=== PATIENT | male | born 1945 | race Caucasian/White ===

== ENCOUNTER 2016-08-23 13:00 | Inpatient (IN) | payer OTHER, BC ==
[2016-08-23] VITALS (15 sets, daily range): BP systolic 123–163; BP diastolic 87–96; PULSE 64–80; TEMP 36.6; O2SAT 92–99; Ht 180.3 cm; Wt 88.0 kg
[~2016-08-23] VITALS: Ht 180.3 cm; Wt 88.0 kg
[2016-08-23 13:29] LABS: BASO % 0.1 %; BASO ABS # 0.01 K/uL (0-0.2); COMPLETE YES; EOS % 0.6 %; IG% 0.1 %; LYMPH % 13.2 %; LYMPH ABS # 0.93 K/uL (1.2-3.4); MEAN CELL VOLUME 88.9 fL (80-100); MEAN CORPUSCULAR HEMOGLOBIN 30.3 pg (25-34); MEAN CORPUSCULAR HGB CONC 34.1 g/dl (32-36); MEAN PLATELET VOLUME 9.7 fL (7.4-10.4); MONO % 5.8 %; NEUT % 80.2 %; PLATELET COUNT 222 K/uL (130-400); RED BLOOD COUNT 4.95 M/uL (4.7-6.1); WHITE BLOOD COUNT 7.02 K/uL (4.8-10.8)
[2016-08-23 13:40] LABS: PROTHROMBIN TIME (PATIENT) 10.3 SECONDS (9.0-12.0)
[2016-08-23 13:49] LABS: ALT/SGPT 33 U/L (12-78); AST/SGOT 18 U/L (15-37); BLOOD UREA NITROGEN 19 mg/dl (7-18); BUN/CREATININE RATIO 16.9 (10-20); CALCIUM 8.3 mg/dl (8.5-10.1); CARBON DIOXIDE 28 mmol/L (21-32); CHLORIDE 106 mmol/L (98-107); GLUCOSE 113 mg/dl (70-99); POTASSIUM 4.2 mmol/L (3.5-5.1); SODIUM 140 mmol/L (136-145)
[2016-08-23 13:55] LABS: ALKALINE PHOSPHATASE 78 U/L (45-117); CKMB/CK RATIO 2.4 (0-3.0)
--- NOTE | 2016-08-23 14:08 | DIAGNOSTIC IMAGING REPORT ---
SINGLE VIEW CHEST CLINICAL HISTORY: Fever. Sepsis. FINDINGS: An AP, portable, upright chest radiograph is compared to study dated 05/27/2007. The examination is mildly degraded by portable technique and patient rotation. The cardiomediastinal silhouette is unremarkable. Chronic interstitial thickening is unchanged. The lungs and pleural spaces are clear. No pneumothorax is seen. The skeletal structures are osteopenic. Chronic posttraumatic deformity is noted in the distal right clavicle. IMPRESSION: No acute cardiopulmonary abnormality. Electronically signed by: Conrad Bucio M.D. 08/23/2016 2:06 PM
[2016-08-23] MEDS ORDERED: EZET10TA41 PO (14:11)
[2016-08-23] MEDS ORDERED: LISI-729 PO (14:11)
[2016-08-23] MEDS ORDERED: NITROGLYCERIN 0.4 MG SL PER TAB CHARGE SL PRN ×2 (15:00→16:30)
--- NOTE | 2016-08-23 15:05 | EMERGENCY ROOM VISIT NOTE ---
History Report prepared by Sudarshan: Alanis Riddle Under the Supervision of: Dr. Royer Urbina D.O. First contact with patient: 13:14 Chief Complaint: CHEST PAIN Stated Complaint: CHEST PAIN TIMES 2 DAYS Nursing Triage Summary: pt to [facility] ED with c/o chest pain with standing and getting sweaty since wednesday History of Present Illness The patient is a 70 year old male who presents to the Emergency Room with complaints of intermittent chest pain that started 2 days ago. He describes the pain as pressure. The pain is worse with standing and walking around but relieved with lying down. Whenever he gets the pain, he also experiences diaphoresis. He denies nausea and shortness of breath. The patient took one aspirin this morning and a second one later on when the pain came back. The aspirin seemed to somewhat relieve his pain. The patient experienced the pain 2 days ago but did not experience any pain yesterday. He states that the pain came back today after he woke up and "did some stuff." The patient denies any heart history but states that he has a history of hypertension and hyperlipidemia. Source of History: patient Onset: 2 days ago Position: chest Quality: pressure Timing: intermittent Modifying Factors (Worsening): other (standing, walking around) Modifying Factors (Relieving): rest (lying down) Associated Symptoms: + diaphoresis, No SOB, No nausea Review of Systems See HPI for pertinent positives & negatives. A total of 10 systems reviewed and were otherwise negative. Past Medical & Surgical Medical Problems: (1) Hyperlipidemia (2) Hypertension Family History Diabetes mellitus Social History Housing Status: lives alone Current/Historical Medications Scheduled Ezetimibe/Simvastatin (Vytorin 10MG/40MG), 1 TAB PO DAILY Lisinopril (Prinivil), 1 TAB PO DAILY Allergies Coded Allergies: No Known Allergies (Unverified , 08/23/16) Physical Exam Vital Signs Date Time Temp Pulse Resp B/P Pulse Ox O2 Delivery O2 Flow Rate FiO2 08/23/16 14:52 82 18 116/80 100 Room Air 08/23/16 14:07 75 08/23/16 14:00 98 Room Air 08/23/16 13:06 36.6 86 18 155/86 100 Physical Exam CONSTITUTIONAL/VITAL SIGNS: Reviewed / noted above. GENERAL: Non-toxic in appearance. INTEGUMENTARY: Warm, dry, and [place]. HEAD: Normocephalic. EYES: without scleral icterus or trauma. ENT/OROPHARYNX: clear and moist. LYMPHADENOPATHY/NECK: Is supple without lymphadenopathy or meningismus. RESPIRATORY: Lungs clear and equal. CARDIOVASCULAR: Regular rate and rhythm. GI/ABDOMEN: Soft and nontender. No organomegaly or pulsatile mass. No rebound or guarding. Normal bowel sounds. EXTREMITIES: Warm and well perfused. BACK: No CVA tenderness. NEUROLOGICAL: Intact without focal deficits. PSYCHIATRIC: normal affect. MUSCULOSKELETAL: Normally developed with good muscle tone. Medical Decision & Procedures ER Provider Diagnostic Interpretation: X ray results and stated below per my interpretation and radiology interpretation. SINGLE VIEW CHEST CLINICAL HISTORY: Fever. Sepsis. FINDINGS: An AP, portable, upright chest radiograph is compared to study dated 05/27/2007. The examination is mildly degraded by portable technique and patient rotation. The cardiomediastinal silhouette is unremarkable. Chronic interstitial thickening is unchanged. The lungs and pleural spaces are clear. No pneumothorax is seen. The skeletal structures are osteopenic. Chronic posttraumatic deformity is noted in the distal right clavicle. IMPRESSION: No acute cardiopulmonary abnormality. Electronically signed by: Conrad Bucio M.D. 08/23/2016 2:06 PM Laboratory Results 08/23/16 13:19 Red Blood Count 4.95, Mean Corpuscular Volume 88.9, Mean Corpuscular Hemoglobin 30.3, Mean Corpuscular Hemoglobin Concent 34.1, Mean Platelet Volume 9.7, Neutrophils (%) (Auto) 80.2, Lymphocytes (%) (Auto) 13.2, Monocytes (%) (Auto) 5.8, Eosinophils (%) (Auto) 0.6, Basophils (%) (Auto) 0.1, Neutrophils # (Auto) 5.62, Lymphocytes # (Auto) 0.93, Monocytes # (Auto) 0.41, Eosinophils # (Auto) 0.04, Basophils # (Auto) 0.01 08/23/16 13:19 Test 08/23/16 13:19 White Blood Count 7.02 K/uL (4.8-10.8) Red Blood Count 4.95 M/uL (4.7-6.1) Hemoglobin 15.0 g/dL (14.0-18.0) Hematocrit 44.0 % (42-52) Mean Corpuscular Volume 88.9 fL (80-100) Mean Corpuscular Hemoglobin 30.3 pg (25-34) Mean Corpuscular Hemoglobin Concent 34.1 g/dl (32-36) Platelet Count 222 K/uL (130-400) Mean Platelet Volume 9.7 fL (7.4-10.4) Neutrophils (%) (Auto) 80.2 % Lymphocytes (%) (Auto) 13.2 % Monocytes (%) (Auto) 5.8 % Eosinophils (%) (Auto) 0.6 % Basophils (%) (Auto) 0.1 % Neutrophils # (Auto) 5.62 K/uL (1.4-6.5) Lymphocytes # (Auto) 0.93 K/uL (1.2-3.4) Monocytes # (Auto) 0.41 K/uL (0.11-0.59) Eosinophils # (Auto) 0.04 K/uL (0-0.5) Basophils # (Auto) 0.01 K/uL (0-0.2) RDW Standard Deviation 42.9 fL (36.4-46.3) RDW Coefficient of Variation 13.1 % (11.5-14.5) Immature Granulocyte % (Auto) 0.1 % Immature Granulocyte # (Auto) 0.01 K/uL (0.00-0.02) Prothrombin Time 10.3 SECONDS (9.0-12.0) Prothromb Time International Ratio 1.0 (0.9-1.1) Activated Partial Thromboplast Time 26.1 SECONDS (21.0-31.0) Partial Thromboplastin Ratio 1.0 Anion Gap 6.0 mmol/L (3-11) Est Creatinine Clear Calc Drug Dose 66.5 ml/min Estimated GFR () 78.4 Estimated GFR (Non- 67.7 BUN/Creatinine Ratio 16.9 (10-20) Calcium Level 8.3 mg/dl (8.5-10.1) Total Bilirubin 0.3 mg/dl (0.2-1) Direct Bilirubin < 0.1 mg/dl (0-0.2) Aspartate Amino Transf (AST/SGOT) 18 U/L (15-37) Alanine Aminotransferase (ALT/SGPT) 33 U/L (12-78) Alkaline Phosphatase 78 U/L (45-117) Total Creatine Kinase 177 U/L (39-308) Creatine Kinase MB 4.3 ng/ml (0.5-3.6) Creatine Kinase MB Ratio 2.4 (0-3.0) Troponin I 0.016 ng/ml (0-0.045) Total Protein 6.9 gm/dl (6.4-8.2) Albumin 3.7 gm/dl (3.4-5.0) Lipase 134 U/L (73-393) Laboratory results as stated above per my review. Medications Administered Medications (Trade) Dose Ordered Sig/May Route Start Time Stop Time Status Last Admin Dose Admin Nitroglycerin (Nitrostat Tab) 0.4 mg Q5M PRN SL 08/23/16 15:00 09/22/16 14:59 08/23/16 14:55 0.4 MG ECG Indication: chest pain Rate (beats per minute): 78 Rhythm: normal sinus Findings: no acute ischemic change, no ectopy Change: Second EKG on 08/23/2016 showed sinus rhythm, rate of 80, ST elevations in inferior leads, ST depressions in lateral leads ED Course 1314: Previous medical records were reviewed. The patient was evaluated in room B11. A complete history and physical examination was performed. 1443: The nurse brought me a second EKG for the patient because he was experiencing chest pain. 1444: A heart alert was called based on the patient's repeat EKG. 1445: I updated the patient on the results of his repeat EKG. He now rates his pain as a 5-6/10 in severity. 1453: Dr. Santillan - Cardiology is at bedside. He discussed the risks and benefits of a heart catheterization with the patient. The patient is in agreement and will go to the dental laboratory assistant. 1500: Ordered Nitroglycerin 0.4 mg SL Medical Decision The differentials that were considered include acute myocardial infarction, acute coronary syndrome, myocarditis, pericarditis, pericardial effusions / tamponad, esophageal perforation, thoracic aortic dissection, pulmonary embolism , pneumonia, pneumothorax, pancreatitis, shingles, acute cholecystitis, perforated abdominal viscus. This is a 70-year-old male who presents to the ED with a chief complaint of intermittent chest pain or the patient states that he had some chest pressure on Wednesday and then it got better. It occurred with exertion and better at rest. He states that he did not have any symptoms yesterday but today he developed pressure in his chest with walking around. He had positive diaphoresis but no shortness of breath or nausea or vomiting. The patient's vital signs here are normal. During his initial evaluation, he did not have any chest discomfort. While he was here, he did develop chest discomfort. His initial EKG showed a normal sinus rhythm at a rate of 78. His second EKG revealed changes suggestive of an acute inferior wall UT while he was having pain. A chest x-ray did not show any acute disease. CBC and chemistry panel was unremarkable. Troponin was negative. Upon second EKG that showed inferior wall UT, heart alert was called. Patient was taken to the cardiac catheterization laboratory for cardiac catheterization. I spoke with Dr. Santillan about the patient. Impression Primary Impression: STEMI (ST elevation myocardial infarction) Scribe Attestation The scribe's documentation has been prepared under my direction and personally reviewed by me in its entirety. I confirm that the note above accurately reflects all work, treatment, procedures, and medical decision making performed by me. Departure Information Dispostion Being Evaluated By Hospitalist Yoel Ching M.D. (PCP) Patient Instructions A Signature Page, My [facility]
[2016-08-23] MEDS ORDERED: FENTANYL CITRATE INJ 50 MCG/1 ML 2 ML VIAL ONE (15:11)
[2016-08-23] MEDS ORDERED: HEPARIN SOD (PORCINE) 1000 UNIT/ML 10 ML VIAL ONE (15:11)
[2016-08-23] MEDS ORDERED: MIDAZOLAM HCL 1 MG/ML 2ML VIAL ONE (15:11)
[2016-08-23] MEDS ORDERED: NiCARDipine HCL INJ 2.5 MG/ML 10 ML AMP ONE (15:11)
[2016-08-23] MEDS ORDERED: NITROGLYCERIN/D5W 100MCG/ML 20ML SYR ONE (15:13)
--- NOTE | 2016-08-23 15:23 | Procedure Note ---
Pre-Mod Sedation Assessment General Date of Moderate Sedation: Aug 23, 2016. Vital Signs: Vital Signs Past 12 Hours Date Time Temp Pulse Resp B/P Pulse Ox O2 Delivery O2 Flow Rate FiO2 08/23/16 14:52 82 18 116/80 100 Room Air 08/23/16 14:07 75 08/23/16 14:00 98 Room Air 08/23/16 13:06 36.6 86 18 155/86 100 Review Cardiovascular: regular rate, rhythm, no edema, no gallop, no JVD, no murmur, normal peripheral pulses Abdomen: normal bowel sounds, non tender, soft, no organomegaly, no pulsatile mass Lungs: lungs clear Pre-Sedation Airway Assessment Oral Cavity: Dental Abnormalities Able to Visualize Vocal Cords: No Short Thick Neck: No Hx of Sleep Apnea: No Smoking Status: Former Smoker Mallampati Classification: Class III Procedure Planning Contraindications-for Mod Sed: None Yes Notes The planned sedation has been discussed with the patient and consent obtained. I have identified the patient, determined the appropriateness of sedation and have assessed the patient immediately prior to the procedure. All medicine(s) and interventions are by my order.
[2016-08-23] MEDS ORDERED: EPTIFIBATIDE 2 MG/ML 10 ML VIAL IV ONE (16:09)
[2016-08-23] MEDS ORDERED: CLOPIDOGREL BISULFATE 300 MG TAB PO ONE (16:09)
[2016-08-23] MEDS ORDERED: EPTIFIBATIDE 0.75 MG/ML 75MG VIAL IV ONE (16:10)
[2016-08-23] MEDS ORDERED: ATROPINE SULFATE 0.1 MG/ML 5ML SYR IV PRN (16:30)
[2016-08-23] MEDS ORDERED: ONDANSETRON INJ 2 MG/ML 2 ML VIAL IV PRN (16:30)
[2016-08-23] MEDS ORDERED: ALUMINUM/MAGNESIUM/SIMETH (MAALOX MAX) 30 ML UDC PO PRN (16:30)
[2016-08-23] MEDS ORDERED: EPTIFIBATIDE BOLUS / DRIP IV ONE (16:30)
[2016-08-23] MEDS ORDERED: MAGNESIUM HYDROXIDE SUSP 30 ML UDC PO PRN (16:30)
[2016-08-23] MEDS ORDERED: ACETAMINOPHEN 325 MG TAB PO PRN (16:30)
[2016-08-23] MEDS ORDERED: ZOLPIDEM TARTRATE 5 MG TAB PO PRN (16:30)
[2016-08-23] MEDS ORDERED: LORAZEPAM INJ 0.5 MG in SYRINGE 0 ML IV PRN (16:30)
--- NOTE | 2016-08-23 16:45 | Procedure Note ---
Post-Mod Sedation Assessment General Date of Moderate Sedation Aug 23, 2016. Vital Signs: Vital Signs Past 12 Hours Date Time Temp Pulse Resp B/P Pulse Ox O2 Delivery O2 Flow Rate FiO2 08/23/16 16:25 69 16 116/82 98 Room Air 08/23/16 16:15 72 16 119/76 98 Room Air 08/23/16 14:59 76 18 125/81 98 Nasal Cannula 2.0 08/23/16 14:52 82 18 116/80 100 Room Air 08/23/16 14:07 75 08/23/16 14:00 98 Room Air 08/23/16 13:06 36.6 86 18 155/86 100 Review - Discharge Criteria Vital Signs Stable: Yes Alert/Oriented/Conversant: Yes Returned to Baseline Mental St: Yes Nausea Absent/Minimal: Yes Pain/Discomfort/Absent/Minimal: Yes Normal/Baseline Respirations: No Active Bleeding?: No Pt Received D/C Instructions: N/A Prescriptions Given: None Specific Proced. D/C Criteria Distal Pulses Present (Cardiac: Yes Groin site assessed-Card Cath: N/A Voided Prior To Discharge: N/A Discharged Patients Adult Escort/Transportation: N/A
--- NOTE | 2016-08-23 17:19 | [facility] Post Operative Brief Note ---
Preliminary Procedure Note Procedure Date Aug 23, 2016. Pre-Procedure Diagnosis STEMI AUC Score 9 Post-Procedure Diagnosis Severe CAD, Successful PCI, Normal LV Systolic Function, Elevated Intracardiac Pressures Procedure(s) Performed Coronary Angiography, Left Heart Cath, LV Angiography, PTCA, Drug Eluting Stent [employer] Dr. 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 Preliminary report: Co dominant circulation. Sub total distal L Cx stenosis prior to origin of three small caliber left PL branches. BLAYNE 3 flow. Mild CAD of RCA and LAD. PTCA( 2.5 X12 mm balloon) and then CASSANDRA ( Medtronic Resolute 2.5 X 14 mm CASSANDRA deployed at rated burst pressure).After PCI, BLAYNE 3 flow. No dissection,thrombus,perforation,or distal embolic event. No cardiac,coronary,or vascular complications. Hemodynamically stable. No arrhythmias. Plan: ICU. IV Integrilin for 12 hrs. Clopidogrel 600 mg given in lab post PCI. ASA,clopidogrel X 1 year. ASA indefinitely. Continue lisinopril. Switch statin to atorvastatin. Start metoprolol. Serial cardiac enzymes,ECG, CBC,PRP. Check lipid profile,direct LDL, Hgb A1C,echocardiogram. Refer to cardiac rehab. Recommendations Medical therapy and/or Counseling, PCI without planned CABG Specimens None Fluids (cc crystalloids) 100 Drains none Procedural Complication(s) None Disposition ICU
[2016-08-23] MEDS ORDERED: LORAZEPAM 2 MG/ML 1 ML VIAL IV PRN (17:45)
[2016-08-23 18:03] LABS: BASO % 0.1 %; BASO ABS # 0.01 K/uL (0-0.2); EOS % 0.4 %; HEMATOCRIT 44.6 % (42-52); IG% 0.2 %; LYMPH % 6.1 %; LYMPH ABS # 0.51 K/uL (1.2-3.4); MEAN CELL VOLUME 90.1 fL (80-100); MEAN CORPUSCULAR HEMOGLOBIN 29.9 pg (25-34); MEAN PLATELET VOLUME 9.6 fL (7.4-10.4); MONO % 5.4 %; NEUT % 87.8 %; PLATELET COUNT 185 K/uL (130-400); RED BLOOD COUNT 4.95 M/uL (4.7-6.1); WHITE BLOOD COUNT 8.39 K/uL (4.8-10.8)
[2016-08-23 18:04] LABS: COMPLETE YES; MEAN CORPUSCULAR HGB CONC 33.2 g/dl (32-36)
--- NOTE | 2016-08-23 18:15 | HISTORY & PHYSICAL EXAMINATION ---
DATE OF ADMISSION: 08/23/2016 ATTENDING AND ADMITTING PHYSICIAN: Marco Sanitllan Jr, MD PRIMARY PHYSICIAN: Yoel Mckeon MD HISTORY OF PRESENT ILLNESS: The patient is a 70-year-old white male. No history of heart disease. History of hypertension and dyslipidemia. He has never been hospitalized overnight. No other significant past medical history. On August 21, he had new onset of exertionally precipitated chest tightness. This could sometimes be associated with diaphoresis. The episodes occurred with exertion. Relief with rest within 5-10 minutes. He states the episodes occurred throughout the day. They would only occur with exertion. No rest pain. On August 22, he had no exertionally precipitated chest pain. No other anginal symptoms. No anginal equivalent symptoms. He felt that his exercise tolerance and stamina on August 22 were stable. On August 23, which is today, he had reccurrence of exertionally precipitated chest tightness with exertion, approximately at 10:00 a.m. Because the symptoms continued to occur, he came to the Emergency Department for evaluation. On arrival to the Emergency Department, he had no complaints of chest discomfort. His initial electrocardiogram revealed no diagnostic changes of myocardial ischemia or injury. At 2:41 p.m. after going to the restroom, another electrocardiogram was performed when he complained of chest discomfort. This revealed sinus rhythm, ST segment elevations in leads 2, 3 and aVF. Slight elevation in V6. Slight depression in 1 and aVL. Slight depression in V2. Because of these symptoms and electrocardiographic changes, a heart alert was called. The patient had taken aspirin prior to arrival to the Emergency Department. He had driven himself to the hospital. In the Emergency Department, he received sublingual nitroglycerin following episode of chest pain prompting the second EKG. After receiving sublingual nitroglycerin, his chest pain resolved within approximately 5 minutes. The patient was evaluated by me in the Emergency Department. At the time of my exam, his chest pain had resolved. There were no ST elevations on the monitored leads. He had no other cardiac complaints. Because of the unstable anginal symptoms and the ST segment elevations present on the second electrocardiogram, it was recommended the patient to undergo emergency cardiac catheterization with possible coronary intervention. The procedure, risk, benefits and alternatives were extensively discussed with him. He agreed to the procedure. He was then brought to the cardiac catheterization laboratory for cardiac catheterization. Cardiac catheterization was performed via a 6-Wolof sheath in the right radial artery. The catheterization revealed mild coronary calcifications. Codominant circulation. The right coronary artery with no significant obstructive disease. Proximal RCA with 10% stenosis. Mid RCA with 10-20% stenosis. Minimal luminal irregularities of the distal RCA. A small caliber posterior descending artery. The left main coronary artery was a large caliber vessel without obstructive disease. It gave rise to large caliber left descending and left circumflex coronary arteries. The distal left circumflex had a subtotal stenosis prior to the origin of 3 long small caliber posterolateral branches. The very proximal LAD gave rise to a long medium caliber first diagonal artery. The early mid LAD gave rise to a very small caliber second diagonal artery which had 70% ostial stenosis. 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 The mid LAD had diffuse mild atherosclerotic disease with 10-30% luminal diameter narrowing. On initial angiography, BLAYNE 3 flow was present into the distal left circumflex and its branches. PTCA was then performed to the distal left circumflex stenosis with a 2.5 x 12 mm balloon. There was marked improvement in the appearance of the distal left circumflex stenosis. BLAYNE 3 flow. A 2.5 x 14 mm Medtronic Resolute Integrity drug-eluting stent was then deployed in the distal left circumflex. It was deployed at the rated burst pressure. The residual stenosis was 0-10%. No evidence of dissection, thrombus, perforation or distal embolic event. BLAYNE 3 flow in the circumflex and its distal branches. The patient had no anginal complaints during or following coronary intervention. He was hemodynamically stable throughout the procedure. No arrhythmias. Hemostasis was obtained at the right radial catheterization site with application of a Terumo TR band. Prior to coronary intervention, he received intravenous heparin and Integrilin. A therapeutic activated clotting time was documented. PAST MEDICAL HISTORY: 1. Hypertension. 2. Dyslipidemia. 3. No prior overnight hospitalizations. PAST SURGICAL HISTORY: None. MEDICATIONS AT TIME OF ADMISSION: Vytorin and lisinopril. The patient did not know the doses. ALLERGIES: No known drug allergies. SOCIAL HISTORY: The patient is single. He lives alone. 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 He stopped smoking cigarettes in 1983. Occasional use of alcohol. He has no children. FAMILY HISTORY: Negative for premature coronary artery disease. His mother had valvular heart disease when she was elderly. REVIEW OF SYSTEMS: 1. As above. 2. No recent decrease in exercise tolerance. 3. No orthopnea, PND, palpitations, lightheadedness, syncope or peripheral edema. 4. No cerebrovascular or peripheral vascular complaints. 5. No bleeding complaints. 6. No pulmonary, GI or urinary complaints. 7. No HEENT complaints. PHYSICAL EXAMINATION: GENERAL: In the Emergency Department certainly being in no distress. VITAL SIGNS: Pulse 82, blood pressure 116/80, pulse oximetry on room air 100%. NECK: No jugular venous distention. Carotids 2/2 bilaterally. Normal upstroke. No bruits. LUNGS: Normal respiratory effort. Clear. No rales or wheezes. HEAD: Normal. EYES: Pupils are equal and round. Anicteric. Conjunctivae normal. No xanthelasma. HEART: PMI normal. No lifts or heaves. Regular rate and rhythm. S1, S2 normal. No S3 or S4. No murmur or rub. ABDOMEN: Soft. Nontender. No palpable masses or organomegaly. No bruits. Normal bowel sounds. EXTREMITIES: No pretibial edema. No cyanosis or clubbing. Pulses: Radial, femoral, dorsalis pedis, posterior tibial pulses strongly palpable bilaterally. DATA: Electrocardiogram after complaints of chest pain with inferior ST elevations. ST elevation in V6. ST depressions in [address]VL[address] Also slight ST depression in V2. Chest x-ray performed in the Emergency Department and reviewed by me, normal. LABORATORY DATA: Labs performed in the Emergency Department revealed WBC 7.03, hemoglobin 15.0, hematocrit 44.0, platelet count 222. INR 1.0. PTT 26.1. Metabolic profile; sodium 140, potassium 4.2, chloride 106, carbon dioxide 28, BUN 19, creatinine 1.1, random glucose 113. AST 18. ALT 33. Total CK 177 with MB of 4.3. CK-MB ratio 2.4. Troponin I 0.016. Lipase 134. Albumin 3.7 , Total protein 6.9. ASSESSMENT: 1. Acute coronary syndrome. Unstable anginal symptoms starting August 21. Evidence of acute inferior myocardial infarction after episode of chest pain developing in the Emergency Department. His initial electrocardiogram did not reveal any ischemic changes. 2. Subtotal distal left circumflex stenosis on emergency cardiac catheterization. 3. Successful emergency intervention to distal left circumflex stenosis. Deployment of 2.5 x 14 mm drug-eluting stent. 4. No coronary, cardiac or vascular complications evident thus far. 5. Coronary artery disease risk factors include hypertension and dyslipidemia. He stopped smoking cigarettes in 1983. No family history of premature coronary artery disease. No history of diabetes mellitus. The random glucose is mildly increased, likely reflects stress reaction. 6. History of hypertension. Blood pressure controlled today. 7. Dyslipidemia. PLAN: 1. Continue intravenous Integrilin for approximately 12 hours. 2. The patient was given 600 mg oral loading dose of clopidogrel post PCI. 3. Aspirin and clopidogrel for at least 1 year. Aspirin therapy indefinitely. 4. Discontinue Vytorin. Switch patient to atorvastatin 80 mg daily. 5. Continue lisinopril. 6. Start metoprolol. We will start with metoprolol tartrate 25 mg b.i.d. 7. Check lipid profile and direct LDL. 8. Post-procedure cardiac enzymes and electrocardiograms. 9. Echocardiogram on the morning of August 24 to further evaluate LV systolic function. On LV angiography performed with a hand injection of contrast dye post-coronary intervention the LV wall motion ejection fraction appeared normal. 10. Post-Integrilin CBC. 11. PRP in a.m. 12. The patient had prerenal azotemia on his admission labs. We will give him intravenous fluids overnight. 13. [place] Di[place] consultation with Dr. Lana Cunha. JEAN
[2016-08-23] MEDS: SODIUM CHLORIDE 0.9% 1000ML 1,000 ML IV SCH ×2 (18:23→19:48)
[2016-08-23] MEDS: EPTIFIBATIDE INJ 75 MG PREMIXED IV SCH ×2 (18:25→21:04)
[2016-08-23] MEDS: METOPROLOL TARTRATE 25 MG TAB PO SCH (18:33)
[2016-08-23 18:34] LABS: CHOLESTEROL 113 mg/dl (0-200); CHOLESTEROL/HDL RATIO 2.5; CKMB/CK RATIO 2.8 (0-3.0); HDL CHOLESTEROL 45 mg/dl; TRIGLYCERIDES 60 mg/dl (0-150); VERY LOW DENSITY LIPOPROT CALC 12 mg/dl
[2016-08-23] MEDS ORDERED: METOPROLOL TARTRATE 1 MG/ML VIAL ONE (19:29)
[2016-08-23] MEDS ORDERED: NURSING VERBAL MED ORDER ONE (19:30)
[2016-08-23] MEDS ORDERED: PNEUMOCOCCAL ADMINISTRATION CHARGE ONE (21:00)
[2016-08-23] MEDS ORDERED: PNEUMOCOCCAL POLYSACCHARIDES 25 MCG/0.5 ML VIAL/SYR IM. ONE (21:00)
--- NOTE | 2016-08-23 21:47 | CRITICAL CARE CONSULTATION ---
DATE OF CONSULTATION: 08/23/2016 CHIEF COMPLAINT: Chest pressure. HISTORY OF PRESENT ILLNESS: Mr. Barajas is a 70-year-old gentleman whose birthday is tomorrow. He reports that 2 days ago, he started to experience chest pressure in the middle of his chest, nonradiating, associated with diaphoresis and always occurring with exertion. He had it on and off throughout the day and each time he would stop and rest or lie down for a while. It did not worsen throughout the day but it would last 5 or 10 minutes at a time. He decided eventually to just lie down for the evening, and when he woke up yesterday, he did not have any pain. In fact, he did not have any pain at all throughout the day. He went to "the club" and had several alcoholic beverages last evening for but was home by 6:00 p.m. He went to bed and was pain free. When he woke up this morning, he started to experience the same kind of pain and eventually decided to go to [facility] which is located near [place]. [facility] was closed, so he went to [place] and then went home. The chest pain occurred again and he went to the Emergency Department. He also took 2 aspirin today. He reports chills last night and thought he had the flu. He denies nausea, vomiting or dizziness. He had some diarrhea on Wednesday which has resolved. In the Emergency Department, an EKG was performed along with chest x-ray and labs. His initial EKG did not show any acute changes but he started to have chest pain after getting up and walking to the bathroom in the Emergency Department. EKG done at that time showed ST-segment elevations in leads II, III and aVF. A heart alert was called and he proceeded to cardiac catheterization through the right wrist. He received a drug-eluting stent to the distal left circumflex artery. He was placed on Integrilin after being loaded with Plavix and was transferred to the intensive care unit where he remains. He has no chest pain presently. I should also note that he received 1 sublingual nitroglycerin in the Emergency Department and his pain resolved. Since his cardiac catheterization, he has been having some hematuria. PAST MEDICAL HISTORY: Hypertension, hyperlipidemia. PAST SURGICAL HISTORY: Status post bilateral cataract extractions. ALLERGIES: No known drug allergies. OUTPATIENT MEDICATIONS: Vytorin 10/40 mg daily, Prinivil unknown dose daily, Adderall 20 mg in the morning and 10 in the evening. SOCIAL HISTORY: He lives alone and is a retired [employer]. He smoked 1 pack of cigarettes per day for 10 years and quit in 1983. He drinks 4-5 beers and maybe a shot of tequila on Wednesdays and Fridays but never in between and "never when I am home alone." FAMILY HISTORY: Significant for diabetes mellitus and mother who had some valvular heart disease. REVIEW OF SYSTEMS: He was in his normal state of health prior to Wednesday. He denies any fevers, nausea, vomiting, loss of appetite, weight loss, syncope, fall, palpitations. Additional review of systems is negative or noncontributory in a 12-point system. PHYSICAL EXAMINATION: VITAL SIGNS: Temperature 36.6, heart rate 84, respiratory rate 25, blood pressure 154/95, oxygen saturation 96% on room air. HEENT: He has a full head of [place]on hair. Pupils are equally round and reactive to light. Oral mucosa is moist. Posterior pharynx clear. NECK: No adenopathy, no bruits. LUNGS: Clear to auscultation bilaterally. No rales, rhonchi or wheezes. HEART: Regular rate and rhythm. No murmurs, gallops or rubs. ABDOMEN: Obese, soft, nondistended, nontender, no hepatosplenomegaly. Bowel sounds active. EXTREMITIES: Warm. The TR band is in place on the right wrist and capillary refill is adequate in that hand. Dorsalis pedis pulses are 1+ bilaterally. Left radial pulse is 2+. NEUROLOGIC: He can easily carry on a conversation and follows commands. LABORATORY DATA: White blood cell count 7, hemoglobin 15, hematocrit 44, platelets 222. Sodium 142, potassium 4.2, chloride 106, CO2 28, BUN 19, creatinine 1.1. Blood sugar 113. LFTs within normal limits. First troponin 0.016, second troponin 0.343. Cholesterol panel, cholesterol 113, triglycerides 60, LDL 53, VLDL 12, HDL 45. Lipase 134. Portable chest x-ray done in the Emergency Department was reviewed and shows no acute infiltrate. EKGs have been reviewed. IMPRESSION: 1. Acute inferior wall myocardial infarction. 2. Status post drug-eluting stent to the distal left circumflex. 3. Hematuria. 4. History of hypertension. 5. History of hyperlipidemia. PLAN: 1. Continue Integrilin, beta-blockade, statin, aspirin, Plavix and GLORIA inhibitor. 2. Echocardiogram tomorrow. 3. Continue to trend troponins. 4. I will order a urinalysis. He may need followup with his PCP or urology as an outpatient. 5. I have ordered p.r.n. Lopressor for his elevated blood pressure. 6. He says he can "exist" without his Adderall. Thank you for asking me to see this very nice gentleman. Please call me with any questions or concerns. JEAN
[2016-08-23 21:56] LABS: MANUAL MICROSCOPIC REQUIRED? YES; URINE APPEARANCE CLOUDY (CLEAR); URINE BILIRUBIN NEG (NEG); URINE COLOR RED; URINE NITRITE NEG (NEG); UROBILINOGEN NEG (NEG)
[2016-08-23 21:57] LABS: REVIEW REQ? NO
[2016-08-23 22:00] LABS: URINE RBC >30 /hpf (0-4)
[2016-08-23 22:01] LABS: URINE BACTERIA NEG (NEG)
[2016-08-24] VITALS (28 sets, daily range): BP systolic 115–169; BP diastolic 71–102; PULSE 57–71; TEMP 36.6–36.9; O2SAT 93–97
[2016-08-24] MEDS ORDERED: METOPROLOL TARTRATE 1 MG/ML VIAL IV PRN (00:30)
[2016-08-24] MEDS ORDERED: NURSING VERBAL MED ORDER ONE (01:00)
[2016-08-24] MEDS ORDERED: NITROGLYCERIN OINT 2% 1GM PACKET ONE (01:03)
[2016-08-24] MEDS ORDERED: LABETALOL HCL IV 5 MG/ML 20ML IV STA (01:05)
[2016-08-24] MEDS: NITROGLYCERIN OINT 2% 1GM PACKET EXT SCH ×2 (01:13→07:52)
[2016-08-24] MEDS ORDERED: ENALAPRILAT IV 1.25 MG in DEXTROSE 5% 25ML 25 ML IV PRN (01:15)
[2016-08-24 01:21] LABS: CKMB/CK RATIO 3.8 (0-3.0)
[2016-08-24] MEDS ORDERED: Integrelin infusion --> STOP ORDER ONE (05:00)
[2016-08-24] MEDS: SODIUM CHLORIDE 0.9% 1000ML 1,000 ML IV SCH (05:22)
[2016-08-24 05:23] LABS: BASO % 0.3 %; BASO ABS # 0.02 K/uL (0-0.2); COMPLETE YES; EOS % 1.4 %; HEMATOCRIT 37.5 % (42-52); IG% 0.2 %; LYMPH % 16.1 %; LYMPH ABS # 1.05 K/uL (1.2-3.4); MEAN CELL VOLUME 87.8 fL (80-100); MEAN CORPUSCULAR HGB CONC 34.1 g/dl (32-36); MEAN PLATELET VOLUME 9.7 fL (7.4-10.4); MONO % 13.3 %; NEUT % 68.7 %; PLATELET COUNT 200 K/uL (130-400); RED BLOOD COUNT 4.27 M/uL (4.7-6.1); WHITE BLOOD COUNT 6.53 K/uL (4.8-10.8)
[2016-08-24 05:56] LABS: BUN/CREATININE RATIO 18.5 (10-20); CREATININE 0.95 mg/dl (0.60-1.40); POTASSIUM 3.7 mmol/L (3.5-5.1)
[2016-08-24] MEDS: METOPROLOL TARTRATE 25 MG TAB PO SCH (07:43)
[2016-08-24 08:10] LABS: ESTIMATED AVERAGE GLUCOSE 105 mg/dl; HA1C FLAG Normal (Normal)
[2016-08-24] MEDS ORDERED: CLOPIDOGREL BISULFATE 75 MG TAB PO SCH (09:00)
[2016-08-24] MEDS ORDERED: ATORVASTATIN 40 MG TAB PO SCH (09:00)
[2016-08-24] MEDS ORDERED: LISINOPRIL 10 MG TAB PO SCH (09:00)
[2016-08-24] MEDS ORDERED: ASPIRIN 81 MG ECTAB PO SCH (09:00)
[2016-08-24 09:32] LABS: CKMB/CK RATIO 3.8 (0-3.0)
[2016-08-24] MEDS ORDERED: PLV75 PO (11:51)
[2016-08-24] MEDS ORDERED: NTRSLP4 SL (11:51)
[2016-08-24] MEDS ORDERED: TPRSR50 PO (11:51)
[2016-08-24] MEDS ORDERED: LPT40 PO (11:51)
[2016-08-24] MEDS ORDERED: ASPEC81 PO (11:51)
--- NOTE | 2016-08-24 11:55 | Discharge Instructions ---
Discharge Instructions Procedure Procedure Date: Aug 24, 2016. Reason for Visit: Hyperlipidemia,Hypertension,Stemi. Discharge Discharge Date: Aug 24, 2016. Discharge Diagnosis: Acute Inferior [place] Stent of left circumflex coronary artery Problem List: Medical Problems: (1) STEMI (ST elevation myocardial infarction) Status: Acute Last Recorded Wt (Kilograms): 88.000 Medications Stopped Medication(s): STOP amphetamine salts( adderal),diltiazem Anesthesia Post Anesthesia Instructions: If you have had General Anesthesia or IV Sedation: * Do not drive today. * Resume driving when surgeon permits. * Do not make important decisions or sign legal documents today. * Call surgeon for: 1. Temperature elevations greater than 101 degrees F. 2. Uncontrollable pain. 3. Excessive bleeding. 4. Persistent nausea and vomiting. 5. Medication intolerance (nausea, vomiting or rash). * For nausea and vomiting use only clear liquids such as: tea, soda, bouillon until nausea subsides, then gradually increase diet as tolerated. * If you have any concerns or questions, call your surgeon's office. If physician is unavailable and it is an emergency, call 911 or go to the nearest emergency room. Instructions Activity Recommendations: lifting limitation (no lifting over 10 pounds for 48hr) Allergies: Coded Allergies: No Known Allergies (Unverified , 08/23/16) Follow Up Christian Santillan Recommendations: Call your doctor if: * Temperature above 101 degrees * Pain not relieved by pain medicine ordered * There is increased drainage or redness from any incision * You have any unanswered questions or concerns. Your Doctors Instructions noted above were prepared by provider Marco Santillan. Patient Signature Section: Patient Instructions Signature Page Maicol Barajas Patient (or Guardian) Signature/Date: I have read and understand the instructions given to me by my caregivers. Caregiver/RN/Doctor Signature/Date: The above-named patient and/or guardian has received patient instructions on this date. + Original Patient Signature Page (only) stays with chart. Please make copy for patient.
--- NOTE | 2016-08-24 12:01 | Discharge Instructions ---
Discharge Instructions Procedure Procedure Date: Aug 24, 2016. Reason for Visit: Hyperlipidemia,Hypertension,Stemi. Discharge Discharge Date: Aug 24, 2016. Problem List: Medical Problems: (1) STEMI (ST elevation myocardial infarction) Status: Acute Last Recorded Wt (Kilograms): 88.000 Medications Stopped Medication(s): STOP amphetamine salts( adderal),diltiazem Anesthesia Post Anesthesia Instructions: If you have had General Anesthesia or IV Sedation: * Do not drive today. * Resume driving when surgeon permits. * Do not make important decisions or sign legal documents today. * Call surgeon for: 1. Temperature elevations greater than 101 degrees F. 2. Uncontrollable pain. 3. Excessive bleeding. 4. Persistent nausea and vomiting. 5. Medication intolerance (nausea, vomiting or rash). * For nausea and vomiting use only clear liquids such as: tea, soda, bouillon until nausea subsides, then gradually increase diet as tolerated. * If you have any concerns or questions, call your surgeon's office. If physician is unavailable and it is an emergency, call 911 or go to the nearest emergency room. Instructions Activity Recommendations: lifting limitation (no lifting over 10 pounds for 48hr) Allergies: Coded Allergies: No Known Allergies (Unverified , 08/23/16) Provider Instructions Call 911 immediately for any reoccurrence of chest pain not relieved with sub lingual nitroglycerin in 10 minutes. Follow Up Additional Instructions: Take aspirin and clopidogrel every day Follow-up with: Dr. Santillan. Office will call with an appointment. Office number is [phone]. Call for any questions or problems. Christian Santillan Recommendations: Call your doctor if: * Temperature above 101 degrees * Pain not relieved by pain medicine ordered * There is increased drainage or redness from any incision * You have any unanswered questions or concerns. Your Doctors Instructions noted above were prepared by provider Marco Santillan. Patient Signature Section: Patient Instructions Signature Page Maicol Barajas Patient (or Guardian) Signature/Date: I have read and understand the instructions given to me by my caregivers. Caregiver/RN/Doctor Signature/Date: The above-named patient and/or guardian has received patient instructions on this date. + Original Patient Signature Page (only) stays with chart. Please make copy for patient.
--- NOTE | 2016-08-24 16:16 | ECHOCARDIOGRAM REPORT ---
*NOTICE TO RECEIVING DEMOCRAT AGENCY This information is strictly Confidential and protected under [place] law. [place] law prohibits you from making any further disclosure of this information unless further disclosure is expressly permitted by the written consent of the person to whom it pertains or is authorized by law. A general authorization for the release of medical or other information is not sufficient for this purpose. Hospital accepts no responsibility if the information is made available to any other person, INCLUDING THE PATIENT. Interpretation Summary * Name: JCARLOS WINSTON Study Date: 08/24/2016 07:54 AM BP: 116/76 mmHg * Patient Location: .MSICU\S\E109\S\1 HR: 58 * : 1945 (M/d/yyyy) Gender: Male Height: 71 in * Age: 71 yrs Ethnicity: CA Weight: 194 lb * Ordering Physician: Marco Santillan * Referring Physician: Self, Referred * Performed By: Lorena Lemus RDCS * * Reason For Study: AMI * BSA: 2.1 m2 * History: AMI * -- Conclusions -- * 1. Normal LV size and wall thickness. * 2. Normal LV systolic function. LVEF 60-65%. No regional wall motion abnormalities * 3. Normal RV size and function. * 4. No significant valvular abnormalities. * 5. No prior studies for comparison. Procedure Details * A complete two-dimensional transthoracic echocardiogram was performed (2D, M-mode, Doppler and color flow Doppler). Left Ventricle * The left ventricle is grossly normal size. * There is mild concentric left ventricular hypertrophy. * Ejection Fraction = 60-65%. * No regional wall motion abnormalities noted. Right Ventricle * The right ventricle is grossly normal size. * The right ventricular systolic function is normal as assessed by tricuspid annular plane systolic excursion (TAPSE) (normal >1.5 cm). Atria * The left atrial size is normal. * Right atrial size is normal. * No ASD detected; PFO is not assessed. Mitral Valve * The mitral valve is grossly normal. * There is no mitral valve stenosis. * Significant mitral regurgitation is absent. Tricuspid Valve * The tricuspid valve is not well visualized, but is grossly normal. * There is no tricuspid stenosis. * Significant tricuspid regurgitation is absent. Aortic Valve * The aortic valve is trileaflet. * No hemodynamically significant valvular aortic stenosis. * There is no significant aortic regurgitation. Pulmonic Valve * The pulmonic valve is not well seen, but is grossly normal. * Pulmonic stenosis is absent. * There is no pulmonic valvular regurgitation. Great Vessels * The aortic root and proximal ascending aorta are normal sized. Pericardium/Pleural * There is no pericardial effusion. MMode 2D Measurements and Calculations IVSd 1.4 cm IVSs 1.7 cm LVIDd 3.7 cm LVIDs 2.4 cm LVPWd 1.3 cm LVPWs 1.7 cm IVS/LVPW 1.1 FS 35.4 % EDV(Teich) 57.8 ml ESV(Teich) 19.9 ml EF(Teich) 65.6 % EDV(cubed) 50.3 ml ESV(cubed) 13.6 ml EF(cubed) 73.0 % % IVS thick 28.4 % % LVPW thick 32.7 % LV mass(C)d 167.7 grams LV mass(C)dI 80.5 grams/m\S\2 LV mass(C)s 151.7 grams LV mass(C)sI 72.9 grams/m\S\2 SV(Teich) 38.0 ml SI(Teich) 18.2 ml/m\S\2 SV(cubed) 36.7 ml SI(cubed) 17.7 ml/m\S\2 Ao root diam 3.3 cm Ao root area 8.6 cm\S\2 LA dimension 3.8 cm LA/Ao 1.2 LVAd ap4 28.4 cm\S\2 LVLd ap4 9.4 cm EDV(MOD-sp4) 73.4 ml EDV(sp4-el) 72.7 ml LVAs ap4 16.5 cm\S\2 LVLs ap4 8.1 cm ESV(MOD-sp4) 30.2 ml ESV(sp4-el) 28.3 ml EF(MOD-sp4) 58.8 % EF(sp4-el) 61.1 % LVAd ap2 34.4 cm\S\2 LVLd ap2 9.9 cm EDV(MOD-sp2) 96.9 ml EDV(sp2-el) 100.9 ml LVAs ap2 19.6 cm\S\2 LVLs ap2 8.9 cm ESV(MOD-sp2) 38.9 ml ESV(sp2-el) 36.7 ml EF(MOD-sp2) 59.8 % EF(sp2-el) 63.6 % LVLd %diff 5.2 % EDV(MOD-bp) 86.6 ml LVLs %diff 8.9 % ESV(MOD-bp) 35.3 ml EF(MOD-bp) 59.2 % SV(MOD-sp4) 43.1 ml SI(MOD-sp4) 20.7 ml/m\S\2 SV(MOD-sp2) 58.0 ml SI(MOD-sp2) 27.8 ml/m\S\2 SV(MOD-bp) 51.3 ml SI(MOD-bp) 24.6 ml/m\S\2 SV(sp4-el) 44.4 ml SI(sp4-el) 21.3 ml/m\S\2 SV(sp2-el) 64.2 ml SI(sp2-el) 30.8 ml/m\S\2 Doppler Measurements and Calculations MV E max bobbi 97.7 cm/sec MV A max bobbi 102.8 cm/sec MV E/A 0.95 MV dec time 0.28 sec Ao V2 max 143.8 cm/sec Ao max PG 8.3 mmHg Ao max PG (full) -2.10 mmHg LV V1 max PG 10.4 mmHg LV V1 max 161.0 cm/sec TR max bobbi 226.2 cm/sec
--- NOTE | 2016-08-24 20:35 | DISCHARGE SUMMARY ---
DISCHARGE DIAGNOSES: 1. Acute coronary syndrome. Presentation to [facility] Emergency Department 08/23/2016 with new onset anginal symptoms. 2. Evidence of acute inferior and posterolateral myocardial injury on electrocardiogram while in the Emergency Department. Initial electrocardiogram showed no evidence of ischemia. The patient had developed chest pain following a visit to the restroom. Quick relief of his chest pain with sublingual nitroglycerin. 3. Subsequent emergency cardiac catheterization with subtotal distal left circumflex occlusion. Could be dominant circulation. 4. Successful intervention to distal left circumflex stenosis with a 2.5 x 14 mm drug-eluting stent. No vascular, cardiac, or coronary complications. 5. Dyslipidemia. 6. Hypertension. 7. No post-percutaneous coronary intervention angina, heart failure, or arrhythmias. DISCHARGE CONDITION: Good. DISCHARGE MEDICATIONS: Atorvastatin 80 mg daily, aspirin 81 mg daily, clopidogrel 75 mg daily, lisinopril 10 mg daily, metoprolol succinate ER 50 mg daily, sublingual nitroglycerin 0.4 mg as needed. It was found out today that the patient had been on Adderall prior to admission. It was recommended to him that this be discontinued. He was warned of the adverse cardiac effects from this medication. The patient was also on diltiazem preadmission. This will be discontinued. DISCHARGE FOLLOW UP: The patient will have a cardiology followup with Dr. Marco Santillan in 1-2 weeks. Continue medical followup with his primary care provider. DISCHARGE ACTIVITY: No lifting over 10 pounds with right hand for 48 hours. DISCHARGE INSTRUCTIONS: The patient was instructed to take his medications everyday as directed. Especially, he should take his aspirin and clopidogrel daily without interruption. He was instructed to call 911 immediately for any reoccurrence of the chest discomfort which prompted his admission; this is provided discomfort is not relieved promptly with sublingual nitroglycerin. He was asked to contact Dr. Santillan for any recurrence of any chest pain or any other cardiac issues. He was also asked to call 911 immediately for any sustained severe chest pain. ALLERGIES: No known drug allergies. DISCHARGE DIET: Low fat and low cholesterol. On August 24, the patient was seen and examined by me. He had no complaints of any chest pain or other anginal symptoms post-PCI. No orthopnea or PND. No dyspnea. No palpitations, lightheadedness, syncope, or peripheral edema. No pain in his right radial catheterization site. No pain in his right hand. No cerebrovascular complaints. No GI or pulmonary complaints. No fevers or chills. No urinary complaints. No bleeding complaints. No skin rash complaints. PHYSICAL EXAMINATION: VITAL SIGNS: On day of discharge revealed oral temperature 36.6, pulse 68, blood pressure 126/71, and pulse oximetry 96%. NECK: No jugular venous distention. LUNGS: Normal respiratory effort. Clear. No rales or wheezes. HEART: Regular rate and rhythm. S1, S2 normal. No S3 or S4. No murmur or rub. ABDOMEN: Soft. Nontender. No palpable masses or organomegaly. No bruits. EXTREMITIES: Right radial catheterization site without bleeding or hematoma. No evidence of arterial insufficiency in the right hand. SKIN: No rashes. NEUROLOGIC: Alert and oriented x3. Motor grossly intact. PSYCHIATRIC: Affect normal. DATA: Electrocardiogram this morning August 24 reveals normal sinus rhythm. T inversions in leads [address] segment evidence of myocardial ischemia or injury. Echocardiogram performed today with normal LV size and systolic function. No regional wall motion abnormalities. LV ejection fraction 65%. No significant valvular abnormalities. LABORATORY DATA: This morning with WBC 6.53, hemoglobin 12.8, hematocrit 37.5, platelet count 200. Metabolic profile - sodium 142, potassium 3.7, chloride 110, carbon dioxide 26, BUN 18, creatinine 0.95, random glucose 82. CK totals post-admission revealed CK is 147, 138 and 119 with respective MBs of 4.1, 5.2 and 4.5. Troponin I 0.343, 1.330, and 0.735. Lipid profile with total cholesterol 113, direct LDL 53, HDL 45, triglycerides 60. Hemoglobin A1c 5.3. ASSESSMENT: 1. Status post acute inferior posterolateral myocardial infarction secondary to subtotal distal stenosis in a codominant left circumflex. Successful intervention to the left circumflex stenosis with deployment of a drug-eluting stent. 2. No post-procedure cardiac, coronary, or vascular complications. 3. Renal function stable post-procedure. 4. Mild decrease in hemoglobin post-procedure on hydration. 5. Blood pressure controlled this morning. 6. Dyslipidemia. Post-admission lipid profile with good LDL. PLAN: 1. The patient is being discharged home. 2. Follow up with Dr. Santillan in 1-2 weeks. Continue medical followup with his primary care provider. 3. Discontinue the diltiazem, which he was on preadmission. He has been started on metoprolol succinate ER 50 mg daily. 4. Lisinopril 10 mg daily. This was his lisinopril dose at the time of admission. 5. His Vytorin was discontinued. He was switched to atorvastatin 80 mg once daily. This is in accordance with current guidelines in patients with documented vascular disease. 6. Aspirin and clopidogrel for 1 year. Aspirin therapy indefinitely. 7. The patient was instructed to discontinue Adderall. He was on this prior to admission. He was warned of the potential adverse cardiac effects from this. Over 30 minutes was spent by me today in discharge management of this patient.
[2017-03-08] MEDS ORDERED: CLOP1TAB15 PO (09:05)
[2017-03-08] MEDS ORDERED: LISI-725 PO (09:05)
[2017-03-08] MEDS ORDERED: ASPI81TA28 PO (09:05)
[2017-03-08] MEDS ORDERED: METO50TA7 PO (09:05)
[2017-03-08] MEDS ORDERED: NTRGSL/4 UT (09:05)
[2017-03-08] MEDS ORDERED: ATOR-26 PO (09:05)
[2017-03-08] MEDS ORDERED: BUPR-79 PO (09:06)
[2017-03-08] MEDS ORDERED: PRLSR20 PO (09:06)
[2017-03-08] MEDS ORDERED: IBUP-103 PO (09:06)
[2017-05-04] MEDS ORDERED: CLOP1TAB15 PO (11:04)
== END 2016-08-24 13:50 | disposition home or self-care (01) | DRG 247 ==
LOC: C.EDB 13:01 → C.MSICU 16:43
PROVIDERS: ADMIT Internal Medicine Cardiovascular Disease; ATTEND Internal Medicine Cardiovascular Disease
PROC: 027034Z Dilation of Coronary Artery, One Artery with Drug-eluting Intraluminal Device, Percutaneous Approach (ICD-10-PCS; principal; 2016-08-23 15:15)
PROC: 02703ZZ Dilation of Coronary Artery, One Artery, Percutaneous Approach (ICD-10-PCS; principal; 2016-08-23 15:15)
PROC: 4A023N7 Measurement of Cardiac Sampling and Pressure, Left Heart, Percutaneous Approach (ICD-10-PCS; principal; 2016-08-23 15:15)
PROC: B2111ZZ Fluoroscopy of Multiple Coronary Arteries using Low Osmolar Contrast (ICD-10-PCS; principal; 2016-08-23 15:15)
PROC: B2151ZZ Fluoroscopy of Left Heart using Low Osmolar Contrast (ICD-10-PCS; principal; 2016-08-23 15:15)
DX: I21.19 ST elevation (STEMI) myocardial infarction involving other coronary artery of inferior wall (principal); R31.9 Hematuria, unspecified; I10 Essential (primary) hypertension; E78.5 Hyperlipidemia, unspecified; I25.119 Atherosclerotic heart disease of native coronary artery with unspecified angina pectoris; Z87.891 Personal history of nicotine dependence; Z79.899 Other long term (current) drug therapy

== ENCOUNTER → 2016-10-05 | Outpatient (CLI) | payer BC ==
[~2016-10-05] MED LIST: ASPEC81 PO; ASPI81TA28 PO; ATOR-26 PO; BUPR-79 PO; CLOP1TAB15 PO; HYDR-5688 PO; IBUP-103 PO; LISI-725 PO; LISI-729 PO; LPT40 PO; METO50TA7 PO; NITR100C PO; NTRGSL/4 UT; NTRSLP4 SL; PLV75 PO; PRLSR20 PO; TPRSR50 PO
[2016-10-05 11:43] LABS: HEMATOCRIT 45.6 % (42-52); MEAN CELL VOLUME 87.5 fL (80-100); MEAN CORPUSCULAR HEMOGLOBIN 29.6 pg (25-34); MEAN CORPUSCULAR HGB CONC 33.8 g/dl (32-36); MEAN PLATELET VOLUME 10.2 fL (7.4-10.4); PLATELET COUNT 232 K/uL (130-400); RED BLOOD COUNT 5.21 M/uL (4.7-6.1); WHITE BLOOD COUNT 5.62 K/uL (4.8-10.8)
[2016-10-05 11:58] LABS: ALT/SGPT 35 U/L (12-78); AST/SGOT 19 U/L (15-37)
== END | disposition home or self-care (01) ==
LOC: C.LAB1850 09:41
PROVIDERS: ATTEND Internal Medicine Cardiovascular Disease
DX: E78.5 Hyperlipidemia, unspecified (principal); I25.10 Atherosclerotic heart disease of native coronary artery without angina pectoris

== ENCOUNTER → 2017-02-11 | Outpatient (CLI) | payer BC ==
[~2017-02-11] MED LIST changes: +AMLO2.5T PO; -NITR100C PO; +NITR100C2 PO; +OPTIRAY 320 IV PRN; +TRIA0.25 PO
--- NOTE | 2017-02-11 07:48 | DIAGNOSTIC IMAGING REPORT ---
ABDOMEN AND PELVIS CT EXAMINATION PRE AND POST INTRAVENOUS CONTRAST CT DOSE: 939.42 mGy.cm HISTORY: Hematuria R31.0 Gross hematuria BUN 24, CREAT 1.09 DONE AT [facility] 6 TECHNIQUE: Multiaxial CT images of the abdomen and pelvis were performed pre and post intravenous contrast enhancement. COMPARISON STUDY: None. FINDINGS: Lung bases are clear. Liver spleen and pancreas enhance uniformly. There is a 1.5 cm splenic cyst. Gallbladder is negative for distention. Pancreas is uniform throughout. Left kidney enhances uniformly. There is a 1.5 cm upper pole nonenhancing cystic nodule. Estimated units show no significant change on various phases of the exam suggesting a hyperdense cyst. Lower aspect of the right kidney demonstrates 2 low density and several partially cystic nodules. A 1.5 cm nodule is identified laterally with minimal postcontrast enhancement to 13. There is a 2 cm cystic nodule in a peripelvic location demonstrating a trace amount of postcontrast enhancement to as it units of 14. There is a hyperdense 7 mm nodule inferior aspect right kidney too small to quantify. Bowel pattern is uniform throughout. There is no significant abdominal pelvic or inguinal adenopathy. Prostate is mildly enlarged. There is suggestion of a potential polypoid defect of the anterior aspect of the bladder versus technical artifact. This measures 2.2 x 1.5 cm. Cystoscopy is suggested. IMPRESSION: 1. Multiple cystic and or low-density nodules throughout both kidneys. 2. Possible nodular density versus artifact anterior aspect of the bladder. 3. Cystoscopy is recommended 4. An MRI evaluation of the kidneys may be of further assistance in quantifying the small lesions of the kidneys. Electronically signed by: Kalpesh Leger M.D. 02/11/2017 7:47 AM Dictated Date/Time: 02/11/2017 7:37 AM
== END | disposition home or self-care (01) ==
LOC: C.CTS 06:25
PROVIDERS: ATTEND Urology
DX: R31.0 Gross hematuria (principal); N28.1 Cyst of kidney, acquired

== ENCOUNTER → 2017-03-05 | Outpatient (CLI) | payer BC ==
[~2017-03-05] MED LIST changes: -AMLO2.5T PO; +NITR100C PO; -NITR100C2 PO; -OPTIRAY 320 IV PRN; -TRIA0.25 PO
== END | disposition home or self-care (01) ==
LOC: C.LABSPEC 14:57
PROVIDERS: ATTEND Urology
DX: R31.0 Gross hematuria (principal)

== ENCOUNTER → 2017-03-11 | Outpatient (CLI) | payer BC ==
[~2017-03-11] MED LIST changes: -ASPEC81 PO; +GADAVIST IV PRN; -LISI-729 PO; -LPT40 PO; -NTRSLP4 SL; -PLV75 PO; -TPRSR50 PO
--- NOTE | 2017-03-11 07:58 | DIAGNOSTIC IMAGING REPORT ---
ABDOMEN COMBO CLINICAL HISTORY: 71 years-old Male presenting with cyst of the kidney, acquired. TECHNIQUE: Multisequence, multiplanar MR imaging of the abdomen was performed before and after the administration of intravenous contrast. IV contrast: 8.5 mL of Gadavist. COMPARISON: CT from 02/11/2017. FINDINGS: Localizer images: Unremarkable. Lung bases: Lung bases clear. No pericardial or pleural effusion. Liver: Normal morphology. No liver lesion within the visualized portion of the parenchyma. Hepatic fat fraction measures 3.4%, indicative of no steatosis. Visualized vasculature patent. Biliary: No intrahepatic or extrahepatic biliary ductal dilatation. The cystic duct inserts along the posterior aspect of the hepatic duct immediately superior to the pancreatic head. Normal gallbladder. Pancreas: Mild parenchymal atrophy Spleen: Lobular multicystic T2 hyperintense nonenhancing lesion along the posterior medial spleen, possibly cyst, pseudocyst, or lymphangioma. Adrenal glands: Normal. Kidneys and ureters: Well-defined T2 hyperintense, T1 hypointense nonenhancing lesions bilaterally, the 2 largest on the right at the lower pole measuring 21 mm laterally and 16 mm medially and the largest on the left at the upper measuring 17 mm. Most are simple, although a single thin nonenhancing septation may be present within the medial right renal lesion (Bosniak 2). No suspicious renal lesion. Renal arteries and veins patent. Gastrointestinal tract: Normal. No bowel obstruction. Peritoneal cavity: No free fluid or intraperitoneal gas. Vasculature: Aorta and IVC patent and normal in caliber. Lymph nodes: No enlarged lymph nodes in the abdomen or pelvis. Abdominal wall: Normal. Musculoskeletal: Normal. IMPRESSION: 1. No suspicious renal lesion. Primarily simple cysts, although one may be minimally complex (Bosniak 2). These do not warrant follow-up. Electronically signed by: Angelito Medina M.D. 03/11/2017 7:56 AM Dictated Date/Time: 03/11/2017 7:43 AM
== END | disposition home or self-care (01) ==
LOC: C.MRI 06:37
PROVIDERS: ATTEND Urology
DX: N28.1 Cyst of kidney, acquired (principal)

== ENCOUNTER 2017-03-18 05:18 | Observation (INO) | payer BC ==
[2017-03-08 09:08] VITALS: BMI 27.0
--- NOTE | 2017-03-08 09:33 | PAT Medication Instructions ---
Service Date Mar 08, 2017. Current Home Medication List Aspirin (Aspirin Ec), 81 MG PO QAM Atorvastatin (Lipitor), 80 MG PO QAM Bupropion (Wellbutrin Sr), 150 MG PO BID Clopidogrel (Plavix), 75 MG PO QAM Ibuprofen Tab (Advil), 400 MG PO PRN Lisinopril (Zestril), 20 MG PO QAM Metoprolol Succ (Toprol Xl) (Toprol-Xl), 50 MG PO QAM Nitroglycerin (Nitrostat), 0.4 MG UT PRN Omeprazole (Prilosec), 20 MG PO QAM Medication Instructions For Your Scheduled Surgery Ibuprofen Tab (Advil), 400 MG PO PRN (check with surgeon for instructions: - Check with surgeon and Dr. Santillan for instructions: Aspirin (Aspirin Ec), 81 MG PO QAM Clopidogrel (Plavix), 75 MG PO QAM - Hold the following medications the morning of surgery: Lisinopril (Zestril), 20 MG PO QAM - Take the following medications the morning of surgery with a sip of water: Metoprolol Succ (Toprol Xl) (Toprol-Xl), 50 MG PO QAM Nitroglycerin (Nitrostat), 0.4 MG UT PRN (if needed) Omeprazole (Prilosec), 20 MG PO QAM Atorvastatin (Lipitor), 80 MG PO QAM Bupropion (Wellbutrin Sr), 150 MG PO BID - Take the following medications as scheduled the night before surgery: Nitroglycerin (Nitrostat), 0.4 MG UT PRN (if needed) Bupropion (Wellbutrin Sr), 150 MG PO BID If you have any questions please call us at [phone] or [phone] or [phone]
[2017-03-08 10:02] LABS: BASO % 0.3 %; BASO ABS # 0.02 K/uL (0-0.2); COMPLETE YES; EOS % 1.7 %; HEMATOCRIT 45.6 % (42-52); IG% 0.1 %; LYMPH % 13.1 %; MEAN CELL VOLUME 87.7 fL (80-100); MEAN CORPUSCULAR HEMOGLOBIN 29.4 pg (25-34); MEAN CORPUSCULAR HGB CONC 33.6 g/dl (32-36); MEAN PLATELET VOLUME 9.6 fL (7.4-10.4); MONO % 6.8 %; PLATELET COUNT 231 K/uL (130-400); WHITE BLOOD COUNT 7.65 K/uL (4.8-10.8)
[2017-03-08 10:59] LABS: BUN/CREATININE RATIO 29.9 (10-20); POTASSIUM 4.9 mmol/L (3.5-5.1)
[~2017-03-18] VITALS: Ht 180.3 cm; Wt 87.9 kg
[2017-03-18] VITALS (12 sets, daily range): BP systolic 143–177; BP diastolic 82–99; PULSE 54–69; TEMP 36.6–37.1; O2SAT 94–99; Ht 180.3 cm; Wt 87.9 kg
[~2017-03-18 05:18] MED LIST changes: -GADAVIST IV PRN; -HYDR-5688 PO; -NITR100C PO
[2017-03-18] MEDS ORDERED: CIPROFLOXACIN / D5W 400 MG IV SCH (06:00)
[2017-03-18] MEDS ORDERED: LACTATED RINGER'S 1000ML 1,000 ML IV SCH (06:00)
[2017-03-18] MEDS ORDERED: HYDROmorphone INJ 1 MG/ML SYR IV PRN (06:15)
[2017-03-18] MEDS ORDERED: ATROPINE SULFATE 0.1 MG/ML 5ML SYR IV PRN (06:15)
[2017-03-18] MEDS ORDERED: EpHEDrine SULFATE INJ 50 MG/ML AMP IV PRN (06:15)
[2017-03-18] MEDS ORDERED: ONDANSETRON INJ 2 MG/ML 2 ML VIAL IV PRN (06:15)
--- NOTE | 2017-03-18 07:18 | History & Physical Bridge Note ---
H&P Re-Evaluation Bridge Note: I have examined the patient, reviewed the History & Physical and in the interval since the performance of the History & Physical I have noted the following changes of clinical significance: No changes noted
[2017-03-18] MEDS ORDERED: FENTANYL CITRATE INJ 50 MCG/1 ML 2 ML VIAL ONE (07:40)
[2017-03-18] MEDS ORDERED: MIDAZOLAM HCL 1 MG/ML 2ML VIAL ONE (07:41)
[2017-03-18] MEDS ORDERED: KETAMINE HCL INJ 50 MG/ML 10 ML VIAL ONE (07:41)
[2017-03-18 07:42] LABS: PARTIAL THROMBOPLASTIN RATIO 0.9; PROTHROMBIN TIME (PATIENT) 10.6 SECONDS (9.0-12.0)
[2017-03-18] MEDS ORDERED: LABETALOL HCL IV 5 MG/ML 20ML IV ONE (07:57)
[2017-03-18] MEDS ORDERED: PROPOFOL IV EMULSION 10 MG/ML 20 ML VIAL IV ONE (07:57)
[2017-03-18] MEDS ORDERED: LIDOCAINE HCL 2% 2 ML VIAL (20MG/ML) ONE (07:57)
[2017-03-18] MEDS ORDERED: SODIUM CHLORIDE 0.9% INJ 10 ML VIAL ONE (08:03)
--- NOTE | 2017-03-18 09:37 | [facility] Post Operative Brief Note ---
Immediate Operative Summary Operative Date Mar 18, 2017. Pre-Operative Diagnosis Bladder mass, gross hematuria Post-Operative Diagnosis Bladder mass, gross hematuria Procedure(s) Performed Transuretheral Resection Bladder Tumor Surgeon Dr. Latham Microbiology Technologist Surgeon(s) none Estimated Blood Loss 200 cc Findings 3 to 4 cm papillary tumor in dome Larger sessile tumor inferior to papillary tumor Specimens A: Papillary tumor dome of bladder B: Sessile tumor below dome of bladder tumor C: Second papillary tumor lateral to sessile tumor D: Lateral edge of sessile tumor Drains 22 brown Disposition Recovery Room / PACU
[2017-03-18] MEDS ORDERED: MoRPHine SULFATE 4 MG/ML 1 ML CARP\\VIAL IV PRN (09:45)
[2017-03-18] MEDS ORDERED: HYDROCODONE/ACETAMOPHEN 5/325MG TAB PO PRN (09:45)
[2017-03-18] MEDS ORDERED: NITROGLYCERIN 0.4 MG SL PER TAB CHARGE UT PRN (09:45)
[2017-03-18] MEDS: FENTANYL CITRATE INJ 50 MCG/1 ML 2 ML VIAL IV PRN ×2 (09:54→10:00)
[2017-03-18] MEDS ORDERED: IV FLUIDS COMPLETED PRN (10:15)
--- NOTE | 2017-03-18 10:16 | Anesthesiology Progress Note ---
Anesthesia Post Op Note Date & Time Mar 18, 2017 at 10:15 Vital Signs Pain Intensity: 2 Vital Signs Past 12 Hours Date Time Temp Pulse Resp B/P (MAP) Pulse Ox O2 Delivery O2 Flow Rate FiO2 03/18/17 10:07 62 18 96 03/18/17 10:07 63 18 03/18/17 10:06 122/74 03/18/17 10:03 36.4 62 16 122/74 (93) 96 Nasal Cannula 2 03/18/17 10:02 57 9 03/18/17 10:02 58 9 96 03/18/17 10:01 109/68 03/18/17 09:57 59 12 03/18/17 09:57 59 12 96 03/18/17 09:56 114/76 03/18/17 09:54 63 14 96 03/18/17 09:54 64 14 03/18/17 09:51 105/67 03/18/17 09:49 61 15 03/18/17 09:49 62 15 97 03/18/17 09:46 107/72 03/18/17 09:44 63 13 03/18/17 09:44 64 13 96 03/18/17 09:41 98/60 03/18/17 09:40 105/61 03/18/17 09:39 65 18 96 03/18/17 09:39 36.2 66 18 105/61 96 Mask 10 03/18/17 09:39 63 18 03/18/17 05:48 36.7 60 18 175/90 (118) 96 Room Air Notes Mental Status: alert / awake / arousable, participated in evaluation Pt Amnestic to Procedure: Yes Nausea / Vomiting: adequately controlled Pain: adequately controlled Airway Patency, RR, SpO2: stable & adequate BP & HR: stable & adequate Hydration State: stable & adequate Anesthetic Complications: no major complications apparent
[2017-03-18 12:51] LABS: BASO % 0.2 %; BASO ABS # 0.02 K/uL (0-0.2); COMPLETE YES; EOS % 0.9 %; HEMATOCRIT 43.6 % (42-52); IG% 0.3 %; LYMPH % 7.7 %; LYMPH ABS # 0.72 K/uL (1.2-3.4); MEAN CORPUSCULAR HEMOGLOBIN 30.2 pg (25-34); MEAN CORPUSCULAR HGB CONC 33.9 g/dl (32-36); MEAN PLATELET VOLUME 10.5 fL (7.4-10.4); MONO % 9.2 %; NEUT % 81.7 %; PLATELET COUNT 197 K/uL (130-400); WHITE BLOOD COUNT 9.38 K/uL (4.8-10.8)
[2017-03-18] MEDS: D5W AND 1/2NSS 1,000 ML IV SCH ×2 (13:27→23:54)
[2017-03-18] MEDS ORDERED: PNEUMOCOCCAL ADMINISTRATION CHARGE ONE (13:45)
[2017-03-18] MEDS ORDERED: PNEUMOCOCCAL POLYSACCHARIDES 25 MCG/0.5 ML VIAL/SYR IM. ONE (13:45)
[2017-03-18] MEDS ORDERED: HydrALAZINE HCL 20 MG/ML VIAL IV. PRN (14:00)
--- NOTE | 2017-03-18 14:08 | OPERATIVE REPORT ---
DATE OF OPERATION: 03/18/2017 PREOPERATIVE DIAGNOSIS: Bladder tumor. POSTOPERATIVE DIAGNOSIS: Same. PROCEDURE: Large TURBT. SURGEON: Parth Latham MD ANESTHESIA: General. INDICATIONS FOR PROCEDURE: The patient is a 71-year-old male presented with gross hematuria and had a CAT scan that showed what appeared to be a large tumor, which was confirmed on cystoscopy. There was a papillary tumor near the dome of the bladder and just at the dome where it joined the posterior wall, there was a large sessile mass. The patient presents today for staging TURBT for both staging and treatment. DESCRIPTION OF THE PROCEDURE: The patient was taken to the cysto suite after Venodyne stockings were placed and given general anesthesia after antibiotics were given. He was placed in dorsal lithotomy position and prepped and draped in the usual sterile fashion. A 22-Guamanian cystoscope was passed per urethra. 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 Once inside the bladder, the bladder was carefully examined with 30 and 70 degree lens. It appeared that the papillary tumor was on top of the sessile portion, but there was also somewhat normal appearing mucosa and there was also a smaller papillary tumor in the dome. First, the dome of the bladder tumor was resected. There was a fairly significant amount of bleeding from this. I had to switch to the Bugbee to be able to spot fulgurate the area to control the bleeding because of ease of use in that area. At the end of the procedure, there was good control of the bleeding. Resection was done of the sessile tumor and multiple deeper biopsies were taken in an attempt to make sure that the proper staging was obtained. Also, the area was widely fulgurated, making the tumor flush with the bladder wall so to eliminate tumor. At the end of the procedure, the patient had a 22-Guamanian catheter placed. No photo was taken. There was no evidence of any bleeding at this point which the picture taken at the end of the procedure shows. He was transferred to the recovery room with a 22-Guamanian Rhoades catheter in place. I attest to the content of the Intraoperative Record and any orders documented therein. Any exceptions are noted below. JEAN
[2017-03-18] MEDS: LISINOPRIL 20 MG TAB PO SCH (14:33)
--- NOTE | 2017-03-18 15:14 | Medical Consult ---
Consultation Date of Consultation: Mar 18, 2017. Attending Physician: Parth Latham M.D. Reason for Consultation: Medical consultation History of Present Illness Patient is a 71 y/o male, with PMHx of CAD s/p CASSANDRA to left distal circumflex, HTN, hyperlipidemia, and GERD, s/p transurethral resection bladder tumor by Dr. Latham on 03/18. Patient feeling well postop. Eating and drinking OK postop. Patient denies any fever, chills, sweats, lightheadedness, dizziness, vision changes, CP, palpitations, edema, SOB, wheezing, cough, abdominal pain, nausea, vomiting, diarrhea, urinary symptoms, melena, numbness/tingling, weakness, muscle/joint pain, anxiety/depression, active bleeding, or new skin discoloration/changes. Past Medical/Surgical History Medical Problems: CAD s/p CASSANDRA to distal left circumflex in 08/2016 HTN Hyperlipidemia Surgical history: s/p cardiac cath and CASSANDRA Family History Diabetes mellitus Social History Smoking Status: Former Smoker Housing Status: lives alone Allergies Coded Allergies: No Known Allergies (Unverified , 03/18/17) Home Medications Reported Home Medications Medications Dose Route/Sig Max Daily Dose Days Date Category Wellbutrin Sr (Bupropion HCl) 150 Mg Ertab 150 Mg PO BID 03/08/17 Reported Prilosec (Omeprazole) 20 Mg Capcr 20 Mg PO QAM 03/08/17 Reported Advil (Ibuprofen) 200 Mg Tab 400 Mg PO PRN 03/08/17 Reported Zestril (Lisinopril) 20 Mg Tab 20 Mg PO QAM 03/08/17 Reported Nitrostat (Nitroglycerin) 0.4 Mg Tab 0.4 Mg UT PRN 03/08/17 Reported Toprol-Xl (Metoprolol Succinate) 50 Mg Tabcr 50 Mg PO QAM 03/08/17 Reported Plavix (Clopidogrel Bisulfate) 75 Mg Tab 75 Mg PO QAM 03/08/17 Reported Lipitor (Atorvastatin Calcium) 80 Mg Tab 80 Mg PO QAM 03/08/17 Reported Aspirin Ec (Aspirin) 81 Mg Tab 81 Mg PO QAM 03/08/17 Reported Current Inpatient Medications Current Inpatient Medications Medications (Trade) Dose Ordered Sig/May Route Start Time Stop Time Status Last Admin Dose Admin Lactated Ringer's 1,000 ml @ 15 mls/hr Q24H IV 03/18/17 06:00 03/19/17 05:59 03/18/17 05:40 15 MLS/HR Ciprofloxacin/ Dextrose 200 ml @ 100 mls/hr PREOP IV 03/18/17 06:00 03/18/17 18:00 03/18/17 07:29 100 MLS/HR Ondansetron HCl (Zofran Inj) 4 mg ONE PRN IV 03/18/17 06:15 Dextrose/Sodium Chloride 1,000 ml @ 80 mls/hr [id number] IV 03/18/17 12:00 04/17/17 11:59 03/18/17 13:27 80 MLS/HR Morphine Sulfate (MoRPHine SULFATE INJ) 3 mg Q1H PRN IV 03/18/17 09:45 04/01/17 09:44 Acetaminophen/ Hydrocodone Bitart ([place] 5/325 Tab) 1 tab Q4H PRN PO 03/18/17 09:45 04/01/17 09:44 Aspirin (Ecotrin Tab) 81 mg QAM PO 03/19/17 09:00 04/18/17 08:59 Atorvastatin Calcium (Lipitor Tab) 80 mg QAM PO 03/19/17 09:00 04/18/17 08:59 Bupropion HCl (Wellbutrin-Sr Tab) 150 mg BID PO 03/18/17 21:00 04/17/17 20:59 Lisinopril (Zestril Tab) 20 mg QAM PO 03/19/17 09:00 04/18/17 08:59 Metoprolol Succinate (Toprol Xl Tab) 50 mg QAM PO 03/19/17 09:00 04/18/17 08:59 Nitroglycerin (Nitrostat Tab) 0.4 mg UD PRN UT 03/18/17 09:45 04/17/17 09:44 Pantoprazole Sodium (Protonix Tab) 40 mg QAM PO 03/19/17 09:00 04/18/17 08:59 Ciprofloxacin/ Dextrose 400 mg/ Prmx 200 ml @ 100 mls/hr Q12 IV 03/18/17 21:00 03/19/17 20:59 Miscellaneous (Iv Fluids Completed) 1 ea PRN PRN N/A 03/18/17 10:15 03/18/18 10:14 Pneumococcal Polysaccharide Vaccine (Pneumovax-23 Inj) 25 mcg ONCE ONCE IM. 03/18/17 13:45 03/18/17 13:46 UNV Physical Exam Date Time Temp Pulse Resp B/P (MAP) Pulse Ox O2 Delivery O2 Flow Rate FiO2 03/18/17 12:33 36.7 54 19 158/85 (109) 98 Nasal Cannula 2.0 03/18/17 11:30 36.6 54 18 165/87 (113) 94 Nasal Cannula 2.0 03/18/17 11:01 97 Nasal Cannula 2.0 03/18/17 11:00 36.6 58 17 143/87 (105) 99 Nasal Cannula 2.0 03/18/17 10:57 36.6 66 18 143/82 (102) 97 Nasal Cannula 2.0 03/18/17 10:56 97 Nasal Cannula 2.0 03/18/17 10:07 62 18 96 03/18/17 10:07 63 18 03/18/17 10:06 122/74 03/18/17 10:03 36.4 62 16 122/74 (93) 96 Nasal Cannula 2 03/18/17 10:02 57 9 03/18/17 10:02 58 9 96 03/18/17 10:01 109/68 03/18/17 09:57 59 12 03/18/17 09:57 59 12 96 03/18/17 09:56 114/76 03/18/17 09:54 63 14 96 03/18/17 09:54 64 14 03/18/17 09:51 105/67 03/18/17 09:49 61 15 03/18/17 09:49 62 15 97 03/18/17 09:46 107/72 03/18/17 09:44 63 13 03/18/17 09:44 64 13 96 03/18/17 09:41 98/60 03/18/17 09:40 105/61 03/18/17 09:39 65 18 96 03/18/17 09:39 36.2 66 18 105/61 96 Mask 10 03/18/17 09:39 63 18 03/18/17 05:48 36.7 60 18 175/90 (118) 96 Room Air General Appearance: WD/WN, no apparent distress Head: normocephalic, atraumatic Eyes: normal inspection, PERRL ENT: hearing grossly normal Neck: supple Respiratory/Chest: lungs clear, no respiratory distress, no accessory muscle use Cardiovascular: regular rate, rhythm Abdomen/GI: normal bowel sounds, non tender, soft Genitourinary - Male: + pertinent finding (Rhoades- hematuria ) Back: normal inspection Extremities/Musculoskelatal: no calf tenderness, no pedal edema, + pertinent finding (TEDs/SCDs on ) Neurologic/Psych: alert, normal mood/affect, oriented x 3 Skin: normal color, warm/dry, no rash Laboratory Results Last 24 Hours Test 03/18/17 07:24 03/18/17 12:04 Prothrombin Time 10.6 SECONDS Prothromb Time International Ratio 1.0 Activated Partial Thromboplast Time 24.0 SECONDS Partial Thromboplastin Ratio 0.9 White Blood Count 9.38 K/uL Red Blood Count 4.90 M/uL Hemoglobin 14.8 g/dL Hematocrit 43.6 % Mean Corpuscular Volume 89.0 fL Mean Corpuscular Hemoglobin 30.2 pg Mean Corpuscular Hemoglobin Concent 33.9 g/dl Platelet Count 197 K/uL Mean Platelet Volume 10.5 fL Neutrophils (%) (Auto) 81.7 % Lymphocytes (%) (Auto) 7.7 % Monocytes (%) (Auto) 9.2 % Eosinophils (%) (Auto) 0.9 % Basophils (%) (Auto) 0.2 % Neutrophils # (Auto) 7.67 K/uL Lymphocytes # (Auto) 0.72 K/uL Monocytes # (Auto) 0.86 K/uL Eosinophils # (Auto) 0.08 K/uL Basophils # (Auto) 0.02 K/uL RDW Standard Deviation 45.1 fL RDW Coefficient of Variation 13.8 % Immature Granulocyte % (Auto) 0.3 % Immature Granulocyte # (Auto) 0.03 K/uL Assessment & Plan Patient is a 71 y/o male, with PMHx of CAD s/p CASSANDRA to left distal circumflex, HTN, hyperlipidemia, and GERD, s/p transurethral resection bladder tumor by Dr. Latham on 03/18. s/p transurethral resection bladder tumor by Dr. Latham on 03/18: - Surgical management, pain management, and DVT prophylaxis as per primary team - Follow postop CBC and PRP CAD s/p CASSANDRA to left distal circumflex, HTN, hyperlipidemia- follows w/ Dr. Santillan : - Continue ASA 81 mg daily, Metoprolol 50 mg daily, Lisinopril 20 mg daily, and Lipitor 80 mg daily - Plavix 75 mg daily held per urology- per patient, will not be restarting for ~ 8 days - Hydralazine 10 mg IV q6 hrs PRN for sbp >180 or dbp >100 - ECHO 08/2016: LVEF 60-65%, no valvular abnormalities GERD: Protonix- resume Prilosec at discharge DVT Prophylaxis: As per primary team Dispo: Discharge as per primary team Thank you for this consultation. We will continue to follow throughout hospital stay. I personally interviewed and examined the patient I discussed the above plan with Miss Fany Coulter I agree with her Hx and PE 71 y/o/m, with PMHx of CAD, HTN, hyperlipidemia, and GERD, s/p transurethral resection bladder tumor . ROS/PMHx: as HPI FHx/SHx/labs/meds reviewed as needed PE: average built, not in acute distress LUNGs: normal exam, no wheezing/R Heart: s1/s2 normal, no G/R/M ABD: soft, ND, N tender Ext: B/L LE no edema or swelling Neuro: pleasant,AAOX3, EOMI, moves all ext, CN 2-12 intact Assessment: s/p transurethral resection bladder tumor CAD, stable HTN Plan: continue conservative therapy restart home meds as appropriate DVT prophylaxis/prophylactic Abx as per urologist
[2017-03-18] MEDS: BuPROPion SR 150 MG TABCR PO SCH (21:07)
[2017-03-18] MEDS: CIPROFLOXACIN / D5W 400 MG in PREMIXED IN D5W 200 ML IV SCH (21:07)
[2017-03-19 03:34] VITALS: BP 151/85; PULSE 66; TEMP 37.2; O2SAT 97
[2017-03-19 06:55] LABS: HEMATOCRIT 43.3 % (42-52); MEAN CELL VOLUME 89.3 fL (80-100); MEAN CORPUSCULAR HEMOGLOBIN 29.9 pg (25-34); MEAN CORPUSCULAR HGB CONC 33.5 g/dl (32-36); MEAN PLATELET VOLUME 9.8 fL (7.4-10.4); PLATELET COUNT 189 K/uL (130-400); RED BLOOD COUNT 4.85 M/uL (4.7-6.1); WHITE BLOOD COUNT 10.74 K/uL (4.8-10.8)
[2017-03-19 07:29] LABS: CALCIUM 8.9 mg/dl (8.5-10.1); CREATININE 1.1 mg/dl (0.60-1.40); POTASSIUM 4.1 mmol/L (3.5-5.1)
--- NOTE | 2017-03-19 07:36 | Anesthesiology Progress Note ---
Anesthesia Post Op Note Date & Time Mar 19, 2017 at 07:36 Vital Signs Pain Intensity: 0.0 Vital Signs Past 12 Hours Date Time Temp Pulse Resp B/P (MAP) Pulse Ox O2 Delivery O2 Flow Rate FiO2 03/19/17 03:34 37.2 66 16 151/85 (107) 97 Room Air 03/18/17 22:54 37.1 69 18 172/99 (123) 97 Room Air 167/82 (110) 03/18/17 19:40 Room Air Notes Mental Status: alert / awake / arousable, participated in evaluation Pt Amnestic to Procedure: Yes Nausea / Vomiting: adequately controlled Pain: adequately controlled Airway Patency, RR, SpO2: stable & adequate BP & HR: stable & adequate Hydration State: stable & adequate Anesthetic Complications: no major complications apparent
[2017-03-19 08:01] VITALS: BP 142/90; PULSE 65; TEMP 37.1; O2SAT 97
[2017-03-19 08:33] VITALS: O2SAT 97
[2017-03-19] MEDS: CIPROFLOXACIN / D5W 400 MG in PREMIXED IN D5W 200 ML IV SCH (08:37)
[2017-03-19] MEDS: BuPROPion SR 150 MG TABCR PO SCH (08:42)
[2017-03-19] MEDS: LISINOPRIL 20 MG TAB PO SCH (08:43)
[2017-03-19] MEDS ORDERED: PANTOprazole SOD 40 MG TAB PO SCH ×2 (09:00)
[2017-03-19] MEDS ORDERED: METOPROLOL SUCC 50MG EXT REL TAB PO SCH (09:00)
[2017-03-19] MEDS ORDERED: ASPIRIN 81 MG ECTAB PO SCH (09:00)
[2017-03-19] MEDS ORDERED: ATORVASTATIN 40 MG TAB PO SCH (09:00)
--- NOTE | 2017-03-19 09:17 | Progress Note ---
Subjective Date of Service: Mar 19, 2017. Subjective Pt evaluation today including: conversation w/ patient, physical exam, chart review, lab review Voiding: brown catheter in place 71 year old male with bladder cancer POD#[address] Latham. He is doing well post op Tolerating diet Ambulating in the rai. Brown intact draining pink urine. Denies pain. Only discomfort is from catheter. AFVSS. CBC and BMP normal Problem List Medical Problems: (1) STEMI (ST elevation myocardial infarction) Status: Acute Review of Systems Constitutional: No fever, No chills ENT: No hearing loss Respiratory: No cough, No shortness of breath Cardiac: No chest pain Abdomen: No pain, No nausea, No vomiting Male : + see HPI Psychiatric: No depression symptoms Heme: No abnormal bleeding/bruising Endo: No fatigue Objective Vital Signs Date Time Temp Pulse Resp B/P (MAP) Pulse Ox O2 Delivery O2 Flow Rate FiO2 03/19/17 08:33 97 Room Air 03/19/17 08:01 37.1 65 12 142/90 (107) 97 Room Air 03/19/17 07:15 Room Air 03/19/17 03:34 37.2 66 16 151/85 (107) 97 Room Air 03/18/17 22:54 37.1 69 18 172/99 (123) 97 Room Air 167/82 (110) 03/18/17 19:40 Room Air 03/18/17 19:30 37.1 61 18 165/85 (111) 95 Room Air 03/18/17 15:30 Room Air 03/18/17 15:21 36.8 55 18 154/91 (112) 96 Room Air 03/18/17 14:09 61 177/98 (124) 03/18/17 13:43 37.0 61 19 166/96 (119) 97 Room Air 03/18/17 12:33 36.7 54 19 158/85 (109) 98 Nasal Cannula 2.0 03/18/17 11:30 36.6 54 18 165/87 (113) 94 Nasal Cannula 2.0 03/18/17 11:01 97 Nasal Cannula 2.0 03/18/17 11:00 36.6 58 17 143/87 (105) 99 Nasal Cannula 2.0 03/18/17 10:57 36.6 66 18 143/82 (102) 97 Nasal Cannula 2.0 03/18/17 10:56 97 Nasal Cannula 2.0 03/18/17 10:07 62 18 96 03/18/17 10:07 63 18 03/18/17 10:06 122/74 03/18/17 10:03 36.4 62 16 122/74 (93) 96 Nasal Cannula 2 03/18/17 10:02 57 9 03/18/17 10:02 58 9 96 03/18/17 10:01 109/68 03/18/17 09:57 59 12 03/18/17 09:57 59 12 96 03/18/17 09:56 114/76 03/18/17 09:54 63 14 96 03/18/17 09:54 64 14 03/18/17 09:51 105/67 03/18/17 09:49 61 15 03/18/17 09:49 62 15 97 03/18/17 09:46 107/72 03/18/17 09:44 63 13 03/18/17 09:44 64 13 96 03/18/17 09:41 98/60 03/18/17 09:40 105/61 03/18/17 09:39 65 18 96 03/18/17 09:39 36.2 66 18 105/61 96 Mask 10 03/18/17 09:39 63 18 Physical Exam General Appearance: WD/WN, no apparent distress ENT: hearing grossly normal Neck: no JVD Respiratory/Chest: no respiratory distress, no accessory muscle use Abdomen: soft Extremities: normal range of motion, non-tender, normal inspection, no pedal edema, no calf tenderness Neurologic/Psychiatric: alert, normal mood/affect, oriented x 3 Skin: normal color, warm/dry Laboratory Results Last 24 Hours Test 03/18/17 12:04 03/19/17 06:41 White Blood Count 9.38 K/uL 10.74 K/uL Red Blood Count 4.90 M/uL 4.85 M/uL Hemoglobin 14.8 g/dL 14.5 g/dL Hematocrit 43.6 % 43.3 % Mean Corpuscular Volume 89.0 fL 89.3 fL Mean Corpuscular Hemoglobin 30.2 pg 29.9 pg Mean Corpuscular Hemoglobin Concent 33.9 g/dl 33.5 g/dl Platelet Count 197 K/uL 189 K/uL Mean Platelet Volume 10.5 fL 9.8 fL Neutrophils (%) (Auto) 81.7 % Lymphocytes (%) (Auto) 7.7 % Monocytes (%) (Auto) 9.2 % Eosinophils (%) (Auto) 0.9 % Basophils (%) (Auto) 0.2 % Neutrophils # (Auto) 7.67 K/uL Lymphocytes # (Auto) 0.72 K/uL Monocytes # (Auto) 0.86 K/uL Eosinophils # (Auto) 0.08 K/uL Basophils # (Auto) 0.02 K/uL RDW Standard Deviation 45.1 fL 45.1 fL RDW Coefficient of Variation 13.8 % 13.7 % Immature Granulocyte % (Auto) 0.3 % Immature Granulocyte # (Auto) 0.03 K/uL Sodium Level 140 mmol/L Potassium Level 4.1 mmol/L Chloride Level 106 mmol/L Carbon Dioxide Level 31 mmol/L Anion Gap 3.0 mmol/L Blood Urea Nitrogen 14 mg/dl Creatinine 1.10 mg/dl Est Creatinine Clear Calc Drug Dose 65.6 ml/min Estimated GFR () 77.9 Estimated GFR (Non- 67.2 BUN/Creatinine Ratio 13.0 Random Glucose 112 mg/dl Calcium Level 8.9 mg/dl Assessment and Plan s/p TURBT Doing well post op Brown draining light pink urine. Personally discontinued brown without issue. Ok to d/c pt home once he voids. If he is unable to void after 6 hours please call for further instruction. Rx on chart for Macrodantin.
[2017-03-19] MEDS ORDERED: NITR100C PO (09:18)
--- NOTE | 2017-03-19 09:21 | Discharge Instructions ---
Discharge Instructions Date of Service Mar 19, 2017. Admission Reason for Admission: Hematuria Discharge Discharge Diagnosis / Problem: Hematuria Discharge Goals Goal(s): Improve disease control, Prevent Disease Progression Activity Recommendations Activity Limitations: per Instructions/Follow-up section . Instructions / Follow-Up Instructions / Follow-Up 1. Do not lift >15lbs or heavy exercise until seen by Dr. Latham. 2. Finish all of the antibiotic you have been prescribed. 3. Call our office at [phone] or report directly to the ER if you are unable to void. 4. Follow-up as scheduled. Please call our office at [phone] if you need to reschedule for any reason. . Current Hospital Diet Hospital Diet(s): Regular Diet Discharge Diet Recommended Diet: Regular Diet Procedures Procedures Performed: Transuretheral Resection Bladder Tumor Pending Studies Studies pending at discharge: no Medical Emergencies . Who to Call and When: Medical Emergencies: If at any time you feel your situation is an emergency, please call 911 immediately. . Non-Emergent Contact Non-Emergency issues call your: Primary Care Provider, Urologist Call Non-Emergent contact if: temperature is above 101.5 . . "Provider Documentation" section prepared by Subha Bhat. . VTE Core Measure Inpt VTE Proph given/why not?: Unfractionated heparin SQ, SCD's
[2017-03-19 09:49] VITALS: BP 142/90; PULSE 65; TEMP 37.1; O2SAT 97
--- NOTE | 2017-03-23 23:34 | DISCHARGE SUMMARY ---
HISTORY OF PRESENTATION: The patient presented on the with history of having a significant bladder tumor, please refer to the operative report for description of the TURBT. Postoperatively, the patient had an indwelling Rhoades catheter. He was seen the following day, the urine was relatively clear, and the catheter was removed by the nurse practitioner and the patient was discharged to home in stable condition with an antibiotic for 1 week with instructions to follow up in my office.
[2017-05-04] MEDS ORDERED: CLOP1TAB15 PO (11:04)
== END 2017-03-19 11:11 | disposition home or self-care (01) ==
LOC: C.ACU 05:18 → C.MSN 09:44 → ENRESERV 10:06
PROVIDERS: ADMIT Urology; ATTEND Urology
DX: C67.1 Malignant neoplasm of dome of bladder (principal); N30.20 Other chronic cystitis without hematuria; N28.1 Cyst of kidney, acquired; I10 Essential (primary) hypertension; I25.10 Atherosclerotic heart disease of native coronary artery without angina pectoris; E78.5 Hyperlipidemia, unspecified; Z95.5 Presence of coronary angioplasty implant and graft; Z87.891 Personal history of nicotine dependence; Z79.82 Long term (current) use of aspirin; Z79.899 Other long term (current) drug therapy

== ENCOUNTER 2017-04-02 12:20 | Emergency (ER) | payer BC ==
[~2017-04-02] VITALS: Ht 180.3 cm; Wt 90.4 kg
[~2017-04-02 12:20] MED LIST changes: -CLOP1TAB15 PO
[2017-04-02 12:27] VITALS: TEMP 36.6; Ht 180.3 cm; Wt 90.4 kg
[2017-04-02] MEDS ORDERED: CLOP1TAB15 PO (13:31)
[2017-04-02] MEDS ORDERED: MoRPHine SULFATE 4 MG/ML 1 ML CARP\\VIAL IV STA (13:49)
[2017-04-02] MEDS ORDERED: SODIUM CHLORIDE 0.9% 500ML 500 ML IV STA (13:49)
[2017-04-02] MEDS ORDERED: ONDANSETRON INJ 2 MG/ML 2 ML VIAL IV STA (13:49)
[2017-04-02 14:04] LABS: BASO % 0.1 %; BASO ABS # 0.01 K/uL (0-0.2); COMPLETE YES; EOS % 0.1 %; HEMATOCRIT 44.1 % (42-52); IG% 0.4 %; LYMPH % 2.7 %; LYMPH ABS # 0.43 K/uL (1.2-3.4); MEAN CELL VOLUME 86.8 fL (80-100); MEAN CORPUSCULAR HEMOGLOBIN 29.7 pg (25-34); MEAN CORPUSCULAR HGB CONC 34.2 g/dl (32-36); MEAN PLATELET VOLUME 10.1 fL (7.4-10.4); MONO % 4.9 %; NEUT % 91.8 %; PLATELET COUNT 326 K/uL (130-400); RED BLOOD COUNT 5.08 M/uL (4.7-6.1); WHITE BLOOD COUNT 15.76 K/uL (4.8-10.8)
[2017-04-02 14:10] LABS: BUN/CREATININE RATIO 14.5 (10-20); CALCIUM 8.8 mg/dl (8.5-10.1); CREATININE 1.4 mg/dl (0.60-1.40); POTASSIUM 3.9 mmol/L (3.5-5.1)
[2017-04-02] MEDS ORDERED: CIPROFLOXACIN 500 MG TAB PO STA (15:35)
[2017-04-02 16:13] VITALS: BP 133/98; PULSE 77; O2SAT 98
--- NOTE | 2017-04-02 19:33 | EMERGENCY ROOM VISIT NOTE ---
History Report prepared by Sudarshan: Matt Arreola Under the Supervision of: Dr. Tyler Hall D.O. First contact with patient: 13:21 Chief Complaint: HEMATURIA Stated Complaint: BLEEDING WHEN URINATING Nursing Triage Summary: triage note: pt reports he had bladder surgery by dr zuniga on march 19. pt reports "i am bleeding out of my penis since this am." pt reports he started taking is plavix again this past wednesday. History of Present Illness The patient is a 71 year old male who presents to the Emergency Room with complaints of hematuria that began yesterday. The patient had two tumors removed from his bladder on March 19 of this year. The results came back as cancerous. In August, he had a stent placed in his heart and was started on Plavix. He stopped the Plavix for the surgical procedure two weeks ago, but started it again 4 days ago. His hematuria persisted into today, with blood leaking from his penis. He is also experiencing constant kidney pain and pain with urination in his penis. He rates his pain a 6/10 in severity. He denies any recent trauma. His last bowel movement was today. Pt denies headache, change in vision, fevers, chest pain, shortness of breath, nausea, vomiting, diarrhea, and melena. Source of History: patient Onset: yesterday Position: other () Symptom Intensity: moderate Quality: other (Hematuria) Timing: intermittent Associated Symptoms: + back pain (bilateral flank pain), + urinary symptoms (pain with urination), No fevers, No chest pain, No SOB, No nausea, No vomiting , No melena, No diarrhea Review of Systems See HPI for pertinent positives & negatives. A total of 10 systems reviewed and were otherwise negative. 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 Family History Diabetes mellitus Social History Smoking Status: Never Smoker Smokeless Tobacco Use: No Drug Use: none Marital Status: single Housing Status: lives alone Current/Historical Medications Scheduled Aspirin (Aspirin Ec), 81 MG PO QAM Atorvastatin (Lipitor), 80 MG PO QAM Bupropion (Wellbutrin Sr), 150 MG PO BID Clopidogrel (Plavix), 75 MG PO QAM Ibuprofen Tab (Advil), 400 MG PO PRN Lisinopril (Zestril), 20 MG PO QAM Metoprolol Succ (Toprol Xl) (Toprol-Xl), 50 MG PO QAM Nitroglycerin (Nitrostat), 0.4 MG UT PRN Omeprazole (Prilosec), 20 MG PO QAM Allergies Coded Allergies: No Known Allergies (Unverified , 04/02/17) Physical Exam Vital Signs Date Time Temp Pulse Resp B/P (MAP) Pulse Ox O2 Delivery O2 Flow Rate FiO2 04/02/17 16:13 77 18 133/98 98 04/02/17 14:50 67 18 163/94 98 Room Air 04/02/17 14:03 62 04/02/17 13:29 71 18 179/101 98 Room Air 04/02/17 12:27 36.6 82 18 209/134 98 Room Air Physical Exam GENERAL: alert, well appearing, well nourished, no distress, non-toxic, sitting up in bed. EYE EXAM: normal conjunctiva OROPHARYNX: no exudate, no erythema, lips, buccal mucosa, and tongue normal and mucous membranes are moist NECK: supple, no nuchal rigidity, no adenopathy, non-tender LUNGS: Clear to auscultation. Normal chest wall mechanics HEART: no murmurs, S1 normal and S2 normal ABDOMEN: abdomen soft, non-tender, normo-active bowel sounds, no masses, no rebound or guarding. BACK: Back is symmetrical on inspection and there is no deformity, no midline tenderness, no CVA tenderness. : Small amount of dried blood to the tip of the penis. Testicles are nontender. SKIN: no rashes and no bruising UPPER EXTREMITIES: upper extremities are grossly normal. LOWER EXTREMITIES: No pitting edema. NEURO EXAM: Normal sensorium, cranial nerves II-XII grossly intact, normal speech, no gross weakness of arms, no gross weakness of legs. Medical Decision & Procedures Laboratory Results 04/02/17 13:25 Red Blood Count 5.08, Mean Corpuscular Volume 86.8, Mean Corpuscular Hemoglobin 29.7, Mean Corpuscular Hemoglobin Concent 34.2, Mean Platelet Volume 10.1, Neutrophils (%) (Auto) 91.8, Lymphocytes (%) (Auto) 2.7, Monocytes (%) (Auto) 4.9, Eosinophils (%) (Auto) 0.1, Basophils (%) (Auto) 0.1, Neutrophils # (Auto) 14.47, Lymphocytes # (Auto) 0.43, Monocytes # (Auto) 0.77, Eosinophils # (Auto) 0.02, Basophils # (Auto) 0.01 04/02/17 13:25 Test 04/02/17 13:25 White Blood Count 15.76 K/uL (4.8-10.8) Red Blood Count 5.08 M/uL (4.7-6.1) Hemoglobin 15.1 g/dL (14.0-18.0) Hematocrit 44.1 % (42-52) Mean Corpuscular Volume 86.8 fL (80-100) Mean Corpuscular Hemoglobin 29.7 pg (25-34) Mean Corpuscular Hemoglobin Concent 34.2 g/dl (32-36) Platelet Count 326 K/uL (130-400) Mean Platelet Volume 10.1 fL (7.4-10.4) Neutrophils (%) (Auto) 91.8 % Lymphocytes (%) (Auto) 2.7 % Monocytes (%) (Auto) 4.9 % Eosinophils (%) (Auto) 0.1 % Basophils (%) (Auto) 0.1 % Neutrophils # (Auto) 14.47 K/uL (1.4-6.5) Lymphocytes # (Auto) 0.43 K/uL (1.2-3.4) Monocytes # (Auto) 0.77 K/uL (0.11-0.59) Eosinophils # (Auto) 0.02 K/uL (0-0.5) Basophils # (Auto) 0.01 K/uL (0-0.2) RDW Standard Deviation 42.4 fL (36.4-46.3) RDW Coefficient of Variation 13.2 % (11.5-14.5) Immature Granulocyte % (Auto) 0.4 % Immature Granulocyte # (Auto) 0.06 K/uL (0.00-0.02) Anion Gap 7.0 mmol/L (3-11) Est Creatinine Clear Calc Drug Dose 55.7 ml/min Estimated GFR () 58.2 Estimated GFR (Non- 50.2 BUN/Creatinine Ratio 14.5 (10-20) Calcium Level 8.8 mg/dl (8.5-10.1) Laboratory results per my review. Medications Administered Medications (Trade) Dose Ordered Sig/May Route Start Time Stop Time Status Last Admin Dose Admin Sodium Chloride 500 ml @ 999 mls/hr Q31M STAT IV 04/02/17 13:49 04/02/17 14:19 DC 04/02/17 13:49 999 MLS/HR Ondansetron HCl (Zofran Inj) 4 mg NOW STAT IV 04/02/17 13:49 04/02/17 13:58 DC 04/02/17 13:55 4 MG Morphine Sulfate (MoRPHine SULFATE INJ) 4 mg NOW STAT IV 04/02/17 13:49 04/02/17 13:58 DC 04/02/17 13:56 4 MG Ciprofloxacin (Cipro Tab) 500 mg NOW STAT PO 04/02/17 15:35 04/02/17 15:37 DC 04/02/17 16:06 500 MG ED Course ED COURSE: Vital signs were reviewed and showed hypertension. The patients medical record was reviewed The above diagnostic studies were performed and reviewed. ED treatments and interventions as stated above. 1321: The patient was evaluated in room B10. A complete history and physical examination was performed. 1349: Ordered Morphine Sulfate 4 mg IV, Zofran Inj 4 mg IV, Sodium Chloride 500 ml @ 999 mls/hr IV 1417: Bedside bladder scan showed 276 ml of urine, post void. Putting in a Rhoades catheter. 1448: I spoke with Dr. Mathew of [facility] at this time. They recommend following up with them as an outpatient when comfortable. 1458: I spoke with Dr. Nelson of Cardiology at this time about the patient. We discussed his Plavix prescription. They recommend stopping the Plavix for the next couple of days and to follow up with them in the future. 1535: Ordered Cipro Tab 500 mg PO 1600: Upon reevaluation, the patient is resting. I discussed my findings with the patient and he understands and agrees with the treatment plan. The patient remained stable while under my care. The patient appeared well at the time of discharge. Medical Decision Differential diagnoses includes but is not limited to gastritis, peptic ulcer disease, GERD, gallbladder disease, pancreatitis, small bowel obstruction, acute coronary syndrome, pericarditis, ischemic bowel, irritable bowel disease, irritable bowel syndrome, appendicitis, diverticulitis, malignancy, hernia, urinary tract infection, torsion, perforation, trauma, infectious. Patient is a 71-year-old male who presents the ER for hematuria which has been present for the past 24 hours. Recent bladder masses removed at the end of February. Restarted Plavix on Wednesday for cardiac stent placed August 23. Postvoid showed 260 ML's. Rhoades placed and 300 MLS of blood was removed along with clots. Discussed case with urology as his urine became less and less red. Labs were unremarkable. Patient was given a dose of Cipro. He is discharged with Rhoades to follow-up with urology as an outpatient. Pain is completely resolved as his bladder emptied. Patient did have a mild leukocytosis which I favor secondary to the pain. Discussed with Pt concerning signs and symptoms to watch out for. Pt was instructed to follow up with their PCP and discussed with the patient their option to return to the ED at anytime for persistent or worsening symptoms. The appropriate anticipatory guidance and out-patient management, including indications for return to the emergency department, were explained at length to the patient and understood. Medication Reconcilliation Current Medication List: was personally reviewed by me Blood Pressure Screening Patient's blood pressure: Elevated blood pressure Blood pressure disposition: Referred to PCP Consults Time Called: 1445 Consulting Physician: Dr. Mathew - Urology Returned Call: 1446 We discussed the patient's case. Please see the ED course for more information. Additional Consults: Time Called: 1456 Consulted Physician: Dr. Nelson - Cardiology Returned Call: 1450 Additional Comments: We discussed the patient's case. Please see the ED course for more information. Impression Primary Impression: Hematuria Additional Impression: Urinary retention Scribe Attestation The scribe's documentation has been prepared under my direction and personally reviewed by me in its entirety. I confirm that the note above accurately reflects all work, treatment, procedures, and medical decision making performed by me. Departure Information Dispostion Home / Self-Care Referrals Yogesh Pat PA-C (PCP) Parth Zuniga M.D. Forms HOME CARE DOCUMENTATION FORM, IMPORTANT VISIT INFORMATION, WORK / SCHOOL INSTRUCTIONS Patient Instructions ED Hematuria, [facility] Additional Instructions Please follow up with your primary care doctor or if you are a student, [facility] with in the next 24 hours. Any worsening of your symptoms, please return to the ED immediately. This includes any fevers greater than 100.4, worsening pain, chest pain, shortness breath, persistent nausea, vomiting, unable to eat or drink, unable to urinate, or any other concerning signs or symptoms from your standpoint. You were found to have a blood pressure greater than 120 systolic over 90 diastolic. Due to the new Medicare guidelines, we are now recommending that you follow up with your primary care doctor in regards to this elevated blood pressure. Please stop your Plavix for the next 7 days. Please make sure you have your Rhoades followed up with your primary care doctor or urology within the next 3-4 days. Problem Qualifiers Primary Impression: Hematuria Hematuria type: unspecified type Qualified Codes: R31.9 - Hematuria, unspecified
[2017-05-04] MEDS ORDERED: CLOP1TAB15 PO (11:04)
== END 2017-04-02 16:20 | disposition home or self-care (01) ==
LOC: C.EDB 12:23
DX: R31.9 Hematuria, unspecified (principal); R33.9 Retention of urine, unspecified; I10 Essential (primary) hypertension; E78.5 Hyperlipidemia, unspecified; I25.10 Atherosclerotic heart disease of native coronary artery without angina pectoris; Z85.51 Personal history of malignant neoplasm of bladder; Z79.82 Long term (current) use of aspirin; Z79.899 Other long term (current) drug therapy; Z83.3 Family history of diabetes mellitus

== ENCOUNTER 2017-04-04 08:21 | Emergency (ER) | payer BC ==
[~2017-04-04] VITALS: Ht 180.3 cm; Wt 87.7 kg
[~2017-04-04 08:21] MED LIST changes: +CLOP1TAB15 PO
[2017-04-04 08:26] VITALS: TEMP 36.6; Ht 180.3 cm; Wt 87.7 kg
--- NOTE | 2017-04-04 09:07 | EMERGENCY ROOM VISIT NOTE ---
History Report prepared by Sudarshan: Lorena Houston Under the Supervision of: Dr. Kimi Butler M.D. First contact with patient: 08:30 Chief Complaint: CATHETER REPLACEMENT Stated Complaint: CATHETER NEEDS TO BE REMOVED/PAINFUL History of Present Illness The patient is a 71 year old male who presents to the Emergency Room with complaints of persistent pain around his catheter that began this morning. He currently rates his discomfort as a 10/10 in severity. The patient states that he had bladder surgery on 03/19/17. He states that he was evaluated in the emergency on Wednesday and had a Rhoades catheter placed. The patient states that he has been draining bloody urine, noting that he has passed clots. He states that today he noticed increased pain to the area, and lower abdominal pain. The patient states that he noticed the urine leaking around the catheter. He denies any vomiting. Source of History: patient Onset: this morning Position: other (around Rhoades catheter) Symptom Intensity: 1010 Timing: other (persistent) Associated Symptoms: + abdominal pain, + urinary symptoms (hematuria), No vomiting Review of Systems See HPI for pertinent positives & negatives. A total of 10 systems reviewed and were otherwise negative. 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 Family History Diabetes mellitus Social History Smoking Status: Never Smoker Drug Use: none Marital Status: single Housing Status: lives alone Current/Historical Medications Scheduled Aspirin (Aspirin Ec), 81 MG PO QAM Atorvastatin (Lipitor), 80 MG PO QAM Bupropion (Wellbutrin Sr), 150 MG PO BID Ibuprofen Tab (Advil), 400 MG PO PRN Lisinopril (Zestril), 20 MG PO QAM Metoprolol Succ (Toprol Xl) (Toprol-Xl), 50 MG PO QAM Nitroglycerin (Nitrostat), 0.4 MG UT PRN Omeprazole (Prilosec), 20 MG PO QAM Allergies Coded Allergies: No Known Allergies (Unverified , 04/04/17) Physical Exam Vital Signs Date Time Temp Pulse Resp B/P (MAP) Pulse Ox O2 Delivery O2 Flow Rate FiO2 04/04/17 09:38 81 18 152/105 100 8/13/17 08:26 36.6 79 20 186/112 99 Room Air Physical Exam Vital signs reviewed. General: Well-appearing male, in no significant distress. HEENT: No scleral icterus, PERRLA, neck supple. Atraumatic. Cardiovascular: Regular rate and rhythm, no extra sounds. Pulmonary: Clear to auscultation bilaterally, normal work of breathing. Abdomen: Mild distension of the lower abdomen. Soft, nontender, nondistended, positive bowel sounds. : Dark blood in urine, no clots visualized, Rhoades catheter in place. Musculoskeletal: Atraumatic, no peripheral edema. Neurologic: Patient awake alert and oriented x 3 Skin: Warm, dry, no rash Medical Decision & Procedures ED Course 0844: Past medical records reviewed. The patient was evaluated in room A3. A complete history and physical examination was performed. 0857: Per nursing staff, the patients catheter was removed and it was found to be clotted off. Nursing staff states that the patient voided 100 cc of urine and the patient feels that he will be able to void more. 0934: I reevaluated the patient and he is doing well. I discussed the exam findings with him and I discussed the treatment plan. He verbalized complete understanding and agreement. He is ready to go home. Medical Decision Differential diagnosis include Postoperative bleed, kidney stone, UTI, catheter malfunction, trauma This patient was evaluated and appeared to be in some discomfort. Patient's Rhoades catheter was removed. He was able to urinate ~100ml several times on his own. He declined a second Rhoades catheter. He has a follow-up appointment tomorrow with urology. Patient was advised to drink plenty of clear fluids and to return to the ER if he is unable to void this evening. He will return to the ER for worsening of symptoms or any medical concerns. Medication Reconcilliation Current Medication List: was personally reviewed by me Blood Pressure Screening Patient's blood pressure: Elevated blood pressure Blood pressure disposition: Referred to PCP The patient has not taken his blood pressure medications for the past two days, he was advised to take his medications as prescribed. Impression Primary Impression: Blocked urinary catheter Additional Impression: Hematuria Scribe Attestation The scribe's documentation has been prepared under my direction and personally reviewed by me in its entirety. I confirm that the note above accurately reflects all work, treatment, procedures, and medical decision making performed by me. Departure Information Dispostion Home / Self-Care Referrals Parth Latham M.D. (PCP) Forms HOME CARE DOCUMENTATION FORM, IMPORTANT VISIT INFORMATION Patient Instructions [facility] Additional Instructions Diagnosis: Hematuria Drink plenty of water to keep bladder flushed. Return to the ED for inability to void. Follow up with your urologist this week for reevaluation. Return to the ED for worsening of symptoms or any medical concerns. Problem Qualifiers Primary Impression: Blocked urinary catheter Encounter type: initial encounter Qualified Codes: T83.098A - Other mechanical complication of other urinary catheter, initial encounter
[2017-04-04 09:38] VITALS: BP 152/105; PULSE 81; O2SAT 100
[2017-05-04] MEDS ORDERED: CLOP1TAB15 PO (11:04)
== END 2017-04-04 09:40 | disposition home or self-care (01) ==
LOC: C.EDA 08:41
DX: T83.098A Other mechanical complication of other urinary catheter, initial encounter (principal); R31.9 Hematuria, unspecified; X58.XXXA Exposure to other specified factors, initial encounter; I25.10 Atherosclerotic heart disease of native coronary artery without angina pectoris; E78.5 Hyperlipidemia, unspecified; I10 Essential (primary) hypertension; Z83.3 Family history of diabetes mellitus; Z79.82 Long term (current) use of aspirin

== ENCOUNTER 2017-05-12 04:51 | Day surgery (SDC) | payer BC ==
[2017-05-04 11:05] VITALS: BMI 27.0
[~2017-05-12] VITALS: Ht 180.3 cm; Wt 89.5 kg
[2017-05-12 05:55] VITALS: BP 186/97; PULSE 68; TEMP 36.7; O2SAT 99; Ht 180.3 cm; Wt 89.5 kg
[2017-05-12] MEDS ORDERED: CEFAZOLIN 2000 MG/60 ML D5W IV SCH (06:00)
[2017-05-12] MEDS ORDERED: LACTATED RINGER'S 1000ML 1,000 ML IV SCH (06:00)
[2017-05-12] MEDS ORDERED: THROMBIN FOR SOLN 20000 UNIT KIT ONE (06:40)
[2017-05-12] MEDS ORDERED: HEPARIN SOD (PORCINE) 1000 UNIT/ML 10 ML VIAL ONE (06:41)
[2017-05-12] MEDS ORDERED: CEFAZOLIN SOD 1 GM VIAL ONE (06:41)
[2017-05-12] MEDS ORDERED: LIDOCAINE HCL 1% 20 ML VIAL ONE (06:41)
[2017-05-12] MEDS ORDERED: MIDAZOLAM HCL 1 MG/ML 2ML VIAL ONE (06:52)
[2017-05-12] MEDS ORDERED: FENTANYL CITRATE INJ 50 MCG/1 ML 2 ML VIAL ONE (06:52)
[2017-05-12] MEDS ORDERED: KETAMINE HCL INJ 50 MG/ML 10 ML VIAL ONE (07:09)
[2017-05-12] MEDS ORDERED: LIDOCAINE HCL 2% 2 ML VIAL (20MG/ML) ONE (07:25)
[2017-05-12] MEDS ORDERED: PROPOFOL IV EMULSION 10 MG/ML 20 ML VIAL IV ONE (07:25)
[2017-05-12] MEDS ORDERED: SODIUM CHLORIDE 0.9% INJ 10 ML VIAL ONE (07:25)
[2017-05-12] MEDS ORDERED: HYDR-5688 PO (07:47)
--- NOTE | 2017-05-12 07:48 | [facility] Operative Report ---
Operative Report Operative Date May 12, 2017. Pre-Operative Diagnosis Urothelial Cancer Post-Operative Diagnosis Same as preoperative Procedure(s) Performed Infusaport Insertion, Left Cephalic Vein Surgeon Dr. Dave Shaver Apiarist Surgeon(s) None per surgeon Estimated Blood Loss 5ml Findings placed via Lt cephalic vein Specimens A.) None per surgeon Anesthesia local/ sedation Complication(s) None Disposition Recovery Room / PACU I attest to the content of the Intraoperative Record and any orders documented therein. Any exceptions are noted below.
--- NOTE | 2017-05-12 07:49 | Discharge Instructions ---
Discharge Instructions Date of Service May 12, 2017. Visit Reason for Visit: Bladder Cancer Discharge Discharge Diagnosis / Problem: A-port placement Discharge Goals Goal(s): Improve disease control Activity Recommendations Activity Limitations: as noted below Shower/Bathe: keep incision dry (for 2 days) Anesthesia . Post Anesthesia Instructions: If you have had General Anesthesia or IV Sedation: * Do not drive today. * Resume driving when surgeon permits. * Do not make important decisions or sign legal documents today. * Call surgeon for: 1. Temperature elevations greater than 101 degrees F. 2. Uncontrollable pain. 3. Excessive bleeding. 4. Persistent nausea and vomiting. 5. Medication intolerance (nausea, vomiting or rash). * For nausea and vomiting use only clear liquids such as: tea, soda, bouillon until nausea subsides, then gradually increase diet as tolerated. * If you have any concerns or questions, call your surgeon's office. If physician is unavailable and it is an emergency, call 911 or go to the nearest emergency room. . Instructions / Follow-Up Instructions / Follow-Up Dr. Aguilar office in 2 weeks for suture removal, call [phone] for any questions Diet Recommendations Recommended Home Diet: no limitations Procedures Procedures Performed: Infusaport Insertion, Left Cephalic Vein Pending Studies Studies pending at discharge: no Medical Emergencies . Who to Call and When: Medical Emergencies: If at any time you feel your situation is an emergency, please call 911 immediately. . Non-Emergent Contact Non-Emergency issues call your: Surgeon Call Non-Emergent contact if: you have a fever, temperature is above 101.5, your pain is not controlled, wound has increased redness, wound has increased pain, you have any medication questions . . "Provider Documentation" section prepared by Ld Warner. .
[2017-05-12] MEDS ORDERED: HYDROCODONE/ACETAMOPHEN 5/325MG TAB PO PRN ×2 (08:00)
--- NOTE | 2017-05-12 08:22 | DIAGNOSTIC IMAGING REPORT ---
CHEST ONE VIEW PORTABLE CLINICAL HISTORY: port dyspnea COMPARISON STUDY: 08/23/2016 FINDINGS: Central catheter place in superior vena cava. No evidence for pneumothorax. Lungs remain clear. IMPRESSION: Central catheter place in superior vena cava. No evidence pneumothorax. The above report was generated using voice recognition software. It may contain grammatical, syntax or spelling errors. Electronically signed by: Kalpesh Leger M.D. 05/12/2017 8:21 AM Dictated Date/Time: 05/12/2017 8:21 AM
--- NOTE | 2017-05-12 08:28 | Anesthesiology Progress Note ---
Anesthesia Post Op Note Date & Time May 12, 2017 at 08:28 Vital Signs Pain Intensity: 0 Vital Signs Past 12 Hours Date Time Temp Pulse Resp B/P (MAP) Pulse Ox O2 Delivery O2 Flow Rate FiO2 05/12/17 08:15 36.4 57 16 143/94 98 Room Air 05/12/17 07:55 56 16 150/94 98 Room Air 05/12/17 07:48 36.2 57 16 153/96 98 Room Air 05/12/17 05:55 36.7 68 20 186/97 (126) 99 Room Air Notes Mental Status: alert / awake / arousable, participated in evaluation Pt Amnestic to Procedure: Yes Nausea / Vomiting: adequately controlled Pain: adequately controlled Airway Patency, RR, SpO2: stable & adequate BP & HR: stable & adequate Hydration State: stable & adequate Anesthetic Complications: no major complications apparent
[2017-05-12 08:30] VITALS: BP 191/98; PULSE 63; TEMP 36.7; O2SAT 99
[2017-05-12] MEDS ORDERED: EpHEDrine SULFATE INJ 50 MG/ML AMP IV PRN (08:30)
[2017-05-12] MEDS ORDERED: FENTANYL CITRATE INJ 50 MCG/1 ML 2 ML VIAL IV PRN (08:30)
[2017-05-12] MEDS ORDERED: ATROPINE SULFATE 0.1 MG/ML 5ML SYR IV PRN (08:30)
[2017-05-12 09:00] VITALS: BP 191/98; PULSE 63; O2SAT 100
--- NOTE | 2017-05-12 10:24 | OPERATIVE REPORT ---
DATE OF OPERATION: 05/12/2017 NAME OF OPERATION: Infusaport placement. PREOPERATIVE DIAGNOSIS: Urothelial cancer. POSTOPERATIVE DIAGNOSIS: Same. STAFF SURGEON: Dr. Dave Shaver. ANESTHESIA: 1% plain lidocaine with sedation. DESCRIPTION OF PROCEDURE: The patient was brought into the operating room and placed on the operating table in the supine position. His chest was prepped and draped in the usual fashion. Skin and subcutaneous tissues over the left deltopectoral groove were anesthetized. Incision made, carrying dissection down, identifying a small cephalic vein. The vein was ligated distally using 2-0 silk suture and then opened. A catheter passed under fluoroscopy down into the superior vena cava. It was secured in place using 2-0 silk suture and 2-0 chromic catgut suture. It was aspirated and flushed with heparinized solution. The pocket was then fashioned in the chest wall. The port was attached to the catheter, placed into the pocket and secured using 3-0 Prolene suture. The port was aspirated and flushed with heparinized solution. Then, the site was irrigated with antibiotic solution. Subcutaneous tissue was reapproximated using 2-0 chromic catgut suture and then the skin reapproximated using 4-0 nylon suture. Dressing applied and the patient transferred to recovery room in stable condition. I attest to the content of the Intraoperative Record and any orders documented therein. Any exception s are noted below.
== END 2017-05-12 09:20 | disposition home or self-care (01) ==
LOC: C.ACU 04:51
PROVIDERS: ATTEND Surgery
DX: C67.9 Malignant neoplasm of bladder, unspecified (principal); I25.10 Atherosclerotic heart disease of native coronary artery without angina pectoris; I10 Essential (primary) hypertension; E78.5 Hyperlipidemia, unspecified; M19.90 Unspecified osteoarthritis, unspecified site; Z95.5 Presence of coronary angioplasty implant and graft; Z87.891 Personal history of nicotine dependence; Z79.82 Long term (current) use of aspirin; Z79.899 Other long term (current) drug therapy

== ENCOUNTER → 2017-07-06 | Outpatient (CLI) | payer BC ==
[~2017-07-06] MED LIST changes: -CLOP1TAB15 PO; +HYDR-5688 PO; +OPTIRAY 320 IV PRN
--- NOTE | 2017-07-06 07:15 | DIAGNOSTIC IMAGING REPORT ---
CT ABD/PELVIS COMBO CLINICAL HISTORY: C67.9 bladder carcinoma COMPARISON STUDY: 02/09/2017 TECHNIQUE: Unenhanced images were obtained through the abdomen and pelvis. The patient was injected with 50 cc Optiray 320. After 5 minute delay, the patient is rescanned in a dynamic helical fashion during the additional administration of 43 cc of Optiray 320. A dose lowering technique was utilized adhering to the principles of ALARA. CT DOSE: 1654.86 mGy.cm FINDINGS: Lower chest: The heart is normal in size and configuration, without pericardial effusion. The lung bases and pleural spaces are clear. Liver: The contrast-enhanced liver is normal in size, contour, and attenuation. There is no intrahepatic biliary ductal dilatation. The hepatic veins and portal veins are patent. Gallbladder: Unremarkable. Spleen: There is a stable 14 mm splenic hypodensity Pancreas: Unremarkable. Adrenal glands: Unremarkable. Kidneys: No renal, ureteral, or bladder calculi are visualized. There are bilateral renal masses which are felt to represent a combination of cysts and hyperdense cysts. No uroepithelial lesions are visualized. Bowel: There are no transition zone to indicate bowel obstruction. There is no acute appendicitis. There is no acute diverticulitis. Peritoneum: There is no intraperitoneal free air or abdominal ascites. There is a fat-containing umbilical hernia. Vasculature: The abdominal aorta is normal in course and caliber. Adenopathy: None. Pelvic viscera: There is irregular bladder wall thickening containing areas of calcification. This likely corresponds to the reported bladder carcinoma. Skeletal structures: No destructive osseous lesions are seen. IMPRESSION: 1. Irregular bladder wall thickening containing an area of calcification. This likely corresponds to the reported bladder carcinoma 2. Bilateral renal masses which are felt to represent a combination of cysts and hyperdense cysts 3. No collecting system or ureteral masses identified 4. No evidence of pathologic adenopathy 5. Stable 14 mm splenic hypodensity Electronically signed by: George Cazares M.D. 07/06/2017 7:13 AM Dictated Date/Time: 07/06/2017 7:04 AM
--- NOTE | 2017-07-06 07:38 | DIAGNOSTIC IMAGING REPORT ---
CHEST CT WITH CONTRAST HISTORY: Metastatic survey in a patient with known bladder carcinoma. C67.9 Carcinoma of bladderno latex allergy, no iodine allergy, n TECHNIQUE: Multiaxial CT images of the chest were performed following the intravenous administration of contrast. 93 mL Optiray 320 IV contrast was administered. A dose lowering technique was utilized adhering to the principles of ALARA. COMPARISON: CT abdomen and pelvis 07/06/2017. FINDINGS: Thyroid is heterogeneous with nodules measuring up to 5 mm. There is no pathologic adenopathy about the chest identified. Heart is mildly enlarged without pericardial effusion. Coronary arterial calcifications are present. Left subclavian Euwrzm-h-Doas catheter is noted with distal tip terminating near the superior cavoatrial junction. Multiple solid noncalcified pulmonary nodules are present bilaterally, most of which measure in the 2 to 3 mm range with largest nodule measuring 4 mm in the apical posterior segment left upper lobe, image 63 series 7. A few calcified granulomas are also present. Mild subpleural reticulation of the right lung base suggest some pleural parenchymal scarring. There are linear subsegmental apical and hilar opacities suggesting additional areas of scarring or atelectasis. Mild bronchial wall thickening of the lung bases suggest bronchitis. No pneumothorax, pleural effusion or focal airspace consolidation. No acute amount of the imaged upper abdomen. 1.7 x 1.5 cm cystic lesion of the superior pole left kidney suggests cyst. Low attenuating lesion of the posterior spleen is seen, 1.3 x 1.4 cm. Soft tissues are unremarkable. The bones appear intact. Multilevel endplate spurring of the spine. IMPRESSION: 1. No acute intrathoracic abnormality identified. 2. Multiple bilateral solid noncalcified pulmonary nodules, most of which measure in the 2 to 3 mm range with largest measuring 4 mm. Additionally, there are a few scattered calcified granulomas. These findings favor infectious or inflammatory etiology, however follow-up guidelines are provided below. 3. Mild bilateral bronchial wall thickening suggests bronchitis. 4. Mild subpleural reticulation and linear subsegmental consolidative opacities of the lung bases suggest areas of scarring. Please refer to below summary of Fleischner criteria recommendations for follow-up of incidental CT nodules (Fifi Montgomery, Guidelines for management of small pulmonary nodules detected on CT scans: A statement from the Fleischner Society, Radiology 237: [phone].) SOLID NODULES Solitary nodule size: <6 mm * Low risk patients: no follow-up needed * high risk patients: optional CT at 12 months Solitary nodule size: 6-8 mm * Low risk patients: follow-up at 6-12 months, then consider further follow-up at 18-24 months * high risk patients: initial follow-up CT at 6-12 months and then at 18-24 months if no change Solitary nodule size: >8 mm * either low or high risk patients - consider follow-up CT at 3 months, and/or CT-PET, and/or biopsy Multiple nodules size: <6 mm * Low risk patients: no routine follow-up * high risk patients: optional CT at 12 months Multiple nodules size: 6-8 mm * Low risk patients: follow-up at 3-6 months, then consider further follow-up at 18-24 months * high risk patients: follow-up at 3-6 months, then at 18-24 months if no change Multiple nodules size: >8 mm * Low risk patients: follow-up at 3-6 months, then consider further follow-up at 18-24 months * high risk patients: follow-up at 3-6 months, then at 18-24 months if no change Note: newly detected indeterminate nodule in persons 35 years of age or older. * Low risk patients: minimal or absent history of smoking and/or other known risk factors * high risk patients: history of smoking or of other known risk factors (e.g. first degree relative with lung cancer, or exposure to asbestos, radon, uranium) * if a nodule up to 8 mm is partly solid or is ground glass further follow-up is required after 24 months to exclude possible slow growing adenocarcinoma (SANDRINE) SUBSOLID NODULES Solitary pure ground-glass nodule * nodule size <6 mm - no CT follow-up required * nodule size >=6 mm - follow-up CT at 6-12 months, then every 2 years until 5 years Solitary part-solid nodule * nodule size <6 mm - no CT follow-up required * nodule size >=6 mm - follow-up CT at 3-6 months. If unchanged, and solid component remains <6 mm, then annual follow-up for 5 years Multiple subsolid nodules * nodule size <6 mm - follow-up CT at 3-6 months, consider further follow-up at 2 and 4 years if stable * nodule size >=6 mm - follow-up CT at 3-6 months, subsequent management based on the most suspicious nodule(s) The above report was generated using voice recognition software. It may contain grammatical, syntax or spelling errors. Electronically signed by: Joel Hadley M.D. 07/06/2017 7:36 AM Dictated Date/Time: 07/06/2017 7:07 AM
== END | disposition home or self-care (01) ==
LOC: C.CTS 06:30
PROVIDERS: ATTEND Urology
DX: C67.9 Malignant neoplasm of bladder, unspecified (principal); N28.89 Other specified disorders of kidney and ureter; J84.10 Pulmonary fibrosis, unspecified; R91.8 Other nonspecific abnormal finding of lung field

== ENCOUNTER 2017-08-03 05:37 | Inpatient (IN) | payer OTHER, BC ==
[2017-07-21 13:12] VITALS: BMI 27.0
--- NOTE | 2017-07-21 13:44 | PAT Medication Instructions ---
Service Date Jul 21, 2017. Current Home Medication List Amlodipine (Norvasc), 2.5 MG PO QAM Aspirin (Aspirin Ec), 81 MG PO QAM Atorvastatin (Lipitor), 80 MG PO QAM Ibuprofen Tab (Advil), 400 MG PO PRN Lisinopril (Zestril), 20 MG PO QAM Metoprolol Succ (Toprol Xl) (Toprol-Xl), 50 MG PO QAM Nitroglycerin (Nitrostat), 0.4 MG UT PRN Omeprazole (Prilosec), 20 MG PO QAM Triazolam (Halcion), 0.125 MG PO HS Medication Instructions For Your Scheduled Surgery - Check with surgeon for instructions: Ibuprofen Tab (Advil), 400 MG PO PRN - Hold the following medications the morning of surgery: Lisinopril (Zestril), 20 MG PO QAM - Take the following medications the morning of surgery with a sip of water: Amlodipine (Norvasc), 2.5 MG PO QAM Aspirin (Aspirin Ec), 81 MG PO QAM (okay to continue per surgeon) Atorvastatin (Lipitor), 80 MG PO QAM Metoprolol Succ (Toprol Xl) (Toprol-Xl), 50 MG PO QAM Nitroglycerin (Nitrostat), 0.4 MG UT PRN (if needed) Omeprazole (Prilosec), 20 MG PO QAM - Take the following medications as scheduled the night before surgery: Triazolam (Halcion), 0.125 MG PO HS Nitroglycerin (Nitrostat), 0.4 MG UT PRN (if needed) If you have any questions please call us at [phone] or [phone] or [phone]
[2017-07-21 14:17] LABS: BASO % 0.4 %; BASO ABS # 0.03 K/uL (0-0.2); COMPLETE YES; EOS % 3.3 %; HEMATOCRIT 36.2 % (42-52); IG% 0.3 %; LYMPH % 11.8 %; LYMPH ABS # 0.83 K/uL (1.2-3.4); MEAN CELL VOLUME 88.7 fL (80-100); MEAN CORPUSCULAR HEMOGLOBIN 29.7 pg (25-34); MEAN CORPUSCULAR HGB CONC 33.4 g/dl (32-36); MEAN PLATELET VOLUME 9.8 fL (7.4-10.4); MONO % 10.4 %; NEUT % 73.8 %; PLATELET COUNT 185 K/uL (130-400); RED BLOOD COUNT 4.08 M/uL (4.7-6.1); WHITE BLOOD COUNT 7.02 K/uL (4.8-10.8)
[2017-07-21 14:31] LABS: URINE APPEARANCE CLEAR (CLEAR); URINE BILIRUBIN NEG (NEG); URINE COLOR YELLOW; URINE NITRITE NEG (NEG); URINE PH 6.5 (4.5-7.5); URINE SPECIFIC GRAVITY 1.022 (1.000-1.030); UROBILINOGEN NEG (NEG)
[2017-07-21 14:43] LABS: MANUAL MICROSCOPIC REQUIRED? NO; REVIEW REQ? NO
--- NOTE | 2017-07-21 14:53 | DIAGNOSTIC IMAGING REPORT ---
CHEST 2 VIEWS ROUTINE CLINICAL HISTORY: 71 years-old Male presenting with and chest x-ray. TECHNIQUE: PA and lateral views of the chest were obtained. COMPARISON: 05/12/[address] from 07/06/2017. FINDINGS: Left subclavian Mediport terminates near the superior cavoatrial junction. Atherosclerosis of the aortic arch. Cardiac silhouette normal in size. Lungs and pleural spaces clear. Post radical deformity of the distal right clavicle and right acromioclavicular joint. Upper abdomen normal. IMPRESSION: 1. No acute cardiopulmonary disease. Electronically signed by: Angelito Medina M.D. 07/21/2017 2:52 PM Dictated Date/Time: 07/21/2017 2:50 PM
[2017-07-21 15:32] LABS: BUN/CREATININE RATIO 21.7 (10-20); CALCIUM 9.1 mg/dl (8.5-10.1); CREATININE 1.26 mg/dl (0.60-1.40); POTASSIUM 4.4 mmol/L (3.5-5.1)
[~2017-08-03] VITALS: Ht 180.3 cm; Wt 89.9 kg
[2017-08-03] VITALS (34 sets, daily range): BP systolic 122–180; BP diastolic 60–119; PULSE 70–112; TEMP 36.6–36.8; O2SAT 83–100; Ht 180.3 cm; Wt 89.9 kg
[~2017-08-03 05:37] MED LIST changes: +AMLO2.5T PO; -BUPR-79 PO; +CLOP1TAB15 PO; -HYDR-5688 PO; -OPTIRAY 320 IV PRN; +TRIA0.25 PO
[2017-08-03] MEDS ORDERED: LACTATED RINGER'S 1000ML 1,000 ML IV SCH ×2 (06:00→13:48)
[2017-08-03] MEDS ORDERED: GENTAMICIN INJ 100 MG in DEXTROSE 5% 100ML 100 ML IV SCH (06:00)
[2017-08-03] MEDS ORDERED: HEPARIN SOD 5000 UNIT/0.5 ML CARP SQ SCH (06:00)
[2017-08-03 06:42] LABS: BASO % 0.1 %; BASO ABS # 0.01 K/uL (0-0.2); HEMATOCRIT 37.1 % (42-52); IG% 0.3 %; LYMPH % 9.1 %; LYMPH ABS # 0.63 K/uL (1.2-3.4); MEAN CELL VOLUME 88.5 fL (80-100); MEAN CORPUSCULAR HEMOGLOBIN 30.5 pg (25-34); MEAN PLATELET VOLUME 9.3 fL (7.4-10.4); MONO % 7.7 %; NEUT % 79.8 %; PLATELET COUNT 155 K/uL (130-400); RED BLOOD COUNT 4.19 M/uL (4.7-6.1); WHITE BLOOD COUNT 6.92 K/uL (4.8-10.8)
[2017-08-03 06:52] LABS: COMPLETE YES; MEAN CORPUSCULAR HGB CONC 34.5 g/dl (32-36)
[2017-08-03] MEDS ORDERED: HYDROmorphone INJ 2 MG/ML SYR/VIAL ONE (06:58)
[2017-08-03] MEDS ORDERED: ONDANSETRON INJ 2 MG/ML 2 ML VIAL ONE ×2 (06:58→11:52)
[2017-08-03] MEDS ORDERED: LIDOCAINE HCL 2% 2 ML VIAL (20MG/ML) ONE (06:58)
[2017-08-03] MEDS ORDERED: PROPOFOL IV EMULSION 10 MG/ML 20 ML VIAL IV ONE (06:58)
[2017-08-03] MEDS ORDERED: FENTANYL CITRATE INJ 50 MCG/1 ML 2 ML VIAL ONE ×5 (06:58→14:01)
[2017-08-03] MEDS ORDERED: MIDAZOLAM HCL 1 MG/ML 2ML VIAL ONE (07:07)
[2017-08-03] MEDS ORDERED: ACETAMINOPHEN 1000 MG/100 ML IV IV ONE (07:08)
[2017-08-03] MEDS ORDERED: ALBUMIN HUMAN 5% 12.5 GM/250 ML VIAL IV ONE (07:09)
[2017-08-03] MEDS ORDERED: BUPIVACAINE 0.5 % 5 MG/1 ML MPF 30ML VIAL ONE (07:11)
[2017-08-03] MEDS ORDERED: METHYLENE BLUE 0.5% 10 ML VIAL ONE (07:11)
[2017-08-03] MEDS ORDERED: EpHEDrine SULFATE 50MG/5ML SYR ONE ×2 (08:44→12:39)
[2017-08-03] MEDS ORDERED: PHENYLEPHRINE 100MCG/ML 5ML SYR ONE ×2 (08:44→12:55)
[2017-08-03] MEDS ORDERED: LABETALOL HCL IV 5 MG/ML 20ML IV ONE (09:00)
[2017-08-03] MEDS ORDERED: SURGICEL ABSORB HEMOSTAT 2IN X 14IN TOP ONE (09:54)
[2017-08-03] MEDS ORDERED: FLOSEAL HEMOSTATIC MATRIX 10ML TOP ONE (09:55)
[2017-08-03] MEDS ORDERED: TISSEEL FIBRIN SEALANT 10ML TOP ONE (09:56)
[2017-08-03] MEDS ORDERED: DEXAMETHASONE SOD INJ 4 MG/ML VIAL ONE (09:59)
[2017-08-03] MEDS ORDERED: ATROPINE SULFATE 0.1 MG/ML 5ML SYR IV PRN (10:15)
[2017-08-03] MEDS ORDERED: FENTANYL CITRATE INJ 50 MCG/1 ML 2 ML VIAL IV PRN (10:15)
[2017-08-03] MEDS ORDERED: EpHEDrine SULFATE INJ 50 MG/ML AMP IV PRN (10:15)
[2017-08-03] MEDS ORDERED: HYDROmorphone INJ 1 MG/ML SYR IV PRN (10:15)
[2017-08-03] MEDS ORDERED: ONDANSETRON INJ 2 MG/ML 2 ML VIAL IV PRN (10:15)
[2017-08-03] MEDS ORDERED: SODIUM CHLORIDE 0.9% INJ 10 ML VIAL ONE (11:07)
[2017-08-03] MEDS ORDERED: KETAMINE HCL INJ 50 MG/ML 10 ML VIAL ONE (11:37)
[2017-08-03] MEDS ORDERED: GLYCOPYRROLATE INJ 0.2 MG/ML VIAL ONE (12:58)
[2017-08-03] MEDS ORDERED: NEOSTIGMINE METHYLSULFATE 5 MG/5 ML SYR ONE (12:58)
[2017-08-03] MEDS ORDERED: ROCURONIUM BROMIDE 10 MG/ML 5 ML VIAL IV ONE (13:35)
[2017-08-03] MEDS ORDERED: NITROGLYCERIN 0.4 MG SL PER TAB CHARGE UT SCH (14:00)
[2017-08-03] MEDS ORDERED: ACETAMINOPHEN IV 650 MG in EMPTY BAG 0 ML IV PRN (14:00)
[2017-08-03] MEDS ORDERED: GENTAMICIN CONSULT ACTIVE PRN (14:29)
--- NOTE | 2017-08-03 14:38 | DIAGNOSTIC IMAGING REPORT ---
KUB CLINICAL HISTORY: Ureteral stent placement. FINDINGS: AP, portable, supine abdominal radiograph is correlated with abdominal CT dated 07/06/2017. Bilateral ureteral stents are in place. These extend towards a right lower quadrant ostomy. A surgical drain is present in the pelvis. No bowel obstruction is seen. No abnormal abdominal calcifications are identified. The skeletal structures are osteopenic. The bony structures appear intact. IMPRESSION: 1. Bilateral ureteral stents are in place and extends towards an ostomy in the right lower quadrant. 2. A surgical drain is present in the pelvis. Electronically signed by: Conrad Bucio M.D. 08/03/2017 2:37 PM Dictated Date/Time: 08/03/2017 2:35 PM
[2017-08-03 14:42] LABS: HEMATOCRIT 33.3 % (42-52); MEAN CELL VOLUME 88.1 fL (80-100); MEAN CORPUSCULAR HEMOGLOBIN 30.4 pg (25-34); MEAN PLATELET VOLUME 8.6 fL (7.4-10.4); PLATELET COUNT 165 K/uL (130-400); RED BLOOD COUNT 3.78 M/uL (4.7-6.1); WHITE BLOOD COUNT 15.24 K/uL (4.8-10.8)
[2017-08-03 15:01] LABS: MEAN CORPUSCULAR HGB CONC 34.5 g/dl (32-36)
[2017-08-03] MEDS: CEFAZOLIN 2000MG IV PUSH 10 ML IV SCH ×2 (15:01→15:04)
--- NOTE | 2017-08-03 15:03 | [facility] Operative Report ---
Operative Report Operative Date Aug 03, 2017. Pre-Operative Diagnosis Muscle invasive bladder ca Post-Operative Diagnosis Muscle invasive bladder ca Procedure(s) Performed Robotic Radical Cystoprostatectomy, Ileal Conduit, Bilateral extended Pelvic Lymph Node Dissection Da Yeni Surgeon Dr. Chris Liu Breaker Machine Tender Surgeon(s) ANN Doe & Dr. Lucian Ventura Estimated Blood Loss 200 mL Findings As per dictation Specimens Frozen Sections #1. Right distal ureter Special Information: Check for cancer Sent to lab at 0943. Carried by OR aide. Results called and reported to surgeon at 1010. #2. Left distal ureter Special Information: Margin opposite stitch Sent to lab at 0943. Carried by OR aide. Results called and reported to surgeon at 1010. Permanent specimens A: Right pelvic lymph nodes B: Left pelvic lymph nodes C: Bladder and prostate D: Left distal ureteral margin E: Right distal ureteral margin Drains HANK; bilateral ureteral diversionary stones Anesthesia Gen. Complication(s) None Disposition Recovery Room / PACU (stable) Indications Muscle invasive bladder cancer status post neoadjuvant chemotherapy Description of Procedure The patient was identified in the preoperative holding area, appropriate informed consents were reviewed and completed, and the patient was transported to the operating suite. Upon arrival he received appropriate preoperative antibiotics. Adequate general anesthesia was achieved and he was placed in dorsal lithotomy position where he was sterilely prepped and draped in standard fashion. Of note, I was assisted by Dr. Lucian Ventura throughout the case in decision-making and planning as well as creation of an ileal conduit and re- anastomoses of the bowel with ureteral reimplant into the ileal conduit. Lauren Antonio was an additional assistant brand manager providing bedside laparoscopic support throughout the robotic portion of the case and secondary assistant brand manager support throughout the ileal conduit and stomal maturation process. A Veress needle was utilized to insufflate the abdomen. Suprapubic incision was made to accommodate a 12 mm Visiport which was passed utilizing a 10 mm robotic scope. Inspection of the abdomen revealed a small umbilical hernia with a bit of omentum protruding through it, minimal other adhesive disease. Additional port sites were inspected and determined to be safe for standard positioning. Ports were subsequently positioned and orientation very similar to a robotic prostatectomy albeit shifted approximately 3 cm more cephalad. To begin the robotic portion of the case, the lateral aspect of the sigmoid colon was mobilized off the left lateral pelvic wall. After exposing the external iliac vein and artery, I was able to identify the ureter where it crosses these vessels. The peritoneum was incised parallel to the ureter with incision carried proximally or to the kidney and distally into the deep pelvis. I dissected circumferentially around the ureter and elevated at utilizing the third arm of the robot. I continued my dissection freeing the ureter entirely down to the level of its junction with the bladder. Care was used to avoid incidental injury to the obliterated umbilical ligaments as well as the supra vesicle artery. After reaching the UVJ, a Weck clip was placed on the distal most aspect of the ureter. A second clip marked with a long silk suture was placed just proximal to this. The ureter was transected, and distal aspect of the ureter was excised and passed off the table as a specimen for frozen section. Several moments later frozen section analysis revealed no evidence of cancer and the ureter. I then turned my attention to the right ureter. Just beyond the cecum, I was able to identify the external iliac artery and vein and visualize the ureter crossing them. I incised the peritoneum parallel to the ureter and circumferentially dissected the ureter elevating off of the posterior structures and carrying this dissection distally towards the right UVJ. Once reaching the UVJ, this was controlled with a Weck clip placed at the extreme distal ureter followed by a second clip tagged with a white Vicryl suture just proximal to the first clip. I transected the ureter between the clips and then excise the distal most aspect of the residual ureter and sent off the table as a specimen labeled right distal ureter for frozen section. Pathology returned several moments later and was read as no evidence of residual cancer. I then proceeded to turn my attention towards development of the posterior plane behind the prostate. In the extreme pouch of Darrian identified that location of the seminal vesicles and ampulla of the vasa. I transected the peritoneum in this area and dissected out the vasa before transecting them. Then dissected out the seminal vesicles bilaterally. After completing this portion of the dissection, I carried a posterior plane through to nondisease fascia towards the apex of the prostate. I then turned my attention to the anterior portion of the bladder and lateral aspects of the pedicles. I transected the peritoneum just lateral to the medial umbilical ligaments bilaterally. Dissected under the pubic arch a leaving the most anterior medial attachments intact. I identified the endopelvic fascia which was opened bilaterally from the base of the prostate towards the apex with a careful sparing of the lateral levator musculature. This left a small amount of tissue which incorporated the vascular pedicles to the bladder and the prostate attached between this anterior incision and my previously dissected posterior plane. After developing this bilaterally, I controlled both sides utilizing a vessel sealer device. Towards the apex of the prostate, I carried my dissection further utilizing this vessel sealer device until I reached the true apex. The dorsal venous complex was still intact, and I suture-ligated this utilizing a ouhicy-mu-bonvz 0 Vicryl stitch. I carefully skeletonize the urethra before removing the Rhoades catheter and placing a Weck clips across the urethra. I further closed this utilizing a 0 silk liqtvv-ih-qnzlv stitch. The urethra was transected just distal to the the stitch and clip. This entirely free the bladder and prostate specimen which was pushed towards the upper abdomen. I ensured excellent hemostasis over the fossa. My attention then turned to the lymph node dissection. Beginning on the right, I re-identified the external iliac artery and vein and elevated the fat packet/ lymphatic packet on the inferior aspect of the vein. I carried my dissection from the inferior aspect of the vein laterally as far as the circumflex vein and distally to the obturator nerve. Proximally I cared my dissection over the external iliac artery with a split and roll technique continued to carry this packet up both the vein and artery over the common iliac vessels to a level just below the aortic bifurcation. Utilizing a series of clips, the posterior and proximal aspects of this packet were controlled and then transected utilizing monopolar and bipolar electrocautery. The obturator nerve was exposed and skeletonize for a significant length with care to avoid cautery use adjacent to it. I ensured excellent hemostasis from the surrounding aspects of the packet before pushing my lymphatic packet into the deep pelvis. I repeated the same procedure on the left utilizing the same landmarks. This lymphatic packet was marked with a Weck clip before both lymphatic packets were collected in an Endo Catch bag. Before concluding the robotic portion of the case, I passed the left ureter underneath the Route the mesentery utilizing the previously placed 0 silk stitch on a Weck clips at the distal aspect of this ureter. Additionally, to ensure further hemostasis, FloSeal was placed in the extreme deep pelvis around the urethra and Tisseel was sprayed over the bilateral obturator and external/ common iliac lymph node fossas. We then spent at her suprapubic incision to approximately 8 cm and extracted the specimens via this incision. A flexible wound protector was placed and we identified the terminal ileum. An area approximately 12 cm from the TI was marked with a long silk stitch as the distal aspect of our planned ileal conduit. A second short stitch was placed approximately 12 cm proximal to this first stitch to lashawn the proximal aspect of her conduit. MORIS staplers were utilized to transect the ileum at these marked locations after careful inspection and transillumination of the mesentery to ensure appropriate vascularity. The ileum was put back intocontinuity proximal/cephalad to the conduit. The corners of the stapled area proximally and distally were excised with a GI staple load placed with 1 arm passed and each aspect of the ileum. Antimesenteric borders were joined and the stapler fired. The crotch of this anastomosis was supported utilizing 2 simple interrupted 3-0 silk sutures on each side. A TA stapler was utilized to close the additional aspect of the anastomosis completing our side to side functional end to end anastomosis. The TA staple border was oversewn utilizing the additional 2-0/3-0 silk sutures in imbricating fashion. The bowel appeared to be very healthy with good pink color. Mesenteric rent was closed with a series of 3-4 simple interrupted silk sutures. Our attention was then turned to the conduit distal aspect of the conduit/our future stoma added staple line excised in a condo was thoroughly irrigated utilizing sterile water. Beginning with the left ureter, the distal ureter was prepared. A clip was excised with the distal aspect of this ureter passed off the table as a permanent specimen and a stay suture was placed approximately 2 cm proximal to freshly excised distal most aspect of the ureter. The ureter was spatulated on the side that would be lying against the ileal conduit. A 4- 0 Vicryl suture was placed in the apex of the spatulation. Before proceeding further, the conduit was positioned in a site for then ureteral anastomosis was prepared. Beginning with his previously placed 4-0 Vicryl suture, the anastomosis was initiated. After approximately 4 sutures were placed around the anastomosis, a diversionary ureteral stent was guided through this distal aspect of the stoma and into the ureter up towards the kidney. We then completed the anastomosis around the stent. Periureteral fat was ultimately tacked over the anastomosis as an additional support layer. The stoma was irrigated with out evidence of anastomotic leak. The same procedure was performed with the right ureter. The distal most aspect of the ureter was excised and passed off the table for permanent specimen. The remaining aspect of the ureter was spatulated and the side which would ultimately adjoin the ileal conduit and a 4-0 Vicryl suture was pre-placed to the apex of the spatulation. A condo was prepared with a site for reimplant excised and opened. Simpler up to sutures were placed around the posterior aspect of this anastomosis prior to placement of a diversionary right ureteral stent. Anastomosis was subsequently completed over the stent with periureteral fat tacked over the anastomosis is an insulating layer. Under the was irrigated without evidence of anastomotic leak. Both stents were sutured in place utilizing 4-0 chromic stitches. I then turned my attention to the stomal site which had previously been marked. I excised a belkofski of skin that was approximately 2 cm in diameter. Cared my dissection down to the fascia were cruciate incision was made. 0 Vicryl sutures were placed to the corners of this cruciate incision. The opening through the fascia was expanded to accommodate 2 fingers before passage of the stoma through this fascial opening and the skin. The preplaced 0 Vicryl sutures the corner of her cruciate incision were placed into the serosa of the ileum holding it in place. We ensure there was no twisting of the conduit nor the ureters at this time. Then proceeded to mature the stoma utilizing a series of 2-0 Vicryl sutures. There is a very good Hudspeth and affect. Extreme care was used to avoid entrapment of the mesentery during this procedure. Before closure of the fascia a HANK drain was guided through the left lateral most robotic port and into the abdomen. Midline fascia was then closed utilizing a series of's ivkaly-ez-zeldd 0 PDS sutures. This included closure of his previously identified umbilical hernia. The right lateral most assistant brand manager port its fascia closed utilizing a figure-of- eight 0 Vicryl. All robotic ports were closed utilizing 4-0 Monocryl.All wounds were infiltrated with half percent Marcaine. Midline incision was closed utilizing 4-0 Monocryl subcuticular stitch. Stomal device was placed. The case was subsequently concluded and the patient was extubated and taken to the PACU in stable condition. Were no complications, the patient tolerated the procedure very well. I attest to the content of the Intraoperative Record and any orders documented therein. Any exceptions are noted below.
--- NOTE | 2017-08-03 15:10 | Anesthesiology Progress Note ---
Anesthesia Post Op Note Date & Time Aug 03, 2017 at 15:10 Vital Signs Pain Intensity: 0 Vital Signs Past 12 Hours Date Time Temp Pulse Resp B/P (MAP) Pulse Ox O2 Delivery O2 Flow Rate FiO2 08/03/17 14:53 36.8 08/03/17 14:47 94 14 08/03/17 14:47 95 14 99 08/03/17 14:46 162/96 08/03/17 14:42 82 16 08/03/17 14:42 82 16 96 08/03/17 14:41 159/89 08/03/17 14:37 97 16 98 08/03/17 14:37 97 16 08/03/17 14:36 147/95 08/03/17 14:35 100 21 98 08/03/17 14:35 100 21 08/03/17 14:31 146/98 08/03/17 14:30 97 20 99 08/03/17 14:30 97 20 08/03/17 14:26 142/92 08/03/17 14:25 85 12 96 08/03/17 14:25 85 12 08/03/17 14:21 149/93 08/03/17 14:20 92 17 08/03/17 14:20 92 17 97 08/03/17 14:16 155/100 08/03/17 14:15 98 22 99 08/03/17 14:15 98 22 08/03/17 14:11 135/88 08/03/17 14:10 36.7 89 8 135/88 98 Oxymask 10 08/03/17 14:10 81 11 08/03/17 14:10 93 11 89 08/03/17 06:00 36.8 76 20 153/92 96 Room Air Notes Mental Status: alert / awake / arousable, participated in evaluation Pt Amnestic to Procedure: Yes Nausea / Vomiting: adequately controlled Pain: adequately controlled Airway Patency, RR, SpO2: stable & adequate BP & HR: stable & adequate Hydration State: stable & adequate Anesthetic Complications: no major complications apparent
[2017-08-03 15:12] LABS: BUN/CREATININE RATIO 18.4 (10-20); CALCIUM 7.7 mg/dl (8.5-10.1); CREATININE 1.43 mg/dl (0.60-1.40)
[2017-08-03] MEDS: HYDROmorphone INJ 1 MG/ML SYR IV PRN (16:34)
[2017-08-03 16:38] LABS: PARTIAL THROMBOPLASTIN RATIO 0.9; PROTHROMBIN TIME (PATIENT) 10.6 SECONDS (9.0-12.0)
[2017-08-03] MEDS: METRONIDAZOLE / NSS 500 MG in PREMIXED NSS 100 ML IV SCH ×2 (16:54→23:54)
[2017-08-03] MEDS: CEFAZOLIN IV 2,000 MG in SYRINGE 0 ML IV SCH ×2 (16:54→23:55)
[2017-08-03] MEDS: ERYTHROMYCIN OP OINT 1 GM PKT OP SCH ×2 (17:00→22:53)
[2017-08-03] MEDS ORDERED: ARTIFICIAL TEARS OP SOLN OP PRN ×2 (17:00)
[2017-08-03] MEDS: SODIUM CHLORIDE 0.9% 1000ML 1,000 ML IV SCH ×2 (17:29→23:55)
[2017-08-03] MEDS: ONDANSETRON INJ 2 MG/ML 2 ML VIAL IV PRN (17:30)
[2017-08-03] MEDS ORDERED: ONDANSETRON INJ 2 MG/ML 2 ML VIAL IV STA (17:33)
[2017-08-03] MEDS ORDERED: GENTAMICIN INJ 80 MG in DEXTROSE 5% 100ML 100 ML IV ONE (19:00)
[2017-08-03] MEDS: KETOROLAC TROMETHAMINE 15 MG/ML VIAL IV PRN (20:17)
[2017-08-03] MEDS ORDERED: ESZOPICLONE 1 MG TAB PO PRN (22:15)
--- NOTE | 2017-08-03 22:29 | Critical Care Consultation ---
Critical Care Consultation Date of Consultation: Aug 03, 2017. Attending Physician: Chris Liu M.D. Reason for Consultation: Postop extensive urologic procedures. History of Present Illness Dear Dr. Liu: Thank you for your kind referral of Mr. Barajas to critical care service. This is 71-year-old gentleman with a history of bladder CA, hypertension, hyperlipidemia, presented to the hospital for bladder CA resection and underwent radical cystoprostatectomy with lymphadenectomy, the patient underwent the procedure very well. The patient was admitted to the ICU for further management due to the extensive of his procedure. The patient did not have any chest pain, shortness of breath, he felt nauseous at the beginning but not any further, responded to one dose of Zofran. The patient did not have significant abdominal pain, denies any pain in his legs or increased swelling in his lower extremities. He appeared to be stable hemodynamically as well., Past Medical/Surgical History As above. Family History Diabetes mellitus Noncontributory. Social History Smoking Status: Former Smoker Drug Use: none Marital Status: single Housing Status: lives alone Allergies Coded Allergies: No Known Allergies (Unverified , 08/03/17) Home Medications Scheduled Amlodipine (Norvasc), 2.5 MG PO QAM Aspirin (Aspirin Ec), 81 MG PO QAM Atorvastatin (Lipitor), 80 MG PO QAM Clopidogrel (Plavix), 75 MG PO DAILY Ibuprofen Tab (Advil), 400 MG PO PRN Lisinopril (Zestril), 20 MG PO QAM Metoprolol Succ (Toprol Xl) (Toprol-Xl), 50 MG PO QAM Nitroglycerin (Nitrostat), 0.4 MG UT PRN Omeprazole (Prilosec), 20 MG PO QAM Triazolam (Halcion), 0.125 MG PO HS Current Inpatient Medications Current Inpatient Medications Medications (Trade) Dose Ordered Sig/May Route Start Time Stop Time Status Last Admin Dose Admin Acetaminophen 650 mg/Empty Bag 65 ml @ 260 mls/hr Q6H PRN IV 08/03/17 14:00 09/02/17 13:59 Metronidazole 500 mg/Prmx 100 ml @ 100 mls/hr Q8H IV 08/03/17 16:00 08/04/17 15:59 08/03/17 16:54 100 MLS/HR Gentamicin Sulfate (Consult) 1 ea UD PRN N/A 08/03/17 14:29 08/04/17 14:28 Amlodipine Besylate (Norvasc Tab) 2.5 mg QAM PO 08/04/17 09:00 09/03/17 08:59 Aspirin (Ecotrin Tab) 81 mg QAM PO 08/04/17 09:00 09/03/17 08:59 Atorvastatin Calcium (Lipitor Tab) 80 mg QAM PO 08/04/17 09:00 09/03/17 08:59 Lisinopril (Zestril Tab) 20 mg QAM PO 08/04/17 09:00 09/03/17 08:59 Metoprolol Succinate (Toprol Xl Tab) 50 mg QAM PO 08/04/17 09:00 09/03/17 08:59 Nitroglycerin (Nitrostat Tab) 0.4 mg PRN UT 08/03/17 14:00 09/02/17 13:59 Pantoprazole Sodium (Protonix Tab) 40 mg QAM PO 08/04/17 09:00 09/03/17 08:59 Miscellaneous Information (Order Awaiting Action) 1 ea QS N/A 08/03/17 16:00 09/02/17 15:59 Cefazolin Sodium 2000 mg/Syringe 10 ml @ 2.5 mls/min Q8H IV 08/03/17 16:00 08/04/17 15:59 08/03/17 16:54 2.5 MLS/MIN Docusate Sodium (coLACE CAP) 100 mg BID PO 08/04/17 09:00 09/03/17 08:59 Heparin Sodium (Porcine) (Heparin Sq 5000 Unit/0.5ml) 5,000 unit Q12H SQ 08/03/17 19:00 09/02/17 18:59 Hydromorphone HCl (Dilaudid Inj) 1 mg Q2H PRN IV 08/03/17 14:00 08/17/17 13:59 08/03/17 16:34 1 MG Ondansetron HCl (Zofran Inj) 4 mg Q6H PRN IV 08/03/17 14:00 09/02/17 13:59 08/03/17 17:30 4 MG Acetaminophen/ Codeine Phosphate (Tylenol w/ Codeine #3 Tab) @ Q4H PRN PO 08/04/17 09:00 09/03/17 08:59 Ketorolac Tromethamine (Toradol Inj) 15 mg Q6H PRN IV 08/03/17 14:15 08/08/17 14:14 08/03/17 20:17 15 MG Sodium Chloride 1,000 ml @ 125 mls/hr Q8H IV 08/03/17 17:00 09/02/17 16:59 08/03/17 17:29 125 MLS/HR Artificial Tears (Artificial Tears) 1 drops Q1H PRN OP 08/03/17 17:00 09/02/17 16:59 Erythromycin (Erythromycin Oph Oint) 1 appln Q6H OP 08/03/17 17:00 08/08/17 16:59 08/03/17 17:00 1 APPLN Eszopiclone (Lunesta Tab) 2 mg HSZ PRN PO 08/03/17 22:15 09/02/17 22:14 UNV Review of Systems Constitutional: No fever, No chills, No sweats, No weight loss, No weakness, No fatigue, No problem reported Respiratory: No cough, No sputum, No wheezing, No shortness of breath, No dyspnea on exertion, No dyspnea at rest, No hemoptysis, No problem reported Cardiovascular: No chest pain, No orthopnea, No PND, No edema, No claudication , No palpitations, No problem reported Abdomen: + nausea Musculoskeletal: No joint pain, No muscle pain, No swelling, No calf pain, No problem reported Neurologic: No memory loss, No paralysis, No weakness, No numbness/tingling, No vertigo, No balance problems, No problem reported Allergic / Immunologic: No environmental allergies, No seasonal allergies, No pet sensitivities, No food allergies, No hives, No frequent infections, No poor healing, No prolonged convalescence, No problem reported Physical Exam Date Time Temp Pulse Resp B/P (MAP) Pulse Ox O2 Delivery O2 Flow Rate FiO2 08/03/17 21:00 81 18 143/88 100 160/72 08/03/17 20:45 77 138/95 99 151/71 08/03/17 20:31 81 135/87 100 143/91 08/03/17 20:15 88 151/92 100 166/82 08/03/17 20:01 89 20 144/94 99 154/74 08/03/17 19:46 92 144/92 100 151/72 08/03/17 19:31 86 154/94 166/77 08/03/17 19:16 100 152/115 99 156/77 08/03/17 19:01 91 18 146/91 94 138/60 08/03/17 18:45 93 123/63 (83) 98 Nasal Cannula 2.0 08/03/17 18:31 93 142/66 (91) 98 Nasal Cannula 2.0 08/03/17 18:30 79 137/60 (85) 97 Nasal Cannula 2.0 08/03/17 18:16 100 154/99 (117) 99 Nasal Cannula 2.0 08/03/17 18:01 84 152/68 (96) 98 Nasal Cannula 2.0 08/03/17 18:00 86 148/68 (94) 99 2.0 08/03/17 17:45 79 150/65 (93) 97 2.0 08/03/17 17:30 36.8 112 167/92 (117) 99 08/03/17 17:15 97 164/89 (114) 98 08/03/17 17:01 104 180/116 (137) 97 08/03/17 17:00 36.7 98 160/79 (106) 98 08/03/17 16:31 82 157/83 (107) 95 Nasal Cannula 2.0 08/03/17 16:30 36.7 78 140/61 (87) 95 Nasal Cannula 2.0 08/03/17 16:17 87 122/107 (112) 84 Nasal Cannula 2.0 08/03/17 16:15 94 133/65 (87) 97 Nasal Cannula 2.0 08/03/17 16:01 36.6 84 163/98 (119) Nasal Cannula 2.0 08/03/17 16:00 94 133/63 (86) 97 Nasal Cannula 2.0 08/03/17 15:45 36.6 90 18 140/62 (88) 97 Nasal Cannula 2.0 08/03/17 15:08 84 16 98 08/03/17 15:08 85 16 08/03/17 15:06 153/93 08/03/17 15:03 89 16 08/03/17 15:03 89 16 99 12/12/17 15:01 140/86 08/03/17 14:58 88 13 08/03/17 14:58 88 13 99 08/03/17 14:56 164/97 08/03/17 14:53 36.8 08/03/17 14:53 86 16 98 08/03/17 14:53 86 16 08/03/17 14:51 150/94 08/03/17 14:48 92 15 08/03/17 14:48 92 15 99 08/03/17 14:47 94 14 08/03/17 14:47 95 14 99 08/03/17 14:46 162/96 08/03/17 14:42 82 16 08/03/17 14:42 82 16 96 08/03/17 14:41 159/89 08/03/17 14:37 97 16 98 08/03/17 14:37 97 16 08/03/17 14:36 147/95 08/03/17 14:35 100 21 98 08/03/17 14:35 100 21 08/03/17 14:31 146/98 08/03/17 14:30 97 20 99 08/03/17 14:30 97 20 08/03/17 14:26 142/92 08/03/17 14:25 85 12 96 08/03/17 14:25 85 12 08/03/17 14:21 149/93 08/03/17 14:20 92 17 08/03/17 14:20 92 17 97 08/03/17 14:16 155/100 08/03/17 14:15 98 22 99 08/03/17 14:15 98 22 08/03/17 14:11 135/88 08/03/17 14:10 36.7 89 8 135/88 98 Oxymask 10 08/03/17 14:10 81 11 08/03/17 14:10 93 11 89 08/03/17 06:00 36.8 76 20 153/92 96 Room Air General Appearance: no apparent distress Eyes: no discharge, EOMI ENT: normal mouth exam Respiratory: breath sounds normal, clear to auscultation Cardiovasular: regular rate/rhythm, normal S1S2, no M/G/R Abdomen: other (postop) Upper Extremities: no edema Lower Extremities: no edema Neuro: alert, oriented x 3, normal motor exam Laboratory Results Last 24 Hours Test 08/03/17 06:29 08/03/17 14:31 08/03/17 16:00 08/03/17 16:27 White Blood Count 6.92 K/uL 15.24 K/uL Red Blood Count 4.19 M/uL 3.78 M/uL Hemoglobin 12.8 g/dL 11.5 g/dL Hematocrit 37.1 % 33.3 % Mean Corpuscular Volume 88.5 fL 88.1 fL Mean Corpuscular Hemoglobin 30.5 pg 30.4 pg Mean Corpuscular Hemoglobin Concent 34.5 g/dl 34.5 g/dl Platelet Count 155 K/uL 165 K/uL Mean Platelet Volume 9.3 fL 8.6 fL Neutrophils (%) (Auto) 79.8 % Lymphocytes (%) (Auto) 9.1 % Monocytes (%) (Auto) 7.7 % Eosinophils (%) (Auto) 3.0 % Basophils (%) (Auto) 0.1 % Neutrophils # (Auto) 5.52 K/uL Lymphocytes # (Auto) 0.63 K/uL Monocytes # (Auto) 0.53 K/uL Eosinophils # (Auto) 0.21 K/uL Basophils # (Auto) 0.01 K/uL RDW Standard Deviation 49.2 fL 49.4 fL RDW Coefficient of Variation 15.3 % 15.2 % Immature Granulocyte % (Auto) 0.3 % Immature Granulocyte # (Auto) 0.02 K/uL Sodium Level 136 mmol/L Potassium Level 4.0 mmol/L Chloride Level 106 mmol/L Carbon Dioxide Level 23 mmol/L Anion Gap 7.0 mmol/L Blood Urea Nitrogen 26 mg/dl Creatinine 1.43 mg/dl Est Creatinine Clear Calc Drug Dose 50.4 ml/min Estimated GFR () 56.7 Estimated GFR (Non- 48.9 BUN/Creatinine Ratio 18.4 Random Glucose 175 mg/dl Calcium Level 7.7 mg/dl Prothrombin Time 10.6 SECONDS Prothromb Time International Ratio 1.0 Activated Partial Thromboplast Time 22.5 SECONDS Partial Thromboplastin Ratio 0.9 Bedside Glucose 192 mg/dl Diagnostic Results Chest x-ray reviewed personally which was normal. Assessment & Plan #1 bladder CA status post radical resection. #2 hypertension. #3 hyperlipidemia. #4 postop nausea, controlled. #5 postop insomnia treated with Lunesta. Plan: #11 monitor the patient ICU. #2 AM labs. #3 blood pressure control. #4NBBR for insomnia. #5 DVT prophylaxis. #6 anti-emetics. #7 PPI. #8 discussed with the staff. Critical care time spent with the patient was 35 minutes including reviewing the data.
[2017-08-03] MEDS: HEPARIN SOD 5000 UNIT/0.5 ML CARP SQ SCH (22:54)
[2017-08-04] VITALS (14 sets, daily range): BP systolic 135–168; BP diastolic 65–103; PULSE 67–96; TEMP 36.6–37.3; O2SAT 88–99
[2017-08-04] MEDS ORDERED: CALCIUM CARBONATE 500 MG CHEWABLE PO ONE ×2 (01:30→07:15)
[2017-08-04] MEDS: ONDANSETRON INJ 2 MG/ML 2 ML VIAL IV PRN (01:37)
[2017-08-04] MEDS: HYDROmorphone INJ 1 MG/ML SYR IV PRN ×2 (01:37→11:00)
[2017-08-04] MEDS: ERYTHROMYCIN OP OINT 1 GM PKT OP SCH ×4 (05:00→22:37)
[2017-08-04 06:02] LABS: COMPLETE YES; HEMATOCRIT 30.6 % (42-52); IG% 0.2 %; LYMPH % 4.2 %; LYMPH ABS # 0.47 K/uL (1.2-3.4); MEAN CELL VOLUME 88.4 fL (80-100); MEAN CORPUSCULAR HEMOGLOBIN 30.3 pg (25-34); MEAN CORPUSCULAR HGB CONC 34.3 g/dl (32-36); MEAN PLATELET VOLUME 9.4 fL (7.4-10.4); MONO % 9.4 %; NEUT % 86.2 %; PLATELET COUNT 152 K/uL (130-400); RED BLOOD COUNT 3.46 M/uL (4.7-6.1); WHITE BLOOD COUNT 11.23 K/uL (4.8-10.8)
[2017-08-04 06:29] LABS: BUN/CREATININE RATIO 24.7 (10-20); CALCIUM 7.5 mg/dl (8.5-10.1); CREATININE 1.21 mg/dl (0.60-1.40); POTASSIUM 3.7 mmol/L (3.5-5.1)
[2017-08-04] MEDS: HEPARIN SOD 5000 UNIT/0.5 ML CARP SQ SCH ×2 (07:13→18:47)
--- NOTE | 2017-08-04 07:18 | Clinical Documentation Query ---
[facility]INICAL DOCUMENTATION QUERY Patient is a 71 year old male who on 08/03 underwent radical cystoprostatectomy, lymphadenectomy, ileal conduit creation. H&H this a.m. (08/04) was 10.5 g/dl and 30.6%. Noted to be as high as 15.1 g/dl and 44.1% as recent as 04/02/17. EBL for the procedure was 200 ml's with subsequent losses totaling an additional 305 ml's to date. Also noted to have undergone recent neoadjuvant IV chemotherapy with Methotrexate, Vinblastine, Doxorubicin, and Cisplatin. Additionally, net I/O is positive for about 2,900 ml's at this time. He is being monitored with serial chemistries and I/O including drain outputs. In your clinical opinion is this patient being managed for: ( ) Acute blood loss, antineoplastic, and hemodilutional anemia ( ) Not Agree (x ) Other explanation of clinical findings (Please Explain), lengthy procedure with comorbidity. ( ) Unable to determine (Please Define) ( ) Need to Discuss The medical record reflects the following clinical findings, treatment, and risk factors. Clinical Indicators: As above Treatment: As above Risk Factors: Perioperative blood loss, chemotherapy, IVF administration. Please clarify and document your clinical opinion in the progress notes and discharge summary. Terms such as "probable", "suspected", "likely", "questionable", "possible", or "still to be ruled out" are acceptable. IF IN AGREEMENT, YOU MUST DOCUMENT ABOVE DIAGNOSTIC STATEMENT IN DAILY PROGRESS NOTES AND DISCHARGE SUMMARY. This document is not part of the patient's record. Thank You, Cesar Adam, RN [phone]
[2017-08-04] MEDS: METRONIDAZOLE / NSS 500 MG in PREMIXED NSS 100 ML IV SCH (07:30)
[2017-08-04] MEDS: CEFAZOLIN IV 2,000 MG in SYRINGE 0 ML IV SCH (07:31)
[2017-08-04] MEDS: SODIUM CHLORIDE 0.9% 1000ML 1,000 ML IV SCH ×2 (08:16→16:54)
[2017-08-04] MEDS: METOPROLOL SUCC 50MG EXT REL TAB PO SCH (08:17)
[2017-08-04] MEDS: PANTOprazole SOD 40 MG TAB PO SCH (08:17)
[2017-08-04] MEDS: LISINOPRIL 20 MG TAB PO SCH (08:17)
[2017-08-04] MEDS: ASPIRIN 81 MG ECTAB PO SCH (08:18)
[2017-08-04] MEDS: AMLODIPINE BESYLATE 5 MG TAB PO SCH (08:18)
[2017-08-04] MEDS: DOCUSATE SODIUM 100 MG CAP PO SCH ×2 (08:18→21:13)
[2017-08-04] MEDS: ATORVASTATIN 40 MG TAB PO SCH (08:18)
--- NOTE | 2017-08-04 08:29 | Progress Note ---
Subjective Date of Service: Aug 04, 2017. Subjective Pt evaluation today including: conversation w/ patient, physical exam, chart review, lab review Voiding: brown catheter in place Did very well overnight - out of bed to chair this AM - pain well controlled - hungry 08/04/17 05:37 Red Blood Count 3.46, Mean Corpuscular Volume 88.4, Mean Corpuscular Hemoglobin 30.3, Mean Corpuscular Hemoglobin Concent 34.3, Mean Platelet Volume 9.4, Neutrophils (%) (Auto) 86.2, Lymphocytes (%) (Auto) 4.2, Monocytes (%) (Auto) 9.4, Eosinophils (%) (Auto) 0.0, Basophils (%) (Auto) 0.0, Neutrophils # (Auto) 9.68, Lymphocytes # (Auto) 0.47, Monocytes # (Auto) 1.06, Eosinophils # (Auto) 0.00, Basophils # (Auto) 0.00 08/04/17 05:37 Test 08/03/17 16:00 08/04/17 00:13 08/04/17 05:37 Prothrombin Time 10.6 SECONDS (9.0-12.0) Prothromb Time International Ratio 1.0 (0.9-1.1) Activated Partial Thromboplast Time 22.5 SECONDS (21.0-31.0) Partial Thromboplastin Ratio 0.9 Bedside Glucose 139 mg/dl (70-99) White Blood Count 11.23 K/uL (4.8-10.8) Red Blood Count 3.46 M/uL (4.7-6.1) Hemoglobin 10.5 g/dL (14.0-18.0) Hematocrit 30.6 % (42-52) Mean Corpuscular Volume 88.4 fL (80-100) Mean Corpuscular Hemoglobin 30.3 pg (25-34) Mean Corpuscular Hemoglobin Concent 34.3 g/dl (32-36) Platelet Count 152 K/uL (130-400) Mean Platelet Volume 9.4 fL (7.4-10.4) Neutrophils (%) (Auto) 86.2 % Lymphocytes (%) (Auto) 4.2 % Monocytes (%) (Auto) 9.4 % Eosinophils (%) (Auto) 0.0 % Basophils (%) (Auto) 0.0 % Neutrophils # (Auto) 9.68 K/uL (1.4-6.5) Lymphocytes # (Auto) 0.47 K/uL (1.2-3.4) Monocytes # (Auto) 1.06 K/uL (0.11-0.59) Eosinophils # (Auto) 0.00 K/uL (0-0.5) Basophils # (Auto) 0.00 K/uL (0-0.2) RDW Standard Deviation 50.6 fL (36.4-46.3) RDW Coefficient of Variation 15.5 % (11.5-14.5) Immature Granulocyte % (Auto) 0.2 % Immature Granulocyte # (Auto) 0.02 K/uL (0.00-0.02) Anion Gap 6.0 mmol/L (3-11) Est Creatinine Clear Calc Drug Dose 59.6 ml/min Estimated GFR () 69.4 Estimated GFR (Non- 59.9 BUN/Creatinine Ratio 24.7 (10-20) Calcium Level 7.5 mg/dl (8.5-10.1) Vital Signs Past 12 Hours Date Time Temp Pulse Resp B/P (MAP) Pulse Ox O2 Delivery O2 Flow Rate FiO2 08/04/17 06:01 87 18 159/95 (120) 99 162/87 (115) 08/04/17 05:01 75 18 142/90 (99) 88 149/79 (96) 08/04/17 04:25 36.8 81 18 136/88 (103) 97 149/65 (92) 08/04/17 04:00 Room Air 08/04/17 02:01 91 148/88 (99) 97 147/66 (98) 08/04/17 01:32 96 145/103 (113) 95 158/82 (119) 08/04/17 01:01 74 141/79 (97) 93 160/70 (98) 08/04/17 00:31 74 136/82 (99) 96 161/70 (98) 08/04/17 00:01 Room Air 08/04/17 00:01 86 149/81 (104) 97 168/78 (106) 08/03/17 23:31 78 140/93 (105) 83 145/61 (89) 08/03/17 23:01 86 140/88 (99) 94 160/70 (100) 08/03/17 22:31 79 147/92 (103) 97 160/74 (104) 08/03/17 22:01 70 144/81 (88) 100 147/119 (135) 08/03/17 21:31 74 144/82 (105) 100 147/82 (102) 08/03/17 21:01 85 143/88 (99) 100 152/70 (103) 08/03/17 21:00 81 18 143/88 100 160/72 08/03/17 20:45 77 138/95 99 151/71 08/03/17 20:31 81 135/87 100 143/91 Problem List Medical Problems: (1) Blocked urinary catheter Status: Acute (2) Hematuria Status: Acute (3) STEMI (ST elevation myocardial infarction) Status: Acute Review of Systems Constitutional: No see HPI, No fever, No chills, No sweats, No weight loss, No weakness, No fatigue, No problem reported Eyes: No see HPI, No worsening of vision, No eye pain, No redness, No discharge , No diplopia, No problem reported ENT: No see HPI, No hearing loss, No unusual epistaxis, No nasal symptoms, No sore throat, No tinnitus, No dental problems, No trouble swallowing, No problem reported Respiratory: No see HPI, No cough, No sputum, No wheezing, No shortness of breath, No dyspnea on exertion, No dyspnea at rest, No hemoptysis, No problem reported Cardiac: No see HPI, No chest pain, No orthopnea, No PND, No edema, No claudication, No palpitations, No problem reported Breast: No see HPI, No breast lump, No change in shape, No nipple discharge, No breast pain, No problem reported Abdomen: No nausea Musculoskeletal: No see HPI, No joint pain, No muscle pain, No swelling, No calf pain, No problem reported Male : No see HPI, No dysuria, No urinary frequency, No incontinence, No nocturia more than once/night, No slowing stream, No hematuria, No sexual dysfunction, No problem reported Objective Vital Signs Date Time Temp Pulse Resp B/P (MAP) Pulse Ox O2 Delivery O2 Flow Rate FiO2 08/04/17 06:01 87 18 159/95 (120) 99 162/87 (115) 08/04/17 05:01 75 18 142/90 (99) 88 149/79 (96) 08/04/17 04:25 36.8 81 18 136/88 (103) 97 149/65 (92) 08/04/17 04:00 Room Air 08/04/17 02:01 91 148/88 (99) 97 147/66 (98) 08/04/17 01:32 96 145/103 (113) 95 158/82 (119) 08/04/17 01:01 74 141/79 (97) 93 160/70 (98) 08/04/17 00:31 74 136/82 (99) 96 161/70 (98) 08/04/17 00:01 Room Air 08/04/17 00:01 86 149/81 (104) 97 168/78 (106) 08/03/17 23:31 78 140/93 (105) 83 145/61 (89) 08/03/17 23:01 86 140/88 (99) 94 160/70 (100) 08/03/17 22:31 79 147/92 (103) 97 160/74 (104) 08/03/17 22:01 70 144/81 (88) 100 147/119 (135) 08/03/17 21:31 74 144/82 (105) 100 147/82 (102) 08/03/17 21:01 85 143/88 (99) 100 152/70 (103) 08/03/17 21:00 81 18 143/88 100 160/72 08/03/17 20:45 77 138/95 99 151/71 08/03/17 20:31 81 135/87 100 143/91 08/03/17 20:15 88 151/92 100 166/82 08/03/17 20:01 89 20 144/94 99 154/74 08/03/17 20:00 Room Air 08/03/17 19:46 92 144/92 100 151/72 08/03/17 19:31 86 154/94 166/77 08/03/17 19:16 100 152/115 99 156/77 08/03/17 19:01 91 18 146/91 94 138/60 08/03/17 18:45 93 123/63 (83) 98 Nasal Cannula 2.0 08/03/17 18:31 93 142/66 (91) 98 Nasal Cannula 2.0 08/03/17 18:30 79 137/60 (85) 97 Nasal Cannula 2.0 08/03/17 18:16 100 154/99 (117) 99 Nasal Cannula 2.0 08/03/17 18:01 84 152/68 (96) 98 Nasal Cannula 2.0 08/03/17 18:00 86 148/68 (94) 99 2.0 08/03/17 17:45 79 150/65 (93) 97 2.0 08/03/17 17:30 36.8 112 167/92 (117) 99 08/03/17 17:15 97 164/89 (114) 98 08/03/17 17:01 104 180/116 (137) 97 08/03/17 17:00 36.7 98 160/79 (106) 98 08/03/17 16:31 82 157/83 (107) 95 Nasal Cannula 2.0 08/03/17 16:30 36.7 78 140/61 (87) 95 Nasal Cannula 2.0 08/03/17 16:17 87 122/107 (112) 84 Nasal Cannula 2.0 08/03/17 16:15 94 133/65 (87) 97 Nasal Cannula 2.0 08/03/17 16:01 36.6 84 163/98 (119) Nasal Cannula 2.0 08/03/17 16:00 94 133/63 (86) 97 Nasal Cannula 2.0 08/03/17 15:45 36.6 90 18 140/62 (88) 97 Nasal Cannula 2.0 08/03/17 15:08 84 16 98 08/03/17 15:08 85 16 08/03/17 15:06 153/93 08/03/17 15:03 89 16 08/03/17 15:03 89 16 99 08/03/17 15:01 140/86 08/03/17 14:58 88 13 08/03/17 14:58 88 13 99 08/03/17 14:56 164/97 08/03/17 14:53 36.8 08/03/17 14:53 86 16 98 08/03/17 14:53 86 16 08/03/17 14:51 150/94 08/03/17 14:48 92 15 08/03/17 14:48 92 15 99 08/03/17 14:47 94 14 08/03/17 14:47 95 14 99 08/03/17 14:46 162/96 08/03/17 14:42 82 16 08/03/17 14:42 82 16 96 08/03/17 14:41 159/89 08/03/17 14:37 97 16 98 08/03/17 14:37 97 16 08/03/17 14:36 147/95 08/03/17 14:35 100 21 98 08/03/17 14:35 100 21 08/03/17 14:31 146/98 08/03/17 14:30 97 20 99 08/03/17 14:30 97 20 08/03/17 14:26 142/92 08/03/17 14:25 85 12 96 08/03/17 14:25 85 12 08/03/17 14:21 149/93 08/03/17 14:20 92 17 08/03/17 14:20 92 17 97 08/03/17 14:16 155/100 08/03/17 14:15 98 22 99 08/03/17 14:15 98 22 08/03/17 14:11 135/88 08/03/17 14:10 36.7 89 8 135/88 98 Oxymask 10 08/03/17 14:10 81 11 08/03/17 14:10 93 11 89 Physical Exam General Appearance: WD/WN, no apparent distress Eyes: normal inspection ENT: hearing grossly normal Neck: no adenopathy Respiratory/Chest: no respiratory distress, no accessory muscle use Cardiovascular: regular rate, rhythm, no edema Abdomen: non tender, soft (incisions appropriate. Stoma pink, patent, productive. Stents in place. HANK serosang. Urine clearing nicely) Extremities: normal inspection Neurologic/Psychiatric: alert, normal mood/affect, oriented x 3 Skin: warm/dry Lymphatic: no adenopathy Laboratory Results Last 24 Hours Test 08/03/17 14:31 08/03/17 16:00 08/03/17 16:27 08/04/17 00:13 White Blood Count 15.24 K/uL Red Blood Count 3.78 M/uL Hemoglobin 11.5 g/dL Hematocrit 33.3 % Mean Corpuscular Volume 88.1 fL Mean Corpuscular Hemoglobin 30.4 pg Mean Corpuscular Hemoglobin Concent 34.5 g/dl RDW Standard Deviation 49.4 fL RDW Coefficient of Variation 15.2 % Platelet Count 165 K/uL Mean Platelet Volume 8.6 fL Sodium Level 136 mmol/L Potassium Level 4.0 mmol/L Chloride Level 106 mmol/L Carbon Dioxide Level 23 mmol/L Anion Gap 7.0 mmol/L Blood Urea Nitrogen 26 mg/dl Creatinine 1.43 mg/dl Est Creatinine Clear Calc Drug Dose 50.4 ml/min Estimated GFR () 56.7 Estimated GFR (Non- 48.9 BUN/Creatinine Ratio 18.4 Random Glucose 175 mg/dl Calcium Level 7.7 mg/dl Prothrombin Time 10.6 SECONDS Prothromb Time International Ratio 1.0 Activated Partial Thromboplast Time 22.5 SECONDS Partial Thromboplastin Ratio 0.9 Bedside Glucose 192 mg/dl 139 mg/dl Test 08/04/17 05:37 White Blood Count 11.23 K/uL Red Blood Count 3.46 M/uL Hemoglobin 10.5 g/dL Hematocrit 30.6 % Mean Corpuscular Volume 88.4 fL Mean Corpuscular Hemoglobin 30.3 pg Mean Corpuscular Hemoglobin Concent 34.3 g/dl Platelet Count 152 K/uL Mean Platelet Volume 9.4 fL Neutrophils (%) (Auto) 86.2 % Lymphocytes (%) (Auto) 4.2 % Monocytes (%) (Auto) 9.4 % Eosinophils (%) (Auto) 0.0 % Basophils (%) (Auto) 0.0 % Neutrophils # (Auto) 9.68 K/uL Lymphocytes # (Auto) 0.47 K/uL Monocytes # (Auto) 1.06 K/uL Eosinophils # (Auto) 0.00 K/uL Basophils # (Auto) 0.00 K/uL RDW Standard Deviation 50.6 fL RDW Coefficient of Variation 15.5 % Immature Granulocyte % (Auto) 0.2 % Immature Granulocyte # (Auto) 0.02 K/uL Sodium Level 137 mmol/L Potassium Level 3.7 mmol/L Chloride Level 108 mmol/L Carbon Dioxide Level 23 mmol/L Anion Gap 6.0 mmol/L Blood Urea Nitrogen 30 mg/dl Creatinine 1.21 mg/dl Est Creatinine Clear Calc Drug Dose 59.6 ml/min Estimated GFR () 69.4 Estimated GFR (Non- 59.9 BUN/Creatinine Ratio 24.7 Random Glucose 117 mg/dl Calcium Level 7.5 mg/dl Assessment and Plan POD#1 s/p radical cystectomy with ileal conduit - progressing well - sips of clears - ambulate - transfer to floor - cont abx x 24hrs - cont IVF until diet advance
[2017-08-04] MEDS ORDERED: NURSING VERBAL MED ORDER ONE (10:30)
[2017-08-04] MEDS ORDERED: CALCIUM CARBONATE 500 MG CHEWABLE PO PRN (11:00)
[2017-08-04] MEDS ORDERED: FAMOTIDINE IV INJ 20 MG in DEXTROSE 5% 100ML 100 ML IV SCH (11:00)
[2017-08-04] MEDS: FAMOTIDINE IV INJ 20 MG in SYRINGE 3 ML IV SCH ×2 (12:19→21:12)
[2017-08-04] MEDS: ACETAMINOPHEN/CODEINE 300/30MG TAB PO PRN ×2 (12:38→17:36)
--- NOTE | 2017-08-04 13:19 | Anesthesiology Progress Note ---
Anesthesia Post Op Note Date & Time Aug 04, 2017 at 13:19 Vital Signs Vital Signs Past 12 Hours Date Time Temp Pulse Resp B/P (MAP) Pulse Ox O2 Delivery O2 Flow Rate FiO2 08/04/17 12:31 37.0 83 18 149/94 (112) 94 Room Air 08/04/17 11:25 36.6 75 16 97 Room Air 08/04/17 10:06 75 16 147/95 (112) 97 Room Air 08/04/17 08:00 96 Room Air 08/04/17 08:00 36.6 85 16 135/80 (98) 96 Room Air 08/04/17 06:01 87 18 159/95 (120) 99 162/87 (115) 08/04/17 05:01 75 18 142/90 (99) 88 149/79 (96) 08/04/17 04:25 36.8 81 18 136/88 (103) 97 149/65 (92) 08/04/17 04:00 Room Air 08/04/17 02:01 91 148/88 (99) 97 147/66 (98) 08/04/17 01:32 96 145/103 (113) 95 158/82 (119) Notes Mental Status: alert / awake / arousable, participated in evaluation Pt Amnestic to Procedure: Yes Nausea / Vomiting: adequately controlled Pain: adequately controlled Airway Patency, RR, SpO2: stable & adequate BP & HR: stable & adequate Hydration State: stable & adequate Anesthetic Complications: no major complications apparent
[2017-08-05] MEDS: SODIUM CHLORIDE 0.9% 1000ML 1,000 ML IV SCH ×3 (01:02→17:10)
[2017-08-05] MEDS: KETOROLAC TROMETHAMINE 15 MG/ML VIAL IV PRN (03:24)
[2017-08-05] MEDS: ERYTHROMYCIN OP OINT 1 GM PKT OP SCH ×4 (05:00→23:00)
[2017-08-05 06:41] LABS: COMPLETE YES; EOS % 0.2 %; HEMATOCRIT 29.2 % (42-52); IG% 0.2 %; LYMPH % 5.5 %; LYMPH ABS # 0.54 K/uL (1.2-3.4); MEAN CELL VOLUME 89.8 fL (80-100); MEAN CORPUSCULAR HEMOGLOBIN 30.5 pg (25-34); MEAN CORPUSCULAR HGB CONC 33.9 g/dl (32-36); MEAN PLATELET VOLUME 9.1 fL (7.4-10.4); MONO % 8.8 %; NEUT % 85.3 %; PLATELET COUNT 128 K/uL (130-400); RED BLOOD COUNT 3.25 M/uL (4.7-6.1); WHITE BLOOD COUNT 9.88 K/uL (4.8-10.8)
[2017-08-05] MEDS: HEPARIN SOD 5000 UNIT/0.5 ML CARP SQ SCH ×2 (06:56→18:45)
[2017-08-05 07:04] VITALS: BP 147/90; PULSE 85; TEMP 36.8; O2SAT 96
[2017-08-05 07:14] LABS: BUN/CREATININE RATIO 18.9 (10-20); CREATININE 1.12 mg/dl (0.60-1.40); POTASSIUM 3.6 mmol/L (3.5-5.1)
--- NOTE | 2017-08-05 07:39 | Progress Note ---
Subjective Date of Service: Aug 05, 2017. Subjective Pt evaluation today including: conversation w/ patient, chart review, lab review 71 yo male s/p cystectomy. Pt reports some incisional pain, but otherwise feels well. Denies n/v. Tolerating clear liquids. He reports passing a small amount of flatus yesterday. No BM. He was ambulating the hallways upon my arrival this morning without difficulty. Ostomy viable and beefy red draining bright crawford colored urine. Stents remain in place. Slight drop in H&H to 9.9 and 29.2 this morning. Cr has normalized at 1.12. I&Os acceptable. Problem List Medical Problems: (1) Blocked urinary catheter Status: Acute (2) Hematuria Status: Acute (3) STEMI (ST elevation myocardial infarction) Status: Acute Review of Systems Constitutional: No fever, No chills Respiratory: No shortness of breath Cardiac: No chest pain Abdomen: + pain (incisional), No nausea, No vomiting Male : + hematuria Heme: No abnormal bleeding/bruising Objective Vital Signs Date Time Temp Pulse Resp B/P (MAP) Pulse Ox O2 Delivery O2 Flow Rate FiO2 08/05/17 07:04 36.8 85 16 147/90 (109) 96 Room Air 08/04/17 23:30 Room Air 08/04/17 23:20 37.3 72 16 153/89 (110) 96 Room Air 08/04/17 15:44 37.1 71 16 159/86 (110) 94 Room Air 08/04/17 15:25 Room Air 08/04/17 12:31 37.0 83 18 149/94 (112) 94 Room Air 08/04/17 12:30 Room Air 08/04/17 11:25 36.6 75 16 97 Room Air 08/04/17 10:06 75 16 147/95 (112) 97 Room Air 08/04/17 08:00 96 Room Air 08/04/17 08:00 36.6 85 16 135/80 (98) 96 Room Air Physical Exam General Appearance: no apparent distress Eyes: normal inspection ENT: hearing grossly normal Neck: no JVD Respiratory/Chest: no respiratory distress, no accessory muscle use Cardiovascular: no JVD Abdomen: + pertinent finding (abdominal incisions c/d/i; HANK draining serous fluid) Extremities: normal inspection Neurologic/Psychiatric: alert, normal mood/affect, oriented x 3 Skin: normal color Laboratory Results Last 24 Hours Test 08/05/17 06:26 White Blood Count 9.88 K/uL Red Blood Count 3.25 M/uL Hemoglobin 9.9 g/dL Hematocrit 29.2 % Mean Corpuscular Volume 89.8 fL Mean Corpuscular Hemoglobin 30.5 pg Mean Corpuscular Hemoglobin Concent 33.9 g/dl Platelet Count 128 K/uL Mean Platelet Volume 9.1 fL Neutrophils (%) (Auto) 85.3 % Lymphocytes (%) (Auto) 5.5 % Monocytes (%) (Auto) 8.8 % Eosinophils (%) (Auto) 0.2 % Basophils (%) (Auto) 0.0 % Neutrophils # (Auto) 8.43 K/uL Lymphocytes # (Auto) 0.54 K/uL Monocytes # (Auto) 0.87 K/uL Eosinophils # (Auto) 0.02 K/uL Basophils # (Auto) 0.00 K/uL RDW Standard Deviation 52.2 fL RDW Coefficient of Variation 15.8 % Immature Granulocyte % (Auto) 0.2 % Immature Granulocyte # (Auto) 0.02 K/uL Sodium Level 139 mmol/L Potassium Level 3.6 mmol/L Chloride Level 109 mmol/L Carbon Dioxide Level 24 mmol/L Anion Gap 6.0 mmol/L Blood Urea Nitrogen 21 mg/dl Creatinine 1.12 mg/dl Est Creatinine Clear Calc Drug Dose 64.4 ml/min Estimated GFR () 76.2 Estimated GFR (Non- 65.7 BUN/Creatinine Ratio 18.9 Random Glucose 96 mg/dl Calcium Level 8.0 mg/dl Assessment and Plan POD #2 s/p cystectomy with ileal conduit AFVSS. Pt doing very well post-op. Will slowly advance to a full liquid diet today as tolerated. Encourage ambulation to hallway. Encourage use of IS. Will continue to monitor labs and I&Os.
[2017-08-05] MEDS: AMLODIPINE BESYLATE 5 MG TAB PO SCH (08:41)
[2017-08-05] MEDS: ATORVASTATIN 40 MG TAB PO SCH (08:41)
[2017-08-05] MEDS: METOPROLOL SUCC 50MG EXT REL TAB PO SCH (08:41)
[2017-08-05] MEDS: PANTOprazole SOD 40 MG TAB PO SCH (08:41)
[2017-08-05] MEDS: ASPIRIN 81 MG ECTAB PO SCH (08:41)
[2017-08-05] MEDS: LISINOPRIL 20 MG TAB PO SCH (08:42)
[2017-08-05] MEDS: FAMOTIDINE IV INJ 20 MG in SYRINGE 3 ML IV SCH ×2 (08:47→21:20)
[2017-08-05] MEDS: DOCUSATE SODIUM 100 MG CAP PO SCH ×2 (09:31→21:06)
[2017-08-05 15:07] VITALS: BP 153/86; PULSE 87; TEMP 36.7; O2SAT 98
--- NOTE | 2017-08-05 19:40 | Progress Note ---
Progress Note Date of Service Aug 05, 2017. Progress Note Continues to progress extremely well - ambulatory - tolerating full liquids - awaiting flatus/BM, but no nausea, no bloating - stoma healthy, wounds appropriate - plan for diet advance tomorrow morning - HL IVF - cont ambulation - stoma nurse eval tomorrow with teaching for device changes - possible d/c home tomorrow evening or Wednesday morning if he continues to progress
[2017-08-05] MEDS: HYDROmorphone INJ 1 MG/ML SYR IV PRN (21:20)
[2017-08-05 23:20] VITALS: BP 132/89; PULSE 76; TEMP 36.8; O2SAT 96
[2017-08-06] MEDS: ACETAMINOPHEN/CODEINE 300/30MG TAB PO PRN (01:16)
[2017-08-06] MEDS: ERYTHROMYCIN OP OINT 1 GM PKT OP SCH ×2 (04:51→10:47)
[2017-08-06] MEDS: HEPARIN SOD 5000 UNIT/0.5 ML CARP SQ SCH (06:29)
[2017-08-06 07:11] LABS: HEMATOCRIT 33.6 % (42-52); MEAN CELL VOLUME 89.1 fL (80-100); MEAN CORPUSCULAR HGB CONC 33.6 g/dl (32-36); MEAN PLATELET VOLUME 9.4 fL (7.4-10.4); PLATELET COUNT 197 K/uL (130-400); RED BLOOD COUNT 3.77 M/uL (4.7-6.1); WHITE BLOOD COUNT 9.27 K/uL (4.8-10.8)
[2017-08-06] MEDS: ONDANSETRON INJ 2 MG/ML 2 ML VIAL IV PRN (07:24)
[2017-08-06 07:27] VITALS: BP 156/86; PULSE 67; TEMP 37; O2SAT 94
[2017-08-06 07:29] LABS: BASO % 0.3 %; BASO ABS # 0.03 K/uL (0-0.2); COMPLETE YES; EOS % 2.8 %; IG% 0.1 %; LYMPH % 12.3 %; LYMPH ABS # 1.14 K/uL (1.2-3.4); MONO % 8.7 %; NEUT % 75.8 %
[2017-08-06 07:39] LABS: BUN/CREATININE RATIO 15.3 (10-20); CALCIUM 8.7 mg/dl (8.5-10.1); CREATININE 1.15 mg/dl (0.60-1.40); POTASSIUM 3.3 mmol/L (3.5-5.1)
[2017-08-06] MEDS: METOPROLOL SUCC 50MG EXT REL TAB PO SCH (08:43)
[2017-08-06] MEDS: LISINOPRIL 20 MG TAB PO SCH (08:43)
[2017-08-06] MEDS: AMLODIPINE BESYLATE 5 MG TAB PO SCH (08:44)
[2017-08-06] MEDS: DOCUSATE SODIUM 100 MG CAP PO SCH (08:44)
[2017-08-06] MEDS: ASPIRIN 81 MG ECTAB PO SCH (08:44)
[2017-08-06] MEDS: ATORVASTATIN 40 MG TAB PO SCH (08:44)
[2017-08-06] MEDS: PANTOprazole SOD 40 MG TAB PO SCH (08:44)
--- NOTE | 2017-08-06 08:44 | Progress Note ---
Subjective Date of Service: Aug 06, 2017. Subjective Pt evaluation today including: conversation w/ patient, chart review, lab review 71 yo male s/p cystectomy. Pt c/o incisional pain this morning, but otherwise feels well. Notes some nausea with pain meds and sinus pressure per the pt. Pt denies any vomiting. Diet has been advanced to a mechanical soft diet. IVF stopped last evening. H&H improved to 11.3 and 33.6 this morning. Potassium noted to be low at 3.3. I&Os remain acceptable. Urostomy draining light crawford colored urine. Problem List Medical Problems: (1) Blocked urinary catheter Status: Acute (2) Hematuria Status: Acute (3) STEMI (ST elevation myocardial infarction) Status: Acute Review of Systems Constitutional: No fever, No chills Respiratory: No shortness of breath Cardiac: No chest pain Abdomen: + see HPI, + pain (incisional ), + nausea, No vomiting Male : + hematuria Heme: No abnormal bleeding/bruising Objective Vital Signs Date Time Temp Pulse Resp B/P (MAP) Pulse Ox O2 Delivery O2 Flow Rate FiO2 08/06/17 08:25 Room Air 08/06/17 07:27 37.0 67 16 156/86 (109) 94 Room Air 08/06/17 01:00 Room Air 08/05/17 23:20 36.8 76 16 132/89 (103) 96 Room Air 08/05/17 19:37 Room Air 08/05/17 15:25 Room Air 08/05/17 15:07 36.7 87 17 153/86 (108) 98 Room Air Physical Exam General Appearance: no apparent distress Eyes: normal inspection ENT: hearing grossly normal Neck: no JVD Respiratory/Chest: no respiratory distress, no accessory muscle use Cardiovascular: no JVD Abdomen: + pertinent finding (abdominal incisions c/d/i; ostomy viable and beefy red, HANK draining serosanguinous fluid) Extremities: normal inspection Neurologic/Psychiatric: alert, normal mood/affect, oriented x 3 Skin: normal color Laboratory Results Last 24 Hours Test 08/06/17 06:42 White Blood Count 9.27 K/uL Red Blood Count 3.77 M/uL Hemoglobin 11.3 g/dL Hematocrit 33.6 % Mean Corpuscular Volume 89.1 fL Mean Corpuscular Hemoglobin 30.0 pg Mean Corpuscular Hemoglobin Concent 33.6 g/dl Platelet Count 197 K/uL Mean Platelet Volume 9.4 fL Neutrophils (%) (Auto) 75.8 % Lymphocytes (%) (Auto) 12.3 % Monocytes (%) (Auto) 8.7 % Eosinophils (%) (Auto) 2.8 % Basophils (%) (Auto) 0.3 % Neutrophils # (Auto) 7.02 K/uL Lymphocytes # (Auto) 1.14 K/uL Monocytes # (Auto) 0.81 K/uL Eosinophils # (Auto) 0.26 K/uL Basophils # (Auto) 0.03 K/uL RDW Standard Deviation 50.3 fL RDW Coefficient of Variation 15.4 % Immature Granulocyte % (Auto) 0.1 % Immature Granulocyte # (Auto) 0.01 K/uL Sodium Level 138 mmol/L Potassium Level 3.3 mmol/L Chloride Level 105 mmol/L Carbon Dioxide Level 26 mmol/L Anion Gap 7.0 mmol/L Blood Urea Nitrogen 18 mg/dl Creatinine 1.15 mg/dl Est Creatinine Clear Calc Drug Dose 62.8 ml/min Estimated GFR () 73.8 Estimated GFR (Non- 63.7 BUN/Creatinine Ratio 15.3 Random Glucose 107 mg/dl Calcium Level 8.7 mg/dl Assessment and Plan POD #3 s/p cystectomy with ileal conduit AFVSS. Pt doing very well post-op. Will restart Plavix. Will also start Lovenox. He will remain on this for 3.5 weeks post-op. Will start potassium chloride this morning for hypokalemia. Ostomy nurse to return today for device teaching. Pt pending set up with home nursing upon discharge. Encourage use of IS. Encourage ambulation to hallway. Possible d/c home with home health later this afternoon vs tomorrow. Discharge planning: home with home health
[2017-08-06] MEDS ORDERED: ACET-749 PO (08:48)
[2017-08-06] MEDS ORDERED: LVNIS30 SQ (08:48)
[2017-08-06] MEDS ORDERED: CLC100 PO (08:48)
--- NOTE | 2017-08-06 08:54 | Discharge Instructions ---
Discharge Instructions Date of Service Aug 06, 2017. Admission Reason for Admission: Transitional Cell Bladder Cancer Discharge Discharge Diagnosis / Problem: Bladder Cancer Discharge Goals Goal(s): Decrease discomfort, Improve function, Increase independence, Improve disease control, Improve nutritional status, Therapeutic intervention Activity Recommendations Activity Limitations: per Instructions/Follow-up section 1. Do not lift >15lbs x 6 weeks. 2. No heavy exercise x 6 weeks. You may engage in light activity such as walking and stairs as tolerated. 3. Do not drive x [address] while taking narcotics. 4. Follow-up as scheduled. Please call our office at [phone] if you need to reschedule for any reason. . . . Current Hospital Diet Patient's current hospital diet: Regular Diet Discharge Diet Recommended Diet: Regular Diet (as tolerated) Procedures Procedures Performed: Robotic Radical Cystoprostatectomy, Ileal Conduit, Bilateral extended Pelvic Lymph Node Dissection Da Yeni Pending Studies Studies pending at discharge: yes (bladder, prostate, and lymph node pathology) List of pending studies: bladder, prostate, and lymph node pathology Medical Emergencies . Who to Call and When: Medical Emergencies: If at any time you feel your situation is an emergency, please call 911 immediately. . Non-Emergent Contact Non-Emergency issues call your: Urologist Call Non-Emergent contact if: temperature is above 101.5, your pain is not controlled, your pain is worsening, your pain is unusual for you, your pain is concerning you, wound has increased drainage, wound has increased redness, wound has increased pain, you have any medication questions . . "Provider Documentation" section prepared by Lauren Antonio. . VTE Core Measure Inpt VTE Proph given/why not?: Enoxaparin (Lovenox)SQ, Unfractionated heparin SQ, SCD's [place] Drug Monitoring Program Search Results: patient reviewed within database, no issues identified
[2017-08-06] MEDS ORDERED: POTASSIUM CHLORIDE 10 MEQ TABCR PO SCH (09:00)
[2017-08-06] MEDS ORDERED: CLOPIDOGREL BISULFATE 75 MG TAB PO SCH (09:00)
[2017-08-06] MEDS ORDERED: ENOXAPARIN 30 MG/0.3 ML SYR SQ SCH ×2 (09:00→11:00)
[2017-08-06] MEDS ORDERED: LOVENOX TEACHING KIT PRN (09:00)
[2017-08-06] MEDS: FAMOTIDINE IV INJ 20 MG in SYRINGE 3 ML IV SCH (10:46)
--- NOTE | 2017-08-06 14:36 | Progress Note ---
Progress Note Date of Service Aug 06, 2017. Progress Note Pt continues to do extremely well - flatus numerous times this AM - tolerated a reg diet - stoma teaching, lovenox teaching - ambulatory - pain very tolerable - he would like to go home and I feel this is very reasonable - plan for drain removal and d/c home today
== END 2017-08-06 16:07 | disposition home health service (06) | DRG 655 ==
LOC: C.ACU 05:37 → C.MSICU 14:04 → ENRESERV 14:45 → C.MSW 08-04 11:38
PROVIDERS: ADMIT Urology; ATTEND Urology
PROC: 0VB34ZZ Excision of Bilateral Seminal Vesicles, Percutaneous Endoscopic Approach (ICD-10-PCS; principal; 2017-08-03 07:30)
PROC: 0TTB8ZZ Resection of Bladder, Via Natural or Artificial Opening Endoscopic (ICD-10-PCS; principal; 2017-08-03 07:30)
PROC: 0TB68ZX Excision of Right Ureter, Via Natural or Artificial Opening Endoscopic, Diagnostic (ICD-10-PCS; principal; 2017-08-03 07:30)
PROC: 07BC4ZX Excision of Pelvis Lymphatic, Percutaneous Endoscopic Approach, Diagnostic (ICD-10-PCS; principal; 2017-08-03 07:30)
PROC: 8E0W8CZ Robotic Assisted Procedure of Trunk Region, Via Natural or Artificial Opening Endoscopic (ICD-10-PCS; principal; 2017-08-03 07:30)
PROC: 0TB78ZX Excision of Left Ureter, Via Natural or Artificial Opening Endoscopic, Diagnostic (ICD-10-PCS; principal; 2017-08-03 07:30)
PROC: 0VB08ZX Excision of Prostate, Via Natural or Artificial Opening Endoscopic, Diagnostic (ICD-10-PCS; principal; 2017-08-03 07:30)
PROC: 0T184JC Bypass Bilateral Ureters to Ileocutaneous with Synthetic Substitute, Percutaneous Endoscopic Approach (ICD-10-PCS; principal; 2017-08-03 07:30)
DX: C67.9 Malignant neoplasm of bladder, unspecified (principal); G47.09 Other insomnia; I11.9 Hypertensive heart disease without heart failure; E78.5 Hyperlipidemia, unspecified; I25.10 Atherosclerotic heart disease of native coronary artery without angina pectoris; I25.2 Old myocardial infarction; Z79.899 Other long term (current) drug therapy; Z79.82 Long term (current) use of aspirin; Z79.02 Long term (current) use of antithrombotics/antiplatelets; Z92.21 Personal history of antineoplastic chemotherapy; Z95.5 Presence of coronary angioplasty implant and graft; Z87.891 Personal history of nicotine dependence; Z83.3 Family history of diabetes mellitus

== ENCOUNTER 2017-08-22 08:06 | Emergency (ER) | payer BC, OTHER ==
[~2017-08-22] VITALS: Ht 177.8 cm; Wt 85.0 kg
[~2017-08-22 08:06] MED LIST changes: +ACET300T3 PO; +CLC100 PO; +LVNIS30 SQ; -METO50TA7 PO; +METO50TA8 PO
[2017-08-22 08:11] VITALS: TEMP 36.8; Ht 177.8 cm; Wt 85.0 kg
[2017-08-22 08:28] VITALS: O2SAT 98
--- NOTE | 2017-08-22 08:37 | EMERGENCY ROOM VISIT NOTE ---
History Report prepared by Sudarshan: Jose Chapa Under the Supervision of: Dr. Royer Urbina D.O. First contact with patient: 08:19 Chief Complaint: CHEST PAIN Stated Complaint: CHEST PAIN Nursing Triage Summary: pt c/o chest pain around his port on the left upper chest with sob that happens only with movement. 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 He notes the that chest pain comes and goes in cycle of four episodes and are usually localized to his med port in left upper chest wall, though this morning he went to do laundry and the chest pain is now localized to his middle chest. He currently rates his pain a 6/10 in severity. He notes the pain seems to worsen with exertion. He does not feel as though this pain is similar to his previous myocardial infarction. He was recently seen by his music library assistant four days ago. He notes that he is supposed to have a stress test performed in the coming weeks. He was recently had surgery on his bladder. He had a cystectomy. He notes that he has been leaking out of his penis, though he has consulted with his surgeon regarding the issue. He denies any recent illness, nausea, vomiting , or dizziness. 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 Review of Systems See HPI for pertinent positives & negatives. A total of 10 systems reviewed and were otherwise negative. Past Medical & Surgical Medical Problems: (1) CAD (2) CAD (3) CAD in [place] artery (4) Hyperlipidemia (5) Hypertension (6) Myocardial infarction (7) Transitional cell bladder cancer Surgical Problems: (1) H/O total cystectomy Family History Diabetes mellitus Social History Smoking Status: Former Smoker Drug Use: none Marital Status: single Housing Status: lives alone Current/Historical Medications Scheduled Aspirin (Aspirin Ec), 81 MG PO QAM Atorvastatin (Lipitor), 80 MG PO QAM Clopidogrel (Plavix), 75 MG PO DAILY Enoxaparin (Lovenox), 30 MG SQ QAM Ibuprofen Tab (Advil), 400 MG PO PRN Lisinopril (Zestril), 20 MG PO QAM Metoprolol Succ (Toprol Xl) (Toprol-Xl), 50 MG PO QAM Nitroglycerin (Nitrostat), 0.4 MG UT PRN Omeprazole (Prilosec), 20 MG PO QAM Triazolam (Halcion), 0.125 MG PO HS Scheduled PRN Acetaminophen/Codeine (Tylenol W/Codeine #3), 1-2 TAB PO Q4H PRN for Pain Docusate Sodium (Docusate Sodium), 100 MG PO BID PRN for Constipation Allergies Coded Allergies: No Known Allergies (Unverified , 08/22/17) Physical Exam Vital Signs Date Time Temp Pulse Resp B/P (MAP) Pulse Ox O2 Delivery O2 Flow Rate FiO2 08/22/17 09:35 62 16 138/86 100 Room Air 08/22/17 08:47 68 08/22/17 08:28 98 Room Air 08/22/17 08:11 36.8 69 20 127/104 Room Air Physical Exam CONSTITUTIONAL/VITAL SIGNS: Reviewed / noted above. GENERAL: Non-toxic in appearance. INTEGUMENTARY: Warm, dry, and [place]. HEAD: Normocephalic. EYES: without scleral icterus or trauma. ENT/OROPHARYNX: clear and moist. LYMPHADENOPATHY/NECK: Is supple without lymphadenopathy or meningismus. CHEST: Left-sided medicine port. RESPIRATORY: Lungs clear and equal. CARDIOVASCULAR: Regular rate and rhythm. GI/ABDOMEN: Soft and nontender. No organomegaly or pulsatile mass. No rebound or guarding. Normal bowel sounds. EXTREMITIES: Warm and well perfused. BACK: No CVA tenderness. NEUROLOGICAL: Intact without focal deficits. PSYCHIATRIC: normal affect. MUSCULOSKELETAL: Normally developed with good muscle tone. Medical Decision & Procedures ER Provider Diagnostic Interpretation: Radiology results as stated below per my review and radiologist interpretation: CHEST ONE VIEW PORTABLE CLINICAL HISTORY: Evaluate Fever/Sepsis fever COMPARISON STUDY: 07/21/2017 FINDINGS: Lungs are clear. Central catheter in superior vena cava unchanged from the prior study. Diaphragms smooth. No significant cardiac enlargement. IMPRESSION: No acute process. The above report was generated using voice recognition software. It may contain grammatical, syntax or spelling errors. Electronically signed by: Kalpesh Leger M.D. 08/22/2017 8:39 AM Dictated Date/Time: 08/22/2017 8:38 AM Laboratory Results 08/22/17 08:15 Red Blood Count 3.89, Mean Corpuscular Volume 90.7, Mean Corpuscular Hemoglobin 30.3, Mean Corpuscular Hemoglobin Concent 33.4, Mean Platelet Volume 9.0, Neutrophils (%) (Auto) 75.4, Lymphocytes (%) (Auto) 12.8, Monocytes (%) (Auto) 8.6, Eosinophils (%) (Auto) 2.5, Basophils (%) (Auto) 0.3, Neutrophils # (Auto) 5.80, Lymphocytes # (Auto) 0.98, Monocytes # (Auto) 0.66, Eosinophils # (Auto) 0.19, Basophils # (Auto) 0.02 08/22/17 08:15 Test 08/22/17 08:15 08/22/17 10:07 White Blood Count 7.68 K/uL (4.8-10.8) Red Blood Count 3.89 M/uL (4.7-6.1) Hemoglobin 11.8 g/dL (14.0-18.0) Hematocrit 35.3 % (42-52) Mean Corpuscular Volume 90.7 fL (80-100) Mean Corpuscular Hemoglobin 30.3 pg (25-34) Mean Corpuscular Hemoglobin Concent 33.4 g/dl (32-36) Platelet Count 416 K/uL (130-400) Mean Platelet Volume 9.0 fL (7.4-10.4) Neutrophils (%) (Auto) 75.4 % Lymphocytes (%) (Auto) 12.8 % Monocytes (%) (Auto) 8.6 % Eosinophils (%) (Auto) 2.5 % Basophils (%) (Auto) 0.3 % Neutrophils # (Auto) 5.80 K/uL (1.4-6.5) Lymphocytes # (Auto) 0.98 K/uL (1.2-3.4) Monocytes # (Auto) 0.66 K/uL (0.11-0.59) Eosinophils # (Auto) 0.19 K/uL (0-0.5) Basophils # (Auto) 0.02 K/uL (0-0.2) RDW Standard Deviation 48.3 fL (36.4-46.3) RDW Coefficient of Variation 14.6 % (11.5-14.5) Immature Granulocyte % (Auto) 0.4 % Immature Granulocyte # (Auto) 0.03 K/uL (0.00-0.02) Prothrombin Time 9.6 SECONDS (9.0-12.0) Prothromb Time International Ratio 0.9 (0.9-1.1) Activated Partial Thromboplast Time 22.2 SECONDS (21.0-31.0) Partial Thromboplastin Ratio 0.9 Anion Gap 8.0 mmol/L (3-11) Est Creatinine Clear Calc Drug Dose 46.0 ml/min Estimated GFR () 52.7 Estimated GFR (Non- 45.4 BUN/Creatinine Ratio 23.2 (10-20) Calcium Level 8.9 mg/dl (8.5-10.1) Total Bilirubin 0.4 mg/dl (0.2-1) Direct Bilirubin < 0.1 mg/dl (0-0.2) Aspartate Amino Transf (AST/SGOT) 14 U/L (15-37) Alanine Aminotransferase (ALT/SGPT) 27 U/L (12-78) Alkaline Phosphatase 94 U/L (45-117) Total Creatine Kinase 62 U/L (39-308) Creatine Kinase MB 1.4 ng/ml (0.5-3.6) Creatine Kinase MB Ratio 2.3 (0-3.0) Troponin I < 0.015 ng/ml (0-0.045) Total Protein 6.9 gm/dl (6.4-8.2) Albumin 3.3 gm/dl (3.4-5.0) Lipase 143 U/L (73-393) Urine Color YELLOW Urine Appearance CLOUDY (CLEAR) Urine pH 5.0 (4.5-7.5) Urine Specific [place] 1.019 (1.000-1.030) Urine Protein NEG (NEG) Urine Glucose (UA) NEG (NEG) Urine Ketones NEG (NEG) Urine Occult Blood 2+ (NEG) Urine Nitrite POS (NEG) Urine Bilirubin NEG (NEG) Urine Urobilinogen NEG (NEG) Urine Leukocyte Esterase MODERATE (NEG) Laboratory results as stated above per my review. ECG Indication: chest pain Rate (beats per minute): 70 Rhythm: normal sinus Findings: no acute ischemic change, no ectopy ED Course 821: Previous medical records were reviewed. The patient was evaluated in room B12B. A complete history and physical examination was performed. 1013: I reassessed the patient at this time. He is feeling better and resting comfortably. I discussed the results and treatment plan with the patient. I answered all pertaining questions that he had. He expressed understanding and verbalized agreement. The patient will be discharged home. Medical Decision Differentials considered include acute myocardial infarction, acute coronary syndrome, myocarditis, pericarditis, pericardial effusions /tamponade, esophageal perforation, thoracic aortic dissection, pulmonary embolism, pneumonia, pneumothorax, pancreatitis, shingles, acute cholecystitis, and perforated abdominal viscus. This is a 71-year-old male who presents to the ED with a chief complaint of chest discomfort. The patient states that his pain is mostly over the left chest wall near his med port. He states that he has had it intermittently over the last several weeks. He states that it seems to be only in the morning with activity. He states that in the afternoon and evening he does not have any discomfort in that area with activity. He saw his music library assistant on Wednesday and had some testing. He is going to be scheduled for stress test in the near future. The patient does report a history of bladder cancer. His physical exam today is unremarkable. His vital signs are stable. Blood pressure improved while he was here. Chest x-ray did not show acute disease. EKG shows a normal sinus rhythm. CBC is unremarkable. The BUN is 35 and the creatinine is 1.5. Troponin was negative. The patient is currently asymptomatic and without any pain. He was told the results of the test. He will limit his activity until he has his stress test. The patient is felt to be stable for discharge. He was told to return to the emergency department should his pain not resolved as historically it has over the past several weeks. He was told to return if he develops any new or worsening symptoms as well. Medication Reconcilliation Current Medication List: was personally reviewed by me Blood Pressure Screening Patient's blood pressure: Normal blood pressure Impression Primary Impression: Substernal precordial chest pain Scribe Attestation The scribe's documentation has been prepared under my direction and personally reviewed by me in its entirety. I confirm that the note above accurately reflects all work, treatment, procedures, and medical decision making performed by me. Departure Information Dispostion Home / Self-Care Referrals Yogesh Pat PA-C (PCP) Patient Instructions [facility] Additional Instructions Follow-up with your doctor for further care and evaluation in 1-4 days. Return to the emergency department for worsening or new symptoms or any concerns. You have been examined and treated today on an emergency basis only. This is not a substitute for, or an effort to provide, complete comprehensive medical care. It is impossible to recognize and treat all injuries or illnesses in a single emergency department visit. It is therefore important that you follow up closely with your doctor. Call as soon as possible for an appointment. Return to the emergency department for any pain that does not resolve as it historically has. Return for worsening or new symptoms.
--- NOTE | 2017-08-22 08:40 | DIAGNOSTIC IMAGING REPORT ---
CHEST ONE VIEW PORTABLE CLINICAL HISTORY: Evaluate Fever/Sepsis fever COMPARISON STUDY: 07/21/2017 FINDINGS: Lungs are clear. Central catheter in superior vena cava unchanged from the prior study. Diaphragms smooth. No significant cardiac enlargement. IMPRESSION: No acute process. The above report was generated using voice recognition software. It may contain grammatical, syntax or spelling errors. Electronically signed by: Kalpesh Leger M.D. 08/22/2017 8:39 AM Dictated Date/Time: 08/22/2017 8:38 AM
[2017-08-22 08:42] LABS: BASO % 0.3 %; BASO ABS # 0.02 K/uL (0-0.2); EOS % 2.5 %; EOS ABS # 0.19 K/uL (0-0.5); HEMATOCRIT 35.3 % (42-52); HEMOGLOBIN 11.8 g/dL (14.0-18.0); IG# 0.03 K/uL (0.00-0.02); LYMPH % 12.8 %; LYMPH ABS # 0.98 K/uL (1.2-3.4); MEAN CELL VOLUME 90.7 fL (80-100); MEAN CORPUSCULAR HEMOGLOBIN 30.3 pg (25-34); MEAN CORPUSCULAR HGB CONC 33.4 g/dl (32-36); MONO % 8.6 %; MONO ABS # 0.66 K/uL (0.11-0.59); NEUT % 75.4 %; PLATELET COUNT 416 K/uL (130-400); RED CELL DISTRIBUTION WIDTH CV 14.6 % (11.5-14.5); RED CELL DISTRIBUTION WIDTH SD 48.3 fL (36.4-46.3); WHITE BLOOD COUNT 7.68 K/uL (4.8-10.8)
[2017-08-22 08:47] LABS: INR 0.9 (0.9-1.1); PTT PATIENT 22.2 SECONDS (21.0-31.0)
[2017-08-22 09:07] LABS: ALBUMIN 3.3 gm/dl (3.4-5.0); ALT/SGPT 27 U/L (12-78); AST/SGOT 14 U/L (15-37); BLOOD UREA NITROGEN 35 mg/dl (7-18); CALCIUM 8.9 mg/dl (8.5-10.1); CARBON DIOXIDE 24 mmol/L (21-32); CREATININE 1.52 mg/dl (0.60-1.40); GLUCOSE 111 mg/dl (70-99); LIPASE 143 U/L (73-393); POTASSIUM 3.8 mmol/L (3.5-5.1); SODIUM 136 mmol/L (136-145)
[2017-08-22 09:12] LABS: ALKALINE PHOSPHATASE 94 U/L (45-117); CKMB 1.4 ng/ml (0.5-3.6); TOTAL PROTEIN 6.9 gm/dl (6.4-8.2)
[2017-08-22 11:23] VITALS: BP 140/87; PULSE 59; O2SAT 100
[2017-10-12] MEDS ORDERED: FERR324T PO (07:27)
[2017-10-19] MEDS ORDERED: HYDR-5688 PO (06:51)
== END 2017-08-22 11:30 | disposition home or self-care (01) ==
LOC: C.EDB 08:07
DX: R07.2 Precordial pain (principal); I25.2 Old myocardial infarction; I25.10 Atherosclerotic heart disease of native coronary artery without angina pectoris; I10 Essential (primary) hypertension; E78.5 Hyperlipidemia, unspecified; Z90.6 Acquired absence of other parts of urinary tract; Z85.51 Personal history of malignant neoplasm of bladder; Z79.82 Long term (current) use of aspirin; Z79.02 Long term (current) use of antithrombotics/antiplatelets; Z87.891 Personal history of nicotine dependence; Z83.3 Family history of diabetes mellitus

== ENCOUNTER → 2017-10-19 | Day surgery (SDC) | payer BC ==
[2017-10-12 07:28] VITALS: Ht 180.3 cm; Wt 87.7 kg
[~2017-10-19] VITALS: Ht 180.3 cm; Wt 87.7 kg
[~2017-10-19] MED LIST changes: +ACET-749 PO; -ACET300T3 PO; -AMLO2.5T PO; +ATROPINE SULFATE 0.1 MG/ML 5ML SYR IV PRN; +CEFAZOLIN 2000MG IV PUSH 15 ML IV SCH; +EpHEDrine SULFATE INJ 50 MG/ML AMP IV PRN; +FENTANYL CITRATE INJ 50 MCG/1 ML 2 ML VIAL IV PRN; +FENTANYL CITRATE INJ 50 MCG/1 ML 2 ML VIAL ONE; +FERR324T PO; +HYDR-5688 PO; +HYDROCODONE/ACETAMIN 5/325MG TAB PO PRN; +LACTATED RINGER'S 1000ML 1,000 ML IV SCH; +LIDOCAINE HCL 1% 20 ML VIAL ONE; +LIDOCAINE HCL 2% 2 ML VIAL (20MG/ML) ONE; -LVNIS30 SQ; +MIDAZOLAM HCL 1 MG/ML 2ML VIAL ONE; +ONDANSETRON INJ 2 MG/ML 2 ML VIAL IV PRN; +ONDANSETRON INJ 2 MG/ML 2 ML VIAL ONE; +PROMETHAZINE HCL INJ 6.25 MG in SODIUM CHLORIDE 0.9% 50ML 50 ML IV PRN; +PROPOFOL IV EMULSION 10 MG/ML 20 ML VIAL IV ONE; +SODIUM CHLORIDE 0.9% 1000ML 1,000 ML IV SCH
--- NOTE | 2017-10-19 06:53 | Discharge Instructions-SurgCtr ---
Discharge Instructions Date of Service Oct 19, 2017. Visit Reason for Visit: Port Catheter In Place Discharge Discharge Diagnosis / Problem: port in place Discharge Goals Goal(s): Decrease discomfort, Improve function Activity Recommendations Activity Limitations: as noted below Lifting Limitations: no more than 25 pounds (for 2 weeks) Exercise/Sports Limitations: until after follow-up appointment May Resume Sexual Activity: when tolerated Shower/Bathe: tomorrow Driving or Machine Use: resume 1 day after discharge Anesthesia . Post Anesthesia Instructions: If you have had General Anesthesia or IV Sedation: * Do not drive today. * Resume driving when surgeon permits. * Do not make important decisions or sign legal documents today. * Call surgeon for: 1. Temperature elevations greater than 101 degrees F. 2. Uncontrollable pain. 3. Excessive bleeding. 4. Persistent nausea and vomiting. 5. Medication intolerance (nausea, vomiting or rash). * For nausea and vomiting use only clear liquids such as: tea, soda, bouillon until nausea subsides, then gradually increase diet as tolerated. * If you have any concerns or questions, call your surgeon's office. If physician is unavailable and it is an emergency, call 911 or go to the nearest emergency room. . Instructions / Follow-Up Instructions / Follow-Up SPECIAL CARE INSTRUCTIONS: * Cover incisions and change daily for comfort/drainage. * May use ibuprofen for pain as tolerated. * Expect some swelling and bruising. Call your doctor if: * Temperature above 101 degrees * Pain not relieved by pain medicine ordered * There is increased drainage or redness from any incision * You have any unanswered questions or concerns [phone]. FOLLOW UP VISIT: If not already scheduled, please call the office for a follow-up visit. for 2 weeks- suture removal OFFICE PHONE NUMBER: Dr. Shaver Office Diet Recommendations Home Diet: resume previous diet Pending Studies Studies pending at discharge: no Medical Emergencies . Who to Call and When: Medical Emergencies: If at any time you feel your situation is an emergency, please call 911 immediately. . Non-Emergent Contact Non-Emergency issues call your: Primary Care Provider, Surgeon . . "Provider Documentation" section prepared by Dave Shaver. .
--- NOTE | 2017-10-19 08:01 | [facility] Operative Report ---
Operative Report Operative Date Oct 19, 2017. Pre-Operative Diagnosis Port catheter in place Post-Operative Diagnosis Same as pre-op Procedure(s) Performed Removal Of A-Port Surgeon Phlebotomy Services Representative Surgeon(s) None Estimated Blood Loss 5ML Findings port Specimens A.Explanted A-port Drains None Anesthesia Type MAC Complication(s) none Disposition Recovery Room / PACU I attest to the content of the Intraoperative Record and any orders documented therein. Any exceptions are noted below.
[2017-10-19 08:06] VITALS: TEMP 36.5
--- NOTE | 2017-10-19 08:10 | OPERATIVE REPORT ---
DATE OF OPERATION: 10/19/2017 NAME OF OPERATION: Removal of access port. PREOPERATIVE DIAGNOSIS: Port in place. POSTOPERATIVE DIAGNOSIS: Same. STAFF SURGEON: Dave Shaver MD. ANESTHESIA: 1% plain lidocaine with sedation. DESCRIPTION OF PROCEDURE: The patient was brought in the operating room and placed on the operating table in supine position. His left chest was prepped and draped in the usual fashion. A 1% plain lidocaine was used to anesthetize the skin and subcutaneous tissue at the prior scar. An incision was made carrying dissection down identifying the port, dissecting it from surrounding tissue. It was well incorporated. The port and catheter were removed. The deep tissue was reapproximated using 2-0 chromic suture. Skin was reapproximated using interrupted 4-0 nylon suture. Dressing applied and the patient transferred to recovery room in stable condition. I attest to the content of the Intraoperative Record and any orders documented therein. Any exception s are noted below.
--- NOTE | 2017-10-19 08:42 | Anesthesia Progress Nt - [facility] ---
Anesthesia Post Op Note Date & Time Oct 19, 2017 at 08:42 Vital Signs Pain Intensity: 0 Vital Signs Past 12 Hours Date Time Temp Pulse Resp B/P (MAP) Pulse Ox O2 Delivery O2 Flow Rate FiO2 10/19/17 08:06 36.5 65 16 131/77 (95) 96 Room Air 10/19/17 07:03 36.6 65 16 150/90 (110) 97 Room Air Notes Mental Status: alert / awake / arousable, participated in evaluation Pt Amnestic to Procedure: Yes Nausea / Vomiting: adequately controlled Pain: adequately controlled Airway Patency, RR, SpO2: stable & adequate BP & HR: stable & adequate Hydration State: stable & adequate Anesthetic Complications: no major complications apparent
[2017-10-19 08:45] VITALS: BP 123/90; PULSE 67; O2SAT 98
== END | disposition home or self-care (01) ==
LOC: X.SURG 06:40
PROVIDERS: ATTEND Surgery
DX: Z95.828 Presence of other vascular implants and grafts (principal); I25.10 Atherosclerotic heart disease of native coronary artery without angina pectoris; I10 Essential (primary) hypertension; E78.5 Hyperlipidemia, unspecified; Z85.51 Personal history of malignant neoplasm of bladder; Z87.891 Personal history of nicotine dependence; Z79.82 Long term (current) use of aspirin; Z83.3 Family history of diabetes mellitus

== ENCOUNTER → 2017-10-29 | Outpatient (CLI) | payer BC ==
[~2017-10-29] MED LIST changes: -ATROPINE SULFATE 0.1 MG/ML 5ML SYR IV PRN; -CEFAZOLIN 2000MG IV PUSH 15 ML IV SCH; -EpHEDrine SULFATE INJ 50 MG/ML AMP IV PRN; -FENTANYL CITRATE INJ 50 MCG/1 ML 2 ML VIAL IV PRN; -FENTANYL CITRATE INJ 50 MCG/1 ML 2 ML VIAL ONE; -HYDR-5688 PO; -HYDROCODONE/ACETAMIN 5/325MG TAB PO PRN; -LACTATED RINGER'S 1000ML 1,000 ML IV SCH; -LIDOCAINE HCL 1% 20 ML VIAL ONE; -LIDOCAINE HCL 2% 2 ML VIAL (20MG/ML) ONE; -MIDAZOLAM HCL 1 MG/ML 2ML VIAL ONE; -ONDANSETRON INJ 2 MG/ML 2 ML VIAL IV PRN; -ONDANSETRON INJ 2 MG/ML 2 ML VIAL ONE; +OPTIRAY 320 IV PRN; -PROMETHAZINE HCL INJ 6.25 MG in SODIUM CHLORIDE 0.9% 50ML 50 ML IV PRN; -PROPOFOL IV EMULSION 10 MG/ML 20 ML VIAL IV ONE; -SODIUM CHLORIDE 0.9% 1000ML 1,000 ML IV SCH
--- NOTE | 2017-10-29 13:43 | DIAGNOSTIC IMAGING REPORT ---
CHEST CT WITH CONTRAST CT DOSE: 878.03 mGy.cm HISTORY: Follow-up study in a patient with history of bladder cancer C67.1 TECHNIQUE: Multiaxial CT images of the chest were performed following the intravenous administration of contrast. A dose lowering technique was utilized adhering to the principles of ALARA. COMPARISON: Chest CT 07/06/2017, CT abdomen and pelvis of same day FINDINGS: 12 mm low attenuating nodule of the left thyroid. 6 mm nodule involves the posterior left thyroid lobe. Indeterminate 7 mm lymph node of the right tracheoesophageal recess, image 61 series 6 appears unchanged. No pathologically enlarged lymph nodes of the chest are identified. Right hilar lymph node measuring up to 9 mm, nonspecific. Heart is normal in size without pericardial effusion. Coronary arterial disease. Thoracic aorta is normal in both course and caliber without aneurysm or dissection. The imaged great vessels appear to be patent. There is no pneumothorax, pleural effusion or focal airspace consolidation. Scattered calcified granulomas are redemonstrated. 7 mm pleural-based nodule of the superior segment left lower lobe, image 116 series 6 appears unchanged. There are multiple additional solid nodules of the lungs bilaterally, most of which measure in the 2 to 3 mm range which appear unchanged from comparison. There are no new or enlarging pulmonary nodules identified. Mild subpleural reticulation and linear subsegmental bibasilar consolidative opacities of the lung bases suggest areas of scarring. No overt pulmonary edema. Central airways appear patent. Mild bilateral bronchial wall thickening suggests bronchitis. No acute abnormality of the imaged upper abdomen. Soft tissues are unremarkable. There are no suspicious lytic or blastic bony lesions identified. IMPRESSION: 1. No acute intrathoracic abnormality identified. 2. Multiple bilateral solid pulmonary nodules are again noted as above measuring up to 6 mm. These appear unchanged in size and appearance from comparison study 07/06/2017. 3. Evidence of prior granulomatous disease. 4. No pathologically enlarged lymph nodes or lobar airspace consolidation identified. Please refer to below summary of Fleischner criteria recommendations for follow-up of incidental CT nodules (Fifi Montgomery, Guidelines for management of small pulmonary nodules detected on CT scans: A statement from the Fleischner Society, Radiology 237: [phone].) SOLID NODULES Multiple nodules size: <6 mm * Low risk patients: no routine follow-up * high risk patients: optional CT at 12 months Multiple nodules size: 6-8 mm * Low risk patients: follow-up at 3-6 months, then consider further follow-up at 18-24 months * high risk patients: follow-up at 3-6 months, then at 18-24 months if no change Note: newly detected indeterminate nodule in persons 35 years of age or older. * Low risk patients: minimal or absent history of smoking and/or other known risk factors * high risk patients: history of smoking or of other known risk factors (e.g. first degree relative with lung cancer, or exposure to asbestos, radon, uranium) * if a nodule up to 8 mm is partly solid or is ground glass further follow-up is required after 24 months to exclude possible slow growing adenocarcinoma (SANDRINE) The above report was generated using voice recognition software. It may contain grammatical, syntax or spelling errors. Electronically signed by: Joel Hadley M.D. 10/29/2017 1:42 PM Dictated Date/Time: 10/29/2017 1:33 PM
--- NOTE | 2017-10-29 13:46 | DIAGNOSTIC IMAGING REPORT ---
ABD/PELVIS IV AND ORAL CONT CT DOSE: HISTORY: Bladder carcinoma C67.1 TECHNIQUE: Multiaxial CT images of the abdomen and pelvis were performed following the use of intravenous and oral contrast. A dose lowering technique was utilized adhering to the principles of ALARA. COMPARISON STUDY: 07/06/2017 FINDINGS: Lung bases are clear. Liver spleen and pancreas are unremarkable. There is a small stable splenic cyst. Kidneys negative for hydronephrosis. Several small renal cysts and/or hyperdense cysts are stable. There is been interval placement of a right anterior ostomy. This presumably represents an ileal conduit type procedure. There has been an interval complete cystectomy. There is a small calcification image 66 adjacent to a loop of small bowel felt to be extrinsic and most likely benign vascular calcification. Bowel pattern overall is nonobstructive. Minimal residual postprocedural scar like changes at the pelvic floor region. There are several scattered colonic diverticuli with no evidence of diverticulitis. There is no pathologic adenopathy. Osseous structures appear remarkable only for mild scattered degenerative change. IMPRESSION: 1. Operative changes consistent with an interval cystectomy and right anterior ostomy/ileal conduit type procedure. 2. No evidence for residual or metastatic neoplastic change. 3. No significant adenopathy. 4. Several small stable renal cysts, hyperdense cysts, as well as a single small splenic cyst. 5. Overall, normal postprocedural CT of the abdomen and pelvis. The above report was generated using voice recognition software. It may contain grammatical, syntax or spelling errors. Electronically signed by: Kalpesh Leger M.D. 10/29/2017 1:45 PM Dictated Date/Time: 10/29/2017 1:36 PM
== END | disposition home or self-care (01) ==
LOC: C.CTS 12:39
PROVIDERS: ATTEND Internal Medicine Hematology & Oncology
DX: C67.1 Malignant neoplasm of dome of bladder (principal); N28.1 Cyst of kidney, acquired; D73.4 Cyst of spleen; R91.8 Other nonspecific abnormal finding of lung field

== ENCOUNTER 2018-12-21 19:16 | Inpatient (IN) ==
[2018-12-21 20:21] LABS: Hematocrit (blood only) 35.6 % (42-52); Hemoglobin 12.4 g/dL (14.0-18.0); Mean Corpuscular Hgb Conc 34.8 g/dL (32-36); Mean Corpuscular Volume 81.8 fL (80-100); Mean Platelet Volume 10.2 fL (7.4-10.4); Platelet Count 128 K/uL (130-400); RDW Coefficient of Variation 15.1 % (11.5-14.5); RDW Standard Deviation 45.4 fL (36.4-46.3); Red Blood Count 4.35 M/uL (4.7-6.1); White Blood Count 14.17 K/uL (4.8-10.8)
[2018-12-21 20:31] LABS: INR 1.3 (0.9-1.1); Partial Thromboplastin Ratio 1.2; Partial Thromboplastin Time 31.8 Seconds (21.0-31.0); Prothrombin Time 13.1 Seconds (9.0-12.0)
[2018-12-21 20:42] LABS: Albumin Level 2.6 gm/dl (3.4-5.0); BUN Creatinine Ratio 27.6 (10-20); Calcium 8.8 mg/dl (8.5-10.1); Creatinine Clr Calc Pharmacy 38.1 ml/min; Est GFR (African American) 41.2; Est GFR (Non-African American) 35.6; Potassium 4.3 mmol/L (3.5-5.1)
[2018-12-21 20:45] LABS: Albumin Globulin Ratio 0.7 (0.9-2); Bilirubin,Total 0.5 mg/dl (0.2-1); Total Protein 6.6 gm/dl (6.4-8.2)
[2018-12-21 20:54] LABS: Basophils # (auto) 0.02 K/uL (0-0.2); Basophils % (auto) 0.1 %; Eosinophils # (auto) 0.09 K/uL (0-0.5); Eosinophils % (auto) 0.6 %; Immature Granulocytes # (auto) 0.08 K/uL (0.00-0.02); Immature Granulocytes % (auto) 0.6 %; Lymphocytes # (auto) 0.73 K/uL (1.2-3.4); Lymphocytes % (auto) 5.2 %; Monocytes # (auto) 1.51 K/uL (0.11-0.59); Monocytes % (auto) 10.7 %; Neutrophils # (auto) 11.74 K/uL (1.4-6.5); Neutrophils % (auto) 82.8 %
[2018-12-21] MEDS ORDERED: SODIUM CHLORIDE 0.9% 1000ML 500 ML IV ONE (21:31)
--- NOTE | 2018-12-21 23:05 | History & Physical Report ---
Date of Service December 21, 2018 Assessment & Plan (1) Deep vein thrombosis (DVT) of both lower extremities: 73 yo M with history of CAD s/p CASSANDRA to left distal circumflex, HTN, hyperlipidemia, and GERD, history of bladder cancer s/p radical cystoprostatectomy with lymphadenectomy. s/p Liver Bx 12/19 with pathology findings of metastatic disease presenting with reported bilateral DVT, MRI brain with multiple no-hemorrhagic infarcts Admit to Telemetry Per outside record: Doppler U/S bilateral LE: Acute non-occlusive DVT within bilateral popliteal and posterior tibial veins GIven MRI results from outside facility findings, risk of hemorrhagic conversion of recent cerebral/cerebellar infarcts too high to start Heparin therapy Patient will need CTA chest consideration when Cr improves s/p hydration Patient will need evaluation by vascular for IVC filter given multiple DVTs with contraidindication to heparin Vascular surgery consulted, Patient is npo in case of procedure (2) Transitional cell bladder cancer: s/p radical cystoprostatectomy with lymphadenectomy liver BX 12/19 consistent with metastasis of urothelial origin Heme/on consulted Patient follows with Dr. Giordano (3) History of multiple cerebrovascular accidents (CVAs): recent multiple cerebellar/cerebral infarcts per outside records asx, no focal neural signs Continue to monitor given risk of hemorrhagic conversion, no anticoagulation as above for DVT's (4) Elevated serum creatinine: likely exacerbated by recent contrast from mri brain at outside facility IV fluids F/u Cr Consider CTA chest whern improved (5) Hypertension: BP controlled Continue Metoprolol (6) Hyperlipidemia: Continue statin (7) GERD (gastroesophageal reflux disease): Continue PPI (8) Elevated troponin: asx for chest pain likely demand ischemia no ischemic findings on EKG trend troponins (9) CAD (coronary artery disease): H/o GA asx Continue BB, Statin Plavix History of Present Illness Chief Complaint: DVT Primary Care Provider: Yogesh Pat 73 yo M with history of CAD s/p CASSANDRA to left distal circumflex, HTN, hyperlipidemia, and GERD, history of bladder cancer s/p radical cystoprostatectomy with lymphadenectomy. Patient was in hospital for Liver Bx 12/19 , pathology findings of atypical cells. Patient presents today for bilateral leg pain. Patient reports he went to PCP ( Dr. Pat - [facility]) today complaining of pain in calf pain in both legs x 2-3 wks, without swelling or redness observed. His PCP ordered Doppler u/s was ordered of legs which was performed at [facility]. Doppler findings reportedly showed multiple DVT's bilaterally. CXR was ordered but results were no reported to patient. MRI brain was ordered to rule out bleeding, metastasis. Patient also reports cough x 6 weeks. He denies chest pain. He denies numbness weakness, tingling. He has no history of clots. HE is not on anticoagulation. He is a patient of Dr. Phillips. He is not on chemo therapy currently and has never had radiation. In the ED, patient arrived afebrile with vss, WBC CT 14.17, Cr 1.84, elevated alk phos 196. Per outside records, Doppler US findings include acute non- occlusive DVT within bilateral popliteal ans posterior tibial veins. MRI brains findings included multiple recent cerebral and cerebellae non-hemorrhagic infarcts. Allergies Allergy/AdvReac Type Severity Reaction Status Date / Time No Known Allergies Allergy Unverified 12/21/18 19:59 Home Medications Home Medications Medication Instructions Recorded Confirmed Type atorvastatin 80 mg PO QAM #0 tab 03/08/17 12/21/18 History metoprolol succinate 50 mg PO QAM #30 tab 03/08/17 12/21/18 History nitroglycerin 0.4 mg SUBLINGUAL DIRECTED #0 03/08/17 12/21/18 History btl omeprazole 20 mg PO QAM #0 cap 03/08/17 12/21/18 History triazolam 0.25 mg PO HS #0 tab 07/21/17 12/21/18 History clopidogrel 75 mg PO QAM #0 tab 07/28/17 12/21/18 History chszzmzoq-FH-xvosnrao-guaifen 2 tab PO QID PRN 12/21/18 12/21/18 History [Tylenol Cold and Flu Severe] Past Med/Surg History Medical History Bladder cancer (Acute) High cholesterol (Acute) Myocardial infarction (Acute) Surgical History H/O cystoscopy (Acute) h/o bladder cancer H/O heart artery stent (Acute) H/O total cystectomy (Acute) History of urostomy (Acute) Social History Preferred Language: Yi Communication Ability: Effective 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: No Beliefs That Will Affect Care: None marital status: Single Current Living Situation: Alone Other Information That Helps Us Care for You: No Feels Safe at Home: Yes Safety Concerns: Feels Safe At This Time Smoking Status: Former smoker Do You Dip or Chew Tobacco: No Second Hand Exposure: No Tobacco Cessation Education Requested by Patient: No Hx Alcohol Use: Yes Alcohol type: beer Hx Substance Use: No Review of Systems Review of Systems: All systems reviewed & are unremarkable except as noted in HPI & below Physical Exam Physical Exam: GENERAL APPEARANCE: alert and cooperative, and appears to be in no acute distress. HEAD: normocephalic. EYES: PERRL, EOMI.vision is grossly intact. EARS: hearing grossly intact. NOSE: No nasal discharge. NECK: Neck supple, non-tender without lymphadenopathy CARDIAC: Normal S1 and S2. No S3, S4 or murmurs. Rhythm is regular LUNGS: coarse breath sounds bilaterally, no wheeze ABDOMEN: Positive bowel sounds. Soft, nondistended, nontender. No guarding or rebound. No masses. LOWER EXTREMITY: no edema, no erythema NEUROLOGICAL: CN II-XII intact grossly. moves extremities SKIN: Skin normal color, texture Results & Data Vital Signs (Past 12 Hours) Vital Signs Temp Pulse Pulse Resp BP BP Pulse Ox 12/21/18 21:58 18 96 12/21/18 21:52 74 18 107/57 L 87 L 12/21/18 19:26 36.5 C 87 24 127/91 96 Laboratory Results Laboratory Results WBC 14.17 K/uL (4.8-10.8) H 12/21/18 20:03 RBC 4.35 M/uL (4.7-6.1) L 12/21/18 20:03 Hgb 12.4 g/dL (14.0-18.0) L 12/21/18 20:03 Hct 35.6 % (42-52) L 12/21/18 20:03 MCV 81.8 fL (80-100) 12/21/18 20:03 MCH 28.5 pg (25-34) 12/21/18 20:03 MCHC 34.8 g/dL (32-36) 12/21/18 20:03 RDW Std Deviation 45.4 fL (36.4-46.3) 12/21/18 20:03 RDW Coeff of Jennifer 15.1 % (11.5-14.5) H 12/21/18 20:03 Plt Count 128 K/uL (130-400) L 12/21/18 20:03 MPV 10.2 fL (7.4-10.4) 12/21/18 20:03 Immature Gran % (Auto) 0.6 % 12/21/18 20:03 Neut % (Auto) 82.8 % 12/21/18 20:03 Lymph % (Auto) 5.2 % 12/21/18 20:03 [place] % (Auto) 10.7 % 12/21/18 20:03 Eos % (Auto) 0.6 % 12/21/18 20:03 Baso % (Auto) 0.1 % 12/21/18 20:03 Immature Gran # (Auto) 0.08 K/uL (0.00-0.02) H 12/21/18 20:03 Neut # (Auto) 11.74 K/uL (1.4-6.5) H 12/21/18 20:03 Lymph # (Auto) 0.73 K/uL (1.2-3.4) L 12/21/18 20:03 [place] # (Auto) 1.51 K/uL (0.11-0.59) H 12/21/18 20:03 Eos # (Auto) 0.09 K/uL (0-0.5) 12/21/18 20:03 Baso # (Auto) 0.02 K/uL (0-0.2) 12/21/18 20:03 PT 13.1 Seconds (9.0-12.0) H 12/21/18 20:03 INR 1.3 (0.9-1.1) H 12/21/18 20:03 APTT 31.8 Seconds (21.0-31.0) H 12/21/18 20:03 PTT Ratio 1.2 12/21/18 20:03 Sodium 137 mmol/L (136-145) 12/21/18 20:03 Potassium 4.3 mmol/L (3.5-5.1) 12/21/18 20:03 Chloride 105 mmol/L (98-107) 12/21/18 20:03 Carbon Dioxide 22 mmol/L (21-32) 12/21/18 20:03 Anion Gap 10.0 (3-11) 12/21/18 20:03 BUN 51 mg/dl (7-18) H 12/21/18 20:03 Creatinine 1.84 mg/dl (0.6-1.4) H 12/21/18 20:03 Est Cr Clr Drug Dosing 38.1 ml/min 12/21/18 20:03 Est GFR ( Amer) 41.2 12/21/18 20:03 Est GFR (Non-Af Amer) 35.6 12/21/18 20:03 BUN/Creatinine Ratio 27.6 (10-20) H 12/21/18 20:03 Glucose 110 mg/dl (70-99) H 12/21/18 20:03 Calcium 8.8 mg/dl (8.5-10.1) 12/21/18 20:03 Total Bilirubin 0.5 mg/dl (0.2-1) 12/21/18 20:03 AST 51 U/L (15-37) H 12/21/18 20:03 ALT 70 U/L (12-78) 12/21/18 20:03 Alkaline Phosphatase 196 U/L (45-117) H 12/21/18 20:03 POC Troponin I 0.27 ng/ml (0-0.045) H 12/21/18 20:11 Troponin I 0.322 ng/ml (0-0.045) H* 12/22/18 01:44 Total Protein 6.6 gm/dl (6.4-8.2) 12/21/18 20:03 Albumin 2.6 gm/dl (3.4-5.0) L 12/21/18 20:03 Globulin 4.0 gm/dl (2.5-4.0) 12/21/18 20:03 Albumin/Globulin Ratio 0.7 (0.9-2) L 12/21/18 20:03 Medications Administered Guaifenesin (Mucinex) 600 mg PO Q12 PEDRITO Stop: 01/21/19 02:03 Last Admin: 12/22/18 03:06 Dose: 600 mg Documented by: [id number] Sodium Chloride (Nss 1000ml) 1,000 mls @ 100 mls/hr IV .Q10H PEDRITO Stop: 01/21/19 01:36 Last Admin: 12/22/18 02:45 Dose: 100 mls/hr Documented by: [id number] Discontinued Medications Benzonatate (Tessalon Perle) 100 mg PO NOW ONE Stop: 12/22/18 02:00 Last Admin: 12/22/18 03:06 Dose: 100 mg Documented by: [id number] Sodium Chloride (Nss 1000ml) 500 mls @ 999 mls/hr IV .Q31M ONE Stop: 12/21/18 22:01 Last Infusion: 12/21/18 22:17 Dose: 0 mls/hr Documented by: [id number] Admin: 12/21/18 21:40 Dose: 999 mls/hr Documented by: [id number] ECG Rate (beats per minute): 74 Rhythm: normal sinus Change: no significant change (22-AUG-2017 08:12) Code Status & VTE Plan VTE Prophylaxis Plan VTE Prophylaxis will be ordered: No Reason for no VTE drug order: Contraindicated (hemorrhagic conversion risk in brain) Reason for no VTE mechanical prophylaxis: Contraindicated (bilateral dvt's) Supervising Physician Co-Signing Physician Notes Attending addendum: I have physically seen this patient, have supervised the medical residents activities, and agree with the H&P unless as otherwise noted. Assessment and Plan: Bilateral lower extremity acute nonocclusive DVT within bilateral popliteal and posterior tibial veins- Likely secondary to hypercoagulable state associated with urothelial cancer. Liver biopsy significant for metastatic poorly differentiated carcinoma secondary to urothelial primary. Brain MRI significant for metastatic disease. Patient is therefore not anticoagulation candidate. We will consult vascular surgery regarding IVC filter placement. Transitional cell bladder cancer/status post radical cystoprostatectomy with lymphadenectomy- Mets to liver and presumptively to brain. Consult his oncologist Dr. Giordano. Remainder of orders notations as noted. Resident Activity Tracking Resident Involvement: Resident Care Provided Care Provided: Adult Hospital Medicine (1) Deep vein thrombosis (DVT) of both lower extremities Chronicity: acute
[2018-12-21 23:51] LABS: Troponin I 0.325 ng/ml (0-0.045)
[2018-12-22] MEDS ORDERED: ONDANSETRON INJ 2 MG/ML 2 ML VIAL IV PRN (01:37)
[2018-12-22] MEDS ORDERED: ALUMINUM/MAGNESIUM SUSP 30 ML UDC PO PRN (01:37)
[2018-12-22] MEDS ORDERED: ACETAMINOPHEN 325 MG TAB PO PRN (01:37)
[2018-12-22] MEDS ORDERED: MAGNESIUM HYDROXIDE SUSP 30 ML UDC PO PRN (01:37)
[2018-12-22] MEDS ORDERED: BENZONATATE 100 MG CAPSULE PO ONE (01:59)
[2018-12-22] MEDS: SODIUM CHLORIDE 0.9% 1000ML 1,000 ML IV SCH ×3 (02:45→23:14)
[2018-12-22] MEDS: guaiFENesin 600 MG TABCR PO SCH ×3 (03:06→20:15)
[2018-12-22 06:47] LABS: Hematocrit (blood only) 33.5 % (42-52); Hemoglobin 11.2 g/dL (14.0-18.0); Mean Corpuscular Hgb Conc 33.4 g/dL (32-36); Mean Corpuscular Volume 81.7 fL (80-100); RDW Coefficient of Variation 15.1 % (11.5-14.5); RDW Standard Deviation 44.8 fL (36.4-46.3); White Blood Count 9.26 K/uL (4.8-10.8)
[2018-12-22 06:53] LABS: INR 1.3 (0.9-1.1); Partial Thromboplastin Ratio 1.3; Partial Thromboplastin Time 34.6 Seconds (21.0-31.0); Prothrombin Time 13.5 Seconds (9.0-12.0)
[2018-12-22] MEDS: BENZONATATE 100 MG CAPSULE PO PRN ×3 (07:08→23:16)
[2018-12-22 07:15] LABS: Mean Platelet Volume 10.7 fL (7.4-10.4); Platelet Count 99 K/uL (130-400)
[2018-12-22 07:16] LABS: Albumin Level 2.2 gm/dl (3.4-5.0); BUN Creatinine Ratio 30.8 (10-20); Basophils # (auto) 0.01 K/uL (0-0.2); Basophils % (auto) 0.1 %; Eosinophils # (auto) 0.09 K/uL (0-0.5); Est GFR (African American) 54.5; Immature Granulocytes # (auto) 0.05 K/uL (0.00-0.02); Immature Granulocytes % (auto) 0.5 %; Lymphocytes # (auto) 0.56 K/uL (1.2-3.4); Monocytes # (auto) 1.01 K/uL (0.11-0.59); Monocytes % (auto) 10.9 %; Neutrophils # (auto) 7.54 K/uL (1.4-6.5); Neutrophils % (auto) 81.5 %; Platelet Estimate Decreased (Normal)
[2018-12-22 07:27] LABS: Albumin Globulin Ratio 0.7 (0.9-2); Bilirubin,Total 0.4 mg/dl (0.2-1); Globulin 3.3 gm/dl (2.5-4.0); Total Protein 5.5 gm/dl (6.4-8.2); Troponin I 0.296 ng/ml (0-0.045)
[2018-12-22] MEDS: GUAIFENESIN/CODEINE 200MG/20MG 10ML UDC PO PRN ×3 (07:53→20:14)
--- NOTE | 2018-12-22 09:54 | Family Medicine Progress Note ---
Date of Service December 22, 2018 Assessment & Plan (1) Deep vein thrombosis (DVT) of both lower extremities: (#) Deep vein thrombosis (DVT) of both lower extremities: 73 yo M with history of CAD s/p CASSANDRA to left distal circumflex, HTN, hyperlipidemia, and GERD, history of bladder cancer s/p radical cystoprostatectomy with lymphadenectomy. s/p Liver Bx 12/19 with pathology findings of metastatic disease presenting with reported bilateral DVT, MRI brain with multiple no-hemorrhagic infarcts -Admit to Telemetry -Per outside record: Doppler U/S bilateral LE: Acute non-occlusive DVT within bilateral popliteal and posterior tibial veins -Abnormal perfusion study nondiagnostic however pulmonary embolus likely -Numerous strokes on MRI, likely embolic in nature -Patient has significant clot burden will need intervention surgical versus chemical -After speaking with his vascular surgery and neurology we all independently came to the conclusion that his strokes are most likely embolic in nature secondary to heavy clot burden therefore there is no contraindication to chemical anticoagulation also numerous studies have demonstrated superiority of chemical anticoagulation to surgical placement of IVC filter. -On heparin drip per per protocol/we will continue heparin drip for 24 to 48 hours transition to other anticoagulation to Doac vs warfarin versus Lovenox (#) Transitional cell bladder cancer: s/p radical cystoprostatectomy with lymphadenectomy -liver BX 12/19 consistent with metastasis of urothelial origin -Heme/on consulted, Patient follows with Dr. Giordano -Stage IV with mets to liver, lungs,lungs -Likely cause of hypercoagulable state (#)Cough Patient has been experiencing intermittent coughing for several weeks now. Patient's family relates that Tylenol Cold and flu severe seems to improve his cough -Tessalon Perles and guaifenesin/codeine cough syrup ineffective -Dextromethorphan syrup appears to be helping -If cough persists would consider Tylenol 3 or similar (#) History of multiple cerebrovascular accidents (CVAs): recent multiple cerebellar/cerebral infarcts per outside records likely embolic in source, no contraindication to chemical anticoagulation, see above -Family reports intermittent symptomatology at home however currently asx, no focal neural signs -Consult neurology appreciate recommendation (#) Elevated serum creatinine: likely exacerbated by recent contrast from mri brain at outside facility -IV fluids -Daily BMP (#) Hypertension: BP controlled -Continue Metoprolol (#) Hyperlipidemia: -Continue statin (#) GERD (gastroesophageal reflux disease): -Continue PPI (#) Elevated troponin: asx for chest pain ACS -likely secondary to demand ischemia -no ischemic findings on EKG -Troponins trended down (#) CAD (coronary artery disease): -H/o NH approximately 2 years ago holding aspirin and Plavix overnight resume tomorrow -Continue BB, Statin FENa:Heart Healthy DVT PPX:Heparin Drip Dispo:Tele Supervising Physician Co-Signing Physician Notes I personally examined the patient and verified all woo points of history and e xam, discussed case, and agree with decision making with Dr Atkins. Patient overall feeling okay other than a constant cough. He notes that this is been going on for quite a while, and notes that [id number] Tylenol cough and cold actually has helped as much as anything. Otherwise no new issues. Patient and family present. Extensive discussions with vascular surgery, case discussed with neurology. Case then discussed with patient and family in depth. Vitals noted, in general he is awake and alert and other than constant coughing paroxysms he is in no distress. HEENT normal cephalic atraumatic mucous membranes moist. Breathing is unlabored no accessory muscle use good effort. Skin shows no rashes no pallor or icterus. Neuro shows no gross focal deficits. MRI brain report from [place] shows multiple small 2 to 7 mm in length areas of restricted diffusion throughout each cerebral hemisphere including both frontal, both parietal, and both occipital lobes (at least 10 small infarcts in each cerebral hemisphere) as well as at least 4 small bilateral cerebellar hemisphere areas of restricted diffusion that all have decreased signal on the ADC map consistent with multiple bilateral nonhemorrhagic cerebral infarcts. There are no intracranial hemorrhage midline shift mass-effect or extra-axial fluid collections. Radiology also notes that they are consistent with subacute infarcts, but major intracranial vessels demonstrate preserved flow void, and that brain volume and ventricular system are within normal limits for age. Diffuse embolic diseasecertainly is high risk for venous thromboembolic disease with his known metastatic cancer, most likely he has venous thrombi embolic disease with paradoxical emboli to the brain. Less likely he has diffuse arterial and venous embolic disease. Either way, in discussion with vascular surgery and neurology as well as in my own opinion, cautious anticoagulation is going to be the most effective treatment for preventing further worsening. Discussed with patient at length that an IVC filter would only be a suboptimal solution for protecting him from PEs from the lower extremity DVTs, and would do nothing to protect his brain otherwise. Discussed the small but real risk of rebound bleed, but discussed that the alternative essentially would amount to quite subpar treatment. Further given that there is no bleeding on strokes noted on MRI, and that the strokes appear to be subacute, it definitely appears that the risk of not anticoagulating far outweighs the risk of anticoagulation. Given the risk of hemorrhagic conversion, given the extensive nature of the strokes, we will initiate anticoagulation with a heparin drip with no bolus, with serial exams and low threshold for CTs to look for bleeding. The area on his liver with a small amount of hemorrhage is noted, on CT chest, but this too appears to be lower risk for any complication then his complications of not having him on anticoagulation. Patient and family expressed good understanding of this and wholehearted agreement with the plan of treatment. Otherwise as above Subjective Patient lying in bed today in no acute distress. Patient reports frequent coughing overnight. No neuro symptoms present, confusion is resolved. Patient is tolerating his diet, producing urine via ostomy, stooling appropriately, and sleeping well. Patient and family had lots of questions regarding treatment and care options. We reviewed with him our decision to proceed with anticoagulation versus IVC filter. Stating that we have consulted with neurology and vascular surgery both of which felt it was significantly more appropriate to proceed with chemical anticoagulation versus surgical.patient and family were in agreement with this.patient has concerns relating to his frequent cough CT scan showed tumor mass in his lung which may be irritating his airways causing the cough. Clinically patient is doing well, answered all questions. Patient denies fevers, chills, nausea, vomiting, diarrhea, chest pain, chest pressure, shortness of breath, pain in his legs or other extremities, other signs or symptoms of acute infectious process Physical Exam Physical Exam: GENERAL APPEARANCE: alert and cooperative, and appears to be in no acute distress. HEAD: normocephalic. Atraumatic EYES: PERRL, EOMI.vision is grossly intact. EARS: hearing grossly intact. NOSE: No nasal discharge. NECK: Neck supple, non-tender without lymphadenopathy CARDIAC: Normal S1 and S2. No S3, S4 or murmurs. Rhythm is regular LUNGS: coarse breath sounds bilaterally, no wheeze ABDOMEN: Positive bowel sounds. Soft, nondistended, nontender. No guarding or rebound. No masses. LOWER EXTREMITY: no edema, no erythema NEUROLOGICAL: CN II-XII intact grossly. moves extremities. Cognition and attention intact SKIN: Skin normal color, texture Results & Data Vital Signs (Past 12 Hours) Vital Signs Temp Pulse Pulse Resp BP BP Pulse Ox 12/22/18 07:17 36.8 C 83 22 109/70 95 12/22/18 03:31 37.1 C 76 16 121/72 93 12/22/18 01:15 36.7 C 81 24 115/68 90 12/22/18 00:44 74 18 114/68 97 12/22/18 00:00 70 18 103/67 95 12/21/18 23:00 74 18 101/65 97 12/21/18 21:58 18 96 Laboratory Results 12/22/18 12/22/18 12/22/18 Range/Units 06:25 06:25 06:25 WBC 9.26 (4.8-10.8) K/uL RBC 4.10 L (4.7-6.1) M/uL Hgb 11.2 L (14.0-18.0) g/dL Hct 33.5 L (42-52) % MCV 81.7 (80-100) fL MCH 27.3 (25-34) pg MCHC 33.4 (32-36) g/dL RDW Std Deviation 44.8 (36.4-46.3) fL RDW Coeff of Jennifer 15.1 H (11.5-14.5) % Plt Count 99 L (130-400) K/uL MPV 10.7 H (7.4-10.4) fL Immature Gran % (Auto) 0.5 % Neut % (Auto) 81.5 % Lymph % (Auto) 6.0 % [place] % (Auto) 10.9 % Eos % (Auto) 1.0 % Baso % (Auto) 0.1 % Immature Gran # (Auto) 0.05 H (0.00-0.02) K/uL Neut # (Auto) 7.54 H (1.4-6.5) K/uL Lymph # (Auto) 0.56 L (1.2-3.4) K/uL [place] # (Auto) 1.01 H (0.11-0.59) K/uL Eos # (Auto) 0.09 (0-0.5) K/uL Baso # (Auto) 0.01 (0-0.2) K/uL Platelet Estimate Decreased (Normal) PT 13.5 H (9.0-12.0) Seconds INR 1.3 H (0.9-1.1) APTT 34.6 H (21.0-31.0) Seconds PTT Ratio 1.3 Sodium 137 (136-145) mmol/L Potassium 4.0 (3.5-5.1) mmol/L Chloride 109 H (98-107) mmol/L Carbon Dioxide 23 (21-32) mmol/L Anion Gap 5.0 (3-11) BUN 45 H (7-18) mg/dl Creatinine 1.46 H D (0.6-1.4) mg/dl Est Cr Clr Drug Dosing 48.0 ml/min Est GFR ( Amer) 54.5 Est GFR (Non-Af Amer) 47.0 BUN/Creatinine Ratio 30.8 H (10-20) Glucose 77 (70-99) mg/dl Calcium 8.0 L (8.5-10.1) mg/dl Total Bilirubin 0.4 (0.2-1) mg/dl AST 35 (15-37) U/L ALT 53 (12-78) U/L Alkaline Phosphatase 174 H (45-117) U/L POC Troponin I (0-0.045) ng/ml Troponin I 0.296 H* (0-0.045) ng/ml Total Protein 5.5 L (6.4-8.2) gm/dl Albumin 2.2 L (3.4-5.0) gm/dl Globulin 3.3 (2.5-4.0) gm/dl Albumin/Globulin Ratio 0.7 L (0.9-2) 12/22/18 12/21/18 12/21/18 Range/Units 01:44 20:11 20:03 WBC (4.8-10.8) K/uL RBC (4.7-6.1) M/uL Hgb (14.0-18.0) g/dL Hct (42-52) % MCV (80-100) fL MCH (25-34) pg MCHC (32-36) g/dL RDW Std Deviation (36.4-46.3) fL RDW Coeff of Jennifer (11.5-14.5) % Plt Count (130-400) K/uL MPV (7.4-10.4) fL Immature Gran % (Auto) % Neut % (Auto) % Lymph % (Auto) % [place] % (Auto) % Eos % (Auto) % Baso % (Auto) % Immature Gran # (Auto) (0.00-0.02) K/uL Neut # (Auto) (1.4-6.5) K/uL Lymph # (Auto) (1.2-3.4) K/uL [place] # (Auto) (0.11-0.59) K/uL Eos # (Auto) (0-0.5) K/uL Baso # (Auto) (0-0.2) K/uL Platelet Estimate (Normal) PT 13.1 H (9.0-12.0) Seconds INR 1.3 H (0.9-1.1) APTT 31.8 H (21.0-31.0) Seconds PTT Ratio 1.2 Sodium (136-145) mmol/L Potassium (3.5-5.1) mmol/L Chloride (98-107) mmol/L Carbon Dioxide (21-32) mmol/L Anion Gap (3-11) BUN (7-18) mg/dl Creatinine (0.6-1.4) mg/dl Est Cr Clr Drug Dosing ml/min Est GFR ( Amer) Est GFR (Non-Af Amer) BUN/Creatinine Ratio (10-20) Glucose (70-99) mg/dl Calcium (8.5-10.1) mg/dl Total Bilirubin (0.2-1) mg/dl AST (15-37) U/L ALT (12-78) U/L Alkaline Phosphatase (45-117) U/L POC Troponin I 0.27 H (0-0.045) ng/ml Troponin I 0.322 H* (0-0.045) ng/ml Total Protein (6.4-8.2) gm/dl Albumin (3.4-5.0) gm/dl Globulin (2.5-4.0) gm/dl Albumin/Globulin Ratio (0.9-2) 12/21/18 12/21/18 Range/Units 20:03 20:03 WBC 14.17 H (4.8-10.8) K/uL RBC 4.35 L (4.7-6.1) M/uL Hgb 12.4 L (14.0-18.0) g/dL Hct 35.6 L (42-52) % MCV 81.8 (80-100) fL MCH 28.5 (25-34) pg MCHC 34.8 (32-36) g/dL RDW Std Deviation 45.4 (36.4-46.3) fL RDW Coeff of Jennifer 15.1 H (11.5-14.5) % Plt Count 128 L (130-400) K/uL MPV 10.2 (7.4-10.4) fL Immature Gran % (Auto) 0.6 % Neut % (Auto) 82.8 % Lymph % (Auto) 5.2 % [place] % (Auto) 10.7 % Eos % (Auto) 0.6 % Baso % (Auto) 0.1 % Immature Gran # (Auto) 0.08 H (0.00-0.02) K/uL Neut # (Auto) 11.74 H (1.4-6.5) K/uL Lymph # (Auto) 0.73 L (1.2-3.4) K/uL [place] # (Auto) 1.51 H (0.11-0.59) K/uL Eos # (Auto) 0.09 (0-0.5) K/uL Baso # (Auto) 0.02 (0-0.2) K/uL Platelet Estimate (Normal) PT (9.0-12.0) Seconds INR (0.9-1.1) APTT (21.0-31.0) Seconds PTT Ratio Sodium 137 (136-145) mmol/L Potassium 4.3 (3.5-5.1) mmol/L Chloride 105 (98-107) mmol/L Carbon Dioxide 22 (21-32) mmol/L Anion Gap 10.0 (3-11) BUN 51 H (7-18) mg/dl Creatinine 1.84 H (0.6-1.4) mg/dl Est Cr Clr Drug Dosing 38.1 ml/min Est GFR ( Amer) 41.2 Est GFR (Non-Af Amer) 35.6 BUN/Creatinine Ratio 27.6 H (10-20) Glucose 110 H (70-99) mg/dl Calcium 8.8 (8.5-10.1) mg/dl Total Bilirubin 0.5 (0.2-1) mg/dl AST 51 H (15-37) U/L ALT 70 (12-78) U/L Alkaline Phosphatase 196 H (45-117) U/L POC Troponin I (0-0.045) ng/ml Troponin I 0.325 H* (0-0.045) ng/ml Total Protein 6.6 (6.4-8.2) gm/dl Albumin 2.6 L (3.4-5.0) gm/dl Globulin 4.0 (2.5-4.0) gm/dl Albumin/Globulin Ratio 0.7 L (0.9-2) Medications Administered Current Inpatient Medications Acetaminophen (Tylenol) 650 mg PO Q4H PRN PRN Reason: Pain or Fever Stop: 01/21/19 01:36 Al Hydrox/Mg Hydrox/Simethicone (Maalox) 15 ml PO Q4H PRN PRN Reason: Dyspepsia Stop: 01/21/19 01:36 Atorvastatin Calcium (Lipitor) 80 mg PO [facility] Stop: 01/21/19 08:59 Last Admin: 12/22/18 14:15 Dose: 80 mg Documented by: Benzonatate (Tessalon Perle) 100 mg PO TID PRN PRN Reason: Cough Stop: 01/21/19 08:59 Last Admin: 12/22/18 14:15 Dose: 100 mg Documented by: Clopidogrel Bisulfate (Plavix) 75 mg PO [facility] Stop: 01/21/19 08:59 Last Admin: 12/22/18 16:29 Dose: Not Given Documented by: Dextromethorphan Polymer Complex (Delsym) 30 mg PO Q12H PRN PRN Reason: Cough Stop: 01/21/19 14:43 Last Admin: 12/22/18 15:55 Dose: 30 mg Documented by: Guaifenesin (Mucinex) 600 mg PO Q12 [facility] Stop: 01/21/19 02:03 Last Admin: 12/22/18 10:53 Dose: 600 mg Documented by: Guaifenesin/Codeine Phosphate (Robitussin-Ac Sugar Free) 10 ml PO Q6H PRN PRN Reason: Cough Stop: 01/21/19 07:45 Last Admin: 12/22/18 13:31 Dose: 10 ml Documented by: Sodium Chloride (Nss 1000ml) 1,000 mls @ 100 mls/hr IV .Q10H [facility] Stop: 01/21/19 01:36 Last Admin: 12/22/18 13:00 Dose: 100 mls/hr Documented by: Heparin Sodium/Dextrose (Heparin Sodium/Dextrose) 25,000 units in 500 mls @ 19 mls/hr IV .Q24H [facility]; Protocol Stop: 01/21/19 16:44 Last Admin: 12/22/18 17:25 Dose: 950 units/hr, 19 mls/hr Documented by: Magnesium Hydroxide (Milk Of Magnesia) 30 ml PO Q12H PRN PRN Reason: Constipation Stop: 01/21/19 01:36 Metoprolol Succinate (Toprol Xl) 50 mg PO [facility] Stop: 01/21/19 08:59 Last Admin: 12/22/18 14:15 Dose: 50 mg Documented by: Miscellaneous (Order Awaiting Action) 1 ea N/A QS [facility] Stop: 01/21/19 07:59 Last Admin: 12/22/18 17:26 Dose: Not Given Documented by: Ondansetron HCl (Zofran) 4 mg IV Q6H PRN PRN Reason: Nausea Stop: 01/21/19 01:36 Pantoprazole Sodium (Protonix) 40 mg PO [facility] Stop: 01/21/19 08:59 Last Admin: 12/22/18 14:15 Dose: 40 mg Documented by: Resident Activity Tracking Resident Involvement: Resident Care Provided Care Provided: Adult Hospital Medicine (1) Deep vein thrombosis (DVT) of both lower extremities Chronicity: acute
[2018-12-22] MEDS: PANTOprazole 40 MG TAB PO SCH (14:15)
[2018-12-22] MEDS: METOPROLOL SUCC 50MG EXT REL TAB PO SCH (14:15)
[2018-12-22] MEDS: ATORVASTATIN 40 MG TAB PO SCH (14:15)
--- NOTE | 2018-12-22 15:24 | Emergency Department Note ---
Entered by Daisha Patel acting as a scribe for History of Present Illness General Chief complaint: Leg Injury/Pain Stated complaint: DVT'S B/L LEGS Source: patient and family Mode of arrival: ambulatory Limitations: no limitations History of Present Illness Provider complaint: DVT Onset (ago): week(s) 3 Location: lower extremity Pain Consistency: + other (persistent) Quality: + other (calf pain) Associated symptoms: + denies other symptoms (leg swelling), + cough, + shortness of breath and + other (calf pain); no chest pain The patient is a 73 year old male who presents to the ER after being referred by his PCP secondary to abnormal imaging results. The patient reports that he had an US performed at [facility] earlier today which was positive for a DVT. He states that he has been experiencing calf pain for 3-4 weeks but denies any leg swelling. He also notes that he has had a cough for 3 weeks and has been short of breath but denies any chest pain. He also reports that he has a history of bladder cancer and that he had a biopsy of his liver performed yesterday. His family states that he had a CAT scan and this showed a lesion in his lung as well as his liver back in October. He denies any recent long travels. Per family, the patient is a former smoker. US performed on 12/20 at [facility] findings: Non-occlusive DVT within the bilateral popliteal and posterior tibial veins. Home Medications Home Medications Medication Instructions Recorded Confirmed Type atorvastatin 80 mg PO QAM #0 tab 03/08/17 12/21/18 History metoprolol succinate 50 mg PO QAM #30 tab 03/08/17 12/21/18 History nitroglycerin 0.4 mg SUBLINGUAL DIRECTED #0 03/08/17 12/21/18 History btl omeprazole 20 mg PO QAM #0 cap 03/08/17 12/21/18 History triazolam 0.25 mg PO HS #0 tab 07/21/17 12/21/18 History clopidogrel 75 mg PO QAM #0 tab 07/28/17 12/21/18 History rfjzndrsn-AL-zyygnchy-guaifen 2 tab PO QID PRN 12/21/18 12/21/18 History [Tylenol Cold and Flu Severe] Allergies Allergy/AdvReac Type Severity Reaction Status Date / Time No Known Allergies Allergy Unverified 12/21/18 19:59 Past Med/Surg History Medical History Bladder cancer (Acute) High cholesterol (Acute) Myocardial infarction (Acute) Surgical History H/O cystoscopy (Acute) h/o bladder cancer H/O heart artery stent (Acute) H/O total cystectomy (Acute) History of urostomy (Acute) Social History Preferred Language: Ukrainian Communication Ability: Effective Security Controls Assessor Required: No Beliefs That Will Affect Care: None marital status: Single Current Living Situation: Alone Other Information That Helps Us Care for You: No Feels Safe at Home: Yes Safety Concerns: Feels Safe At This Time Smoking Status: Former smoker Do You Dip or Chew Tobacco: No Second Hand Exposure: No Tobacco Cessation Education Requested by Patient: No Hx Alcohol Use: Yes Alcohol type: beer Hx Substance Use: No Review of Systems See HPI for pertinent positives & negatives. and A total of 10 systems reviewed and were otherwise negative Physical Exam Vital Signs Vital Signs - 24 hr 12/21/18 19:26 12/21/18 21:52 12/21/18 21:58 Temperature 36.5 C Temperature Source Oral Sepsis Recent Fever Within 48 Hours No Sepsis Action Taken by Nursing No Action Required Pulse Rate 87 Pulse Rate [Right] 74 Pulse Rhythm [Right] Regular Pulse Strength [Right] Normal Respiratory Rate 24 18 18 Respiratory Effort / Characteristics Non-Labored Spontaneous Non-Labored Spontaneous Non-Labored Spontaneous Respiratory Depth Normal Normal Normal Respiratory Pattern Regular Blood Pressure 127/91 Blood Pressure [Left Arm] 107/57 L Blood Pressure Mean 103 Blood Pressure Mean [Left Arm] 73 Blood Pressure Position [Left Arm] Lying Pulse Oximetry 96 87 L 96 Oxygen Delivery Method Room Air Room Air Nasal Cannula Oxygen Flow Rate 2 12/21/18 23:00 12/22/18 00:00 12/22/18 00:44 Temperature Temperature Source Sepsis Recent Fever Within 48 Hours Sepsis Action Taken by Nursing Pulse Rate 74 Pulse Rate [Right] 74 70 Pulse Rhythm [Right] Regular Regular Pulse Strength [Right] Normal Normal Respiratory Rate 18 18 18 Respiratory Effort / Characteristics Non-Labored Spontaneous Non-Labored Spontaneous Respiratory Depth Normal Normal Respiratory Pattern Regular Blood Pressure 114/68 Blood Pressure [Left Arm] 101/65 103/67 Blood Pressure Mean Blood Pressure Mean [Left Arm] 77 79 Blood Pressure Position [Left Arm] Lying Lying Pulse Oximetry 97 95 97 Oxygen Delivery Method Nasal Cannula Nasal Cannula Nasal Cannula Oxygen Flow Rate 2 2 2 12/22/18 01:15 12/22/18 03:31 12/22/18 07:10 Temperature 36.7 C 37.1 C Temperature Source Oral Oral Sepsis Recent Fever Within 48 Hours Sepsis Action Taken by Nursing Pulse Rate 66 Pulse Rate [Right] 81 76 Pulse Rhythm [Right] Pulse Strength [Right] Respiratory Rate 24 16 Respiratory Effort / Characteristics Short of Breath Non-Labored Spontaneous SOB on Exertion Respiratory Depth Normal Normal Respiratory Pattern Regular Regular Blood Pressure Blood Pressure [Left Arm] 115/68 121/72 Blood Pressure Mean Blood Pressure Mean [Left Arm] 83 88 Blood Pressure Position [Left Arm] Pulse Oximetry 90 93 Oxygen Delivery Method Nasal Cannula Nasal Cannula Oxygen Flow Rate 2 2 12/22/18 07:17 12/22/18 10:46 Temperature 36.8 C 36.8 C Temperature Source Oral Oral Sepsis Recent Fever Within 48 Hours Sepsis Action Taken by Nursing Pulse Rate Pulse Rate [Right] 83 83 Pulse Rhythm [Right] Pulse Strength [Right] Respiratory Rate 22 20 Respiratory Effort / Characteristics Respiratory Depth Respiratory Pattern Blood Pressure Blood Pressure [Left Arm] 109/70 122/75 Blood Pressure Mean Blood Pressure Mean [Left Arm] 83 90 Blood Pressure Position [Left Arm] Lying Lying Pulse Oximetry 95 90 Oxygen Delivery Method Nasal Cannula Nasal Cannula Oxygen Flow Rate 1 1 Constitutional: Vital signs reviewed. Eyes: Pupils are equal round reactive to light. Conjunctiva are noninjected. ENT: Pharynx is clear without erythema or exudate. Mucous membranes are moist. Neck supple without meningeal signs. Respiratory: Clear to auscultation bilaterally. Breath sounds are equal bilaterally. Cardiovascular: Regular rate and rhythm. No rubs or gallops. GI: Soft, nondistended and nontender. Bowel sounds are present. Urostomy bag. Musculoskeletal: No peripheral edema. Mild calf tenderness bilaterally. Integumentary: No cyanosis. Neurological: The patient is awake and alert. No focal deficits. Psychiatric: Normal affect. Course 1951: The patient was evaluated in room B4B, and a complete history and physical examination were performed. 2124: I updated the patient on his test results. His creatinine is 1.8. I will discuss with the hospitalist about whether or not we should do a CAT scan secondary to the patient's filling defect. The patient reported that he had an MRI of the brain done today at [facility] and we are now trying to obtain the results. 2: I discussed the patient's case with Dr. Chacon - [facility] Resident. He will review the case with Dr. Chi. They will evaluate the patient for further management. 2313: The patient's MRI results were obtained which shows several intracranial infracts. He is not a candidate for anticoagulation. I reviewed the patient's case with Dr. Chi - [facility] Hospitalist. Administered Medications Atorvastatin Calcium (Lipitor) 80 mg PO QAM [facility] Stop: 01/21/19 08:59 Last Admin: 12/22/18 14:15 Dose: 80 mg Documented by: [id number] Benzonatate (Tessalon Perle) 100 mg PO TID PRN PRN Reason: Cough Stop: 01/21/19 08:59 Last Admin: 12/22/18 14:15 Dose: 100 mg Documented by: [id number] Admin: 12/22/18 07:08 Dose: 100 mg Documented by: [id number] Guaifenesin (Mucinex) 600 mg PO Q12 [facility] Stop: 01/21/19 02:03 Last Admin: 12/22/18 10:53 Dose: 600 mg Documented by: [id number] Admin: 12/22/18 03:06 Dose: 600 mg Documented by: [id number] Guaifenesin/Codeine Phosphate (Robitussin-Ac Sugar Free) 10 ml PO Q6H PRN PRN Reason: Cough Stop: 01/21/19 07:45 Last Admin: 12/22/18 13:31 Dose: 10 ml Documented by: [id number] Admin: 12/22/18 07:53 Dose: 10 ml Documented by: [id number] Sodium Chloride (Nss 1000ml) 1,000 mls @ 100 mls/hr IV .Q10H [facility] Stop: 01/21/19 01:36 Last Admin: 12/22/18 13:00 Dose: 100 mls/hr Documented by: [id number] Infusion: 12/22/18 12:45 Dose: 100 mls/hr Documented by: [id number] Admin: 12/22/18 02:45 Dose: 100 mls/hr Documented by: [id number] Metoprolol Succinate ([facility]rol Xl) [facility] Stop: 01/21/19 08:59 Last Admin: 12/22/18 14:15 Dose: 50 mg Documented by: [id number] Miscellaneous (Order Awaiting Action) 1 ea N/A QS [facility] Stop: 01/21/19 07:59 Last Admin: 12/22/18 09:40 Dose: Not Given Documented by: [id number] Pantoprazole Sodium (Protonix) 40 mg PO [facility] Stop: 01/21/19 08:59 Last Admin: 12/22/18 14:15 Dose: 40 mg Documented by: [id number] Discontinued Medications Benzonatate (Tessalon Perle) 100 mg PO NOW ONE Stop: 12/22/18 02:00 Last Admin: 12/22/18 03:06 Dose: 100 mg Documented by: [id number] Sodium Chloride (Nss 1000ml) 500 mls @ 999 mls/hr IV .Q31M ONE Stop: 12/21/18 22:01 Last Infusion: 12/21/18 22:17 Dose: 0 mls/hr Documented by: [id number] Admin: 12/21/18 21:40 Dose: 999 mls/hr Documented by: [id number] Medical Decision Making Differential Diagnosis Differential diagnosis includes: DVT, PE, pneumonia, bronchitis, and malignancy. Medical Records Attestation: I reviewed the patient's medical records. The patient had a liver biopsy on Dec 19 which showed atypical cells on path ology. He also had a CT of his chest a November 09 which was suggestive of a pulmonary arterial filling defect about a segmental branch of the left lower lobe versus artifact. Home Medications Current Medication List: was personally reviewed by me Laboratory Data Attestation: I reviewed the patient's lab results. Result diagrams: 12/22/18 06:25 12/22/18 06:25 Lab Results 12/21/18 12/21/18 12/21/18 Range/Units 20:03 20:03 20:03 WBC 14.17 H (4.8-10.8) K/uL RBC 4.35 L (4.7-6.1) M/uL Hgb 12.4 L (14.0-18.0) g/dL Hct 35.6 L (42-52) % MCV 81.8 (80-100) fL MCH 28.5 (25-34) pg MCHC 34.8 (32-36) g/dL RDW Std Deviation 45.4 (36.4-46.3) fL RDW Coeff of Jennifer 15.1 H (11.5-14.5) % Plt Count 128 L (130-400) K/uL MPV 10.2 (7.4-10.4) fL Immature Gran % (Auto) 0.6 % Neut % (Auto) 82.8 % Lymph % (Auto) 5.2 % [place] % (Auto) 10.7 % Eos % (Auto) 0.6 % Baso % (Auto) 0.1 % Immature Gran # (Auto) 0.08 H (0.00-0.02) K/uL Neut # (Auto) 11.74 H (1.4-6.5) K/uL Lymph # (Auto) 0.73 L (1.2-3.4) K/uL [place] # (Auto) 1.51 H (0.11-0.59) K/uL Eos # (Auto) 0.09 (0-0.5) K/uL Baso # (Auto) 0.02 (0-0.2) K/uL Platelet Estimate (Normal) PT 13.1 H (9.0-12.0) Seconds INR 1.3 H (0.9-1.1) APTT 31.8 H (21.0-31.0) Seconds PTT Ratio 1.2 Sodium 137 (136-145) mmol/L Potassium 4.3 (3.5-5.1) mmol/L Chloride 105 (98-107) mmol/L Carbon Dioxide 22 (21-32) mmol/L Anion Gap 10.0 (3-11) BUN 51 H (7-18) mg/dl Creatinine 1.84 H (0.6-1.4) mg/dl Est Cr Clr Drug Dosing 38.1 ml/min Est GFR ( Amer) 41.2 Est GFR (Non-Af Amer) 35.6 BUN/Creatinine Ratio 27.6 H (10-20) Glucose 110 H (70-99) mg/dl Calcium 8.8 (8.5-10.1) mg/dl Total Bilirubin 0.5 (0.2-1) mg/dl AST 51 H (15-37) U/L ALT 70 (12-78) U/L Alkaline Phosphatase 196 H (45-117) U/L POC Troponin I (0-0.045) ng/ml Troponin I 0.325 H* (0-0.045) ng/ml Total Protein 6.6 (6.4-8.2) gm/dl Albumin 2.6 L (3.4-5.0) gm/dl Globulin 4.0 (2.5-4.0) gm/dl Albumin/Globulin Ratio 0.7 L (0.9-2) 12/21/18 12/22/18 12/22/18 Range/Units 20:11 01:44 06:25 WBC 9.26 (4.8-10.8) K/uL RBC 4.10 L (4.7-6.1) M/uL Hgb 11.2 L (14.0-18.0) g/dL Hct 33.5 L (42-52) % MCV 81.7 (80-100) fL MCH 27.3 (25-34) pg MCHC 33.4 (32-36) g/dL RDW Std Deviation 44.8 (36.4-46.3) fL RDW Coeff of Jennifer 15.1 H (11.5-14.5) % Plt Count 99 L (130-400) K/uL MPV 10.7 H (7.4-10.4) fL Immature Gran % (Auto) 0.5 % Neut % (Auto) 81.5 % Lymph % (Auto) 6.0 % [place] % (Auto) 10.9 % Eos % (Auto) 1.0 % Baso % (Auto) 0.1 % Immature Gran # (Auto) 0.05 H (0.00-0.02) K/uL Neut # (Auto) 7.54 H (1.4-6.5) K/uL Lymph # (Auto) 0.56 L (1.2-3.4) K/uL [place] # (Auto) 1.01 H (0.11-0.59) K/uL Eos # (Auto) 0.09 (0-0.5) K/uL Baso # (Auto) 0.01 (0-0.2) K/uL Platelet Estimate Decreased (Normal) PT (9.0-12.0) Seconds INR (0.9-1.1) APTT (21.0-31.0) Seconds PTT Ratio Sodium (136-145) mmol/L Potassium (3.5-5.1) mmol/L Chloride (98-107) mmol/L Carbon Dioxide (21-32) mmol/L Anion Gap (3-11) BUN (7-18) mg/dl Creatinine (0.6-1.4) mg/dl Est Cr Clr Drug Dosing ml/min Est GFR ( Amer) Est GFR (Non-Af Amer) BUN/Creatinine Ratio (10-20) Glucose (70-99) mg/dl Calcium (8.5-10.1) mg/dl Total Bilirubin (0.2-1) mg/dl AST (15-37) U/L ALT (12-78) U/L Alkaline Phosphatase (45-117) U/L POC Troponin I 0.27 H (0-0.045) ng/ml Troponin I 0.322 H* (0-0.045) ng/ml Total Protein (6.4-8.2) gm/dl Albumin (3.4-5.0) gm/dl Globulin (2.5-4.0) gm/dl Albumin/Globulin Ratio (0.9-2) 12/22/18 12/22/18 Range/Units 06:25 06:25 WBC (4.8-10.8) K/uL RBC (4.7-6.1) M/uL Hgb (14.0-18.0) g/dL Hct (42-52) % MCV (80-100) fL MCH (25-34) pg MCHC (32-36) g/dL RDW Std Deviation (36.4-46.3) fL RDW Coeff of Jennifer (11.5-14.5) % Plt Count (130-400) K/uL MPV (7.4-10.4) fL Immature Gran % (Auto) % Neut % (Auto) % Lymph % (Auto) % [place] % (Auto) % Eos % (Auto) % Baso % (Auto) % Immature Gran # (Auto) (0.00-0.02) K/uL Neut # (Auto) (1.4-6.5) K/uL Lymph # (Auto) (1.2-3.4) K/uL [place] # (Auto) (0.11-0.59) K/uL Eos # (Auto) (0-0.5) K/uL Baso # (Auto) (0-0.2) K/uL Platelet Estimate (Normal) PT 13.5 H (9.0-12.0) Seconds INR 1.3 H (0.9-1.1) APTT 34.6 H (21.0-31.0) Seconds PTT Ratio 1.3 Sodium 137 (136-145) mmol/L Potassium 4.0 (3.5-5.1) mmol/L Chloride 109 H (98-107) mmol/L Carbon Dioxide 23 (21-32) mmol/L Anion Gap 5.0 (3-11) BUN 45 H (7-18) mg/dl Creatinine 1.46 H D (0.6-1.4) mg/dl Est Cr Clr Drug Dosing 48.0 ml/min Est GFR ( Amer) 54.5 Est GFR (Non-Af Amer) 47.0 BUN/Creatinine Ratio 30.8 H (10-20) Glucose 77 (70-99) mg/dl Calcium 8.0 L (8.5-10.1) mg/dl Total Bilirubin 0.4 (0.2-1) mg/dl AST 35 (15-37) U/L ALT 53 (12-78) U/L Alkaline Phosphatase 174 H (45-117) U/L POC Troponin I (0-0.045) ng/ml Troponin I 0.296 H* (0-0.045) ng/ml Total Protein 5.5 L (6.4-8.2) gm/dl Albumin 2.2 L (3.4-5.0) gm/dl Globulin 3.3 (2.5-4.0) gm/dl Albumin/Globulin Ratio 0.7 L (0.9-2) ECG Data Attestation: I personally reviewed and interpreted this ECG as follows: Indication: SOB/dyspnea Rate (beats per minute): 74 Rhythm: normal sinus Findings: no PVC and no ST elevation Blood Pressure Blood Pressure Findings: Normal blood pressure Blood Pressure Disposition: did not require urgent referral MDM Narrative I did evaluate the patient as noted above. The patient is presenting with an outpatient ultrasound showing bilateral nonocclusive DVTs. He does state he feels short of breath and has had a cough for a week. Reviewing his old CAT scan from October there was some concern for a small filling defect on the left side. At that time it was likely considered to be artifact but given his current symptoms and findings on ultrasound I suspect that this was a pulmonary embolus. I did wish to confirm using CT angiogram of the chest which I initially ordered. IV access was established. 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 I did order and personally review the patient's 12- lead EKG as described above. His twelve-lead EKG does not show any signs of acute ischemia. I did order and review the patient's blood work as noted in the electronic medical record. The patient is anemic. He has thrombocytopenia. His troponin is slightly bumped. It is unclear if this is secondary to a PE or elevation of his serum creatinine or a combination of both. He also has a creatinine of 1.9. I did treat him with normal saline IV. I did cancel the CT angiogram due to the elevated creatinine. I was also told later that he had an MRI of the brain today which was just read. It took some time but we did get the reading from [facility]. Apparently he has acute infarcts in the brain. My initial plan was to start him on a IV heparin drip for DVT and presumed PE but unfortunately due to the infarcts we cannot anticoagulate him. He also has thrombocytopenia. Patient will likely require a [place] filter. I did discuss the test results with the patient and his family. I did discuss the case with the hospitalist and director of casework department. Impression & Plan Pulmonary embolism, Deep vein thrombosis (DVT) of both lower extremities, Elevated serum creatinine, Acute CVA (cerebrovascular accident), Thrombocytopenia Critical Care Time I have personally spent 45 minutes of critical care time in the direct management of this patient. This includes bedside care, interpretation of diagnostic studies, and testing, discussion with consultants, patient, and family members, and other required patient management activities. These 45 minutes is in excess of all separately billable procedures. Critical Care Time: Yes Total Critical Care Time: 45 Discharge Plan Visit Data *Final* Discharge Date/Time: 12/22/18 00:44 Chief Complaint: Leg Injury/Pain Stated Complaint: DVT'S B/L LEGS ED Provider: Maicol Collazo Discharge Problem: Pulmonary embolism, Deep vein thrombosis (DVT) of both lower extremities, Elevated serum creatinine, Acute CVA (cerebrovascular accident), Thrombocytopenia Patient Disposition: Admitted As Inpatient Discharge Instructions Interventions: ED Discharge Assessment Last Done: 12/22/18 00:44 Discharge Problem: Pulmonary embolism Qualifiers: Pulmonary embolism type: unspecified Chronicity: unspecified Acute cor pulmonale presence: without acute cor pulmonale Qualified Code(s): I26.99 - Other pulmonary embolism without acute cor pulmonale Deep vein thrombosis (DVT) of both lower extremities Qualifiers: Affected thrombotic vein of extremity: unspecified vein of extremity Chronicity: acute Qualified Code(s): I82.403 - Acute embolism and thrombosis of unspecified deep veins of lower extremity, bilateral The scribe's documentation has been prepared under my direction and personally reviewed by me in its entirety. I confirm that the note above accurately reflects all work, treatment, procedures, and medical decision making performed by me.
[2018-12-22] MEDS: DEXTROMETHORPHAN POLYMR COMPLX 30 MG/5 ML UDP PO PRN (15:55)
[2018-12-22] MEDS ORDERED: Heparin IV Low Dose *NO* Bolus IV SCH (16:01)
--- NOTE | 2018-12-22 16:15 | CT Scan Report ---
CT chest wo con CT DOSE: 713.40 mGy.cm CLINICAL HISTORY: 73 years-old Male with cough. Acute cough TECHNIQUE: Multiaxial CT images of the chest were performed without contrast. A dose lowering techni que was utilized adhering to the principles of ALARA. COMPARISON: VQ scan of same day, chest CT 11/09/2018 FINDINGS: No dominant thyroid nodule. Progression of metastatic adenopathy about the chest. 3.0 x 1.8 cm left s upraclavicular lymph node on image 31 series 4 previously measured 1.7 x 1.27 m. Conglomerate subcari nal adenopathy measures up to 4.9 x 2.6 cm, previously 3.4 x 2.0 cm. Study is limited secondary to pa tient motion and lack of IV contrast. Right paratracheal lymph nodes measure up to 3.3 x 1.9 cm, prev iously 2.8 x 1.4 cm. Mild cardiomegaly. Coronary arterial calcifications are noted. Trace right pleural effusion. No pneumothorax. Unchanged 4 mm solid nodule of the apical posterior se gment left upper lobe. Subsegmental left basilar groundglass densities suggest probable atelectasis. 6 mm pleural-based solid nodule about the superior segment left lower lobe, also unchanged. There are a few tiny nodules noted about the lingula measuring up to approximately 3 mm, also unchanged. Mixed groundglass and consolidative opacities are noted about the basal right lower lobe and also within t he right upper lobe. Spiculated irregular mass about the petrous segment right upper lobe has increas ed in size from prior study measuring up to 3.4 x 3.0 cm, previously measuring approximately 2.0 x 1. 8 cm. Additionally, there is progressive surrounding groundglass density around this mass. Central ai rways appear patent. Ill-defined masses of the left hepatic lobe. Slightly increased in size measuring up to 4.0 cm. There is a 4 mm hyperdense focus within the largest lesion suggestive of internal hemorrhage. Soft tissues are unremarkable. Degenerative changes of the shoulders and spine. No definite skeletal metastasis. IMPRESSION: 1. Motion degraded exam. 2. Spiculated irregular mass of the anterior segment right upper lobe measuring up to 3.4 cm has incr eased in size from 11/09/2018 compatible with disease progression. 3. Extensive mediastinal, hilar and supraclavicular adenopathy has also progressed from comparison. 4. Left hepatic lobe masses which are likely public health representative of metastasis also appear to have increas ed in size with largest mass demonstrating a small focus of internal hemorrhage. 5. Right greater than left bibasilar and right upper lobe groundglass and consolidative opacities sug gest admixture of atelectasis with pneumonitis. 6. Trace right pleural effusion. Electronically signed by: Joel Hadley M.D. 12/22/2018 4:14 PM
--- NOTE | 2018-12-22 16:22 | Nuclear Medicine Report ---
NUCLEAR MEDICINE PERFUSION STUDY CLINICAL HISTORY: Persistent cough. Possible pulmonary embolus. Metastatic bladder cancer. COMPARISON STUDY: Chest CT December 22, 2018 and November 09, 2018. TECHNIQUE: Patient was unable to tolerate ventilation portion of study. Therefore, only perfusion manuel dy was performed. 5.4 mCi of technetium 99m MAA was injected IV at 3:20 PM on December 22, 2018. Imaging of the chest was performed in multiple projections. FINDINGS: This exam is technically indeterminate given lack of ventilation imaging. The perfusion manuel dy is abnormal with multiple peripheral wedge-shaped perfusion defects. Therefore, this exam is at le ast intermediate probability for pulmonary embolus. IMPRESSION: Technically indeterminate exam given lack of ventilation imaging however abnormal perfus ion study. This study is considered at least intermediate probability for pulmonary embolus. Electronically signed by: Germán Obrien M.D. 12/22/2018 4:21 PM
[2018-12-22] MEDS: CLOPIDOGREL BISULFATE 75 MG TAB PO SCH (16:29)
[2018-12-22] MEDS: Heparin Adult LOW DOSE Wt-Based Dextrose 5% 25,000 units/500 mL IV SCH (17:25)
[2018-12-22 23:43] LABS: Partial Thromboplastin Ratio 1.5; Partial Thromboplastin Time 40.7 Seconds (21.0-31.0)
[2018-12-22] MEDS ORDERED: HEPARIN IV BOLUS 4,500 UNITS in SYRINGE 0 ML IV ONE (23:45)
[2018-12-22] MEDS ORDERED: HEPARIN SOD (PORCINE) 1000 UNIT/ML 10 ML VIAL IV STA (23:52)
[2018-12-23 06:10] LABS: Basophils # (auto) 0.01 K/uL (0-0.2); Basophils % (auto) 0.1 %; Eosinophils # (auto) 0.05 K/uL (0-0.5); Eosinophils % (auto) 0.6 %; Hematocrit (blood only) 31.2 % (42-52); Hemoglobin 10.6 g/dL (14.0-18.0); Immature Granulocytes # (auto) 0.03 K/uL (0.00-0.02); Immature Granulocytes % (auto) 0.3 %; Lymphocytes # (auto) 0.48 K/uL (1.2-3.4); Lymphocytes % (auto) 5.5 %; Mean Corpuscular Volume 80.6 fL (80-100); Mean Platelet Volume 9.7 fL (7.4-10.4); Monocytes # (auto) 1.09 K/uL (0.11-0.59); Monocytes % (auto) 12.4 %; Neutrophils # (auto) 7.14 K/uL (1.4-6.5); Neutrophils % (auto) 81.1 %; Platelet Count 123 K/uL (130-400); RDW Coefficient of Variation 15.1 % (11.5-14.5); RDW Standard Deviation 44.4 fL (36.4-46.3); Red Blood Count 3.87 M/uL (4.7-6.1)
[2018-12-23 06:32] LABS: Partial Thromboplastin Ratio > 5.1
[2018-12-23 06:49] LABS: Partial Thromboplastin Time > 139.0 Seconds (21.0-31.0)
--- NOTE | 2018-12-23 07:29 | Family Medicine Progress Note ---
Date of Service December 23, 2018 Assessment & Plan (1) Deep vein thrombosis (DVT) of both lower extremities: (#) Deep vein thrombosis (DVT) of both lower extremities: 73 yo M with history of CAD s/p CASSANDRA to left distal circumflex, HTN, hyperlipidemia, and GERD, history of bladder cancer s/p radical cystoprostatectomy with lymphadenectomy. s/p Liver Bx 12/19 with pathology findings of metastatic disease presenting with reported bilateral DVT, MRI brain with multiple no-hemorrhagic infarcts. -Admit to Telemetry -Per outside record: Doppler U/S bilateral LE: Acute non-occlusive DVT within bilateral popliteal and posterior tibial veins -Abnormal perfusion study nondiagnostic however pulmonary embolus likely -Numerous strokes on MRI, likely embolic in nature -Patient has significant clot burden will need intervention surgical versus chemical -After speaking with his vascular surgery and neurology we all independently came to the conclusion that his strokes are most likely embolic in nature secondary to heavy clot burden therefore there is no contraindication to chemical anticoagulation also numerous studies have demonstrated superiority of chemical anticoagulation to surgical placement of IVC filter. -On heparin drip per per protocol/we will continue heparin drip for 24 to 48 hours transition to other anticoagulation to Doac vs warfarin versus Lovenox. (#) Transitional cell bladder cancer: s/p radical cystoprostatectomy with lymphadenectomy -liver BX 12/19 consistent with metastasis of urothelial origin -Heme/on consulted -Heparin drip for 48 hours -Tx to conventional AC Lovenox vs DOAC -Recent research demonstrate DOACS are appropriate for cancer hypercoagulability. -More effective however greater risk of bleeding -pt would prefer DOAC -Lovenox not as effective less risk of bleeding -Stage IV with mets to liver, lungs,lungs -Likely cause of hypercoagulable state (#)Cough Patient has been experiencing intermittent coughing for several weeks now. Patient's family relates that Tylenol Cold and flu severe seems to improve his cough -Tessalon Perles and guaifenesin/codeine cough syrup ineffective -Dextromethorphan syrup appears to be helping -If cough persists would consider Tylenol 3 or similar -Trial of as needed albuterol every 6 hours -Gave patient flutter valve (#) History of multiple cerebrovascular accidents (CVAs): recent multiple cerebellar/cerebral infarcts per outside records likely embolic in source, no contraindication to chemical anticoagulation, see above -Family reports intermittent symptomatology at home however currently asx, no focal neural signs -Consult neurology following recommendation -RCT Head 24-48hours s/p heparin ddrip -scheduled 1000 12/24/2018 -Lipid level, A1c -ECHO (#) Elevated serum creatinine: likely exacerbated by recent contrast from mri brain at outside facility -Cr trending down d/c IV fluids -Daily BMP (#) Hypertension: BP controlled -Continue Metoprolol (#) Hyperlipidemia: -Continue statin (#) GERD (gastroesophageal reflux disease): -Continue PPI (#) Elevated troponin: asx for chest pain ACS -likely secondary to demand ischemia -no ischemic findings on EKG -Troponins trended down (#) CAD (coronary artery disease): -Resume Plavix -Continue BB, Statin FENa:Heart Healthy DVT PPX:Heparin Drip Dispo:Tele Supervising Physician Co-Signing Physician Notes I personally examined the patient and verified all woo points of history and exam, discussed case, and agree with decision making with Dr Atkins. Feeling okay. No acute complaints. Cough seems to be slightly better although certainly quite present. Vitals noted, in general he is awake and alert pleasant no acute distress. HEENT normal cephalic atraumatic mucous membranes moist. Breathing is unlabored B has an ongoing constant cough. Neuro shows no focal deficits. Diffuse embolic events Embolic subacute cerebrovascular events (subacute cerebral infarcts) Pulmonary emboli Bilateral lower extremity DVT -------------> appears related to his metastatic malignancy. After further discussion, all were in agreement that anticoagulation is definitely the best course of treatment given his diffuse embolic events. More than likely suffered paradoxical emboli from the lower extremity DVTs, his echo does not show any atrial defects, but obviously a transthoracic is low sensitivity and picking this up. Given that he must be anticoagulated anyway, a transesophageal echo would be highly unlikely to change treatment. Doing well on heparin, continue. Likely transition to Xarelto in another day or 2 with ongoing stability. AKIpresent on admission. Improved. Otherwise as above. Results & Data Vital Signs (Past 12 Hours) Vital Signs Temp Pulse Pulse Resp BP Pulse Ox Pulse Ox 12/23/18 07:07 37.2 C 77 18 101/57 L 94 12/23/18 03:27 36.4 C L 75 19 120/76 95 12/23/18 01:37 95 12/23/18 00:17 78 12/22/18 23:11 36.9 C 82 19 112/73 93 Laboratory Results 12/23/18 12/23/18 12/23/18 Range/Units 07:11 06:01 05:56 WBC (4.8-10.8) K/uL RBC (4.7-6.1) M/uL Hgb (14.0-18.0) g/dL Hct (42-52) % MCV (80-100) fL MCH (25-34) pg MCHC (32-36) g/dL RDW Std Deviation (36.4-46.3) fL RDW Coeff of Jennifer (11.5-14.5) % Plt Count (130-400) K/uL MPV (7.4-10.4) fL Immature Gran % (Auto) % Neut % (Auto) % Lymph % (Auto) % Spencer % (Auto) % Eos % (Auto) % Baso % (Auto) % Immature Gran # (Auto) (0.00-0.02) K/uL Neut # (Auto) (1.4-6.5) K/uL Lymph # (Auto) (1.2-3.4) K/uL Spencer # (Auto) (0.11-0.59) K/uL Eos # (Auto) (0-0.5) K/uL Baso # (Auto) (0-0.2) K/uL APTT Pending > 139.0 H* (21.0-31.0) Seconds PTT Ratio Pending > 5.1 Sodium 138 (136-145) mmol/L Potassium 4.0 (3.5-5.1) mmol/L Chloride 112 H (98-107) mmol/L Carbon Dioxide 22 (21-32) mmol/L Anion Gap 4.0 (3-11) BUN 33 H (7-18) mg/dl Creatinine 1.25 (0.6-1.4) mg/dl Est Cr Clr Drug Dosing 56.1 ml/min Est GFR ( Amer) 65.8 Est GFR (Non-Af Amer) 56.8 BUN/Creatinine Ratio 26.6 H (10-20) Glucose 96 (70-99) mg/dl Calcium 7.6 L (8.5-10.1) mg/dl 12/23/18 12/22/18 Range/Units 05:56 23:20 WBC 8.80 (4.8-10.8) K/uL RBC 3.87 L (4.7-6.1) M/uL Hgb 10.6 L (14.0-18.0) g/dL Hct 31.2 L (42-52) % MCV 80.6 (80-100) fL MCH 27.4 (25-34) pg MCHC 34.0 (32-36) g/dL RDW Std Deviation 44.4 (36.4-46.3) fL RDW Coeff of Jennifer 15.1 H (11.5-14.5) % Plt Count 123 L (130-400) K/uL MPV 9.7 (7.4-10.4) fL Immature Gran % (Auto) 0.3 % Neut % (Auto) 81.1 % Lymph % (Auto) 5.5 % Spencer % (Auto) 12.4 % Eos % (Auto) 0.6 % Baso % (Auto) 0.1 % Immature Gran # (Auto) 0.03 H (0.00-0.02) K/uL Neut # (Auto) 7.14 H (1.4-6.5) K/uL Lymph # (Auto) 0.48 L (1.2-3.4) K/uL Spencer # (Auto) 1.09 H (0.11-0.59) K/uL Eos # (Auto) 0.05 (0-0.5) K/uL Baso # (Auto) 0.01 (0-0.2) K/uL APTT 40.7 H (21.0-31.0) Seconds PTT Ratio 1.5 Sodium (136-145) mmol/L Potassium (3.5-5.1) mmol/L Chloride (98-107) mmol/L Carbon Dioxide (21-32) mmol/L Anion Gap (3-11) BUN (7-18) mg/dl Creatinine (0.6-1.4) mg/dl Est Cr Clr Drug Dosing ml/min Est GFR ( Amer) Est GFR (Non-Af Amer) BUN/Creatinine Ratio (10-20) Glucose (70-99) mg/dl Calcium (8.5-10.1) mg/dl Medications Administered Current Inpatient Medications Acetaminophen (Tylenol) 650 mg PO Q4H PRN PRN Reason: Pain or Fever Stop: 01/21/19 01:36 Al Hydrox/Mg Hydrox/Simethicone (Maalox) 15 ml PO Q4H PRN PRN Reason: Dyspepsia Stop: 01/21/19 01:36 Atorvastatin Calcium ([facility]) [facility] Stop: 01/21/19 08:59 Last Admin: 12/22/18 14:15 Dose: 80 mg Documented by: Benzonatate (Tessalon Perle) 100 mg PO TID PRN PRN Reason: Cough Stop: 01/21/19 08:59 Last Admin: 12/22/18 23:16 Dose: 100 mg Documented by: Clopidogrel Bisulfate (Plavix) 75 mg PO [facility] Stop: 01/21/19 08:59 Last Admin: 12/22/18 16:29 Dose: Not Given Documented by: Dextromethorphan Polymer Complex (Delsym) 30 mg PO Q12H PRN PRN Reason: Cough Stop: 01/21/19 14:43 Last Admin: 12/22/18 15:55 Dose: 30 mg Documented by: Guaifenesin (Mucinex) 600 mg PO Q12 [facility] Stop: 01/21/19 02:03 Last Admin: 12/22/18 20:15 Dose: 600 mg Documented by: Guaifenesin/Codeine Phosphate (Robitussin-Ac Sugar Free) 10 ml PO Q6H PRN PRN Reason: Cough Stop: 01/21/19 07:45 Last Admin: 12/22/18 20:14 Dose: 10 ml Documented by: Sodium Chloride (Nss 1000ml) 1,000 mls @ 100 mls/hr IV .Q10H [facility] Stop: 01/21/19 01:36 Last Admin: 12/22/18 23:14 Dose: 100 mls/hr Documented by: Heparin Sodium/Dextrose (Heparin Sodium/Dextrose) 25,000 units in 500 mls @ 0 mls/hr IV .Q0M [facility]; Protocol Stop: 01/21/19 16:44 Last Titration: 12/23/18 06:53 Dose: 0 units/hr, 0 mls/hr Documented by: Magnesium Hydroxide (Milk Of Magnesia) 30 ml PO Q12H PRN PRN Reason: Constipation Stop: 01/21/19 01:36 Metoprolol Succinate (Toprol Xl) [facility] Stop: 01/21/19 08:59 Last Admin: 12/22/18 14:15 Dose: 50 mg Documented by: Miscellaneous (Order Awaiting Action) 1 ea N/A QS [facility] Stop: 01/21/19 07:59 Last Admin: 12/22/18 23:16 Dose: Not Given Documented by: Ondansetron HCl (Zofran) 4 mg IV Q6H PRN PRN Reason: Nausea Stop: 01/21/19 01:36 Pantoprazole Sodium (Protonix) 40 [facility] Stop: 01/21/19 08:59 Last Admin: 12/22/18 14:15 Dose: 40 mg Documented by: Resident Activity Tracking Resident Involvement: Resident Care Provided Care Provided: Adult Hospital Medicine (1) Deep vein thrombosis (DVT) of both lower extremities Affected thrombotic vein of extremity: unspecified vein of extremity Chronicity: acute Qualified Code(s): I82.403 - Acute embolism and thrombosis of unspecified deep veins of lower extremity, bilateral
[2018-12-23 07:36] LABS: BUN Creatinine Ratio 26.6 (10-20); Calcium 7.6 mg/dl (8.5-10.1); Creatinine Clr Calc Pharmacy 56.1 ml/min; Est GFR (African American) 65.8; Est GFR (Non-African American) 56.8
[2018-12-23 07:44] LABS: Partial Thromboplastin Ratio 3.9
[2018-12-23 07:46] LABS: Partial Thromboplastin Time 106.9 Seconds (21.0-31.0)
[2018-12-23] MEDS: DEXTROMETHORPHAN POLYMR COMPLX 30 MG/5 ML UDP PO PRN (08:02)
[2018-12-23] MEDS: PANTOprazole 40 MG TAB PO SCH (08:03)
[2018-12-23] MEDS: CLOPIDOGREL BISULFATE 75 MG TAB PO SCH (08:03)
[2018-12-23] MEDS: ATORVASTATIN 40 MG TAB PO SCH (08:04)
[2018-12-23] MEDS: guaiFENesin 600 MG TABCR PO SCH ×2 (08:04→20:53)
[2018-12-23] MEDS: METOPROLOL SUCC 50MG EXT REL TAB PO SCH (08:04)
[2018-12-23] MEDS: SODIUM CHLORIDE 0.9% 1000ML 1,000 ML IV SCH (08:09)
--- NOTE | 2018-12-23 08:37 | Oncology Consultation ---
Date of Consultation December 22, 2018 Assessment & Plan (1) Malignant neoplasm metastatic from bladder: We confirmed metastatic disease with his biopsy. He will need systemic therapy and I will make arrangements for this as an outpatient. This disease will play a role in the end of his life, though his disease is certainly treatable. We can discuss more related to his prognosis and management in my office later. Present on Admission?: Yes (2) Deep vein thrombosis (DVT) of both lower extremities: I would obtain records regarding this questionable stroke. He has no signs or symptoms of stroke now and if the findings are ambiguous, I would favor anticoagulating him. Since he has evidence of a PE by the perfusion scan, an IVC filter would not be helpful in this scenario. I would start with a heparin drip and then consider either Lovenox or Xarelto, which is more convenient but does carry a slightly increased risk of major bleeding versus Lovenox. Present on Admission?: Yes History of Present Illness Reason for Consultation: Metastatic bladder cancer DVT Attending Physician: Shaun Chi MD History of Present Illness Mr. Barajas is a 73 year old man with a history of CAD, GERD, and bladder cancer. 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 He received 3 cycles of neoadjuvant ddMVAC and then underwent cystoprostatectomy with pelvic lymphadenectomy on 08/03/17. His final stage was II (ypT2b ypN0 cM0). He has been on surveillance since that time. Recent scans revealed multiple lung masses and mediastinal lymph nodes, along with a large hypodensity in the liver highly suspicious for a metastasis. I arranged for an ultrasound-guided biopsy of the liver mass, which took place Wednesday and revealed metastatic bladder cancer. He came to his PCP in [place] with some complaints of confusion. He apparently had an MRI that revealed evidence of small acute CVAs. He was seen again for leg pain on 12/21 and was found to have bilateral LE DVTs. He was transferred here for further management. His legs are sore, but he denies any swelling or warmth. He also denies any chest pain or shortness of breath, though he does have a cough. Allergies Allergy/AdvReac Type Severity Reaction Status Date / Time No Known Allergies Allergy Unverified 12/21/18 19:59 Home Medications Home Medications Medication Instructions Recorded Confirmed Type atorvastatin 80 mg PO QAM #0 tab 03/08/17 12/21/18 History metoprolol succinate 50 mg PO QAM #30 tab 03/08/17 12/21/18 History nitroglycerin 0.4 mg SUBLINGUAL DIRECTED #0 03/08/17 12/21/18 History btl omeprazole 20 mg PO QAM #0 cap 03/08/17 12/21/18 History triazolam 0.25 mg PO HS #0 tab 07/21/17 12/21/18 History clopidogrel 75 mg PO QAM #0 tab 07/28/17 12/21/18 History [id number] 2 tab PO QID PRN 12/21/18 12/21/18 History [Tylenol Cold and Flu Severe] Patient History Medical History Bladder cancer (Acute) High cholesterol (Acute) Myocardial infarction (Acute) Surgical History H/O cystoscopy (Acute) h/o bladder cancer H/O heart artery stent (Acute) H/O total cystectomy (Acute) History of urostomy (Acute) Social History Preferred Language: Irish Communication Ability: Effective [employer] Required: No Beliefs That Will Affect Care: None marital status: Single Current Living Situation: Alone Other Information That Helps Us Care for You: No Feels Safe at Home: Yes Safety Concerns: Feels Safe At This Time Smoking Status: Former smoker Do You Dip or Chew Tobacco: No Second Hand Exposure: No Tobacco Cessation Education Requested by Patient: No Hx Alcohol Use: Yes Alcohol type: beer Hx Substance Use: No Review of Systems Constitutional: no fever and no fatigue Eyes: no worsening vision Respiratory: + cough; no dyspnea and no pain on inspiration Cardiovascular: no chest pain and no edema Gastrointestinal: no abdominal pain and no nausea Musculoskeletal: no back pain and no joint pain Neurologic: no localized weakness and no headache(s) Physical Exam Constitutional: WD/WN, vitals as above Eyes: + anicteric sclerae and EOM intact bilaterally ENMT: external ear and nose normal, oropharynx normal Respiratory: normal respiratory effort, lungs clear to auscultation Cardiovascular: RRR, no murmur, no edema Gastrointestinal (Abdomen): normal bowel sounds, soft, nontender, no hepatosplenomegaly Musculoskeletal: no cyanosis or clubbing, extremities motor strength 5/5 Psychiatric: A+Ox3, euthymic affect Results & Data Vital Signs (Past 12 Hours) Vital Signs Temp Pulse Pulse Resp BP Pulse Ox Pulse Ox 12/23/18 07:07 37.2 C 77 18 101/57 L 94 12/23/18 03:27 36.4 C L 75 19 120/76 95 12/23/18 01:37 95 12/23/18 00:17 78 12/22/18 23:11 36.9 C 82 19 112/73 93 Laboratory Results Laboratory Results - last 48 hr 12/21/18 12/21/18 12/21/18 20:03 20:03 20:03 WBC 14.17 H RBC 4.35 L Hgb 12.4 L Hct 35.6 L MCV 81.8 MCH 28.5 MCHC 34.8 RDW Std Deviation 45.4 RDW Coeff of Jennifer 15.1 H Plt Count 128 L MPV 10.2 Immature Gran % (Auto) 0.6 Neut % (Auto) 82.8 Lymph % (Auto) 5.2 [place] % (Auto) 10.7 Eos % (Auto) 0.6 Baso % (Auto) 0.1 Immature Gran # (Auto) 0.08 H Neut # (Auto) 11.74 H Lymph # (Auto) 0.73 L [place] # (Auto) 1.51 H Eos # (Auto) 0.09 Baso # (Auto) 0.02 Platelet Estimate PT 13.1 H INR 1.3 H APTT 31.8 H PTT Ratio 1.2 Sodium 137 Potassium 4.3 Chloride 105 Carbon Dioxide 22 Anion Gap 10.0 BUN 51 H Creatinine 1.84 H Est Cr Clr Drug Dosing 38.1 Est GFR ( Amer) 41.2 Est GFR (Non-Af Amer) 35.6 BUN/Creatinine Ratio 27.6 H Glucose 110 H Calcium 8.8 Total Bilirubin 0.5 AST 51 H ALT 70 Alkaline Phosphatase 196 H POC Troponin I Troponin I 0.325 H* Total Protein 6.6 Albumin 2.6 L Globulin 4.0 Albumin/Globulin Ratio 0.7 L 0512/22/18 12/22/18 20:11 01:44 06:25 WBC 9.26 RBC 4.10 L Hgb 11.2 L Hct 33.5 L MCV 81.7 MCH 27.3 MCHC 33.4 RDW Std Deviation 44.8 RDW Coeff of Jennifer 15.1 H Plt Count 99 L MPV 10.7 H Immature Gran % (Auto) 0.5 Neut % (Auto) 81.5 Lymph % (Auto) 6.0 [place] % (Auto) 10.9 Eos % (Auto) 1.0 Baso % (Auto) 0.1 Immature Gran # (Auto) 0.05 H Neut # (Auto) 7.54 H Lymph # (Auto) 0.56 L [place] # (Auto) 1.01 H Eos # (Auto) 0.09 Baso # (Auto) 0.01 Platelet Estimate Decreased PT INR APTT PTT Ratio Sodium Potassium Chloride Carbon Dioxide Anion Gap BUN Creatinine Est Cr Clr Drug Dosing Est GFR ( Amer) Est GFR (Non-Af Amer) BUN/Creatinine Ratio Glucose Calcium Total Bilirubin AST ALT Alkaline Phosphatase POC Troponin I 0.27 H Troponin I 0.322 H* Total Protein Albumin Globulin Albumin/Globulin Ratio 12/22/18 12/22/18 12/22/18 06:25 06:25 23:20 WBC RBC Hgb Hct MCV MCH MCHC RDW Std Deviation RDW Coeff of Jennifer Plt Count MPV Immature Gran % (Auto) Neut % (Auto) Lymph % (Auto) [place] % (Auto) Eos % (Auto) Baso % (Auto) Immature Gran # (Auto) Neut # (Auto) Lymph # (Auto) [place] # (Auto) Eos # (Auto) Baso # (Auto) Platelet Estimate PT 13.5 H INR 1.3 H APTT 34.6 H 40.7 H PTT Ratio 1.3 1.5 Sodium 137 Potassium 4.0 Chloride 109 H Carbon Dioxide 23 Anion Gap 5.0 BUN 45 H Creatinine 1.46 H D Est Cr Clr Drug Dosing 48.0 Est GFR ( Amer) 54.5 Est GFR (Non-Af Amer) 47.0 BUN/Creatinine Ratio 30.8 H Glucose 77 Calcium 8.0 L Total Bilirubin 0.4 AST 35 ALT 53 Alkaline Phosphatase 174 H POC Troponin I Troponin I 0.296 H* Total Protein 5.5 L Albumin 2.2 L Globulin 3.3 Albumin/Globulin Ratio 0.7 L 12/23/18 12/23/18 12/23/18 05:56 05:56 06:01 WBC 8.80 RBC 3.87 L Hgb 10.6 L Hct 31.2 L MCV 80.6 MCH 27.4 MCHC 34.0 RDW Std Deviation 44.4 RDW Coeff of Jennifer 15.1 H Plt Count 123 L MPV 9.7 Immature Gran % (Auto) 0.3 Neut % (Auto) 81.1 Lymph % (Auto) 5.5 [place] % (Auto) 12.4 Eos % (Auto) 0.6 Baso % (Auto) 0.1 Immature Gran # (Auto) 0.03 H Neut # (Auto) 7.14 H Lymph # (Auto) 0.48 L [place] # (Auto) 1.09 H Eos # (Auto) 0.05 Baso # (Auto) 0.01 Platelet Estimate PT INR APTT > 139.0 H* PTT Ratio > 5.1 Sodium 138 Potassium 4.0 Chloride 112 H Carbon Dioxide 22 Anion Gap 4.0 BUN 33 H Creatinine 1.25 Est Cr Clr Drug Dosing 56.1 Est GFR ( Amer) 65.8 Est GFR (Non-Af Amer) 56.8 BUN/Creatinine Ratio 26.6 H Glucose 96 Calcium 7.6 L Total Bilirubin AST ALT Alkaline Phosphatase POC Troponin I Troponin I Total Protein Albumin Globulin Albumin/Globulin Ratio 12/23/18 07:11 WBC RBC Hgb Hct MCV MCH MCHC RDW Std Deviation RDW Coeff of Jennifer Plt Count MPV Immature Gran % (Auto) Neut % (Auto) Lymph % (Auto) [place] % (Auto) Eos % (Auto) Baso % (Auto) Immature Gran # (Auto) Neut # (Auto) Lymph # (Auto) [place] # (Auto) Eos # (Auto) Baso # (Auto) Platelet Estimate PT INR APTT 106.9 H* PTT Ratio 3.9 Sodium Potassium Chloride Carbon Dioxide Anion Gap BUN Creatinine Est Cr Clr Drug Dosing Est GFR ( Amer) Est GFR (Non-Af Amer) BUN/Creatinine Ratio Glucose Calcium Total Bilirubin AST ALT Alkaline Phosphatase POC Troponin I Troponin I Total Protein Albumin Globulin Albumin/Globulin Ratio Diagnostic Findings Lung Perfusion study, 12/22/18: This exam is technically indeterminate given lack of ventilation imaging. The perfusion study is abnormal with multiple peripheral wedge-shaped perfusion defects. Therefore, this exam is at least intermediate probability for pulmonary embolus. Report of outside LE Dopplers Acute non-occlusive thrombosis of the bilateral PT and popliteal veins (1) Deep vein thrombosis (DVT) of both lower extremities Affected thrombotic vein of extremity: unspecified vein of extremity Chronicity: acute Qualified Code(s): I82.403 - Acute embolism and thrombosis of unspecified deep veins of lower extremity, bilateral
[2018-12-23] MEDS: GUAIFENESIN/CODEINE 200MG/20MG 10ML UDC PO PRN (08:48)
--- NOTE | 2018-12-23 09:08 | Neurology Consultation ---
Date of Consultation December 23, 2018 Assessment & Plan (1) Acute CVA (cerebrovascular accident): Maicol is a 73 year old male with a PMH of CAD, HTN, HLD, GERD, and metastatic urothelial cancer that presented to his PCP with lower extremity pain and confusion. He had imaging studies performed which showed extensive lower extremity DVT and subacute cerebral and cerebellar infarcts. He has been placed on a heparin drip. It is likely that this patients recent strokes have been caused by his hypercoagulable state secondary to his metastatic cancer. There is a very low suspicion for a genetic component to his hypercoagulable state due to lack of previous DVT, PE, stroke and lack of family history. Below are the following recommendations by the Neurology team. 1) Further workup- obtain transthoracic echo to look for potential cardiac thrombus which could be showering clots to the brain, obtain cartoid US to look for carotid plaque/stenosis; however this is deemed less likely. Order repeat CT scan of brain 24-48 hours after initiation of heparin drip to make sure there is no bleed after initiation of heparin drip. Would also obtain lipids and HgbA1c if these have not been done recently. 2) Further management- If CT brain is negative for intracranial bleeding then would can discuss with patient about anticoagulation for stroke. Heme/Onc recommend lovenox vs xarelto. This seems reasonable. Continue with PT/OT recommendations for discharge planning recommendations Please contact the neurology team with any further questions or concerns. Supervising Physician Co-Signing Physician Notes Patient seen and examined with Resident physician. Agree with above history, exam, and assesment and plan. Patient does report confusion the last week, but no other neuro symptoms. Gen.: Patient is alert and oriented in no acute distress lying in bed Heart: Regular rate and rhythm Extremities: No gross deformities or rashes noted Neurological examination: Mental status: Patient is alert and oriented to person place and time (but not to date or day of the week). Able to give own history. Good fund of knowledge. Attention and concentration normal for the situation. Recent and remote memory intact Speech is fluent without any dysarthria or aphasia noted Cranial nerves: Pupils equally round and reactive to light. Extraocular muscles intact without nystagmus. No facial asymmetry noted. Facial sensation intact. Tongue midline. Good palatal elevation. Good shoulder shrug bilaterally. Hearing grossly intact voice. Strength: 5/5 both proximal and distal in all extremities .Tone is normal. Sensation: Grossly intact to light touch in all extremities Deep tendon reflexes: +1 in bilateral biceps and patellar. Toes are downgoing to plantar stimulation bilaterally Coordination: Patient has good finger to nose without dysmetria Station within the bed is normal. Assessment: 73 year ald male with multiple territory subacute ischemic strokes. Likely secondary to hyperoag state from metastatic cancer. Residual neurological deficits of mild cognitive dysfunction. Recommendations: Recommend heparin drip for next [address] head 24-48hrs after heparin drip started to r/o hemorrhage. If no hemorrhage, can transition to maintenance anticoagulation. The benefic of anticoagulation I feel out ways his bleeding risk since he is high risk to continue to clot and have repeat strokes. Check echo to r/o cardiac thrombus. Check US carotids to r/o stenosis. I ordered Lipid profile and HgA1c to complete stroke work up. Avoid dehydration and hypotension Blood pressure recommendations while in hospital 175/95-150/80 For the first month after hospital discharge, blood pressure recommendations 150/90-130/80. After the first month, blood pressure recommendations 130/80-110/70 Follow-up PT/OT and speech recommendations for discharge planning Neurological recommendations for stroke risk factor modifications: Total cholesterol goal 100-200, and LDL goal less than 100 Hemoglobin A1c goal less than 7 Encourage regular cardiovascular exercise at least 30 minutes 3 times per week Hospital Follow-up in neurology clinic in 1 month after discharge. -Penny Jimenez DO History of Present Illness Attending Physician: Shaun Chi MD Maicol is a pleasant 73 year old male with a PMH CAD, HTN, HLD, GERD, and histor y of metastatic bladder cancer that was admitted to the ED due to bilateral DVT's and concern for embolic strokes. He was seen by his PCP on December 21 due to a 2-3 week history of bilateral leg pain and worsening intermittent confusion. He had a lower extremity US ordered which showed extensive bilateral DVT within the popliteal and posterior tibial veins. He also had a MRI which showed diffuse bilateral cerebral and cerebellar infarcts. He was therefore referred to [facility] for admission. Upon admission he had a VQ scan which showed intermediate probability of PE and then a follow up CT scan of his chest showed an irregular mass in the RUL which was 3.4cm. CT scan also showed extensive thoracic adenopathy and a left hepatic mass. After discussion with the hospitalist team he was placed on a heparin drip. Of significance the patient was diagnosed with urothelial carcinoma on 03/18/17. He had a cystoprostatectomy on 08/03/17. Since then he has had periodic surveillance with the most recent scan showing multiple lung masses and a liver mass. He underwent biopsy of the liver mass 20/08/19 which revealed metastatic bladder cancer. The patient denies any recent other surgical procedures. He denies any family history of blood clots or clotting disorders. He was a smoker in the past and has an approximately 10 year pack history. Currently the patient feels tired, has a decreased appetite, is short of breath with ambulation and has a persistent productive cough. The patient does not he has had intermittent small dots in his vision and he thinks he has been slightly more confused and forgetful over the past 1-2 weeks. He also notes that he has seemed less safe when driving his car over the past 1-2 weeks. He denies any fevers, chills, arm weakness, leg weakness, numbness or tingling in extremities, difficulty swallowing, palpitations, chest pain, headaches, speech difficulties. Allergies Allergy/AdvReac Type Severity Reaction Status Date / Time No Known Allergies Allergy Unverified 12/21/18 19:59 Home Medications Home Medications Medication Instructions Recorded Confirmed Type atorvastatin 80 mg PO QAM #0 tab 03/08/17 12/21/18 History metoprolol succinate 50 mg PO QAM #30 tab 03/08/17 12/21/18 History nitroglycerin 0.4 mg SUBLINGUAL DIRECTED #0 03/08/17 12/21/18 History btl omeprazole 20 mg PO QAM #0 cap 03/08/17 12/21/18 History triazolam 0.25 mg PO HS #0 tab 07/21/17 12/21/18 History clopidogrel 75 mg PO QAM #0 tab 07/28/17 12/21/18 History sfvgczsvm-XF-egmqnjgl-guaifen 2 tab PO QID PRN 12/21/18 12/21/18 History [Tylenol Cold and Flu Severe] Patient History Medical History Bladder cancer (Acute) High cholesterol (Acute) Myocardial infarction (Acute) Surgical History H/O cystoscopy (Acute) h/o bladder cancer H/O heart artery stent (Acute) H/O total cystectomy (Acute) History of urostomy (Acute) Social History Preferred Language: Mohawk Communication Ability: Effective 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 Beliefs That Will Affect Care: None marital status: Single Current Living Situation: Alone Other Information That Helps Us Care for You: No Feels Safe at Home: Yes Safety Concerns: Feels Safe At This Time Smoking Status: Former smoker Do You Dip or Chew Tobacco: No Second Hand Exposure: No Tobacco Cessation Education Requested by Patient: No Hx Alcohol Use: Yes Alcohol type: beer Hx Substance Use: No Review of Systems Review of Systems: All systems reviewed & are unremarkable except as noted in HPI & below Physical Exam Physical Exam: Gen: alert and in no acute distress, he is intermittently coughing during my exam Cardiac: RRR, no obvious murmurs, no carotid bruits, no JVD Lungs: difficult to assess due to persistent cough but otherwise no significant wheezes, crackles or rhonchi Abdomen: Abdominal scar from previous surgery with urostomy in the RLQ, the urostomy bag appears to have yellow urine and the stoma sight is clean Lower extremities: non tender to palpation, no erythema or swelling, strong peripheral pulses CN: 2-12 intact and without any focal deficits Upper limb neuro: sensation 5/5, power 5/5, +2 brachioradialis reflex Lower limb neuro: sensation 5/5, power 5/5, +2 patellar reflex Cerebellar: normal finger to nose testing on exam Psych: alert and orientated to person, place and time (able to say month, and year but does not know exact date or day) Results & Data Vital Signs (Past 12 Hours) Vital Signs Temp Pulse Pulse Resp BP Pulse Ox Pulse Ox 12/23/18 07:07 37.2 C 77 18 101/57 L 94 12/23/18 03:27 36.4 C L 75 19 120/76 95 12/23/18 01:37 95 12/23/18 00:17 78 12/22/18 23:11 36.9 C 82 19 112/73 93
[2018-12-23 09:09] LABS: Partial Thromboplastin Time 55.4 Seconds (21.0-31.0)
[2018-12-23 09:40] LABS: Estimated Average Glucose 134 mg/dl; Hemoglobin A1C 6.3 % (4.5-5.6)
[2018-12-23 09:43] LABS: Chol HDL Ratio 4; Cholesterol 99 mg/dl (0-200); HDL Cholesterol 28 mg/dl; LDL Cholesterol Calculated 35 mg/dl; Triglycerides 179 mg/dl (0-150); VLDL Cholesterol 36 mg/dl
[2018-12-23] MEDS ORDERED: ALBUTEROL 0.5% NEB SOLN 2.5 MG/0.5 ML VIAL NEB PRN (10:46)
[2018-12-23] MEDS: BENZONATATE 100 MG CAPSULE PO PRN (11:22)
--- NOTE | 2018-12-23 15:17 | Ultrasound Report ---
US carotid doppler BI HISTORY: Mental status change. per neuro COMPARISON: None. TECHNIQUE: Real-time, grayscale, and color Doppler sonography of the carotid arteries was performed. Imaging reviewed in the transverse and longitudinal planes. All measurements were calculated based on NASCET criteria. FINDINGS: Antegrade flow is seen in the bilateral vertebral arteries. The brachial pressures are hemodynamically similar. 4 x 3 cm complex mass/pathologic node within the left cervical region. The peak systolic velocity within the right ICA is 99. The right systolic ratio is 1.23. The peak systolic velocity within the left ICA is 125. The left systolic ratio is 1.35. IMPRESSION: 1. Mild plaque formation bilaterally. 2. No significant stenosis. 3. Pathologic node within the left neck measuring 4 x 3 cm. The above report was generated using voice recognition software. It may contain grammatical, syntax or spelling errors. Electronically signed by: Kalpesh Leger M.D. 12/23/2018 3:16 PM
[2018-12-23] MEDS: POLYETHYLENE (MIRALAX) 17 GM PACK PO SCH ×2 (16:57→20:53)
[2018-12-23 17:06] LABS: Partial Thromboplastin Ratio 1.8
[2018-12-23 17:15] LABS: Partial Thromboplastin Time 48.1 Seconds (21.0-31.0)
[2018-12-23] MEDS: Heparin Adult LOW DOSE Wt-Based Dextrose 5% 25,000 units/500 mL IV SCH (19:15)
[2018-12-24] MEDS: METOPROLOL SUCC 50MG EXT REL TAB PO SCH (07:42)
[2018-12-24] MEDS: CLOPIDOGREL BISULFATE 75 MG TAB PO SCH (07:42)
[2018-12-24] MEDS: guaiFENesin 600 MG TABCR PO SCH ×2 (07:42→20:20)
[2018-12-24] MEDS: ATORVASTATIN 40 MG TAB PO SCH (07:42)
[2018-12-24] MEDS: PANTOprazole 40 MG TAB PO SCH (07:42)
[2018-12-24] MEDS: POLYETHYLENE (MIRALAX) 17 GM PACK PO SCH ×3 (07:45→20:20)
[2018-12-24 08:08] LABS: Hematocrit (blood only) 32.1 % (42-52); Hemoglobin 10.8 g/dL (14.0-18.0); Mean Corpuscular Hgb Conc 33.6 g/dL (32-36); Mean Corpuscular Volume 81.3 fL (80-100); Mean Platelet Volume 10.1 fL (7.4-10.4); Platelet Count 208 K/uL (130-400); RDW Coefficient of Variation 15.2 % (11.5-14.5); RDW Standard Deviation 44.9 fL (36.4-46.3); Red Blood Count 3.95 M/uL (4.7-6.1); White Blood Count 9.84 K/uL (4.8-10.8)
[2018-12-24 08:31] LABS: Partial Thromboplastin Ratio 1.7
[2018-12-24 08:36] LABS: Basophils # (auto) 0.01 K/uL (0-0.2); Basophils % (auto) 0.1 %; Echinocytes 1+; Eosinophils # (auto) 0.05 K/uL (0-0.5); Eosinophils % (auto) 0.5 %; Immature Granulocytes # (auto) 0.03 K/uL (0.00-0.02); Immature Granulocytes % (auto) 0.3 %; Lymphocytes # (auto) 0.62 K/uL (1.2-3.4); Lymphocytes % (auto) 6.3 %; Monocytes # (auto) 0.88 K/uL (0.11-0.59); Monocytes % (auto) 8.9 %; Neutrophils # (auto) 8.25 K/uL (1.4-6.5); Neutrophils % (auto) 83.9 %
[2018-12-24 08:40] LABS: Chol HDL Ratio 4; Cholesterol 106 mg/dl (0-200); HDL Cholesterol 24 mg/dl; LDL Cholesterol Calculated 34 mg/dl; Triglycerides 238 mg/dl (0-150); VLDL Cholesterol 48 mg/dl
[2018-12-24 09:00] LABS: Partial Thromboplastin Time 47.1 Seconds (21.0-31.0)
[2018-12-24 09:36] LABS: Estimated Average Glucose 131 mg/dl; Hemoglobin A1C 6.2 % (4.5-5.6)
--- NOTE | 2018-12-24 10:11 | CT Scan Report ---
CT OF THE HEAD WITHOUT CONTRAST CLINICAL HISTORY: Heparin drip. COMPARISON STUDY: No previous studies for comparison. CT DOSE: 614.27 mGy.cm TECHNIQUE: Helical axial images of the head were obtained without IV contrast. Automated exposure con trol was utilized for the study. A dose lowering technique was utilized adhering to the principles o f ALARA. FINDINGS: No acute intracranial hemorrhage, midline shift or mass effect is present. Ventricular syst em is normal. The basilar cisterns are patent. There are no extra-axial collections. Mild white matte r hypodensity suggests small vessel disease. There are no findings to suggest acute dural sinus throm bosis or acute territorial infarct. There are no significant calvarial abnormalities. IMPRESSION: No acute intracranial findings. Electronically signed by: Germán Obrien M.D. 12/24/2018 10:09 AM
--- NOTE | 2018-12-24 10:53 | Family Medicine Progress Note ---
Date of Service December 24, 2018 Assessment & Plan (1) Deep vein thrombosis (DVT) of both lower extremities: DVT and PE's 73 yo M with history of CAD s/p CASSANDRA to left distal circumflex, HTN, hyperlipidemia, and GERD, history of bladder cancer s/p radical cystoprostatectomy with lymphadenectomy. s/p Liver Bx 12/19 with pathology findings of metastatic disease presenting with reported bilateral DVT, MRI brain with multiple no-hemorrhagic infarcts -Per outside record: Doppler U/S bilateral LE: Acute non-occlusive DVT within bilateral popliteal and posterior tibial veins -Abnormal perfusion study nondiagnostic however pulmonary embolus likely -Likely secondary to hypercoagulable state due to widespread metastatic disease. -On heparin drip per per protocol -CT scan today showing no sign of intracranial hemorrhage, will transition to DOAC tomorrow morning and stop heparin drip. 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 -More effective however greater risk of bleeding -pt would prefer DOAC -Lovenox not as effective less risk of bleeding -Stage IV with mets to liver, lungs -Likely cause of hypercoagulable state History of multiple cerebrovascular accidents (CVAs): recent multiple cerebellar/cerebral infarcts per outside records likely embolic in source Most likely crossover from venous circulation due to septal defect. -Family reports intermittent symptomatology at home however currently asx, no focal neural signs -Consult neurology following recommendation - Head CT showing no new intracranial abnormalities Hypertension: BP controlled -Continue Metoprolol Hyperlipidemia: -Continue statin GERD (gastroesophageal reflux disease): -Continue PPI Elevated troponin: asx for chest pain ACS -likely secondary to demand ischemia -no ischemic findings on EKG -Troponins trended down CAD (coronary artery disease): -Resume Plavix -Continue BB, Statin FENa:Heart Healthy DVT PPX:Heparin Drip Dispo:Tele Supervising Physician Co-Signing Physician Notes I personally examined the patient and verified all woo points of history and exam, discussed case, and agree with decision making with Dr Canela. Feeling okay. No acute complaints. Cough persists but seems a bit better than yesterday.. Vitals noted, in general he is awake and alert pleasant no acute distress. HEENT normal cephalic atraumatic mucous membranes moist. Breathing is unlabored and his cough is a little less intense with more spacing in between paroxysms. Neuro shows no focal deficits. Diffuse embolic events Embolic subacute cerebrovascular events (subacute cerebral infarcts) Pulmonary emboli Bilateral lower extremity DVT -------------> appears related to his metastatic malignancy. See prior discussions of risks and benefits. Patient doing well on anticoagulation, with no signs of bleeding. Would transition to DOAC tomorrow and follow for another 24 hours to ensure no bleeding, then look more towards home. AKIpresent on admission. Improved. Otherwise as above. Subjective Maicol Barajas reports that he is doing well today, he is up eating cheetohs and in no discomfort. He expresses his understanding in current plan and also expresses his desire to return home. Review of Systems Constitutional: no fever, no chills and no body aches Respiratory: + cough (persistent constant), + chest congestion and + dyspnea (mild) Cardiovascular: no chest pain, no dyspnea, no dyspnea on exertion and no palpitations Gastrointestinal: no abdominal pain, no nausea and no vomiting Neurologic: + confusion (Has had some confusion, feels he has forgotten things he can't remember); no localized weakness, no loss of sensation and no numbness Physical Exam Constitutional: well developed and well nourished; no acute distress and not ill appearing Eyes: PERRL, conjunctivae normal, anicteric sclerae ENMT: external ear and nose normal, oropharynx normal Neck: normal visual inspection Respiratory: normal respiratory effort and + cough Auscultation: + diminished lung sounds and + rhonchi Hard to hear adventitious lung sounds due to cough on deep inspiration Cardiovascular: RRR, no murmur, no edema Extremities: no calf tenderness Gastrointestinal (Abdomen): normal bowel sounds, soft, nontender, no hepatosplenomegaly Skin: no rashes, warm and dry Results & Data Vital Signs (Past 12 Hours) Vital Signs Temp Pulse Pulse Resp BP BP Pulse Ox 12/24/18 08:00 75 12/24/18 07:06 37.3 C 71 18 125/79 97 12/24/18 03:52 36.9 C 75 18 127/81 97 05/04/19 00:01 36.9 C 78 16 108/87 91 Resident Activity Tracking Resident Involvement: Resident Care Provided Care Provided: Adult Hospital Medicine (1) Deep vein thrombosis (DVT) of both lower extremities Affected thrombotic vein of extremity: unspecified vein of extremity Chronicity: acute Qualified Code(s): I82.403 - Acute embolism and thrombosis of unspecified deep veins of lower extremity, bilateral
[2018-12-24] MEDS ORDERED: COUGH DROP (SUGAR FREE) LOZ 24 LOZ/1 BOX BUCCAL ONE (13:24)
[2018-12-24] MEDS ORDERED: BENZONATATE 100 MG CAPSULE PO PRN (14:32)
[2018-12-24] MEDS: BENZONATATE 100 MG CAPSULE PO PRN (16:37)
[2018-12-24] MEDS: GUAIFENESIN/CODEINE 200MG/20MG 10ML UDC PO PRN ×2 (16:37→22:21)
[2018-12-24] MEDS: Heparin Adult LOW DOSE Wt-Based Dextrose 5% 25,000 units/500 mL IV SCH (18:04)
[2018-12-24] MEDS: ACETAMINOPHEN W/CODEINE #3 1 TAB PO PRN (22:27)
--- NOTE | 2018-12-25 06:55 | Family Medicine Progress Note ---
Date of Service December 25, 2018 Assessment & Plan (1) Deep vein thrombosis (DVT) of both lower extremities: DVT and PE's 73 yo M with history of CAD s/p CASSANDRA to left distal circumflex, HTN, hyperlipidemia, and GERD, history of bladder cancer s/p radical cystoprostatectomy with lymphadenectomy. s/p Liver Bx 12/19 with pathology findings of metastatic disease presenting with reported bilateral DVT, MRI brain with multiple no-hemorrhagic infarcts * Per outside record: Doppler U/S bilateral LE: Acute non-occlusive DVT within bilateral popliteal and posterior tibial veins * Abnormal perfusion study nondiagnostic however pulmonary embolus likely * Likely secondary to hypercoagulable state due to widespread metastatic disease. * Transitioned to xarelto from heparin drip this morning. Xarelto has been shown to be an effective treatment for hypercoagulability and decrease all cause mortality in patients with cancer hypercoagulable state in CASSINI trial. Transitional cell bladder cancer: * s/p radical cystoprostatectomy with lymphadenectomy * Stage IV with mets to liver, lungs * Likely cause of hypercoagulable state History of multiple cerebrovascular accidents (CVAs): * recent multiple cerebellar/cerebral infarcts per outside records likely embolic in source * Most likely crossover from venous circulation due to septal defect. * Family reports intermittent symptomatology at home however currently asx, no focal neural signs * Consult neurology following recommendation * Head CT showing no new intracranial abnormalities Hypertension: *BP controlled *Continue Metoprolol Hyperlipidemia: * Continue statin GERD (gastroesophageal reflux disease): * Continue PPI Elevated troponin: * asx for chest pain ACS * likely secondary to demand ischemia -no ischemic findings on EKG -Troponins trended down CAD (coronary artery disease): -Resume Plavix -Continue BB, Statin FENa:Heart Healthy DVT PPX:Heparin Drip Dispo:Tele Supervising Physician Co-Signing Physician Notes I personally examined the patient and verified all woo points of history and exam, discussed case, and agree with decision making with Dr Canela. No headache no numbness no weakness. Does have a little bit of difficulty with memory. Cough seems to be better. Vitals noted, in general he is awake and alert pleasant no acute distress. HEENT normal cephalic atraumatic mucous membranes moist. Breathing is unlabored he is actually able to speak for quite a while before any coughing paroxysms.. Neuro shows no focal deficits. Diffuse embolic events Embolic subacute cerebrovascular events (subacute cerebral infarcts) Pulmonary emboli Bilateral lower extremity DVT -------------> appears related to his metastatic malignancy. See prior discussions of risks and benefits. Doing well on transition to Xarelto. If no signs or symptoms of bleeding or deterioration by tomorrow, likely safe to go home. AKIpresent on admission. Improved. Coughlikely relates to lung metastases as well as pulmonary infarct/pulmonary embolism. Continue cough suppressant care. Otherwise as above. Subjective Maicol Barajas is feeling well this morning, discussed medication change with him and he expressed his understanding and asked insightful questions about both his new medication and his prognosis with his cancer. Review of Systems Constitutional: no fever, no chills, no fatigue and no weakness Respiratory: + cough and + dyspnea on exertion; no dyspnea Cardiovascular: no chest pain, no chest pain at rest, no palpitations, no syncope and no edema Gastrointestinal: no abdominal pain, no nausea and no vomiting Neurologic: no localized weakness, no loss of sensation, no numbness, no radiating pain, no syncope, no headache(s) and no confusion Physical Exam Constitutional: well developed and well nourished; no acute distress and not ill appearing Eyes: PERRL, conjunctivae normal, anicteric sclerae ENMT: external ear and nose normal, oropharynx normal Neck: normal visual inspection Respiratory: normal respiratory effort and + cough Auscultation: + diminished lung sounds and + rhonchi Cardiovascular: RRR, no murmur, no edema Extremities: no calf tenderness Gastrointestinal (Abdomen): normal bowel sounds, soft, nontender, no hepatosplenomegaly Skin: no rashes, warm and dry Results & Data Vital Signs (Past 12 Hours) Vital Signs Temp Pulse Pulse Resp BP Pulse Ox 12/25/18 03:50 37.1 C 74 16 113/75 91 12/25/18 01:06 86 12/25/18 00:00 37.3 C 75 16 119/76 91 12/24/18 19:41 37.5 C 84 18 136/84 94 Resident Activity Tracking Resident Involvement: Resident Care Provided Care Provided: Adult Hospital Medicine (1) Deep vein thrombosis (DVT) of both lower extremities Affected thrombotic vein of extremity: unspecified vein of extremity Chronicity: acute Qualified Code(s): I82.403 - Acute embolism and thrombosis of unspecified deep veins of lower extremity, bilateral
[2018-12-25] MEDS: CLOPIDOGREL BISULFATE 75 MG TAB PO SCH (07:49)
[2018-12-25] MEDS: METOPROLOL SUCC 50MG EXT REL TAB PO SCH (07:49)
[2018-12-25] MEDS: RIVAROXABAN 15 MG TAB PO SCH ×2 (07:49→20:29)
[2018-12-25] MEDS: guaiFENesin 600 MG TABCR PO SCH ×2 (07:49→20:29)
[2018-12-25] MEDS: PANTOprazole 40 MG TAB PO SCH (07:49)
[2018-12-25] MEDS: ATORVASTATIN 40 MG TAB PO SCH (07:49)
[2018-12-25] MEDS: POLYETHYLENE (MIRALAX) 17 GM PACK PO SCH ×3 (07:50→20:31)
[2018-12-25] MEDS: GUAIFENESIN/CODEINE 200MG/20MG 10ML UDC PO PRN ×2 (08:00→20:29)
[2018-12-25] MEDS: DEXTROMETHORPHAN POLYMR COMPLX 30 MG/5 ML UDP PO PRN (13:19)
--- NOTE | 2018-12-25 17:36 | Discharge Summary ---
Date of Service December 25, 2018 Admission HPI Per Admitting Provider 73 yo M with history of CAD s/p CASSANDRA to left distal circumflex, HTN, hyperlipidemia, and GERD, history of bladder cancer s/p radical cystoprostatectomy with lymphadenectomy. Patient was in hospital for Liver Bx 12/19 , pathology findings of atypical cells. Patient presents today for bilateral leg pain. Patient reports he went to PCP ( Dr. Pat - [facility]) today complaining of pain in calf pain in both legs x 2-3 wks, without swelling or redness observed. His PCP ordered Doppler u/s was ordered of legs which was performed at [facility]. Doppler findings reportedly showed multiple DVT's bilaterally. CXR was ordered but results were no reported to patient. MRI brain was ordered to rule out bleeding, metastasis. Patient also reports cough x 6 weeks. He denies chest pain. He denies numbness weakness, tingling. He has no history of clots. HE is not on anticoagulation. He is a patient of Dr. Phillips. He is not on chemo therapy currently and has never had radiation. In the ED, patient arrived afebrile with vss, WBC CT 14.17, Cr 1.84, elevated alk phos 196. Per outside records, Doppler US findings include acute non- occlusive DVT within bilateral popliteal ans posterior tibial veins. MRI brains findings included multiple recent cerebral and cerebellae non-hemorrhagic infarcts. Admission Exam Per Admitting Provider GENERAL APPEARANCE: alert and cooperative, and appears to be in no acute distress. HEAD: normocephalic. EYES: PERRL, EOMI.vision is grossly intact. EARS: hearing grossly intact. NOSE: No nasal discharge. NECK: Neck supple, non-tender without lymphadenopathy CARDIAC: Normal S1 and S2. No S3, S4 or murmurs. Rhythm is regular LUNGS: coarse breath sounds bilaterally, no wheeze ABDOMEN: Positive bowel sounds. Soft, nondistended, nontender. No guarding or rebound. No masses. LOWER EXTREMITY: no edema, no erythema NEUROLOGICAL: CN II-XII intact grossly. moves extremities SKIN: Skin normal color, texture Principal Diagnosis Hyperkalemia Discharge Exam Constitutional well developed and well nourished; no acute distress and not ill appearing Eyes PERRL, conjunctivae normal, anicteric sclerae ENMT external ear and nose normal, oropharynx normal Neck normal visual inspection Respiratory normal respiratory effort and + cough Auscultation: + diminished lung sounds and + rhonchi Cardiovascular RRR, no murmur, no edema Extremities: no calf tenderness Gastrointestinal (Abdomen) normal bowel sounds, soft, nontender, no hepatosplenomegaly Skin no rashes, warm and dry Discharge Data Allergies Allergy/AdvReac Type Severity Reaction Status Date / Time No Known Allergies Allergy Unverified 12/21/18 19:59 Consultations 12/22/18 01:37 Consult Case Management - Discharge Planning Routine Consult Oncology Stat 12/22/18 16:01 Consult Neurology Routine Ordered Studies 12/22/18 14:41 CT chest wo con Routine 12/23/18 09:06 US carotid doppler BI Routine 12/24/18 10:00 CT head/brain wo con Routine Hospital Course (1) Deep vein thrombosis (DVT) of both lower extremities: DVT and PE's 73 yo M with history of CAD s/p CASSANDRA to left distal circumflex, HTN, hyperlipidemia, and GERD, history of bladder cancer s/p radical cystoprostatectomy with lymphadenectomy. s/p Liver Bx 12/19 with pathology findings of metastatic disease presenting with reported bilateral DVT, MRI brain with multiple nonhemorrhagic infarcts Subacute CVA * recent multiple cerebellar/cerebral infarcts on MRI per outside records likely embolic in source * Most likely crossover from venous circulation due to septal defect. * Family reports intermittent symptomatology at home however currently asx, no focal neural signs * Head CT showing no intracranial bleeding since anticoagulating * Neurology consulted. Continue anticoagulation. Acute PE/DVT * Per outside record: Doppler U/S bilateral LE: Acute non-occlusive DVT within bilateral popliteal and posterior tibial veins * Abnormal perfusion study nondiagnostic however pulmonary embolus likely * Likely secondary to hypercoagulable state due to widespread metastatic disease. * Started patient initially on heparin drip, was transitioned to xarelto from heparin drip 5/5 morning. Xarelto has been shown to be an effective treatment for hypercoagulability and decrease all cause mortality in patients with cancer hypercoagulable state in CASSINI trial. Started on 15 mg BID May transition to 20 mg once daily after 21 days. 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 Giordano in oncology to discuss treatment options. This is a life limiting disease but not an untreatable one Elevated troponin: * Troponin .325 on admission trended down. * asx for chest pain ACS * likely secondary to demand ischemia -no ischemic findings on EKG CAD (coronary artery disease): -Resume Plavix -Continue BB, Statin Hypertension: *BP controlled *Continue Metoprolol Hyperlipidemia: * Continue statin GERD (gastroesophageal reflux disease): * Continue PPI Total Time Total Time Spent Total Time Spent (In Minutes): 45 Total Time Includes: Examination of the Patient, Discharge Planning and Medication Reconciliation Discharge Plan Discharge Items Patient Disposition: Home - Self-Care Reason For Visit: DVT Discharge Diagnosis: Metastatic Urothelial cancer, DVT, PE Discharge Goals: Decrease discomfort, Improve function, Prevent disease and Therapeutic intervention Activity: Resume your previous activity Non-emergency contact: Primary Care Provider and Oncologist Call non-emergency contact if: you have any medication questions and your symptoms worsen Follow-up/Referrals: Yogesh Pat PA-C [Primary Care Provider] - Diet: Regular and Heart Healthy Addtl Provider Instructions: Mr. Barajas, it has been our pleasure to meet you and be a part of your care here at [facility]. We have evaluated and treated you for your deep vein thromboses (Blood clots in your legs), Pulmonary Emboli (Blood clots that broke free and lodged in the blood vessels of your lungs), numerous small strokes (likely also from clot burden), and metastatic urothelial cancer. After discussion of the pros and cons of your case with our team and with you we decided to move forward with treating your clots with anticoagulation. Your cancer causes your blood to be hypercoagulable "thicker" which predisposes you to these clots, our treatment for Deep vein thrombosis and Pulmonary embolism is typically anticoagulant medication. Anticoagulants can increase your risk of bleeding as they make the blood "thinner". In your case your cancer and the small areas of ischemic stroke we found in your brain unfortunately also makes you a higher bleeding risk than the general population. We started you on a heparin drip and then transitioned you to Xarelto for anticoagulation and montiored you for any signs of bleeding. You have not showed us any signs both clinically and with a head CT, so we feel it is safe for you to return home on this new medication with timely outpatient follow up with oncology and your primary care provider. New Medications XARELTO (RIVAROXABAN) Blood thinner 15 mg to be taken twice per day with food Tylenol #3 (Acetaminophen with codeine) 1 tab to be taken prn for coughing Prescriptions: New acetaminophen-codeine 300-30 mg Tablet 1 tab PO Q4H PRN (Reason: cough) 14 Days Qty: 28 RF: 0 Xarelto 15 mg Tablet 15 mg PO BID 21 Days Qty: 42 RF: 0 Continued atorvastatin 80 mg Tablet 80 mg PO QAM Qty: 0 RF: 0 metoprolol succinate 50 mg Tablet Extended Release 24 Hr 50 mg PO QAM Qty: 30 RF: 0 nitroglycerin 0.4 mg Tablet, Sublingual 0.4 mg sublingual DIRECTED Qty: 0 RF: 0 omeprazole 20 mg Capsule,Delayed Release(Dr/Ec) 20 mg PO QAM Qty: 0 RF: 0 triazolam 0.25 mg Tablet 0.25 mg PO HS Qty: 0 RF: 0 clopidogrel 75 mg Tablet 75 mg PO QAM Qty: 0 RF: 0 Tylenol Cold and Flu Severe [id number] mg Tablet 2 tab PO QID PRN (Reason: Cough) RF: 0 Stand-Alone Forms: Schmoozer/Other Patient Handouts: Prediabetes, Diabetes Meal Planning Discharge Orders: Discharge Order (Routine); Ordered 12/26/18 Ordered By: Vernon Canela Admission Data Admit Date/Time: 12/21/18 23:48 Attending Provider: Fany Milan Admit Provider: Shaun Chi Primary Care Provider: Yogesh Pat Other Providers: Gigi Giordano ; Penny Jimenez ; Shaun Chi ; Tyler Casanova Service: Telemetry Other Interventions: Discharge Summary Assessment (RN) Last Done: 12/26/18 10:33 DC Date/Time DO NOT enter until pt leaves facility: 12/26/18 13:32 Supervising Physician Co-Signing Physician Notes Resident Physician Supervision Note: I independently interviewed and examined the patient and verified the woo history and physical, reviewed labs and image studies, discussed the case with the resident Dr. Canela and agree with the findings and care plan. Time spent in discharge 35 min Resident Activity Tracking Resident Involvement: Resident Care Provided Care Provided: Adult Hospital Medicine
[2018-12-25] MEDS: ACETAMINOPHEN W/CODEINE #3 1 TAB PO PRN (20:28)
[2018-12-26] MEDS: METOPROLOL SUCC 50MG EXT REL TAB PO SCH (07:33)
[2018-12-26] MEDS: guaiFENesin 600 MG TABCR PO SCH (07:33)
[2018-12-26] MEDS: CLOPIDOGREL BISULFATE 75 MG TAB PO SCH (07:34)
[2018-12-26] MEDS: PANTOprazole 40 MG TAB PO SCH (07:34)
[2018-12-26] MEDS: ATORVASTATIN 40 MG TAB PO SCH (07:34)
[2018-12-26] MEDS: RIVAROXABAN 15 MG TAB PO SCH (07:35)
[2018-12-26] MEDS: POLYETHYLENE (MIRALAX) 17 GM PACK PO SCH (07:37)
== END 2018-12-26 13:32 | disposition home or self-care (01) | DRG 299 ==
LOC: ED 19:16 → SUATTDRO 23:48 → 2S 23:48

== ENCOUNTER 2019-03-31 16:34 | Inpatient (IN) ==
--- NOTE | 2019-03-31 16:59 | XRay Report ---
SINGLE VIEW CHEST CLINICAL HISTORY: Atypical chest pain. FINDINGS: An AP, portable, upright chest radiograph is compared to study dated 08/22/2017 and correla oscar with chest CT dated 03/31/2019. The examination is degraded by portable technique and patient rotat ion. The heart is top normal for projection. The pulmonary vasculature is noncongested. The right up per lobe pulmonary lesion is unchanged and measures approximately 3 cm. No airspace consolidation or large pleural effusion is identified. No pneumothorax is seen. The skeletal structures are osteopenic . The bony thorax is grossly intact. IMPRESSION: 1. There is no airspace consolidation or pleural effusion. 2. An approximately 3 cm right upper lobe pulmonary lesion is again noted. This was better characteri zed on today's chest CT. Electronically signed by: Conrad Bucio M.D. 03/31/2019 4:58 PM
[2019-03-31 17:15] LABS: Basophils # (auto) 0.02 K/uL (0-0.2); Basophils % (auto) 0.3 %; Eosinophils # (auto) 0.08 K/uL (0-0.5); Eosinophils % (auto) 1.1 %; Hematocrit (blood only) 33.6 % (42-52); Hemoglobin 10.6 g/dL (14.0-18.0); Immature Granulocytes # (auto) 0.02 K/uL (0.00-0.02); Immature Granulocytes % (auto) 0.3 %; Lymphocytes # (auto) 0.53 K/uL (1.2-3.4); Lymphocytes % (auto) 7.5 %; Mean Corpuscular Hgb Conc 31.5 g/dL (32-36); Mean Corpuscular Volume 78.9 fL (80-100); Monocytes # (auto) 0.68 K/uL (0.11-0.59); Monocytes % (auto) 9.7 %; Neutrophils % (auto) 81.1 %; Platelet Count 311 K/uL (130-400); RDW Coefficient of Variation 16.5 % (11.5-14.5); RDW Standard Deviation 47.8 fL (36.4-46.3); Red Blood Count 4.26 M/uL (4.7-6.1); White Blood Count 7.03 K/uL (4.8-10.8)
[2019-03-31 17:31] LABS: Alanine Aminotransferase 35 U/L (12-78); Albumin Level 3.1 gm/dl (3.4-5.0); Aspartate Aminotransferase 21 U/L (15-37); BUN Creatinine Ratio 12.8 (10-20); Blood Urea Nitrogen 15 mg/dl (7-18); Calcium 8.6 mg/dl (8.5-10.1); Carbon Dioxide 26 mmol/L (21-32); Chloride 100 mmol/L (98-107); Creatinine Clr Calc Pharmacy 60.4 ml/min; Est GFR (Non-African American) 62.1; Glucose 86 mg/dl (70-99); Potassium 3.9 mmol/L (3.5-5.1); Sodium 135 mmol/L (136-145)
[2019-03-31 17:36] LABS: Albumin Globulin Ratio 0.7 (0.9-2); Alkaline Phosphatase 200 U/L (45-117); Bilirubin,Total 0.3 mg/dl (0.2-1); Globulin 4.3 gm/dl (2.5-4.0); Total Protein 7.4 gm/dl (6.4-8.2); Troponin I < 0.015 ng/ml (0-0.045)
[2019-03-31] MEDS ORDERED: HEPARIN SODIUM/DEXTROSE 25,000 UNITS/500 ML BAG IV SCH (17:45)
[2019-03-31] MEDS ORDERED: Heparin BOLUS **ED Use Only IV STA (18:03)
[2019-03-31] MEDS ORDERED: ALUMINUM/MAGNESIUM SUSP 30 ML UDC PO PRN (18:42)
[2019-03-31] MEDS ORDERED: ZOLPIDEM TARTRATE 5 MG TAB PO PRN (18:42)
[2019-03-31] MEDS ORDERED: MAGNESIUM HYDROXIDE SUSP 30 ML UDC PO PRN (18:42)
[2019-03-31] MEDS ORDERED: ACETAMINOPHEN 325 MG TAB PO PRN (18:42)
[2019-03-31] MEDS ORDERED: POLYETHYLENE (MIRALAX) 17 GM PACK PO PRN (18:42)
[2019-03-31] MEDS ORDERED: NITROGLYCERIN SL 0.4 MG/TAB TAB SL PRN (20:43)
[2019-03-31] MEDS ORDERED: LORazepam 0.5 MG TAB PO PRN (20:43)
--- NOTE | 2019-03-31 21:49 | History & Physical Report ---
Date of Service March 31, 2019 Assessment & Plan (1) Bilateral pulmonary embolism: Admit to PCU on telemetry -Vital signs every 4 hours -Continue heparin bolus and heparin drip that was started in the ER -CBC CMP PTT daily-monitor -DVT prophylaxis patient is on heparin drip -Full code -Placed consult for Dr. Giordano hematology oncology in regards of future anticoagulation. Present on Admission?: Yes (2) Anemia: Iron study ordered Appears to be mixed anemia Started iron and vitamin C. Present on Admission?: Yes (3) CAD (coronary artery disease): (4) GERD (gastroesophageal reflux disease): Stable continue home medicine metoprolol succinate 50 mg p.o. every morning. Present on Admission?: Yes (5) Malignant neoplasm metastatic from bladder: Follow-up with oncology Present on Admission?: Yes (6) Hypertension: Continue metoprolol succinate 50 mg p.o. every morning and clopidogrel 75 mg p.o. every morning. Present on Admission?: Yes (7) Hyperlipidemia: Stable continue atorvastatin 80 mg p.o. every morning Present on Admission?: Yes (8) GERD (gastroesophageal reflux disease): Continue pantoprazole 40 mg p.o. daily Present on Admission?: Yes History of Present Illness Chief Complaint: Pulmonary embolism Primary Care Provider: Yogesh Pat 73 years old male with past medical history of malignant neoplasm metastatic from bladder from transitional cell carcinoma of the bladder, hypertension, hyperlipidemia, coronary artery disease, prior myocardial infarction, GERD, was sent to the emergency room after it was found on the CT scan of the chest abdomen and pelvis with IV contrast that patient has bilateral pulmonary embolism. Patient has also overall progression of multifocal metastatic disease as compared to the prior exam. Patient has enlarged left supraclavicular node which is decreased size from previous. Patient has a right upper lobe pulmonary metastasis that was not seen and made second 2018. Fall call of subpleural consolidation in the lower lobes likely represent pulmonary infarct. There has been market progression of multifocal hepatic metastatic disease as compared to November 09, 2018. Upper abdominal ismael metastatic disease and a left adrenal metastases are now are new in comparison to 11/09/2018. Mixed lytic blastic lesion in the left ilium is new from the previous and consistent with bony metastatic disease. Patient denies fever chills chest pain shortness of breath abdominal pain frequency or urgency. Patient is above 92% on 2 L. Patient reports that he is on Lovenox 80 mg twice daily subacute. Patient reports being diligent of giving himself Lovenox injection and that he did not miss any of those. Labs were reviewed and white blood cell is 7.03, hemoglobin 10.6, hematocrit 33.6, platelets 311, PTT pending, sodium 135, potassium 3.9 chloride 100 BUN 15 creatinine 1.16 GFR 60.4 alkaline phosphatase 200, albumin 3.1. EKG shows sinus rhythm with premature atrial complexes there is no ST segment elevation or depression. Ventricular rate of 60 bpm. The case was discussed and patient is admitted to the hospital for anticoagulation. Patient was started on heparin bolus and heparin drip in the ER. The case was discussed with Dr.Jean Mcduffie who recommended to contact hematology oncology for further recommendation in regards of Lovenox treatment. Allergies Allergy/AdvReac Type Severity Reaction Status Date / Time No Known Allergies Allergy Unverified 03/31/19 18:05 Home Medications Home Medications Medication Instructions Recorded Confirmed Type atorvastatin 80 mg PO QAM #0 tab 03/08/17 03/31/19 History metoprolol succinate 50 mg PO QAM #30 tab 03/08/17 03/31/19 History nitroglycerin 0.4 mg SUBLINGUAL DIRECTED PRN 03/08/17 03/31/19 History #0 btl omeprazole 20 mg PO DAILY #0 cap 03/08/17 03/31/19 History triazolam 0.25 mg PO HS PRN #0 tab 07/21/17 03/31/19 History clopidogrel 75 mg PO QAM #0 tab 07/28/17 03/31/19 History enoxaparin 80 mg SUBCUT BID 03/31/19 03/31/19 History pantoprazole 40 mg PO DAILY 03/31/19 03/31/19 History Past Med/Surg History Medical History Hypertension (Chronic) Hyperlipidemia (Chronic) Myocardial infarction (Resolved) Bladder cancer (Acute) High cholesterol (Acute) Myocardial infarction (Acute) Surgical History H/O total cystectomy (Resolved) H/O cystoscopy (Acute) h/o bladder cancer H/O heart artery stent (Acute) H/O total cystectomy (Acute) History of urostomy (Acute) Social History Preferred Language: Hebrew Communication Ability: Effective 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 Beliefs That Will Affect Care: None marital status: Single Current Living Situation: Alone Other Information That Helps Us Care for You: No Feels Safe at Home: Yes Safety Concerns: Feels Safe At This Time Smoking Status: Former smoker Second Hand Exposure: No ; Hx Alcohol Use: No Hx Substance Use: No Review of Systems Review of Systems: All systems reviewed & are unremarkable except as noted in HPI & below Physical Exam Constitutional: WD/WN, vitals as above well developed and + frail appearing Eyes: PERRL, conjunctivae normal, anicteric sclerae ENMT: external ear and nose normal, oropharynx normal Neck: trachea midline, no thyromegaly Respiratory: normal respiratory effort, lungs clear to auscultation Auscultation: + wheezes Cardiovascular: RRR, no murmur, no edema Chest (Breasts): normal inspection/palpation of breasts Musculoskeletal: no cyanosis or clubbing, extremities motor strength 5/5 Skin: no rashes, warm and dry Neurologic: patellar DTR's 2+ bilat, sensation intact Psychiatric: A+Ox3, euthymic affect Genitourinary: no testicular masses, no penis abnormality Lymphatic: no cervical or axillary lymphadenopathy Results & Data Vital Signs (Past 12 Hours) Vital Signs Temp Pulse Pulse Resp BP BP Pulse Ox 03/31/19 20:25 37 C 73 18 167/114 H 100 03/31/19 19:35 55 L 16 173/88 H 97 03/31/19 19:00 60 22 91 03/31/19 18:30 62 16 03/31/19 18:12 75 16 155/98 H 99 03/31/19 18:00 59 L 22 155/98 H 96 03/31/19 17:55 95 03/31/19 16:58 99 03/31/19 16:36 36.9 C 70 18 174/99 H 98 Code Status & VTE Plan Code Status Full code VTE Prophylaxis Plan VTE Prophylaxis will be ordered: Yes PG Care Time/CCT Total # of Minutes Spent Total Time Spent with Patient: Total time spent is greater than 50% in coordination of care (as documented) at patient's floor/unit and/or counseling patient: (1) Anemia Anemia type: unspecified type Qualified Code(s): D64.9 - Anemia, unspecified
[2019-03-31] MEDS: METOPROLOL SUCC 50MG EXT REL TAB PO SCH (21:54)
[2019-03-31] MEDS: ATORVASTATIN 40 MG TAB PO SCH (21:54)
[2019-03-31] MEDS: PANTOprazole 40 MG TAB PO SCH (21:54)
--- NOTE | 2019-03-31 22:21 | Emergency Department Note ---
Entered by Sanchez Smith acting as a scribe for Tyler Hall DO History of Present Illness General Chief complaint: Referred by Doctor Stated complaint: Referred by Doctor Source: patient History of Present Illness Onset (ago): hour(s) (earlier today) Location: chest (abnormal test results) Pain Consistency: + other (episode) Maximum Pain Intensity: 0 Relieved By: + none Associated symptoms: + denies other symptoms (blood in urine, blood in bowel movements); no chest pain, no cough and no shortness of breath The patient is a 73 year-old white M w/ PMHx of CAD, bilateral PEs with pulmonary infarct, GERD, HTN, HLD, and hematuria who presents to the ED w/ CC of an episode of abnormal test results beginning occurred earlier today. The patient states that he was referred to the ED by his doctor after bilateral pulmonary embolisms were discovered in his lungs on a CT scan. He denies that he is currently experiencing chest pain, shortness of breath, coughing, blood in urine, and blood in bowel movements. He also denies any recent surgery. He notes that he had infection in his abdomen 6 months ago. He adds that he regularly get Lovenox shots. He states that he has a urostomy in place. Home Medications Home Medications Medication Instructions Recorded Confirmed Type atorvastatin 80 mg PO QAM #0 tab 03/08/17 03/31/19 History metoprolol succinate 50 mg PO QAM #30 tab 03/08/17 03/31/19 History nitroglycerin 0.4 mg SUBLINGUAL DIRECTED PRN 03/08/17 03/31/19 History #0 btl omeprazole 20 mg PO DAILY #0 cap 03/08/17 03/31/19 History triazolam 0.25 mg PO HS PRN #0 tab 07/21/17 03/31/19 History clopidogrel 75 mg PO QAM #0 tab 07/28/17 03/31/19 History enoxaparin 80 mg SUBCUT BID 03/31/19 03/31/19 History pantoprazole 40 mg PO DAILY 03/31/19 03/31/19 History Allergies Allergy/AdvReac Type Severity Reaction Status Date / Time No Known Allergies Allergy Unverified 03/31/19 18:05 Past Med/Surg History Medical History Hypertension (Chronic) Hyperlipidemia (Chronic) Myocardial infarction (Resolved) Bladder cancer (Acute) High cholesterol (Acute) Myocardial infarction (Acute) Surgical History H/O total cystectomy (Resolved) H/O cystoscopy (Acute) h/o bladder cancer H/O heart artery stent (Acute) H/O total cystectomy (Acute) History of urostomy (Acute) Social History Preferred Language: Mozambican Communication Ability: Effective Undercover Agent Required: No Beliefs That Will Affect Care: None marital status: Single Current Living Situation: Alone Other Information That Helps Us Care for You: No Feels Safe at Home: Yes Safety Concerns: Feels Safe At This Time Smoking Status: Former smoker Second Hand Exposure: No ; Hx Alcohol Use: No Hx Substance Use: No Review of Systems See HPI for pertinent positives & negatives. and A total of 10 systems reviewed and were otherwise negative Physical Exam Vital Signs Vital Signs - 24 hr 03/31/19 16:36 03/31/19 16:58 03/31/19 17:55 Temperature 36.9 C Temperature Source Oral Sepsis Recent Fever Within 48 Hours No Sepsis New/Unexplained Change in Mental Status No Sepsis Action Taken by Nursing No Action Required Pulse Oximetry Post Tiitration 99 Pulse Rate 70 Pulse Rate [Finger] Pulse Rate from SpO2 Sensor 61 Respiratory Rate 18 Respiratory Effort / Characteristics Respiratory Depth Normal Blood Pressure 174/99 H Blood Pressure [Right Arm] Blood Pressure Mean 124 Blood Pressure Mean [Right Arm] Blood Pressure Position Sitting Pulse Oximetry 98 99 95 Oxygen Delivery Method Room Air Room Air 03/31/19 18:00 03/31/19 18:12 03/31/19 18:30 Temperature Temperature Source Sepsis Recent Fever Within 48 Hours Sepsis New/Unexplained Change in Mental Status Sepsis Action Taken by Nursing Pulse Oximetry Post Tiitration Pulse Rate 59 L 62 Pulse Rate [Finger] 75 Pulse Rate from SpO2 Sensor 59 L Respiratory Rate 22 16 16 Respiratory Effort / Characteristics Non-Labored Respiratory Depth Normal Blood Pressure 155/98 H Blood Pressure [Right Arm] 155/98 H Blood Pressure Mean 117 Blood Pressure Mean [Right Arm] 117 Blood Pressure Position Pulse Oximetry 96 99 Oxygen Delivery Method Room Air GENERAL: alert, well nourished, no distress, non-toxic. Sitting up in bed, talking in full sentences, wearing hospital gown. EYE EXAM: normal conjunctiva, PERRL and EOM's grossly intact OROPHARYNX: no exudate, no erythema, lips, buccal mucosa, and tongue normal and mucous membranes are moist NECK: supple, no nuchal rigidity, no adenopathy, non-tender LUNGS: Clear to auscultation. Normal chest wall mechanics HEART: no murmurs, S1 normal and S2 normal ABDOMEN: abdomen soft, non-tender, normo-active bowel sounds, no masses, no rebound or guarding. Urostomy in right lower quadrant, with clear yellow urine. BACK: Back is symmetrical on inspection and there is no deformity, no midline tenderness, no CVA tenderness. SKIN: no rashes and no bruising UPPER EXTREMITIES: upper extremities are grossly normal. LOWER EXTREMITIES: No pitting edema. NEURO EXAM: Normal sensorium, cranial nerves II-XII grossly intact, normal speech, no gross weakness of arms, no gross weakness of legs. Course ED COURSE: Vital signs were reviewed and showed hypertension and bradycardia. The patients medical record was reviewed The above diagnostic studies were performed and reviewed. ED treatments and interventions as stated above. 1647: The patient was evaluated in room B7. A complete history and physical examination was performed. 1750: I reviewed the patient's case with Diego Rodriguez. He will evaluate the patient for further management. 175: Upon reevaluation, the patient is not doing any better. I discussed my findings with the patient and he understands and agrees with the treatment plan. Based on the patients age, coexisting illnesses, exam and lab findings the decision to treat as an inpatient was made. The patient remained stable while under my care. The patient will be evaluated for further management. Consultations Consultation #1: I reviewed the patient's case with Diego Rodriguez. He will evaluate the patient for further management. Time: 17:50 Administered Medications [facility]vastatin [facility] ([facility]) [facility] [place] [place]: 04/30/19 20:42 Last Admin: 03/31/19 21:54 Dose: 80 mg Documented by: [id number] Heparin Sodium/Dextrose (Heparin Sodium/Dextrose) 25,000 units in 500 mls @ 27 mls/hr IV .[id number] [facility]; Protocol Stop: 04/30/19 17:44 Last Admin: 03/31/19 18:14 Dose: 1,350 units/hr, 27 mls/hr Documented by: [id number] Cosigned by: [id number] Metoprolol Succinate (Toprol Xl) 50 mg PO QAM PED[facility]ITO Stop: 04/30/19 20:42 Last Admin: 03/31/19 21:54 Dose: 50 mg Documented by: [id number] Pantoprazole Sodium (Protonix) 40 mg PO DAILY PEDRITO Stop: 04/30/19 20:42 Last Admin: 03/31/19 21:54 Dose: 40 mg Documented by: [id number] Discontinued Medications Heparin Sodium (Porcine) (Heparin Iv Bolus) 5,000 units IV NOW STA Stop: 03/31/19 18:04 Last Admin: 03/31/19 18:14 Dose: 5,000 units Documented by: [id number] Cosigned by: [id number] Heparin Sodium/Dextrose () 1 ea IV NOW STA; Protocol Stop: 03/31/19 17:33 Last Admin: 03/31/19 18:19 Dose: Not Given Documented by: [id number] Medical Decision Making Differential Diagnosis Differential diagnoses includes but is not limited to pneumonia, bronchitis, COPD/Asthma exacerbation, pneumothorax, pulmonary embolism, congestive heart failure, acute coronary syndrome Medical Records Attestation: I reviewed the patient's medical records. Home Medications Current Medication List: was personally reviewed by me Laboratory Data Attestation: I reviewed the patient's lab results. Result diagrams: 03/31/19 17:05 03/31/19 17:05 Lab Results 03/31/19 03/31/19 Range/Units 17:05 17:05 WBC 7.03 (4.8-10.8) K/uL RBC 4.26 L (4.7-6.1) M/uL Hgb 10.6 L (14.0-18.0) g/dL Hct 33.6 L (42-52) % MCV 78.9 L (80-100) fL MCH 24.9 L (25-34) pg MCHC 31.5 L (32-36) g/dL RDW Std Deviation 47.8 H (36.4-46.3) fL RDW Coeff of Jennifer 16.5 H (11.5-14.5) % Plt Count 311 (130-400) K/uL MPV 9.0 (7.4-10.4) fL Immature Gran % (Auto) 0.3 % Neut % (Auto) 81.1 % Lymph % (Auto) 7.5 % [place] % (Auto) 9.7 % Eos % (Auto) 1.1 % Baso % (Auto) 0.3 % Immature Gran # (Auto) 0.02 (0.00-0.02) K/uL Neut # (Auto) 5.70 (1.4-6.5) K/uL Lymph # (Auto) 0.53 L (1.2-3.4) K/uL [place] # (Auto) 0.68 H (0.11-0.59) K/uL Eos # (Auto) 0.08 (0-0.5) K/uL Baso # (Auto) 0.02 (0-0.2) K/uL Sodium 135 L (136-145) mmol/L Potassium 3.9 (3.5-5.1) mmol/L Chloride 100 (98-107) mmol/L Carbon Dioxide 26 (21-32) mmol/L Anion Gap 9.0 (3-11) BUN 15 (7-18) mg/dl Creatinine 1.16 (0.6-1.4) mg/dl Est Cr Clr Drug Dosing 60.4 ml/min Est GFR ( Amer) 72.0 Est GFR (Non-Af Amer) 62.1 BUN/Creatinine Ratio 12.8 (10-20) Glucose 86 (70-99) mg/dl Calcium 8.6 (8.5-10.1) mg/dl Total Bilirubin 0.3 (0.2-1) mg/dl AST 21 (15-37) U/L ALT 35 (12-78) U/L Alkaline Phosphatase 200 H (45-117) U/L Troponin I < 0.015 (0-0.045) ng/ml Total Protein 7.4 (6.4-8.2) gm/dl Albumin 3.1 L (3.4-5.0) gm/dl Globulin 4.3 H (2.5-4.0) gm/dl Albumin/Globulin Ratio 0.7 L (0.9-2) Lipase 102 (73-393) U/L Imaging Data Radiologist's Impression: Radiology results as stated below per my review and the radiologist's interpretation: SINGLE VIEW CHEST CLINICAL HISTORY: Atypical chest pain. FINDINGS: An AP, portable, upright chest radiograph is compared to study dated 08/22/2017 and correlated with chest CT dated 03/31/2019. The examination is degraded by portable technique and patient rotation. The heart is top normal for projection. The pulmonary vasculature is noncongested. The right upper lobe pulmonary lesion is unchanged and measures approximately 3 cm. No airspace consolidation or large pleural effusion is identified. No pneumothorax is seen. The skeletal structures are osteopenic. The bony thorax is grossly intact. IMPRESSION: 1. There is no airspace consolidation or pleural effusion. 2. An approximately 3 cm right upper lobe pulmonary lesion is again noted. This was better characterized on today's chest CT. Electronically signed by: Conrad Bucio M.D. 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 He does take Lovenox injections twice a day. IV was established blood work was obtained and showed a mild anemia. No significant leukocytosis. BMP along with LFTs bilirubin and troponin was unremarkable. Lipase is unremarkable as well. IV was established and patient was given a bolus and placed on a drip of heparin as he likely failed Lovenox as he has PEs while on Lovenox. EKG was nondiagnostic. He was updated bedside. He had no bleeding risk factors. Patient was discussed with the hospitalist was admitted for further work-up of his bilateral PEs while on Lovenox. Impression & Plan Bilateral pulmonary embolism, Anemia, Anticoagulant adverse reaction Critical Care Time Critical Care Time: Yes I have personally spent 35 minutes of critical care time in the direct management of this patient. This includes bedside care, interpretation of diagnostic studies, and testing, discussion with consultants, patient, and family members, and other required patient management activities. This 35 minutes is in excess of all separately billable procedures. Discharge Plan Visit Data *Final* Discharge Date/Time: 03/31/19 19:35 Chief Complaint: Referred by Doctor Stated Complaint: Referred by Doctor ED Provider: Tyler Hall Discharge Problem: Bilateral pulmonary embolism, Anemia, Anticoagulant adverse reaction Patient Disposition: Admitted As Inpatient Discharge Instructions Interventions: ED Discharge Assessment Last Done: 03/31/19 19:35 Discharge Problem: Anemia Qualifiers: Anemia type: unspecified type Qualified Code(s): D64.9 - Anemia, unspecified Anticoagulant adverse reaction Qualifiers: Encounter type: initial encounter Qualified Code(s): T45.515A - Adverse effect of anticoagulants, initial encounter The scribe's documentation has been prepared under my direction and personally reviewed by me in its entirety. I confirm that the note above accurately reflects all work, treatment, procedures, and medical decision making performed by me.
[2019-04-01 00:54] LABS: Partial Thromboplastin Ratio 2.3
[2019-04-01 00:58] LABS: Partial Thromboplastin Time 62.9 Seconds (21.0-31.0)
[2019-04-01 05:57] LABS: Basophils # (auto) 0.03 K/uL (0-0.2); Basophils % (auto) 0.5 %; Eosinophils # (auto) 0.11 K/uL (0-0.5); Eosinophils % (auto) 1.7 %; Hematocrit (blood only) 35.8 % (42-52); Hemoglobin 11.5 g/dL (14.0-18.0); Immature Granulocytes # (auto) 0.02 K/uL (0.00-0.02); Immature Granulocytes % (auto) 0.3 %; Lymphocytes % (auto) 7.8 %; Mean Corpuscular Hgb Conc 32.1 g/dL (32-36); Mean Platelet Volume 9.5 fL (7.4-10.4); Monocytes # (auto) 0.69 K/uL (0.11-0.59); Monocytes % (auto) 10.7 %; Neutrophils # (auto) 5.09 K/uL (1.4-6.5); Platelet Count 320 K/uL (130-400); RDW Coefficient of Variation 16.5 % (11.5-14.5); RDW Standard Deviation 46.7 fL (36.4-46.3); Red Blood Count 4.59 M/uL (4.7-6.1); Reticulocytes # 0.05 10^6/uL (0.02-0.10); White Blood Count 6.44 K/uL (4.8-10.8)
[2019-04-01 06:31] LABS: Albumin Level 2.9 gm/dl (3.4-5.0); BUN Creatinine Ratio 11.2 (10-20); Calcium 8.6 mg/dl (8.5-10.1); Creatinine Clr Calc Pharmacy 64.9 ml/min; Est GFR (African American) 78.5; Est GFR (Non-African American) 67.7; Potassium 3.7 mmol/L (3.5-5.1)
[2019-04-01 06:34] LABS: Partial Thromboplastin Ratio 2.2
[2019-04-01 06:39] LABS: Albumin Globulin Ratio 0.7 (0.9-2); Bilirubin,Total 0.4 mg/dl (0.2-1); Globulin 3.9 gm/dl (2.5-4.0); Total Protein 6.8 gm/dl (6.4-8.2)
[2019-04-01] MEDS: PANTOprazole 40 MG TAB PO SCH (07:37)
[2019-04-01] MEDS: METOPROLOL SUCC 50MG EXT REL TAB PO SCH (07:38)
[2019-04-01] MEDS: ATORVASTATIN 40 MG TAB PO SCH (07:38)
[2019-04-01] MEDS ORDERED: CLOPIDOGREL BISULFATE 75 MG TAB PO SCH (09:00)
[2019-04-01] MEDS ORDERED: FERROUS FUMARATE/ASCORBIC ACID 65 MG CAPCR PO SCH (09:00)
--- NOTE | 2019-04-01 11:29 | Oncology Consultation ---
Date of Consultation April 01, 2019 Assessment & Plan (1) Bilateral pulmonary embolism: Mr. Barajas was found to have bilateral PEs with pulmonary infarcts back in December on a CT at [facility]. However, those findings had not been described on a CT from our facility. I reviewed the images with Dr. Bucio. He felt that many of the changes could be consistent with subacute to chronic clot, though he could not entirely exclude the possibility of acute thrombus. Mr. Barajas is entirely asymptomatic. Furthermore, he has been compliant with his Lovenox and is using it correctly. Lovenox failures are relatively rare, particularly when dosed appropriately in patients who are not morbidly obese. Overall, I think we are seeing changes consistent with his prior thrombosis rather than a new PE. I will have my staff reach out to [place] to track down the report and images from his scan there, just to confirm that these clots are chronic. Mr. Barajas would like to go home. I am comfortable with this, given his lack of symptoms, hypoxia, tachycardia, or other clinical signs of acute PE. However, I asked him to call ERICK if he does develop any of these symptoms or if he clinically deteriorates in any other way. I have an appointment with him on Wednesday and will reassess his symptoms at that time. Present on Admission?: Yes (2) Malignant neoplasm metastatic from bladder: His disease appears somewhat progressive in the liver on the scans from yesterday. However, the liver findings are compared to a scan from October, 6 weeks or more prior to the start of treatment. He is doing well clinically and I wonder if this truly represents progression. I will have a more careful look at his scans on Wednesday, hopefully along with the images from [facility], which may prove helpful in this regard. Present on Admission?: Yes History of Present Illness Reason for Consultation: Pulmonary embolism Attending Physician: Sotero Ventura MD History of Present Illness Mr. Tate is my patient. He has a history of metastatic urothelial cancer and recently started pembrolizumab. He presented yesterday for his first interval restaging scan. I was called urgently by radiology late in the day because the scans showed bilateral pulmonary emboli. As a result, I had my staff refer him to the ER. However, Mr. Barajas was and remains entirely asymptomatic. In fact, he feels great. He was out washing his car all morning yesterday. Since starting Keytruda, his energy has improved, as has his quality of life. He denies any cough, shortness of breath, hemoptysis, palpitations, chest pain, or RODRIGUEZ. He has been using his Lovenox as directed BID. He uses the entire dose and has not missed any doses. Of note, he is on Lovenox for a DVT diagnosed in December. During that evaluation, he had a clinical diagnosis of a PE, based on symptoms and an indeterminate V/Q scan. He had a repeat CT at [facility] 12/27 that confirmed bilateral PEs with pulmonary infarcts. Allergies Allergy/AdvReac Type Severity Reaction Status Date / Time No Known Allergies Allergy Unverified 03/31/19 18:05 Home Medications Home Medications Medication Instructions Recorded Confirmed Type atorvastatin 80 mg PO QAM #0 tab 03/08/17 03/31/19 History metoprolol succinate 50 mg PO QAM #30 tab 03/08/17 03/31/19 History nitroglycerin 0.4 mg SUBLINGUAL DIRECTED PRN 03/08/17 03/31/19 History #0 btl omeprazole 20 mg PO DAILY #0 cap 03/08/17 03/31/19 History triazolam 0.25 mg PO HS PRN #0 tab 07/21/17 03/31/19 History clopidogrel 75 mg PO QAM #0 tab 07/28/17 03/31/19 History enoxaparin 80 mg SUBCUT BID 03/31/19 03/31/19 History pantoprazole 40 mg PO DAILY 03/31/19 03/31/19 History Patient History Medical History Hypertension (Chronic) Hyperlipidemia (Chronic) Myocardial infarction (Resolved) Bladder cancer (Acute) High cholesterol (Acute) Myocardial infarction (Acute) Surgical History H/O total cystectomy (Resolved) H/O cystoscopy (Acute) h/o bladder cancer H/O heart artery stent (Acute) H/O total cystectomy (Acute) History of urostomy (Acute) Social History Preferred Language: Zimbabwean Communication Ability: Effective 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 Beliefs That Will Affect Care: None marital status: Single Current Living Situation: Alone Other Information That Helps Us Care for You: No Feels Safe at Home: Yes Safety Concerns: Feels Safe At This Time Smoking Status: Former smoker Second Hand Exposure: No ; Hx Alcohol Use: No Hx Substance Use: No Review of Systems Constitutional: no fever, no fatigue and no weakness Ear, Nose, Mouth, Throat: no epistaxis and no bleeding gums Respiratory: no cough, no dyspnea and no hemoptysis Cardiovascular: no chest pain, no palpitations and no edema Gastrointestinal: no abdominal pain, no nausea and no blood in stools Genitourinary: no dysuria and no hematuria Musculoskeletal: no back pain and no joint pain Integumentary: no rash Neurologic: no headache(s) Hematologic / Lymphatic: no easy bleeding and no easy bruising Physical Exam Constitutional: comfortable; no acute distress and not ill appearing Eyes: + anicteric sclerae and EOM intact bilaterally Respiratory: normal respiratory effort, lungs clear to auscultation Cardiovascular: RRR, no murmur, no edema Gastrointestinal (Abdomen): normal bowel sounds, soft, nontender, no hepatosplenomegaly Skin: Bruising on his abdomen consistent with his Lovenox administration sites Psychiatric: A+Ox3, euthymic affect Results & Data Vital Signs (Past 12 Hours) Vital Signs Temp Pulse Pulse Resp BP Pulse Ox 04/01/19 11:23 37.2 C 56 L 18 156/85 H 97 04/01/19 08:53 66 04/01/19 07:26 36.9 C 50 L 20 139/75 98 04/01/19 04:04 36.9 C 59 L 19 131/82 98 04/01/19 00:05 37.1 C 61 19 137/78 97 Laboratory Results Laboratory Results - last 24 hr 03/31/19 03/31/19 04/01/19 17:05 17:05 00:16 WBC 7.03 RBC 4.26 L Hgb 10.6 L Hct 33.6 L MCV 78.9 L MCH 24.9 L MCHC 31.5 L RDW Std Deviation 47.8 H RDW Coeff of Jennifer 16.5 H Plt Count 311 MPV 9.0 Immature Gran % (Auto) 0.3 Neut % (Auto) 81.1 Lymph % (Auto) 7.5 [place] % (Auto) 9.7 Eos % (Auto) 1.1 Baso % (Auto) 0.3 Reticulocyte % (Auto) Immature Gran # (Auto) 0.02 Neut # (Auto) 5.70 Lymph # (Auto) 0.53 L [place] # (Auto) 0.68 H Eos # (Auto) 0.08 Baso # (Auto) 0.02 Reticulocyte # APTT 62.9 H* PTT Ratio 2.3 Sodium 135 L Potassium 3.9 Chloride 100 Carbon Dioxide 26 Anion Gap 9.0 BUN 15 Creatinine 1.16 Est Cr Clr Drug Dosing 60.4 Est GFR ( Amer) 72.0 Est GFR (Non-Af Amer) 62.1 BUN/Creatinine Ratio 12.8 Glucose 86 Calcium 8.6 Iron TIBC Total Bilirubin 0.3 AST 21 ALT 35 Alkaline Phosphatase 200 H Troponin I < 0.015 Total Protein 7.4 Albumin 3.1 L Globulin 4.3 H Albumin/Globulin Ratio 0.7 L Lipase 102 04/01/19 04/01/19 04/01/19 05:18 05:18 05:18 WBC 6.44 RBC 4.59 L Hgb 11.5 L Hct 35.8 L MCV 78.0 L MCH 25.1 MCHC 32.1 RDW Std Deviation 46.7 H RDW Coeff of Jennifer 16.5 H Plt Count 320 MPV 9.5 Immature Gran % (Auto) 0.3 Neut % (Auto) 79.0 Lymph % (Auto) 7.8 [place] % (Auto) 10.7 Eos % (Auto) 1.7 Baso % (Auto) 0.5 Reticulocyte % (Auto) 1.0 Immature Gran # (Auto) 0.02 Neut # (Auto) 5.09 Lymph # (Auto) 0.50 L [place] # (Auto) 0.69 H Eos # (Auto) 0.11 Baso # (Auto) 0.03 Reticulocyte # 0.05 APTT 60.0 H* PTT Ratio 2.2 Sodium 137 Potassium 3.7 Chloride 103 Carbon Dioxide 27 Anion Gap 7.0 BUN 12 Creatinine 1.08 Est Cr Clr Drug Dosing 64.9 Est GFR ( Amer) 78.5 Est GFR (Non-Af Amer) 67.7 BUN/Creatinine Ratio 11.2 Glucose 89 Calcium 8.6 Iron 34 L TIBC 244 L Total Bilirubin 0.4 AST 18 ALT 28 Alkaline Phosphatase 184 H Troponin I Total Protein 6.8 Albumin 2.9 L Globulin 3.9 Albumin/Globulin Ratio 0.7 L Lipase Diagnostic Findings CT CAP from 03/31/19: IMPRESSION: 1. There are bilateral pulmonary emboli as detailed above. 2. Overall progression of multifocal metastatic disease as compared to prior examinations. 3. Mediastinal lymphadenopathy has modestly progressed from 12/22/2018. 4. An enlarged left supraclavicular node appears to have decreased in size from previous. 5. A right upper lobe pulmonary metastasis has not appreciably changed from 12/22/2018. 6. Foci of subpleural consolidation in the lower lobes likely represent pulmonary infarcts. 7. There has been marked progression of multifocal hepatic metastatic disease as compared to 11/09/2018. 8. Upper abdominal ismael metastatic disease and a left adrenal metastasis are new from 11/09/2018. 9. A mixed lytic/blastic lesion in the left ilium is new from previous and consistent with bony metastatic disease. 10. Again seen is postoperative change from cystectomy with right lower quadrant urostomy. 11. Additional findings as above.
--- NOTE | 2019-04-01 16:33 | Discharge Summary ---
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 Patient has also overall progression of multifocal metastatic disease as compared to the prior exam. Patient has enlarged left supraclavicular node which is decreased size from previous. Patient has a right upper lobe pulmonary metastasis that was not seen and made second 2018. Fall call of subpleural consolidation in the lower lobes likely represent pulmonary infarct. There has been market progression of multifocal hepatic metastatic disease as compared to November 09, 2018. Upper abdominal ismael metastatic disease and a left adrenal metastases are now are new in comparison to 11/09/2018. Mixed lytic blastic lesion in the left ilium is new from the previous and consistent with bony metastatic disease. Patient denies fever chills chest pain shortness of breath abdominal pain frequency or urgency. Patient is above 92% on 2 L. Patient reports that he is on Lovenox 80 mg twice daily subacute. Patient reports being diligent of giving himself Lovenox injection and that he did not miss any of those. Labs were r eviewed and white blood cell is 7.03, hemoglobin 10.6, hematocrit 33.6, platelets 311, PTT pending, sodium 135, potassium 3.9 chloride 100 BUN 15 creatinine 1.16 GFR 60.4 alkaline phosphatase 200, albumin 3.1. EKG shows sinus rhythm with premature atrial complexes there is no ST segment elevation or depression. Ventricular rate of 60 bpm. The case was discussed and patient is admitted to the hospital for anticoagulation. Patient was started on heparin bolus and heparin drip in the ER. The case was discussed with Dr.Jean Mcduffie who recommended to contact hematology oncology for further recommendation in regards of Lovenox treatment. Principal Diagnosis Likely chronic PEs Discharge Exam Constitutional WD/WN, vitals as above Eyes EOM intact bilaterally; no conjunctival abnormality ENMT external ear and nose normal, oropharynx normal Neck trachea midline, no thyromegaly normal visual inspection Respiratory normal respiratory effort, lungs clear to auscultation no respiratory distress Cardiovascular RRR, no murmur, no edema Gastrointestinal (Abdomen) Inspection/Auscultation: abdomen normal to inspection; abdomen not distended Musculoskeletal no cyanosis or clubbing, extremities motor strength 5/5 Skin no rashes, warm and dry Neurologic moves all extremities and awake Psychiatric Orientation: alert, oriented to person and cooperative Discharge Data Allergies Allergy/AdvReac Type Severity Reaction Status Date / Time No Known Allergies Allergy Unverified 03/31/19 18:05 Consultations 03/31/19 18:37 ED Decision to Admit Stat 03/31/19 21:29 Consult Oncology Routine Hospital Course (1) Bilateral pulmonary embolism: Likely chronic from his prior known DVTs/PEs. A CT chest read from [facility] notes PEs in these areas. Seen by Dr. Giordano and given the approval to discharge on his current anticoagulation of Lovenox BID. Patient was completely asymptomatic, but was told to return if he experienced shortness of breath, chest pain, or other concerning symptoms. (2) Anemia: From his metastatic cancer. - Outpatient follow up. (3) CAD (coronary artery disease): (4) GERD (gastroesophageal reflux disease): Stable continue home medicine metoprolol succinate 50 mg p.o. every morning. (5) Malignant neoplasm metastatic from bladder: Follow-up with oncology (6) Hypertension: Continue metoprolol succinate 50 mg p.o. every morning and clopidogrel 75 mg p.o. every morning. (7) Hyperlipidemia: Stable continue atorvastatin 80 mg p.o. every morning Total Time Total Time Spent Total Time Spent (In Minutes): 34 Total Time Includes: Examination of the Patient, Discharge Planning, Medication Reconciliation and Communication With Other Providers Discharge Plan Discharge Items Patient Disposition: Home - Self-Care Reason For Visit: PULMONARY EMBOLISM Discharge Diagnosis: Pulmonary embolism, but likely old/chronic Discharge Goals: Decrease discomfort and Diagnostic testing Activity: Resume your previous activity Non-emergency contact: Primary Care Provider and Oncologist Call non-emergency contact if: your symptoms worsen Follow-up/Referrals: Gigi Giordano [Physician] - ([facility] Yogesh Pat PA-C [Primary Care Provider] - Diet: Regular Addtl Provider Instructions: The PEs (blood clots in the lung) that were seen on the scan are probably stable from your prior scans. Dr. Giordano will get the scans from [facility] on Wednesday to be sure. Please continue your Lovenox as before. Take your dose tonight as per your usual regimen. Please come to the hospital if you feel shortness of breath, chest pain, lightheaded, dizzy, or if you pass out. Prescriptions: Continued atorvastatin 80 mg Tablet 80 mg PO QAM Qty: 0 RF: 0 metoprolol succinate 50 mg Tablet Extended Release 24 Hr 50 mg PO QAM Qty: 30 RF: 0 nitroglycerin 0.4 mg Tablet, Sublingual 0.4 mg sublingual DIRECTED PRN (Reason: Angina) Qty: 0 RF: 0 omeprazole 20 mg Capsule,Delayed Release(Dr/Ec) 20 mg PO DAILY Qty: 0 RF: 0 triazolam 0.25 mg Tablet 0.25 mg PO HS PRN (Reason: Insomnia) Qty: 0 RF: 0 clopidogrel 75 mg Tablet 75 mg PO QAM Qty: 0 RF: 0 enoxaparin 80 mg/0.8 mL syringe 80 mg subcut BID RF: 0 pantoprazole 40 mg tablet,delayed release (DR/EC) 40 mg PO DAILY RF: 0 Stand-Alone Forms: [facility] Discharge Orders: Discharge Order (Routine); Ordered 04/01/19 Ordered By: Sotero Ventura Admission Data Admit Date/Time: 03/31/19 18:38 Attending Provider: Sotero Ventura Admit Provider: Lefty Galeano Primary Care Provider: Yogesh Pat Other Providers: Gigi Giordano ; Sotero Ventura Service: Telemetry Other Interventions: Discharge Summary Assessment (RN) Last Done: 04/01/19 12:07 DC Date/Time DO NOT enter until pt leaves facility: 04/01/19 12:30
== END 2019-04-01 12:30 | disposition home or self-care (01) | DRG 176 ==
LOC: ED 16:34 → SUATTDRO 18:38 → 2S 18:38

== ENCOUNTER 2019-06-29 14:41 | Inpatient (IN) ==
[2019-06-29 15:48] LABS: Hematocrit (blood only) 28.8 % (42-52); Hemoglobin 9.3 g/dL (14.0-18.0); Mean Corpuscular Hemoglobin 24.8 pg (25-34); Mean Corpuscular Hgb Conc 32.3 g/dL (32-36); Mean Corpuscular Volume 76.8 fL (80-100); Mean Platelet Volume 8.7 fL (7.4-10.4); Platelet Count 251 K/uL (130-400); RDW Coefficient of Variation 16.7 % (11.5-14.5); RDW Standard Deviation 47.1 fL (36.4-46.3); Red Blood Count 3.75 M/uL (4.7-6.1); White Blood Count 12.11 K/uL (4.8-10.8)
[2019-06-29 15:50] LABS: INR 1.1 (0.9-1.1); Partial Thromboplastin Ratio 0.9; Prothrombin Time 11.5 Seconds (9.0-12.0)
[2019-06-29 15:57] LABS: Albumin Level 2.4 gm/dl (3.4-5.0); BUN Creatinine Ratio 30.8 (10-20); Calcium 9.9 mg/dl (8.5-10.1); Creatinine Clr Calc Pharmacy 34.5 ml/min; Est GFR (African American) 40.7; Est GFR (Non-African American) 35.1; Potassium 3.6 mmol/L (3.5-5.1)
[2019-06-29 16:09] LABS: Albumin Globulin Ratio 0.5 (0.9-2); Bilirubin,Total 0.3 mg/dl (0.2-1); Globulin 4.6 gm/dl (2.5-4.0); Troponin I 0.292 ng/ml (0-0.045)
[2019-06-29] MEDS ORDERED: SODIUM CHLORIDE 0.9% 1000ML 1,000 ML IV ONE (16:11)
[2019-06-29 16:14] LABS: Basophils # (auto) 0.01 K/uL (0-0.2); Basophils % (auto) 0.1 %; Echinocytes 2+; Immature Granulocytes # (auto) 0.05 K/uL (0.00-0.02); Immature Granulocytes % (auto) 0.4 %; Lymphocytes # (auto) 0.47 K/uL (1.2-3.4); Lymphocytes % (auto) 3.9 %; Monocytes # (auto) 0.91 K/uL (0.11-0.59); Monocytes % (auto) 7.5 %; Neutrophils # (auto) 10.67 K/uL (1.4-6.5); Neutrophils % (auto) 88.1 %
--- NOTE | 2019-06-29 16:19 | CT Scan Report ---
CT head/brain wo con CLINICAL HISTORY: Left upper extremity weakness. Possible stroke COMPARISON STUDY: 12/24/2018 TECHNIQUE: Axial CT of the brain is performed from the vertex to the skull base. IV contrast was not administered for this examination. A dose lowering technique was utilized adhering to the principles of ALARA. CT DOSE: 537.48 mGy.cm FINDINGS: No intrahepatic or extra-axial mass lesions are visualized. There is no evidence of midline shift. Th ere is no evidence of acute hemorrhage. No calvarial fractures are visualized. There is interval deve lopment of a right occipital infarct which does not appear acute. There is no CT evidence of acute co rtical infarction. There are patchy white matter hypodensities likely on a small vessel basis. There is no evidence of pathologic ventricular dilatation. There is no evidence of acute sinusitis IMPRESSION: 1. Interval development of a right occipital infarct. This does not appear acute 2. No evidence of acute hemorrhage. No CT evidence of acute cortical infarction Electronically signed by: George Cazares M.D. 06/29/2019 4:18 PM
[2019-06-29] MEDS ORDERED: ASPIRIN CHEW 324 MG PO STA ×2 (16:30→16:32)
--- NOTE | 2019-06-29 17:40 | History & Physical Report ---
Date of Service June 29, 2019 Assessment & Plan (1) Acute ischemic stroke: Mr. Barajas is a 73 yo gentleman with metastatic transitional cell bladder cancer and prior CVAs who came to the ED for evaluation of L arm clumsiness that started 7 hours prior to presentation. ED Course: On arrival NIH stroke scale score of 0. Patient underwent non- contrast CT scan which showed no evidence of hemorrhage but interval progression of a right occipital infarct, likely chronic. Patient was given 325mg ASA. Brain MRI showed evidence of a small acute/subacute right frontoparietal lobe infarct. Troponin detectable at 0.292. EKG showed no evidence of acute ischemia. Creatinine was elevated to 1.86 with a baseline < 1.1. Given 1L bolus of normal saline. Acute Ischemic stroke - non-contrast head CT showed evidence of R occipital ischemia, although this appears to be chronic. - brain MRI ordered: Small acute/subacute right frontoparietal lobe infarct and old occipital infarct - patient was outside TPA window; ASA 325mg administered on arrival - symptoms have resolved; residual pronator drift and slightly diminished strength on L - source unknown: patient with active cancer (hypercoagulable state) and vasculopathic risk factors (HTN, HLD); patient held plavix for preceding 4 days - neurology consulted; appreciate recs on whether to restart plavix and/or ASA in light of possible new ischemic stroke or TIA, with the consideration of upcoming surgery for chemo port placement on 07/05 - neuro checks per protocol - on aspiration precautions; speech eval ordered - Lipid panel and HbA1c ordered in AM - ECHO, MRA of head and neck ordered (since patient was given gadolinium for brain MRI, MRA imaging will be delayed for 12 hours, timed for 8:45 AM on 06/30) Elevated Troponin - 0.292 on arrival - repeat level ordered; trend serially - EKG showing no ST segment changes - 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 - patient asymptomatic; unlikely to represent true acute ischemia NEVA - creatinine 1.86 on arrival; baseline < 1.1 - etiology suspected to be pre-renal given reduced PO intake reported by patient - renal US ordered to rule out post-renal etiology as patient does have surgically altered anatomy - 1L bolus of NSS given in ED; maintenance fluids at 70mls/hr ordered - we will hold lisinopril; renally dose meds as appropriate - repeat BMP in morning Hx Transitional Cell Bladder Cancer with metastasis to liver, lung - s/p radical cystoprostatectomy with lymphadenectomy with cystostomy bag placement - s/p chemotherapy and radiation therapy - follows with Dr. Giordano - scheduled to get chemotherapy port placed on 07/05/19 Hx of AZ - left distal circumflex s/p PCI with drug eluting stent placement in 2017 - continue home dose metoprolol, atorvastatin - will hold lisinopril in setting of NEVA - plavix hold in setting of upcoming procedure - ASA 325mg administered in ED; patient reports non-compliance with daily home dose Hypertension - BP 117/77 - we will hold home lisinopril in light of NEVA and permissive HTN in setting of possible acute ischemic CVA Hyperlipidemia -continue home atorvastatin Microcytic Anemia - hbg 8.6 on arrival; baseline around 11 - possible etiologies iron deficiency vs. anemia of chronic disease - continue to monitor with CBC in AM - patient currently asymptomatic - transfuse < 7 or if patient becomes symptomatic given history of ischemia GERD -continue home pantoprazole Dispo: Admit to Tele; PT/OT ordered DVT ppx: Bilateral SCDs; will hold off on chemoprophylaxis given brain ischemia and risk of hemorrhagic transition Diet: Heart Healthy; maintenance fluids at 80mls/hr Code: Full (2) Elevated troponin: (3) NEVA (acute kidney injury): (4) Benign essential hypertension: (5) Anemia: (6) S/P coronary artery stent placement: (7) CAD (coronary artery disease): (8) Carcinoma of bladder: History of Present Illness Primary Care Provider: Yogesh Pat Mr. Barajas is a 73 yo gentleman with a PMHx of transitional cell bladder cancer s/p cystectomy with metastasis to the liver and lung, hypertension, hyperlipidemia and multiple prior CVAs who presented to the ED at 2:00pm for evaluation of L hand clumsiness. He first noticed the deficit shortly after wakening this morning at 7am, and lasted until about 11am. His last known normal was 11:00pm on 06/28/19. He denied any weakness and numbness of his L arm. He had no L lower extremity deficits. No difficulty with speech. This event was unwitnessed, as patient lives alone. Of note, Mr. Barajas had suffered a AZ in 3 years ago and was on plavix until 4 days ago at which point it was discontinued by his oncologist in preparation for upcoming chemotherapy port placement on 07/05/19. He was directed to take a daily ASA 81mg after his heart attack along with the plavix, but he admits to being non-compliant with this recommendation. Mr. Barajas admits to reduced PO (solids and liquids) intake in the days preceding admission due to "diminished appetite." ED Course: On arrival NIH stroke scale score of 0. Patient underwent non- contrast CT scan which showed interval progression of a right occipital infarct that was reportedly chronic. Patient was given 325mg ASA. Brain MRI showed evidence of a small acute/subacute right frontoparietal lobe infarct. Troponin detectable at 0.292. EKG showed no evidence of acute ischemia. Creatinine was elevated to 1.86 with a baseline < 1.1. Given 1L bolus of normal saline Allergies Allergy/AdvReac Type Severity Reaction Status Date / Time No Known Allergies Allergy Verified 06/29/19 15:44 Home Medications Home Medications Medication Instructions Recorded Confirmed Type atorvastatin 80 mg PO QAM #0 tab 03/08/17 06/29/19 History nitroglycerin 0.4 mg SUBLINGUAL DIRECTED PRN 03/08/17 06/29/19 History #0 btl clopidogrel 75 mg PO DIRECTED #0 tab 07/28/17 06/29/19 History enoxaparin 80 mg SUBCUT DIRECTED 03/31/19 06/29/19 History pantoprazole 40 mg PO QAM 03/31/19 06/29/19 History lisinopril 10 mg tablet 10 mg PO DAILY tab 06/09/19 06/29/19 History acetaminophen 500 mg tablet 1,000 mg PO Q6H PRN tab 06/26/19 06/29/19 History azithromycin 250 mg tablet See Rx Instructions PO .COMPLEX #6 06/26/19 06/29/19 Rx tab ipratropium-albuterol 0.5 mg-3 3 ml INH Q8H #180 ml 06/26/19 06/29/19 Rx mg(2.5 mg base)/3 mL nebulization soln oxycodone 5 mg tablet 5 mg PO Q4H PRN tab 06/26/19 06/29/19 History ipratropium-albuterol [Combivent 1 puff INHALATION Q4H PRN 06/29/19 06/29/19 History Respimat] megestrol See Rx Instructions .ROUTE .COMPLEX 06/29/19 06/29/19 History metoprolol succinate 25 mg PO QAM 06/29/19 06/29/19 History prednisone See Rx Instructions .ROUTE .COMPLEX 06/29/19 06/29/19 History Past Med/Surg History Medical History Hypertension (Chronic) Hyperlipidemia (Chronic) Myocardial infarction (Resolved) Pulmonary embolism, bilateral (Acute) Bladder cancer (Acute) High cholesterol (Acute) Myocardial infarction (Acute) Surgical History H/O cystoscopy (Acute) h/o bladder cancer H/O heart artery stent (Acute) H/O total cystectomy (Acute) History of urostomy (Acute) surgery 2 yrs ago Family History Mother , age 90 Old age Father , age 72 COPD (chronic obstructive pulmonary disease) Worked in a [employer] Brother No problems noted. Uncle , had cancer / not sure what kind No problems noted. Social History Preferred Language: [place]se Communication Ability: Effective Highballer Required: No Beliefs That Will Affect Care: None marital status: Single Current Living Situation: Alone current occupational status: retired current occupation: Retired [employer] Feels Safe at Home: Yes Safety Concerns: Feels Safe At This Time Smoking Status: Never smoker Tobacco Type: cigarettes ; Cigarettes Per Day: 20 ; Second Hand Exposure: No ; Hx Alcohol Use: No Hx Substance Use: No Childhood Exposure to Second-Hand Smoke: Yes Review of Systems Constitutional: + anorexia (dimished appetite); no fever, no chills and no sweats Respiratory: + dyspnea on exertion (unclear baseline) Cardiovascular: no chest pain, no palpitations and no edema Additional Comments: No chest pressure Gastrointestinal: no abdominal pain Neurologic: + localized weakness (clumsiness of L hand); no numbness, no lack of coordination, no dizziness, no abnormal speech and no confusion Physical Exam Constitutional: WD/WN, vitals as above no acute distress Eyes: PERRL, conjunctivae normal, anicteric sclerae ENMT: external ear and nose normal, oropharynx normal Neck: trachea midline Respiratory: normal respiratory effort, lungs clear to auscultation Auscultation: no crackles, no rales, no rhonchi, no wheezes and no pleural rub Cardiovascular: Rate/Rhythm: regular rate and regular rhythm Heart Sounds: normal S1, normal S2 and + murmur (systolic ejection) Vessels: no carotid bruit Extremities: no pedal edema Gastrointestinal (Abdomen): normal bowel sounds, soft, nontender, no hepatosplenomegaly Musculoskeletal: Head/Neck/Chest: normocephalic and head atraumatic Skin: no rashes, warm and dry Neurologic: CN's II-XI intact bilaterally and moves all extremities Speech / Cognition: normal speech Sensation intact to gross touch on upper and lower extremities b/l 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 Biceps flexion/triceps extension 5+ on R, 5- on L. Pronator drift on L Finger to nose intact b/l. Patient had difficulty with BRUCE b/l Psychiatric: Orientation: alert and oriented x 3 (oriented to person, place and somewhat time (thought year was 1998)) Genitourinary: cystostomy bag draining yellow urine without visible clots Results & Data Vital Signs (Past 12 Hours) Vital Signs Temp Pulse Resp BP Pulse Ox 06/29/19 14:42 36.3 C L 89 16 120/79 94 Laboratory Results 06/29/19 06/29/19 06/29/19 Range/Units 15:39 15:24 15:24 WBC 12.11 H (4.8-10.8) K/uL RBC 3.75 L (4.7-6.1) M/uL Hgb 9.3 L (14.0-18.0) g/dL Hct 28.8 L (42-52) % MCV 76.8 L (80-100) fL MCH 24.8 L (25-34) pg MCHC 32.3 (32-36) g/dL RDW Std Deviation 47.1 H (36.4-46.3) fL RDW Coeff of Jennifer 16.7 H (11.5-14.5) % Plt Count 251 (130-400) K/uL MPV 8.7 (7.4-10.4) fL Immature Gran % (Auto) 0.4 % Neut % (Auto) 88.1 % Lymph % (Auto) 3.9 % Lincoln % (Auto) 7.5 % Eos % (Auto) 0.0 % Baso % (Auto) 0.1 % Immature Gran # (Auto) 0.05 H (0.00-0.02) K/uL Neut # (Auto) 10.67 H (1.4-6.5) K/uL Lymph # (Auto) 0.47 L (1.2-3.4) K/uL Lincoln # (Auto) 0.91 H (0.11-0.59) K/uL Eos # (Auto) 0.00 (0-0.5) K/uL Baso # (Auto) 0.01 (0-0.2) K/uL Echinocytes 2+ PT 11.5 (9.0-12.0) Seconds INR 1.1 (0.9-1.1) APTT 25.0 (21.0-31.0) Seconds PTT Ratio 0.9 Sodium 137 (136-145) mmol/L Potassium 3.6 (3.5-5.1) mmol/L Chloride 106 (98-107) mmol/L Carbon Dioxide 19 L (21-32) mmol/L Anion Gap 12.0 H (3-11) BUN 57 H (7-18) mg/dl Creatinine 1.86 H (0.6-1.4) mg/dl Est Cr Clr Drug Dosing 34.5 ml/min Est GFR ( Amer) 40.7 Est GFR (Non-Af Amer) 35.1 BUN/Creatinine Ratio 30.8 H (10-20) Glucose 124 H (70-99) mg/dl POC Glucose (70-99) Calcium 9.9 (8.5-10.1) mg/dl Magnesium 2.0 (1.8-2.4) mg/dl Total Bilirubin 0.3 (0.2-1) mg/dl AST 20 (15-37) U/L ALT 16 (12-78) U/L Alkaline Phosphatase 186 H (45-117) U/L Troponin I 0.292 H* (0-0.045) ng/ml Total Protein 7.0 (6.4-8.2) gm/dl Albumin 2.4 L (3.4-5.0) gm/dl Globulin 4.6 H (2.5-4.0) gm/dl Albumin/Globulin Ratio 0.5 L (0.9-2) 06/29/19 Range/Units 15:05 WBC (4.8-10.8) K/uL RBC (4.7-6.1) M/uL Hgb (14.0-18.0) g/dL Hct (42-52) % MCV (80-100) fL MCH (25-34) pg MCHC (32-36) g/dL RDW Std Deviation (36.4-46.3) fL RDW Coeff of Jennifer (11.5-14.5) % Plt Count (130-400) K/uL MPV (7.4-10.4) fL Immature Gran % (Auto) % Neut % (Auto) % Lymph % (Auto) % Lincoln % (Auto) % Eos % (Auto) % Baso % (Auto) % Immature Gran # (Auto) (0.00-0.02) K/uL Neut # (Auto) (1.4-6.5) K/uL Lymph # (Auto) (1.2-3.4) K/uL Lincoln # (Auto) (0.11-0.59) K/uL Eos # (Auto) (0-0.5) K/uL Baso # (Auto) (0-0.2) K/uL Echinocytes PT (9.0-12.0) Seconds INR (0.9-1.1) APTT (21.0-31.0) Seconds PTT Ratio Sodium (136-145) mmol/L Potassium (3.5-5.1) mmol/L Chloride (98-107) mmol/L Carbon Dioxide (21-32) mmol/L Anion Gap (3-11) BUN (7-18) mg/dl Creatinine (0.6-1.4) mg/dl Est Cr Clr Drug Dosing ml/min Est GFR ( Amer) Est GFR (Non-Af Amer) BUN/Creatinine Ratio (10-20) Glucose (70-99) mg/dl POC Glucose 107 H (70-99) Calcium (8.5-10.1) mg/dl Magnesium (1.8-2.4) mg/dl Total Bilirubin (0.2-1) mg/dl AST (15-37) U/L ALT (12-78) U/L Alkaline Phosphatase (45-117) U/L Troponin I (0-0.045) ng/ml Total Protein (6.4-8.2) gm/dl Albumin (3.4-5.0) gm/dl Globulin (2.5-4.0) gm/dl Albumin/Globulin Ratio (0.9-2) Medications Administered Current Inpatient Medications Gadobutrol (Gadavist 65ml) 6.5 ml IV ONCE PRN PRN Reason: Interaction Checking Stop: 07/03/19 17:44 Last Admin: 06/29/19 17:45 Dose: 6.5 ml Documented by: Supervising Physician Co-Signing Physician Notes I supervised Lexie Magana MD on this patient's care. I examined the patient today with her. I discussed the plan of care with her with the plan being as written in her note except for any following changes/exceptions: None. 73yo M w/ hx of urothelial cancer s/p cystectomy who presents with symptoms of left hand weakness concerning for TIA/CVA. At present, back to baseline. MRI pending. Discussed with neuro who feel simply aspirin at this time is acceptable pending possible Port placement. Resident Activity Tracking Resident Involvement: Resident Care Provided Care Provided: Adult Hospital Medicine (1) Anemia Anemia type: unspecified type Qualified Code(s): D64.9 - Anemia, unspecified
[2019-06-29] MEDS ORDERED: GADOBUTROL 65ML VIAL IV PRN (17:45)
--- NOTE | 2019-06-29 18:05 | Emergency Department Note ---
Entered by Johnnie Rose acting as a scribe for Tyler Elam MD History of Present Illness General Chief complaint: Stroke/CVA Symptoms Stated complaint: STROKE SYMPTOMS Time Seen by Provider: 06/29/19 15:03 Source: patient and family History of Present Illness Provider complaint: weakness Onset (ago): hour(s) 8 Location: upper extremity and left Radiation: non-radiation Pain Consistency: + now resolved Maximum Pain Intensity: 0 Quality: + other (weakness/loss of evp strength ) Associated symptoms: + denies other symptoms The patient is a 73 y/o male who is right hand dominant with a past medical history of stroke, stage 4 bladder cancer, and blood thinners for the blood clots, who presents to the emergency department for evaluation of now resolved left hand weakness that that began 8 hours ago and last for 3. The patient states he had weakness at 7am till 10am that has gone away and gotten better since. He notes that he has bladder cancer, for which he will be getting a port put in soon for. The family notes that because of the port the patient has not had his blood thinner in 2 days. The patient states that he has a history of strokes but the feel this time was not the same as in the past. The patient denies headache, abdominal pain, and any other symptoms. Home Medications Home Medications Medication Instructions Recorded Confirmed Type atorvastatin 80 mg PO QAM #0 tab 03/08/17 06/29/19 History nitroglycerin 0.4 mg SUBLINGUAL DIRECTED PRN 03/08/17 06/29/19 History #0 btl clopidogrel 75 mg PO DIRECTED #0 tab 07/28/17 06/29/19 History enoxaparin 80 mg SUBCUT DIRECTED 03/31/19 06/29/19 History pantoprazole 40 mg PO QAM 03/31/19 06/29/19 History lisinopril 10 mg tablet 10 mg PO DAILY tab 06/09/19 06/29/19 History acetaminophen 500 mg tablet 1,000 mg PO Q6H PRN tab 06/26/19 06/29/19 History azithromycin 250 mg tablet See Rx Instructions PO .COMPLEX #6 06/26/19 06/29/19 Rx tab ipratropium-albuterol 0.5 mg-3 3 ml INH Q8H #180 ml 06/26/19 06/29/19 Rx mg(2.5 mg base)/3 mL nebulization soln oxycodone 5 mg tablet 5 mg PO Q4H PRN tab 06/26/19 06/29/19 History ipratropium-albuterol [Combivent 1 puff INHALATION Q4H PRN 06/29/19 06/29/19 History Respimat] megestrol See Rx Instructions .ROUTE .COMPLEX 06/29/19 06/29/19 History metoprolol succinate 25 mg PO QAM 06/29/19 06/29/19 History prednisone See Rx Instructions .ROUTE .COMPLEX 06/29/19 06/29/19 History Allergies Allergy/AdvReac Type Severity Reaction Status Date / Time No Known Allergies Allergy Verified 06/29/19 15:44 Past Med/Surg History Medical History Hypertension (Chronic) Hyperlipidemia (Chronic) Myocardial infarction (Resolved) Pulmonary embolism, bilateral (Acute) Bladder cancer (Acute) High cholesterol (Acute) Myocardial infarction (Acute) Surgical History H/O cystoscopy (Acute) h/o bladder cancer H/O heart artery stent (Acute) H/O total cystectomy (Acute) History of urostomy (Acute) surgery 2 yrs ago Family History Mother , age 90 Old age Father , age 72 COPD (chronic obstructive pulmonary disease) Worked in a [employer] Brother No problems noted. Uncle , had cancer / not sure what kind No problems noted. 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 and A total of 10 systems reviewed and were otherwise negative Physical Exam Vital Signs Vital Signs - 24 hr 06/29/19 14:42 Temperature 36.3 C L Temperature Source Oral Sepsis Recent Fever Within 48 Hours No Sepsis New/Unexplained Change in Mental Status No Sepsis Action Taken by Nursing No Action Required Pulse Rate 89 Respiratory Rate 16 Blood Pressure 120/79 Blood Pressure Mean 92 Pulse Oximetry 94 GENERAL: Well appearing, well nourished, NAD, non-toxic. EYE EXAM: Normal conjunctiva. PERRL, no anisocoria and EOM's grossly intact w/o pain. OROPHARYNX: Moist mucus membranes. Grossly normal dentition. NECK: Supple, no nuchal rigidity, no adenopathy, non-tender. No signs of meningismus. LUNGS: Clear to auscultation. Normal chest wall mechanics. HEART: NSR, no MRG. ABDOMEN: Abdomen soft, non-tender, normo-active bowel sounds, no masses, no rebound or guarding. BACK: No CVA TTP. SKIN: No rashes and no bruising. UPPER EXTREMITIES: Upper extremities are grossly normal. LOWER EXTREMITIES: No pitting edema. No calf pain. NEURO EXAM: A&O x3, cranial nerves II-XII grossly intact, normal speech, 5/5 strength throughout, no sensory deficits, good finger to nose, slight upper extremity drift, moves all 4 extremities on command w/o issue. Equal and symmetric evp strength. Course 1510: Past medical records reviewed. The patient was evaluated in room C06. A complete history and physical exam was performed. 1630: I checked on the patient and updated him on his results. I discussed the treatment plan with the patient as well. 1637: I spoke with Dr. Ventura- [facility] hospitalist- who will evaluate for further management. Administered Medications Discontinued Medications Acetaminophen (Tylenol) 650 mg PO Q4H PRN PRN Reason: Pain Stop: 07/30/19 03:43 Last Admin: 06/30/19 04:25 Dose: 650 mg Documented by: [id number] Albuterol (Duoneb) 3 ml INH Q8R [facility] Stop: 07/29/19 22:59 Last Admin: 06/30/19 07:12 Dose: 3 ml Documented by: [id number] Admin: 06/29/19 22:46 Dose: 3 ml Documented by: [id number] Aspirin (Aspirin) 324 mg PO NOW STA Stop: 06/29/19 16:31 Last Admin: 06/29/19 16:50 Dose: 324 mg Documented by: [id number] Aspirin (Aspirin) 324 mg PO NOW STA Stop: 06/29/19 16:33 Last Admin: 06/29/19 16:50 Dose: Not Given Documented by: [id number] Atorvastatin Calcium (Lipitor) 80 mg PO QAM [facility] Stop: 07/30/19 08:59 Last Admin: 06/30/19 07:54 Dose: 80 mg Documented by: [id number] Budesonide/Formoterol Fumarate (Symbicort 160mcg/4.5mcg) 2 puffs INH BID [facility] Stop: 07/29/19 20:59 Last Admin: 06/30/19 07:54 Dose: 2 puffs Documented by: [id number] Admin: 06/29/19 21:20 Dose: 2 puffs Documented by: [id number] Gadobutrol (Gadavist 65ml) 6.5 ml IV ONCE PRN PRN Reason: Interaction Checking Stop: 07/03/19 17:44 Last Admin: 06/29/19 17:45 Dose: 6.5 ml Documented by: [id number] Gadobutrol (Gadavist 65ml) 6.5 ml IV ONCE PRN PRN Reason: Interaction Checking Stop: 07/04/19 06:28 Last Admin: 06/30/19 06:30 Dose: 6.5 ml Documented by: [id number] Sodium Chloride (Nss 1000ml) 1,000 mls @ 999 mls/hr IV .Q1H1M ONE Stop: 06/29/19 17:11 Last Infusion: 06/29/19 17:32 Dose: 0 mls/hr Documented by: [id number] Admin: 06/29/19 16:18 Dose: 999 mls/hr Documented by: [id number] Sodium Chloride (Nss 1000ml) 1,000 mls @ 70 mls/hr IV .[id number] [facility] Stop: 07/01/19 01:34 Last Admin: 06/30/19 13:03 Dose: 70 mls/hr Documented by: [id number] Infusion: 06/30/19 11:37 Dose: 70 mls/hr Documented by: [id number] Admin: 06/29/19 21:19 Dose: 70 mls/hr Documented by: [id number] Influenza Virus Vaccine (Fluzone High-Dose Pf) 0.5 ml IM .ONCE ONE Stop: 06/30/19 05:16 Last Admin: 06/30/19 07:55 Dose: Not Given Documented by: [id number] Metoprolol Succinate (Toprol Xl) 25 mg PO [facility] Stop: 07/30/19 08:59 Last Admin: 06/30/19 07:54 Dose: 25 mg Documented by: [id number] Nitroglycerin (Nitrostat) 0.4 mg SL UD PRN PRN Reason: Angina Stop: 07/29/19 20:14 Last Admin: 06/30/19 19:49 Dose: 0.4 mg Documented by: [id number] Pantoprazole Sodium (Protonix) 40 mg PO [facility] Stop: 07/30/19 08:59 Last Admin: 06/30/19 07:54 Dose: 40 mg Documented by: [id number] Medical Decision Making Differential Diagnosis Differential includes acute coronary syndrome, myocardial infarction, CVA, TIA, anemia, infection, pneumonia, UTI, pyelonephritis, poor nutrition, dehydration, electrolyte disturbance,hypoglycemia. Medical Records Attestation: I reviewed the patient's medical records. Home Medications Current Medication List: was personally reviewed by me Laboratory Data Attestation: I reviewed the patient's lab results. Result diagrams: 06/30/19 20:26 06/30/19 20:26 Lab Results 06/29/19 06/29/19 06/29/19 Range/Units 15:05 15:24 15:24 WBC (4.8-10.8) K/uL RBC (4.7-6.1) M/uL Hgb (14.0-18.0) g/dL Hct (42-52) % MCV (80-100) fL MCH (25-34) pg MCHC (32-36) g/dL RDW Std Deviation (36.4-46.3) fL RDW Coeff of Jennifer (11.5-14.5) % Plt Count (130-400) K/uL MPV (7.4-10.4) fL Immature Gran % (Auto) % Neut % (Auto) % Lymph % (Auto) % Mcmullen % (Auto) % Eos % (Auto) % Baso % (Auto) % Immature Gran # (Auto) (0.00-0.02) K/uL Neut # (Auto) (1.4-6.5) K/uL Lymph # (Auto) (1.2-3.4) K/uL Mcmullen # (Auto) (0.11-0.59) K/uL Eos # (Auto) (0-0.5) K/uL Baso # (Auto) (0-0.2) K/uL Echinocytes PT 11.5 (9.0-12.0) Seconds INR 1.1 (0.9-1.1) APTT 25.0 (21.0-31.0) Seconds PTT Ratio 0.9 Sodium 137 (136-145) mmol/L Potassium 3.6 (3.5-5.1) mmol/L Chloride 106 (98-107) mmol/L Carbon Dioxide 19 L (21-32) mmol/L Anion Gap 12.0 H (3-11) BUN 57 H (7-18) mg/dl Creatinine 1.86 H (0.6-1.4) mg/dl Est Cr Clr Drug Dosing 34.5 ml/min Est GFR ( Amer) 40.7 Est GFR (Non-Af Amer) 35.1 BUN/Creatinine Ratio 30.8 H (10-20) Glucose 124 H (70-99) mg/dl POC Glucose 107 H (70-99) Calcium 9.9 (8.5-10.1) mg/dl Magnesium 2.0 (1.8-2.4) mg/dl Total Bilirubin 0.3 (0.2-1) mg/dl AST 20 (15-37) U/L ALT 16 (12-78) U/L Alkaline Phosphatase 186 H (45-117) U/L Troponin I 0.292 H* (0-0.045) ng/ml Total Protein 7.0 (6.4-8.2) gm/dl Albumin 2.4 L (3.4-5.0) gm/dl Globulin 4.6 H (2.5-4.0) gm/dl Albumin/Globulin Ratio 0.5 L (0.9-2) 06/29/19 Range/Units 15:39 WBC 12.11 H (4.8-10.8) K/uL RBC 3.75 L (4.7-6.1) M/uL Hgb 9.3 L (14.0-18.0) g/dL Hct 28.8 L (42-52) % MCV 76.8 L (80-100) fL MCH 24.8 L (25-34) pg MCHC 32.3 (32-36) g/dL RDW Std Deviation 47.1 H (36.4-46.3) fL RDW Coeff of Jennifer 16.7 H (11.5-14.5) % Plt Count 251 (130-400) K/uL MPV 8.7 (7.4-10.4) fL Immature Gran % (Auto) 0.4 % Neut % (Auto) 88.1 % Lymph % (Auto) 3.9 % Mcmullen % (Auto) 7.5 % Eos % (Auto) 0.0 % Baso % (Auto) 0.1 % Immature Gran # (Auto) 0.05 H (0.00-0.02) K/uL Neut # (Auto) 10.67 H (1.4-6.5) K/uL Lymph # (Auto) 0.47 L (1.2-3.4) K/uL Mcmullen # (Auto) 0.91 H (0.11-0.59) K/uL Eos # (Auto) 0.00 (0-0.5) K/uL Baso # (Auto) 0.01 (0-0.2) K/uL Echinocytes 2+ PT (9.0-12.0) Seconds INR (0.9-1.1) APTT (21.0-31.0) Seconds PTT Ratio Sodium (136-145) mmol/L Potassium (3.5-5.1) mmol/L Chloride (98-107) mmol/L Carbon Dioxide (21-32) mmol/L Anion Gap (3-11) BUN (7-18) mg/dl Creatinine (0.6-1.4) mg/dl Est Cr Clr Drug Dosing ml/min Est GFR ( Amer) Est GFR (Non-Af Amer) BUN/Creatinine Ratio (10-20) Glucose (70-99) mg/dl POC Glucose (70-99) Calcium (8.5-10.1) mg/dl Magnesium (1.8-2.4) mg/dl Total Bilirubin (0.2-1) mg/dl AST (15-37) U/L ALT (12-78) U/L Alkaline Phosphatase (45-117) U/L Troponin I (0-0.045) ng/ml Total Protein (6.4-8.2) gm/dl Albumin (3.4-5.0) gm/dl Globulin (2.5-4.0) gm/dl Albumin/Globulin Ratio (0.9-2) Imaging Data Radiologist's Impression: Radiology results as stated below per my review and the radiologist's interpretation: CT head/brain wo con CLINICAL HISTORY: Left upper extremity weakness. Possible stroke COMPARISON STUDY: 12/24/2018 TECHNIQUE: Axial CT of the brain is performed from the vertex to the skull bas e. IV contrast was not administered for this examination. A dose lowering technique was utilized adhering to the principles of ALARA. CT DOSE: 537.48 mGy.cm FINDINGS: No intrahepatic or extra-axial mass lesions are visualized. There is no evidence of midline shift. There is no evidence of acute hemorrhage. No calvarial fractures are visualized. There is interval development of a right occipital infarct which does not appear acute. There is no CT evidence of acute cortical infarction. There are patchy white matter hypodensities likely on a small vessel basis. There is no evidence of pathologic ventricular dilatation. There is no evidence of acute sinusitis IMPRESSION: 1. Interval development of a right occipital infarct. This does not appear acute 2. No evidence of acute hemorrhage. No CT evidence of acute cortical infarction Electronically signed by: George Cazares M.D. 06/29/2019 4:18 PM MRI OF THE BRAIN WITHOUT AND WITH IV CONTRAST CLINICAL HISTORY: Left-sided weakness COMPARISON STUDY: Noncontrast CT scan dated 06/29/2019 TECHNIQUE: MRI of the brain was performed from the vertex to the skull base utilizing various T1 and T2 weighted sequences. Following the IV administration of 6.5 mL of Gadavist contrast, additional enhanced images were obtained. FINDINGS: Sagittal T1, axial diffusion, proton density and T2 weighted axial, coronal FLAIR, and pre and post axial T1-weighted images were acquired. These were supplemented with post gadolinium coronal T1 weighted images. No intra or extra-axial mass lesions are visualized. There is a small cortical focus of restricted water diffusion within the right anterior parietal lobe, as well as punctate foci of restricted water diffusion within the right posterior frontal lobe. The findings are indicative of acute/dunaway bacute infarct. There is no evidence of ventricular dilatation. Proton density T2-weighted and FLAIR images reveal scattered foci of increased T2 signal within the white matter, likely on a small vessel basis. There is an old right occipital lobe infarct. There are no abnormal flow voids. There is no evidence of pathologic enhancement. IMPRESSION: 1. Small acute/subacute right frontoparietal lobe infarct 2. Old right occipital lobe infarct 3. No evidence of intracranial mass Electronically signed by: George Cazares M.D. 06/29/2019 6:05 PM Dictated: 06/29/191801 Transcribed: 06/29/191801 ECG Data Attestation: I personally reviewed and interpreted this ECG as follows: Indication: + other (stroke like symptoms) Rate (beats per minute): 97 Rhythm: + normal sinus ECG [place]: + Normal ECG ST segments: + T-wave inversions (Inferior); no ST depression and no ST elevation ECG Findings: + Other (normal interval ) Comparison ECG Date: from (05/01/19) Change: the following changes noted (TWI may be new) Blood Pressure Blood Pressure Findings: Normal blood pressure MDM Narrative The patient is a 73 y/o male who is right hand dominant with a past medical history of stroke, stage 4 bladder cancer, and blood thinners for the blood clots, who presents to the emergency department for evaluation of now resolved left hand weakness that that began 8 hours ago and last for 3. Patient was seen and evaluated the bedside. The patient was complaining some left upper extremity decreased evp strength. Patient states he woke up and then soon thereafter and 7 AM he noticed that he was not able to grab things with his left hand. Patient does have a prior history of stroke. The patient states he did not have any residual deficits this occurred proximal me 2 years prior. The patient is currently off of blood thinners or antiplatelets as the patient is pending a port placement for chemotherapy secondary to bladder cancer. Patient does have a urostomy in place. On exam the patient does have very faint left upper extremity drift. The patient otherwise has a nonfocal neurologic exam and currently has great evp strength. Patient did have blood work completed along with a CT of the head. The patient does appear to have mild NEVA and is likely dehydrated. Patient states he has had decreased p.o. intake over the last 3 days. Patient does have mild white counts but the patient declines having infectious symptoms. Patient is chronic and stable anemia. The patient has normal coags. The patient does have mild decreased bicarb and slight increase in anion gap. I believe this may be related to some starvation ketosis given that the patient is not had much to eat in the last several days. Furthermore, the patient does have an elevated BUN/creatinine ratio which I believe is related to previous and renal azotemia and dehydration. Patient does have a slightly positive troponin 0.2. The patient does not complain chest pain shortness of breath. Patient CT was concerning for a subacute right occipital stroke. The patient is right-hand dominant and the patient does have left upper extremity weakness. This is currently resolved. Patient not a TPA candidate. I did discuss the patient with the on-call hospitalist agreed to further evaluate treat the patient. Patient was admitted to the medicine service. Impression & Plan Acute ischemic stroke, Elevated troponin, NEVA (acute kidney injury), Dehydration Discharge Plan Visit Data *Final* Discharge Date/Time: 06/29/19 19:42 Chief Complaint: Stroke/CVA Symptoms Stated Complaint: STROKE SYMPTOMS ED Provider: Tyler Elam Discharge Problem: Acute ischemic stroke, Elevated troponin, NEVA (acute kidney injury), Dehydration Patient Disposition: Admitted As Inpatient Discharge Instructions Interventions: ED Discharge Assessment Last Done: 06/29/19 19:42 The scribe's documentation has been prepared under my direction and personally reviewed by me in its entirety. I confirm that the note above accurately r eflects all work, treatment, procedures, and medical decision making performed by me.
--- NOTE | 2019-06-29 18:06 | Magnetic Resonance Report ---
MRI OF THE BRAIN WITHOUT AND WITH IV CONTRAST CLINICAL HISTORY: Left-sided weakness COMPARISON STUDY: Noncontrast CT scan dated 06/29/2019 TECHNIQUE: MRI of the brain was performed from the vertex to the skull base utilizing various T1 and T2 weighted sequences. Following the IV administration of 6.5 mL of Gadavist contrast, additional enh anced images were obtained. FINDINGS: Sagittal T1, axial diffusion, proton density and T2 weighted axial, coronal FLAIR, and pre and post a xial T1-weighted images were acquired. These were supplemented with post gadolinium coronal T1 weight ed images. No intra or extra-axial mass lesions are visualized. There is a small cortical focus of restricted water diffusion within the right anterior parietal lobe , as well as punctate foci of restricted water diffusion within the right posterior frontal lobe. The findings are indicative of acute/subacute infarct. There is no evidence of ventricular dilatation. Proton density T2-weighted and FLAIR images reveal scattered foci of increased T2 signal within the w francois matter, likely on a small vessel basis. There is an old right occipital lobe infarct. There are no abnormal flow voids. There is no evidence of pathologic enhancement. IMPRESSION: 1. Small acute/subacute right frontoparietal lobe infarct 2. Old right occipital lobe infarct 3. No evidence of intracranial mass Electronically signed by: George Cazares M.D. 06/29/2019 6:05 PM
[2019-06-29] MEDS ORDERED: IPRATROPIUM BROMIDE/ALBUTEROL respimat INH INH PRN (20:15)
[2019-06-29] MEDS ORDERED: POLYETHYLENE (MIRALAX) 17 GM PACK PO PRN (20:15)
[2019-06-29] MEDS ORDERED: NITROGLYCERIN SL 0.4 MG/TAB TAB SL PRN (20:15)
[2019-06-29] MEDS ORDERED: PHARMACIST DISCHARGE MED REC CONSULT PRN (20:19)
--- NOTE | 2019-06-29 20:48 | Billing Data ---
Coding Level of Care Code 60464 Initial Inpt Care Lvl 3
[2019-06-29] MEDS: SODIUM CHLORIDE 0.9% 1000ML 1,000 ML IV SCH (21:19)
[2019-06-29] MEDS: BUDESONIDE/FORMOTEROL FUMARATE 160/4.5 60 PUFFS/INHALER INH SCH (21:20)
--- NOTE | 2019-06-29 22:11 | Ultrasound Report ---
EXAMINATION: RENAL ULTRASOUND CLINICAL HISTORY: hx bladder cancer s/p cystectomy with new NEVA COMPARISON STUDY: CT scan dated 05/30/2019 FINDINGS: The right kidney measures 10.7 cm. The left kidney measures 11.1 cm. There is no evidence of hydronephrosis. There is a 22 mm lower pole right renal cyst. There is a 20 mm upper pole left re nal cyst. The bladder is surgically absent. There is trace fluid within Morison's pouch. There are multiple hepatic masses. IMPRESSION : 1. Bilateral renal cysts 2. No evidence of hydronephrosis 3. Multiple hepatic masses. 4. Trace ascites Electronically signed by: George Cazares M.D. 06/29/2019 10:10 PM
[2019-06-29] MEDS: ALBUT/IPRATROP 3MG/0.5MG NEB 3 ML VIAL INH SCH (22:46)
[2019-06-30 02:50] LABS: Hematocrit (blood only) 25.4 % (42-52); Hemoglobin 8.3 g/dL (14.0-18.0); Immature Granulocytes # (auto) 0.04 K/uL (0.00-0.02); Immature Granulocytes % (auto) 0.4 %; Lymphocytes # (auto) 0.38 K/uL (1.2-3.4); Lymphocytes % (auto) 4.2 %; Mean Corpuscular Hemoglobin 24.9 pg (25-34); Mean Corpuscular Hgb Conc 32.7 g/dL (32-36); Mean Platelet Volume 8.7 fL (7.4-10.4); Monocytes # (auto) 0.79 K/uL (0.11-0.59); Monocytes % (auto) 8.7 %; Neutrophils # (auto) 7.85 K/uL (1.4-6.5); Neutrophils % (auto) 86.7 %; Platelet Count 220 K/uL (130-400); RDW Coefficient of Variation 16.7 % (11.5-14.5); RDW Standard Deviation 45.9 fL (36.4-46.3); Red Blood Count 3.34 M/uL (4.7-6.1); White Blood Count 9.06 K/uL (4.8-10.8)
[2019-06-30 03:07] LABS: BUN Creatinine Ratio 33.7 (10-20); Calcium 9.2 mg/dl (8.5-10.1); Creatinine Clr Calc Pharmacy 46.4 ml/min; Est GFR (African American) 57.9; Est GFR (Non-African American) 49.9
[2019-06-30 03:18] LABS: Troponin I 0.454 ng/ml (0-0.045)
[2019-06-30] MEDS ORDERED: ACETAMINOPHEN 325 MG TAB PO PRN (03:44)
[2019-06-30] MEDS ORDERED: INFLUENZA ADMINISTRATION CHARGE ONE (05:15)
[2019-06-30] MEDS ORDERED: INFLUENZA VACCINE HIGH DOSE 65+ 0.5 ML SYR IM ONE (05:15)
[2019-06-30 06:15] LABS: Estimated Average Glucose 143 mg/dl; Hemoglobin A1C 6.6 % (4.5-5.6)
[2019-06-30] MEDS ORDERED: GADOBUTROL 65ML VIAL IV PRN (06:29)
--- NOTE | 2019-06-30 06:31 | Magnetic Resonance Report ---
MR angio head wo con HISTORY: 73 years-old Male stroke acute strokelike symptoms COMPARISON: Brain MRI 06/29/2018 TECHNIQUE: MRA of the head was obtained without the use of IV contrast utilizing 3-D [id number] equencing. All measurements were obtained according to NASCET criteria. 3-D coronal and sagittal MIPS were submitted. FINDINGS: The bilateral internal carotid arteries are patent. The middle and anterior cerebral arteries are als o patent. Developmentally diminutive right A1 segment. The imaged bilateral vertebral arteries appear patent. Basilar and posterior cerebral arteries are also patent and within normal limits. No aneurys m, dissection, high-grade stenosis or proximal branch occlusion. Nonspecific mildly increased flow re lated cortically based signal is noted about the bilateral occipital lobes. IMPRESSION: Unremarkable MRA of the head. The above report was generated using voice recognition software. It may contain grammatical, syntax o r spelling errors. Electronically signed by: Joel Hadley M.D. 06/30/2019 6:30 AM
--- NOTE | 2019-06-30 06:39 | Magnetic Resonance Report ---
MR angio neck wo/w con HISTORY: 73 years-old Male stroke acute strokelike symptoms COMPARISON: MRI brain of same day, chest CT 05/30/2019. TECHNIQUE: MRA of the neck was obtained both with and without the use of 6.5 mL Gadavist. 3-D coronal and sagittal MIPS were obtained from the axial data set and were submitted for review. All measureme nts were obtained according to NASCET criteria. FINDINGS: Pathologic adenopathy of the upper mediastinum measuring up to approximately 3.8 cm redemonstrated bi lateral common carotid arteries appear patent. Bilateral internal carotid arteries are also unremarka ble. Codominant vertebral arteries appear patent. There is no aneurysm, dissection, high-grade stenos is or proximal branch occlusion identified. Venous structures appear unremarkable. IMPRESSION: 1. Unremarkable MRA without aneurysm, dissection, high-grade stenosis or proximal branch occlusion. 2. Metastatic adenopathy of the upper mediastinum redemonstrated. The above report was generated using voice recognition software. It may contain grammatical, syntax o r spelling errors. Electronically signed by: Joel Hadley M.D. 06/30/2019 6:38 AM
[2019-06-30] MEDS: ALBUT/IPRATROP 3MG/0.5MG NEB 3 ML VIAL INH SCH (07:12)
[2019-06-30] MEDS: BUDESONIDE/FORMOTEROL FUMARATE 160/4.5 60 PUFFS/INHALER INH SCH (07:54)
[2019-06-30] MEDS ORDERED: ATORVASTATIN 40 MG TAB PO SCH (09:00)
[2019-06-30] MEDS ORDERED: PANTOprazole 40 MG TAB PO SCH (09:00)
[2019-06-30] MEDS ORDERED: METOPROLOL SUCC 25MG EXT REL TAB PO SCH (09:00)
--- NOTE | 2019-06-30 11:02 | Hospitalist Progress Note ---
Date of Service June 30, 2019 Assessment & Plan (1) Acute ischemic stroke: Mr. Barajas is a 73 yo gentleman with metastatic transitional cell bladder cancer and prior CVAs who came to the ED for evaluation of L arm clumsiness that started 7 hours prior to presentation. ED Course: On arrival NIH stroke scale score of 0. Patient underwent non- contrast CT scan which showed no evidence of hemorrhage but interval progression of a right occipital infarct, likely chronic. Patient was given 325mg ASA. Brain MRI showed evidence of a small acute/subacute right frontoparietal lobe infarct. Troponin detectable at 0.292. EKG showed no evidence of acute ischemia. Creatinine was elevated to 1.86 with a baseline < 1.1. Given 1L bolus of normal saline. Acute Ischemic stroke - non-contrast head CT showed evidence of R occipital ischemia, although this appears to be chronic. - brain MRI ordered: Small acute/subacute right frontoparietal lobe infarct and old occipital infarct - patient was outside TPA window; ASA 325mg administered on arrival - symptoms have resolved - source unknown: patient with active cancer (hypercoagulable state) and vasculopathic risk factors (HTN, HLD); patient held plavix for preceding 4 days - neurology consulted; appreciate recs on whether to restart plavix and/or ASA in light of possible new ischemic stroke or TIA, with the consideration of upcoming surgery for chemo port placement on 07/05 - speech eval ordered - MRA of head and neck ordered: unremarkable Elevated Troponin - 0.292 on arrival; peaked at .567, but currently downtrending to .390 - EKG showing no ST segment changes - patient asymptomatic; unlikely to represent true acute ischemia; will not continue to follow at this time NEVA - creatinine 1.86 on arrival; baseline < 1.1 - down trending to 1.36 (06/30) - etiology suspected to be pre-renal given reduced PO intake reported by patient - renal US ordered to rule out post-renal etiology as patient does have surgically altered anatomy - 1L bolus of NSS given in ED; maintenance fluids at 70mls/hr ordered - repeat BMP in morning Hx Transitional Cell Bladder Cancer with metastasis to liver, lung - s/p radical cystoprostatectomy with lymphadenectomy with cystostomy bag placement - s/p chemotherapy and radiation therapy - follows with Dr. Giordano - scheduled to get chemotherapy port placed on 11/13/19 - consulted Rad/Onc for continued radiation treatments Hx of SD - left distal circumflex s/p PCI with drug eluting stent placement in 2017 - continue home dose metoprolol, atorvastatin - will hold lisinopril in setting of NEVA - plavix hold in setting of upcoming procedure - ASA 325mg administered in ED; patient reports non-compliance with daily home dose Hyperlipidemia -continue home atorvastatin Microcytic Anemia - hbg 8.6 on arrival; baseline around 11 - possible etiologies iron deficiency vs. anemia of chronic disease - continue to monitor with CBC in AM - patient currently asymptomatic - transfuse < 7 or if patient becomes symptomatic given history of ischemia GERD -continue home pantoprazole Dispo: Admit to Tele; PT/OT ordered DVT ppx: Bilateral SCDs; will hold off on chemoprophylaxis given brain ischemia and risk of hemorrhagic transition Diet: Heart Healthy; maintenance fluids at 80mls/hr Code: Full (2) Elevated troponin: (3) NEVA (acute kidney injury): (4) Benign essential hypertension: (5) Anemia: (6) S/P coronary artery stent placement: (7) CAD (coronary artery disease): (8) Carcinoma of bladder: (9) Transitional cell bladder cancer: Mr. Barajas is a 73-year-old gentleman with a history of metastatic bladder cancer. The patient is currently receiving palliative external beam radiation therapy to the thoracic spine. He has received 8/10 fractions at 300 cGy per fraction. Patient's most recent treatment was on 06/28/2019. The patient was admitted to the hospital for unrelated medical issues including stroke and is doing much better. I spoken with the primary hospital team and we have recommended that the patient continue palliative external beam radiation therapy while in the inpatient setting. The patient will be brought down today for continuation of external beam radiation therapy. The patient may complete his course of radiation therapy in the outpatient setting if necessary. Please call us with any further questions or concerns. Supervising Physician Co-Signing Physician Notes Patient seen and examined with PGY-1 Dr. Emery. Agree with history, exam findings, assessment and plan of care as documented. In brief, Mr. Barajas is a 73 year old male with hx of metastatic bladder cance r, HTN, dyslipidemia, CAD admitted with left hand stiffness/clumsiness found to have acute ischemic changes on MRI. MRA and Echo are unremarkable. Presenting symptoms are resolved. He feels that he is back to his baseline. 1. acute/subacute ischemic event. symptoms resolved. Off his plavix for scheduled port placement for chemo soon. ?Whether to restart his plavix in light of this new event. Appreciate neurology opinion on this. 2. CAD. CASSANDRA placed in 2017. Continue high intensity statin, ASA, metoprolol, lisinopril. 3. NEVA. Cr 1.86 on admission, trending down. Monitor. 4. elevated troponin. 0.292-->peaked at 0.567 and now downtrending. Dispo: awaiting neurology opinion. Subjective Pt felt like he was having some "stiffness" in his hand that led him to coming to the hospital and not truly a weakness like he had previously when he had a stroke before. No longer has any difficulty with moving his hand. Review of Systems Constitutional: no fever and no chills Eyes: no diplopia, no tunnel vision and no worsening vision Respiratory: no cough and no dyspnea Cardiovascular: no chest pain, no palpitations and no edema Gastrointestinal: no fecal incontinence Genitourinary: no urinary incontinence Neurologic: no localized weakness, no paralysis, no loss of sensation, no dizziness, no headache(s) and no abnormal speech Physical Exam Constitutional: WD/WN, vitals as above Eyes: PERRL, conjunctivae normal, anicteric sclerae Respiratory: normal respiratory effort, lungs clear to auscultation Cardiovascular: RRR, no murmur, no edema Gastrointestinal (Abdomen): normal bowel sounds, soft, nontender, no hepatosplenomegaly Musculoskeletal: Extremities: strength 5/5 throughout Neurologic: CN's II-XI intact bilaterally and deep tendon reflexes 2+ bilaterally; no focal motor deficits Results & Data Vital Signs (Past 12 Hours) Vital Signs Temp Pulse Resp BP Pulse Ox 06/30/19 07:30 37.0 C 93 H 18 116/73 96 06/30/19 06:49 90 14 95 06/30/19 03:38 36.7 C 103 H 18 125/79 94 06/29/19 23:32 37.0 C 112 H 18 119/73 94 Laboratory Results 06/30/19 06/30/19 06/30/19 Range/Units 08:53 02:35 02:35 WBC 9.06 (4.8-10.8) K/uL RBC 3.34 L (4.7-6.1) M/uL Hgb 8.3 L (14.0-18.0) g/dL Hct 25.4 L (42-52) % MCV 76.0 L (80-100) fL MCH 24.9 L (25-34) pg MCHC 32.7 (32-36) g/dL RDW Std Deviation 45.9 (36.4-46.3) fL RDW Coeff of Jennifer 16.7 H (11.5-14.5) % Plt Count 220 (130-400) K/uL MPV 8.7 (7.4-10.4) fL Immature Gran % (Auto) 0.4 % Neut % (Auto) 86.7 % Lymph % (Auto) 4.2 % Island % (Auto) 8.7 % Eos % (Auto) 0.0 % Baso % (Auto) 0.0 % Immature Gran # (Auto) 0.04 H (0.00-0.02) K/uL Neut # (Auto) 7.85 H (1.4-6.5) K/uL Lymph # (Auto) 0.38 L (1.2-3.4) K/uL Island # (Auto) 0.79 H (0.11-0.59) K/uL Eos # (Auto) 0.00 (0-0.5) K/uL Baso # (Auto) 0.00 (0-0.2) K/uL Echinocytes PT (9.0-12.0) Seconds INR (0.9-1.1) APTT (21.0-31.0) Seconds PTT Ratio Sodium (136-145) mmol/L Potassium (3.5-5.1) mmol/L Chloride (98-107) mmol/L Carbon Dioxide (21-32) mmol/L Anion Gap (3-11) BUN (7-18) mg/dl Creatinine (0.6-1.4) mg/dl Est Cr Clr Drug Dosing ml/min Est GFR ( Amer) Est GFR (Non-Af Amer) BUN/Creatinine Ratio (10-20) Glucose (70-99) mg/dl Estimat Average Glucose 143 mg/dl Hemoglobin A1c 6.6 H (4.5-5.6) % Calcium (8.5-10.1) mg/dl Magnesium (1.8-2.4) mg/dl Total Bilirubin (0.2-1) mg/dl AST (15-37) U/L ALT (12-78) U/L Alkaline Phosphatase (45-117) U/L Troponin I 0.390 H* (0-0.045) ng/ml Total Protein (6.4-8.2) gm/dl Albumin (3.4-5.0) gm/dl Globulin (2.5-4.0) gm/dl Albumin/Globulin Ratio (0.9-2) Triglycerides (0-150) mg/dl Cholesterol (0-200) mg/dl LDL Cholesterol, Calc mg/dl VLDL Cholesterol, Calc mg/dl HDL Cholesterol mg/dl Cholesterol/HDL Ratio 06/30/19 06/29/19 06/29/19 Range/Units 02:34 20:43 15:39 WBC 12.11 H (4.8-10.8) K/uL RBC 3.75 L (4.7-6.1) M/uL Hgb 9.3 L (14.0-18.0) g/dL Hct 28.8 L (42-52) % MCV 76.8 L (80-100) fL MCH 24.8 L (25-34) pg MCHC 32.3 (32-36) g/dL RDW Std Deviation 47.1 H (36.4-46.3) fL RDW Coeff of Jennifer 16.7 H (11.5-14.5) % Plt Count 251 (130-400) K/uL MPV 8.7 (7.4-10.4) fL Immature Gran % (Auto) 0.4 % Neut % (Auto) 88.1 % Lymph % (Auto) 3.9 % Island % (Auto) 7.5 % Eos % (Auto) 0.0 % Baso % (Auto) 0.1 % Immature Gran # (Auto) 0.05 H (0.00-0.02) K/uL Neut # (Auto) 10.67 H (1.4-6.5) K/uL Lymph # (Auto) 0.47 L (1.2-3.4) K/uL Island # (Auto) 0.91 H (0.11-0.59) K/uL Eos # (Auto) 0.00 (0-0.5) K/uL Baso # (Auto) 0.01 (0-0.2) K/uL Echinocytes 2+ PT (9.0-12.0) Seconds INR (0.9-1.1) APTT (21.0-31.0) Seconds PTT Ratio Sodium 139 (136-145) mmol/L Potassium 4.0 (3.5-5.1) mmol/L Chloride 111 H (98-107) mmol/L Carbon Dioxide 20 L (21-32) mmol/L Anion Gap 8.0 (3-11) BUN 47 H (7-18) mg/dl Creatinine 1.39 D (0.6-1.4) mg/dl Est Cr Clr Drug Dosing 46.4 ml/min Est GFR ( Amer) 57.9 Est GFR (Non-Af Amer) 49.9 BUN/Creatinine Ratio 33.7 H (10-20) Glucose 125 H (70-99) mg/dl Estimat Average Glucose mg/dl Hemoglobin A1c (4.5-5.6) % Calcium 9.2 (8.5-10.1) mg/dl Magnesium (1.8-2.4) mg/dl Total Bilirubin (0.2-1) mg/dl AST (15-37) U/L ALT (12-78) U/L Alkaline Phosphatase (45-117) U/L Troponin I 0.454 H* 0.567 H* (0-0.045) ng/ml Total Protein (6.4-8.2) gm/dl Albumin (3.4-5.0) gm/dl Globulin (2.5-4.0) gm/dl Albumin/Globulin Ratio (0.9-2) Triglycerides 199 H (0-150) mg/dl Cholesterol 93 (0-200) mg/dl LDL Cholesterol, Calc 30 mg/dl VLDL Cholesterol, Calc 40 mg/dl HDL Cholesterol 23 mg/dl Cholesterol/HDL Ratio 4 06/29/19 06/29/19 Range/Units 15:24 15:24 WBC (4.8-10.8) K/uL RBC (4.7-6.1) M/uL Hgb (14.0-18.0) g/dL Hct (42-52) % MCV (80-100) fL MCH (25-34) pg MCHC (32-36) g/dL RDW Std Deviation (36.4-46.3) fL RDW Coeff of Jeninfer (11.5-14.5) % Plt Count (130-400) K/uL MPV (7.4-10.4) fL Immature Gran % (Auto) % Neut % (Auto) % Lymph % (Auto) % Island % (Auto) % Eos % (Auto) % Baso % (Auto) % Immature Gran # (Auto) (0.00-0.02) K/uL Neut # (Auto) (1.4-6.5) K/uL Lymph # (Auto) (1.2-3.4) K/uL Island # (Auto) (0.11-0.59) K/uL Eos # (Auto) (0-0.5) K/uL Baso # (Auto) (0-0.2) K/uL Echinocytes PT 11.5 (9.0-12.0) Seconds INR 1.1 (0.9-1.1) APTT 25.0 (21.0-31.0) Seconds PTT Ratio 0.9 Sodium 137 (136-145) mmol/L Potassium 3.6 (3.5-5.1) mmol/L Chloride 106 (98-107) mmol/L Carbon Dioxide 19 L (21-32) mmol/L Anion Gap 12.0 H (3-11) BUN 57 H (7-18) mg/dl Creatinine 1.86 H (0.6-1.4) mg/dl Est Cr Clr Drug Dosing 34.5 ml/min Est GFR ( Amer) 40.7 Est GFR (Non-Af Amer) 35.1 BUN/Creatinine Ratio 30.8 H (10-20) Glucose 124 H (70-99) mg/dl Estimat Average Glucose mg/dl Hemoglobin A1c (4.5-5.6) % Calcium 9.9 (8.5-10.1) mg/dl Magnesium 2.0 (1.8-2.4) mg/dl Total Bilirubin 0.3 (0.2-1) mg/dl AST 20 (15-37) U/L ALT 16 (12-78) U/L Alkaline Phosphatase 186 H (45-117) U/L Troponin I 0.292 H* (0-0.045) ng/ml Total Protein 7.0 (6.4-8.2) gm/dl Albumin 2.4 L (3.4-5.0) gm/dl Globulin 4.6 H (2.5-4.0) gm/dl Albumin/Globulin Ratio 0.5 L (0.9-2) Triglycerides (0-150) mg/dl Cholesterol (0-200) mg/dl LDL Cholesterol, Calc mg/dl VLDL Cholesterol, Calc mg/dl HDL Cholesterol mg/dl Cholesterol/HDL Ratio Medications Administered Current Inpatient Medications Acetaminophen (Tylenol) 650 mg PO Q4H PRN PRN Reason: Pain Stop: 07/30/19 03:43 Last Admin: 06/30/19 04:25 Dose: 650 mg Documented by: Albuterol (Combivent Respimat) 1 puffs INH Q4H PRN PRN Reason: Cough,Dyspnea or Wheezing Stop: 07/29/19 20:14 Albuterol (Duoneb) 3 ml INH Q8R PRN PRN Reason: Shortness Of Breath Or Wheezing Stop: 07/29/19 14:59 Atorvastatin Calcium (Lipitor) [facility] [place] Stop: 07/30/19 08:59 Last Admin: 06/30/19 07:54 Dose: 80 mg Documented by: Budesonide/Formoterol Fumarate (Symbicort 160mcg/4.5mcg) 2 puffs INH BID [facility] Stop: 07/29/19 20:59 Last Admin: 06/30/19 07:54 Dose: 2 puffs Documented by: Gadobutrol (Gadavist 65ml) 6.5 ml IV ONCE PRN PRN Reason: Interaction Checking Stop: 07/04/19 06:28 Last Admin: 06/30/19 06:30 Dose: 6.5 ml Documented by: Sodium Chloride (Nss 1000ml) 1,000 mls @ 70 mls/hr IV .[id number] [facility] Stop: 07/01/19 01:34 Last Admin: 06/30/19 13:03 Dose: 70 mls/hr Documented by: Metoprolol Succinate (Toprol Xl) 25 mg PO QAM [facility] Stop: 07/30/19 08:59 Last Admin: 06/30/19 07:54 Dose: 25 mg Documented by: Miscellaneous Information (Pharmacist Discharge Med Rec Consult) 1 ea N/A UD PRN PRN Reason: Consult Stop: 07/29/19 20:18 Nitroglycerin (Nitrostat) 0.4 mg SL UD PRN PRN Reason: Angina Stop: 07/29/19 20:14 Pantoprazole Sodium (Protonix) 40 mg PO QAM [facility] Stop: 07/30/19 08:59 Last Admin: 06/30/19 07:54 Dose: 40 mg Documented by: Polyethylene Glycol (Miralax Powder Packet) 17 gm PO DAILY PRN PRN Reason: Constipation Stop: 07/29/19 20:14 Resident Activity Tracking Resident Involvement: Resident Care Provided Care Provided: Adult Hospital Medicine (1) Anemia Anemia type: unspecified type Qualified Code(s): D64.9 - Anemia, unspecified
[2019-06-30] MEDS: SODIUM CHLORIDE 0.9% 1000ML 1,000 ML IV SCH (13:03)
--- NOTE | 2019-06-30 13:44 | Radiation OncologyConsultation ---
Date of Consultation June 30, 2019 Assessment & Plan (1) Transitional cell bladder cancer: Mr. Barajas is a 73-year-old gentleman with a history of metastatic bladder cancer. The patient is currently receiving palliative external beam radiation therapy to the thoracic spine. He has received 8/10 fractions at 300 cGy per fraction. Patient's most recent treatment was on 06/28/2019. The patient was admitted to the hospital for unrelated medical issues including stroke and is doing much better. I spoken with the primary hospital team and we have recommended that the patient continue palliative external beam radiation therapy while in the inpatient setting. The patient will be brought down today for continuation of external beam radiation therapy. The patient may complete his course of radiation therapy in the outpatient setting if necessary. Please call us with any further questions or concerns. History of Present Illness Attending Physician: Jeremy Barrow DO Allergies Allergy/AdvReac Type Severity Reaction Status Date / Time No Known Allergies Allergy Verified 06/29/19 15:44 Home Medications Home Medications Medication Instructions Recorded Confirmed Type atorvastatin 80 mg PO QAM #0 tab 03/08/17 06/29/19 History nitroglycerin 0.4 mg SUBLINGUAL DIRECTED PRN 03/08/17 06/29/19 History #0 btl clopidogrel 75 mg PO DIRECTED #0 tab 07/28/17 06/29/19 History enoxaparin 80 mg SUBCUT DIRECTED 03/31/19 06/29/19 History pantoprazole 40 mg PO QAM 03/31/19 06/29/19 History lisinopril 10 mg tablet 10 mg PO DAILY tab 06/09/19 06/29/19 History acetaminophen 500 mg tablet 1,000 mg PO Q6H PRN tab 06/26/19 06/29/19 History azithromycin 250 mg tablet See Rx Instructions PO .COMPLEX #6 06/26/19 06/29/19 Rx tab ipratropium-albuterol 0.5 mg-3 3 ml INH Q8H #180 ml 06/26/19 06/29/19 Rx mg(2.5 mg base)/3 mL nebulization soln oxycodone 5 mg tablet 5 mg PO Q4H PRN tab 06/26/19 06/29/19 History ipratropium-albuterol [Combivent 1 puff INHALATION Q4H PRN 06/29/19 06/29/19 History Respimat] megestrol See Rx Instructions .ROUTE .COMPLEX 06/29/19 06/29/19 History metoprolol succinate 25 mg PO QAM 06/29/19 06/29/19 History prednisone See Rx Instructions .ROUTE .COMPLEX 06/29/19 06/29/19 History Patient History Medical History Hypertension (Chronic) Hyperlipidemia (Chronic) Myocardial infarction (Resolved) Pulmonary embolism, bilateral (Acute) Bladder cancer (Acute) High cholesterol (Acute) Myocardial infarction (Acute) Surgical History H/O cystoscopy (Acute) h/o bladder cancer H/O heart artery stent (Acute) H/O total cystectomy (Acute) History of urostomy (Acute) surgery 2 yrs ago Family History Mother , age 90 Old age Father , age 72 COPD (chronic obstructive pulmonary disease) Worked in a [employer] Brother No problems noted. Uncle , had cancer / not sure what kind No problems noted. 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
[2019-06-30] MEDS ORDERED: ALBUT/IPRATROP 3MG/0.5MG NEB 3 ML VIAL INH PRN (15:00)
--- NOTE | 2019-06-30 17:21 | Neurology Consultation ---
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 Symptom localization: right frontoparietal lobe Stroke mechanism: most likely hypercoagulable in setting of active cancer with metastatic disease Stroke WorkUp: - CT head: No hemorrhage, chronic infarct in right occipital lobe - MRI brain: chronic infarcts in the right occipital and right cerebellum per my read, and new linear infarct in the right frontoparietal lobe near the central sulcus - MRA head/neck: no LVO, high grade stenosis or aneurysm noted - TTE: EF 60-65% - Telemetry: pending - A1c: 6.6 - FLP: 30 - Troponin: Initially elevated Stroke Management: - Acute treatment: ASA - Continuous cardiac monitoring, will consider Holter monitor as outpatient if telemetry here unrevealing - Vitals, Neurochecks, NIHSS per unit routine - BP parameters: SBP CAP 180, goal normotension with slow lowering of blood pressure over the next 3 to 4 days - Consult speech, PT, OT for supportive management - Will career guidance counselor concerning stroke education, smoking cessation, healthy diet, physical activity, weight loss - Follow up with PCP for assistance with outpatient goals (BP <135/85, LDL <70, A1c <7) - Follow up in neurology clinic in 6-8 weeks Secondary Stroke Prevention: - Antiplatelet: ASA 81mg daily if needed from a cardiac standpoint - Anticoagulation: Would strongly consider restarting the Lovenox 80 mg given likely hypercoagulable state* - Statin: Atorvastatin 80 mg daily HTN: - BP parameters, as above - Ok to restart home medications with goal of lowering BP to normotension over next 3-4 days FEN/GI: - Diet: Beside dysphagia to clear patient for PO meds/Cardiac HH diet - Monitor lytes and replete PRN Glucose Control: - Sliding scale insulin and accuchecks per primary team to avoid hyperglycemia Thank you for this interesting consult. Please call or text with any questions. 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 Last seen well around 11 PM on June 28, 2019 and woke up with symptoms on June 29. In the ED, CT head showed no hemorrhage and a chronic infarct in the right occipital lobe. Labs notable for an elevated troponin of 0.292, platelets 251, INR 1.1, glucose 124, creatinine 1.86, A1c 6.6, LDL 30. NIH stroke scale was given is 0 at that time. He was given aspirin 325 mg and admitted for further work-up. MRI of the brain showed chronic infarcts in the right occipital and right cerebellum per my read, and new linear infarct in the right frontoparietal lobe near the central sulcus. On examination today, he denies having any residual symptoms. He was a poor historian and not able to give me an exact description of when symptoms started. He does report having at least 2 prior strokes, 1 of which occurred while he was in [place], but he denied having any residual deficits from this to his knowledge. In terms of anticoagulation or antiplatelet therapy, he reports that he has stopped taking the Plavix in preparation for his upcoming port placement. He denied taking Lovenox or aspirin as he had been prescribed. Patient Features: Admission NIHSS: 0 Admission Modified [place] Scale: 1 Time patient last seen well: 11pm on 06/28/19 Wake up stroke: Yes Intubation status: Not intubated Stroke Risk Factors: Hypertension: Y Hyperlipidemia: Y Atrial Fib: N Tobacco: Y Diabetes: N Taking NOAC or warfarin: N, was supposed to be on lovenox but reports not taking Allergies Allergy/AdvReac Type Severity Reaction Status Date / Time No Known Allergies Allergy Verified 06/29/19 15:44 Home Medications Home Medications Medication Instructions Recorded Confirmed Type atorvastatin 80 mg PO QAM #0 tab 03/08/17 06/29/19 History nitroglycerin 0.4 mg SUBLINGUAL DIRECTED PRN 03/08/17 06/29/19 History #0 btl clopidogrel 75 mg PO DIRECTED #0 tab 07/28/17 06/29/19 History enoxaparin 80 mg SUBCUT DIRECTED 03/31/19 06/29/19 History pantoprazole 40 mg PO QAM 03/31/19 06/29/19 History lisinopril 10 mg tablet 10 mg PO DAILY tab 06/09/19 06/29/19 History acetaminophen 500 mg tablet 1,000 mg PO Q6H PRN tab 06/26/19 06/29/19 History azithromycin 250 mg tablet See Rx Instructions PO .COMPLEX #6 06/26/19 06/29/19 Rx tab ipratropium-albuterol 0.5 mg-3 3 ml INH Q8H #180 ml 06/26/19 06/29/19 Rx mg(2.5 mg base)/3 mL nebulization soln oxycodone 5 mg tablet 5 mg PO Q4H PRN tab 06/26/19 06/29/19 History ipratropium-albuterol [Combivent 1 puff INHALATION Q4H PRN 06/29/19 06/29/19 History Respimat] megestrol See Rx Instructions .ROUTE .COMPLEX 06/29/19 06/29/19 History metoprolol succinate 25 mg PO QAM 06/29/19 06/29/19 History prednisone See Rx Instructions .ROUTE .COMPLEX 06/29/19 06/29/19 History Patient History Medical History Hypertension (Chronic) Hyperlipidemia (Chronic) Myocardial infarction (Resolved) Pulmonary embolism, bilateral (Acute) Bladder cancer (Acute) High cholesterol (Acute) Myocardial infarction (Acute) Surgical History H/O cystoscopy (Acute) h/o bladder cancer H/O heart artery stent (Acute) H/O total cystectomy (Acute) History of urostomy (Acute) surgery 2 yrs ago Family History Mother , age 90 Old age Father , age 72 COPD (chronic obstructive pulmonary disease) 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 Uncle , had cancer / not sure what kind No problems noted. 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 Physical Exam Physical Exam: General Exam: GEN: NAD, lying down in examination bed. HEENT: No conjunctival injection, no rhinorrhea. CV: RRR on monitor, no significant edema. PULM: Nonlabored respirations on room air. Neuro Exam: MS: Awake and Alert. Oriented to person, place, and month/year. Speech fluent and appropriate without dysarthria or paraphasic errors. Language intact including naming, comprehension, repetition. Cognition and memory grossly intact. Attention intact. No neglect. CN: Visual amezquita full. No extinction to double simultaneous stimuli. Unable to visualize fundi. PERRLA OU. EOMI without nystagmus. Facial sensation intact to LT. Facial muscles full and symmetric. Hearing intact to conversation. Uvula midline with symmetric palatal elevation. SCMs and shoulder shrug normal. Tongue midline. MOTOR: Normal bulk and tone. No pronator drift. BUE strength 5/5 at deltoids, biceps, triceps, and hand grasp bilaterally. BLE strength 5/5 at iliopsoas, hams trings, quadriceps, tibialis anterior, and gastrocnemius bilaterally. REFLEXES: 1+ at biceps, triceps, brachioradialis, trace patella, and absent Achilles bilaterally. Toes mute bilaterally. SENSORY: Intact to LT throughout, no extinction to double simultaneous stimuli. Decreased to temperature in left upper extremity. Diminished vibration in bilateral lower extremities up to the knees. COORDINATION: No dysmetria or ataxia on [id number] bilaterally. Normal Martin bilaterally. GAIT: Deferred due to physical status. NIH STROKE SCALE 1A. Level of Consciousness (0-3) = 0 1B. LOC Questions (0-2) = 0 1C. LOC Commands (0-2) = 0 2. Best Horizontal Gaze (0-2) = 0 3. Visual Amezquita (0-3) = 0 4. Facial Palsy (0-3) = 0 5. Motor Arm Right (0-4) = 0 Left (0-4) = 0 6. Motor Leg Right (0-4) = 0 Left (0-4) = 0 7. Limb Ataxia (0-2) = 0 8. Sensory (0-2) = 0 9. Best Language (0-3) = 0 10. Dysarthria (0-2) = 0 11. Extinction and Inattention (0-2) = 0 NIHSS TOTAL = 0 Results & Data Vital Signs (Past 12 Hours) Vital Signs Temp Pulse Pulse Resp BP Pulse Ox 06/30/19 16:13 92 06/30/19 15:17 37.0 C 96 H 18 128/68 100 06/30/19 11:38 90 06/30/19 11:02 36.8 C 96 H 18 118/83 94 06/30/19 07:30 37.0 C 93 H 18 116/73 96 06/30/19 06:49 90 14 95 PG Care Time/CCT Total # of Minutes Spent Total Time Spent with Patient: Total time spent is greater than 50% in coordination of care (as documented) at patient's floor/unit and/or counseling patient:
[2019-06-30] MEDS ORDERED: ONDANSETRON INJ 2 MG/ML 2 ML VIAL IV PRN (18:52)
[2019-06-30] MEDS ORDERED: ENOXAPARIN 80 MG/0.8 ML SYR SQ SCH (19:30)
[2019-06-30] MEDS ORDERED: LORazepam 0.5 MG/1 ML VIAL IV STA (20:00)
[2019-06-30] MEDS ORDERED: ADENOSINE IV SOLN 3 MG/ML 2 ML VIAL IV STA ×2 (20:09)
[2019-06-30] MEDS ORDERED: OXYCODONE HCL IR 5 MG TAB (IMMEDIATE RELEASE) PO PRN (20:15)
[2019-06-30] MEDS ORDERED: fentaNYL citrate 100 MCG/2 ML VIAL IV STA (20:29)
[2019-06-30] MEDS ORDERED: fentaNYL citrate 100 MCG/2 ML VIAL ONE (20:30)
[2019-06-30] MEDS ORDERED: METOPROLOL TARTRATE 1 MG/ML VIAL IV STA (20:41)
[2019-06-30 20:43] LABS: Hematocrit (blood only) 26.9 % (42-52); Hemoglobin 8.5 g/dL (14.0-18.0); Mean Corpuscular Hemoglobin 24.6 pg (25-34); Mean Corpuscular Hgb Conc 31.6 g/dL (32-36); Mean Platelet Volume 9.4 fL (7.4-10.4); Platelet Count 336 K/uL (130-400); RDW Standard Deviation 48.4 fL (36.4-46.3); Red Blood Count 3.45 M/uL (4.7-6.1); White Blood Count 15.26 K/uL (4.8-10.8)
[2019-06-30] MEDS ORDERED: EPINEPHrine 2 MG in DEXTROSE 5% 250 ML IV STA (20:57)
[2019-06-30 21:02] LABS: BUN Creatinine Ratio 25.7 (10-20); Creatinine Clr Calc Pharmacy 46.9 ml/min; Est GFR (African American) 58.4; Est GFR (Non-African American) 50.4; Magnesium 1.9 mg/dl (1.8-2.4); Potassium 4.1 mmol/L (3.5-5.1)
[2019-06-30 21:11] LABS: Albumin Globulin Ratio 0.5 (0.9-2); Bilirubin,Total 0.6 mg/dl (0.2-1); Globulin 4.1 gm/dl (2.5-4.0); Phosphorus 2.6 mg/dl (2.5-4.9); Total Protein 6.1 gm/dl (6.4-8.2); Troponin I 0.372 ng/ml (0-0.045)
[2019-06-30 21:20] LABS: Eosinophils # (auto) 0.02 K/uL (0-0.5); Eosinophils % (auto) 0.1 %; Immature Granulocytes # (auto) 0.08 K/uL (0.00-0.02); Immature Granulocytes % (auto) 0.5 %; Lymphocytes # (auto) 0.57 K/uL (1.2-3.4); Lymphocytes % (auto) 3.7 %; Monocytes # (auto) 2.29 K/uL (0.11-0.59); Neutrophils % (auto) 80.7 %
--- NOTE | 2019-06-30 21:33 | Emergency Department Note ---
ED Visit Note Intubation note/CODE BLUE note A CODE BLUE was called overhead. When I arrived they asked if I could help with the airway. The staff from the ICU as well as the hospitalist and the resident were already at the bedside. Apparently the patient was admitted for a stroke and had SVT and then other dysrhythmias and then lost the pulse. When I arrived they were doing CPR there was no pulse. Using a 7-1/2 endotracheal tube as well as a MAC 4 blade, the tube was placed on the first attempt without difficulties or complications. He immediately bagged easily with condensation in the tube. There were equal breath sounds in both lung kent, there was positive CO2 color change and there is no air heard over the stomach. This all confirms placement. The patient did remain pulseless and was given additional rounds of epinephrine and CPR was continued as per the auto care center manager and hospitalist. .
--- NOTE | 2019-06-30 21:39 | Hospitalist Consultation ---
Date of Consultation June 30, 2019 Assessment & Plan (1) Pulseless electrical activity: (2) Supraventricular tachycardia: (3) due to cardiac arrest: Code noel called on this patient shortly after 2000 on 06/30/19. Patient acutely dyspneic, clammy, weak. Monitor and EKG showing SVT with rates in 150s- 160s. BP declining to 80s/60s. He was treated with 6mg of adenosine without noted response. 12mg adenosine then attempted, also without resolution of arrhythmia. Pt was given 50mcg fentanyl and cardioversion was attempted; HR and BP thereafter improved, and patient was in process of being transferred to ICU, when he became unresponsive, eyes tracking to the right with pulseless electrical activity noted on monitor and examination. ACLS was initiated, and patient was coded for approximately 30 minutes, during which time he would have occasional pulse return but soon re-enter PEA. After approximately 30 minutes, family were contacted and the decision was made to abort resuscitative measures. Patient was pronounced at 2117 by William Saeed, Visual Merchandising Coordinator. History of Present Illness Attending Physician: Jeremy Barrow DO Allergies Allergy/AdvReac Type Severity Reaction Status Date / Time No Known Allergies Allergy Verified 06/29/19 15:44 Home Medications Home Medications Medication Instructions Recorded Confirmed Type atorvastatin 80 mg PO QAM #0 tab 03/08/17 06/29/19 History nitroglycerin 0.4 mg SUBLINGUAL DIRECTED PRN 03/08/17 06/29/19 History #0 btl clopidogrel 75 mg PO DIRECTED #0 tab 07/28/17 06/29/19 History enoxaparin 80 mg SUBCUT DIRECTED 03/31/19 06/29/19 History pantoprazole 40 mg PO QAM 03/31/19 06/29/19 History lisinopril 10 mg tablet 10 mg PO DAILY tab 06/09/19 06/29/19 History acetaminophen 500 mg tablet 1,000 mg PO Q6H PRN tab 06/26/19 06/29/19 History azithromycin 250 mg tablet See Rx Instructions PO .COMPLEX #6 06/26/19 06/29/19 Rx tab ipratropium-albuterol 0.5 mg-3 3 ml INH Q8H #180 ml 06/26/19 06/29/19 Rx mg(2.5 mg base)/3 mL nebulization soln oxycodone 5 mg tablet 5 mg PO Q4H PRN tab 06/26/19 06/29/19 History ipratropium-albuterol [Combivent 1 puff INHALATION Q4H PRN 06/29/19 06/29/19 History Respimat] megestrol See Rx Instructions .ROUTE .COMPLEX 06/29/19 06/29/19 History metoprolol succinate 25 mg PO QAM 06/29/19 06/29/19 History prednisone See Rx Instructions .ROUTE .COMPLEX 06/29/19 06/29/19 History Patient History Medical History Hypertension (Chronic) Hyperlipidemia (Chronic) Myocardial infarction (Resolved) Pulmonary embolism, bilateral (Acute) Bladder cancer (Acute) High cholesterol (Acute) Myocardial infarction (Acute) Surgical History H/O cystoscopy (Acute) h/o bladder cancer H/O heart artery stent (Acute) H/O total cystectomy (Acute) History of urostomy (Acute) surgery 2 yrs ago Family History Mother , age 90 Old age Father , age 72 COPD (chronic obstructive pulmonary disease) Worked in a [employer] Brother No problems noted. Uncle , had cancer / not sure what kind No problems noted. 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 Feels Safe at Home: Yes Safety Concerns: Feels Safe At This Time Smoking Status: Never smoker Tobacco Type: cigarettes ; Cigarettes Per Day: 20 ; Second Hand Exposure: No ; Hx Alcohol Use: No Hx Substance Use: No Childhood Exposure to Second-Hand Smoke: Yes Results & Data Vital Signs (Past 12 Hours) Vital Signs Temp Pulse Pulse Resp BP Pulse Ox 06/30/19 19:24 97.9 F 97 H 19 135/85 96 11/08/19 16:13 92 06/30/19 15:17 98.6 F 96 H 18 128/68 100 06/30/19 11:38 90 06/30/19 11:02 98.2 F 96 H 18 118/83 94 Resident Activity Tracking Resident Involvement: Resident Care Provided and 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
--- NOTE | 2019-06-30 21:45 | Death Summary ---
Date of Service June 30, 2019 Pronouncement Note Date and Time of Date of : 06/30/19 Time of : 21:18 Contributing Factors (1) Acute ischemic stroke: (2) Carcinoma of bladder: (3) Benign essential hypertension: Summary Additional details: PRONOUNCEMENT NOTE - Date: 06/30/2019 Time: 2117 I responded to a code purple which shortly transpired to code blue. In short, the patient appeared to be in SVT with associated hypotension and was being treated with 6 mg adenosine followed by 12 mg adenosine without improvement. Cardioversion was then attempted and patient remained in SVT. Patient became normotensive with heart rate in 140s and 5 mg MTP IV was administered. Patient's heart rate improved and he was still normotensive and was about to be transferred to the ICU when he became unresponsive and went into a PEA rhythm. ACLS was administered (see code sheet). Primary physician talked to the patient's brother who is here in the hospital during this event and decision was made to presume ACLS for 5 more minutes and stop if there was no improvement. Despite resuscitative efforts, the patient continued to reenter PEA and the code was stopped. The patient was pronounced by myself at 2117. Assessment: Upon assessment, the patient was found to be in a terminal state. Pupils were fixed and dilated without response. No palpable pulses appreciated. No spontaneous breaths noted. Heart sounds were absent. No response to painful stimuli. Time of : 2117 as pronounced by myself. Patients primary service was at the bedside at the time. Pronouncement section of the Certificate was filled out and signed by myself. Cause of : Primary - Metastatic Bladder Cancer Contributing Causes of - Cardiogenic shock Please feel free to contact me with any questions regarding the above-mentioned course. Additional Data Attending physician: Jeremy Barrow DO
[2019-07-01] MEDS ORDERED: SODIUM BICARB 8.4% INJ 50 MEQ/50 ML SYR IV ONE (01:04)
[2019-07-01] MEDS ORDERED: ADENOSINE IV SOLN 3 MG/ML 2 ML VIAL IV ONE (01:04)
[2019-07-01] MEDS ORDERED: SODIUM CHLORIDE 0.9% 10ML FLUSH IV ONE ×2 (01:04)
[2019-07-01] MEDS ORDERED: METOPROLOL TARTRATE 1 MG/ML VIAL IV ONE (01:04)
[2019-07-01] MEDS ORDERED: DOPamine 400MG / 250ML D5W IV ONE (01:04)
== END 2019-06-30 21:18 | disposition expired | DRG 65 ==
LOC: ED 14:41 → 2E 19:12 → SUATTDRO 19:12 → 2E 19:42